=== PATIENT | female | born 1965 | race Caucasian/White ===

== ENCOUNTER → 2020-08-22 13:25 | Outpatient (BNVA) | payer MEDICAID, SELFPAY | PROVIDERS: PCP Internal Medicine; Referring Provider Internal Medicine; Visit Provider Nurse Practitioner | DX: K21.9 Gastro-esophageal reflux disease without esophagitis (principal); K59.04 Chronic idiopathic constipation | CPT/HCPCS: 99213 ==

== ENCOUNTER 2020-09-11 08:47 | Outpatient (REF) | payer MEDICAID, SELFPAY | END 2020-09-11 08:48 | disposition home or self-care (01) | LOC: HO.LAB 08:47 | PROVIDERS: Visit Provider Internal Medicine | DX: Z20.828 Contact with and (suspected) exposure to other viral communicable diseases (principal) | CPT/HCPCS: C9803; U0003 ==

== ENCOUNTER 2020-10-08 13:48 | Outpatient (REF) | payer MEDICAID, SELFPAY ==
--- NOTE | 2020-10-08 | MM_ITS ---
EXAMINATION: MM DIAGNOSTIC DIGITAL BREAST TOMOSYNTHESIS, LEFT CLINICAL INFORMATION: Short interval follow-up probable benign punctate calcifications lower left breast initially described on prior exam 03/22/2020. Family history breast cancer mother, sister. The lifetime risk of breast cancer based on the Tyrer-Cuzick Model is 16%. COMPARISON: Mammography: 03/22/2020, 03/20/2019, 03/07/2019, 02/22/2018 TECHNIQUE: Digital breast tomosynthesis is performed in both the craniocaudal and mediolateral oblique views along with computer-aided detection (CAD). Synthesized 2D images are generated from the tomosynthesis. Additional views are obtained: Exaggerated CC, magnification CC x2, magnification ML x2. FINDINGS: There are scattered areas of fibroglandular density (ACR BI-RADS breast composition Category b). Parenchymal pattern is similar to prior studies. There is no developing density or interval mass or architectural abnormality. There are some scattered punctate benign round calcifications. No focal grouping is demonstrated on the magnification views. Results are provided to the patient at time of visit by the technologist. MM/MM tomosynthesis diagnostic LT IMPRESSION: No mammographic evidence of malignancy. Magnification views show no focal suspicious grouping calcifications. ASSESSMENT: BI-RADS 2: Benign RECOMMENDATION: Routine annual mammography screening, due in 6 months. This patient's information was entered into a reminder system with a target due date for their next mammogram.
== END 2020-10-08 13:49 | disposition home or self-care (01) ==
LOC: HO.MAMMO 13:48
PROVIDERS: PCP Internal Medicine; Visit Provider Internal Medicine
DX: R92.1 Mammographic calcification found on diagnostic imaging of breast (principal)
CPT/HCPCS: 77061; 77065

== ENCOUNTER 2020-10-09 13:59 | Emergency (ER) | payer MEDICAID, SELFPAY ==
--- NOTE | 2020-10-09 14:13 | XR_ITS ---
EXAMINATION: XR HIP, LEFT CLINICAL INFORMATION: Fall, trauma, pain COMPARISON: Radiographs pelvis and hips 06/25/2015. CT abdomen and pelvis noncontrast 03/13/2019. TECHNIQUE: AP view of the pelvis and AP and frog-lateral projections left hip are obtained for 3 views. FINDINGS: There is no fracture or dislocation pelvis or hip. The SI joints and pubis show no diastases. Bowel gas is unremarkable. Soft tissue planes around the hips appears symmetric. There is a coil or springlike metallic foreign body overlying L2 vertebral body presumably outside of the patient, possibly related to clothing. Clinically correlate. XR/XR hip LT w PEL1V IMPRESSION: 1. No fracture or dislocation. 2. Metallic spring foreign body overlying L2, presumably artifact outside of the patient. Clinically correlate.
--- NOTE | 2020-10-09 14:13 | XR_ITS ---
EXAMINATION: XR KNEE, LEFT CLINICAL INFORMATION: Fall, trauma, pain COMPARISON: None TECHNIQUE: AP and lateral views of the left knee. FINDINGS: There is no fracture or dislocation or suprapatellar effusion. Hoffa's fat pad appears normal. There is no focal joint narrowing or erosive change. There is borderline spur medial femoral condyle and medial tibial plateau. No erosive changes. XR/XR knee LT 2V IMPRESSION: No fracture, dislocation, or effusion.
[2020-10-09 14:21] VITALS: BP 109/61; BP 122/64; PULSE 80; PULSE 86; RESP 16; TEMP 36.3; O2SAT 98; O2SAT 99; BMI 37.2
[2020-10-09] MEDS: Acetaminophen 325 MG TABLET 975 MG PO (14:31)
--- NOTE | 2020-10-09 15:27 | ED.FALL ---
HPI - Fall General Chief Complaint: Fall Stated Complaint: fall Time Seen by Provider: 10/09/20 14:10 Source: EMS Mode of arrival: EMS Limitations: language barrier ( aerial photograph interpreter present for all interactions) History of Present Illness HPI Narrative: 55-year-old female with no known past medical history presenting via EMS from [email or web address] with complaint of slip and fall. States she was walking into the shopping center and at the entry way there was some water on the floor which she slipped and fell onto her right knee suffering a contusion to the knee and having left knee and hip pain. She denies any prodromal symptoms. No back, chest , neck or headache. MD complaint: fall Onset (ago): minute(s) Fall witnessed: yes, by family and yes, by bystander Place fall occurred: other ( Shopping center) Loss of consciousness: none Prolonged down time: no Symptoms prior to fall: none Context: tripped/slipped Location of injury: other (Knee ) Related Data Previous Rx's Medication Instructions Recorded simethicone 180 mg capsule 180 mg PO TID PRN 30 Days #90 cap 08/22/20 allopurinol 100 mg tablet 100 mg PO DAILY 30 Days #30 tab 09/24/20 dexlansoprazole 60 mg 60 mg PO DAILY 30 Days #30 cap 09/25/20 capsule,biphase delayed release docusate sodium 100 mg capsule 100 mg PO BEDTIME 30 Days #30 cap 09/25/20 plecanatide 3 mg tablet 3 mg PO DAILY 30 Days #30 tab 09/25/20 Allergies Allergy/AdvReac Type Severity Reaction Status Date / Time Penicillins [PENICILLINS] Allergy Mild RASH Unverified 07/25/20 18:39 Sulfa (Sulfonamide Allergy Mild BRUISING,SWOLLEN Unverified 07/25/20 18:39 Antibiotics) LIPS, [SULFA (SULFONAMIDE rash, ANTIBIOTICS)] swollen lips amitriptyline Allergy Unknown headache Verified 10/23/16 00:00 fluoxetine [Prozac] Allergy Unknown sleepiness Verified 10/23/16 00:00 penicillin V Allergy Unknown echymosis, Unverified 05/28/20 00:00 rash as a child Review of Systems Review of Systems: Constitutional: No Weight loss, No Fever, No Chills, No Night Sweats, No Fatigue, No Malaise ENT/Mouth: No Rhinorrhea, No Swallowing Difficulty Eyes: No Eye Pain, No Swelling, No Redness, No Foreign Body, No Discharge, No Vision Changes Cardiovascular: No Chest Pain, No SOB, No Dyspnea on Exertion, No Orthopnea, No Edema, No Palpitations Respiratory: No Cough, No Sputum, No Wheezing, No Smoke Exposure, No Dyspnea Gastrointestinal: No Nausea, No Vomiting, No Diarrhea, No Constipation, No abdominal Pain, No Hematochezia, No Melena Genitourinary: No Dysuria, No Urinary Frequency, No Hematuria, No Urinary Incontinence, No Urgency, No Flank Pain Musculoskeletal: No joint pain, No Myalgias, No Joint Swelling Skin: No Skin Lesions, No rash Neuro: No Weakness, No Numbness, No Paresthesias, No Loss of Consciousness Psych: No Anxiety/Panic, No Depression, No SI/HI/AH/VH, No Social Issues Heme/Lymph: No Bruising, No Bleeding,No Lymphadenopathy Endocrine: No Polyuria, No Polydipsia, No Temperature Intolerance Yes all other systems are reviewed and are negative [facility] Past Medical History Medical History (Updated 10/09/20 @ 15:57 by Art Raymond NP) Asthma HTN (hypertension) Kidney stone Sleep apnea Surgical History (Updated 10/09/20 @ 14:25 by Beth Robert) Hx of endoscopy Previous back surgery Family History Family History (Updated 08/22/20 @ 13:34 by Ramya Woo MA) Father History of cancer Mother Hx of diabetes mellitus Social History Social History (Updated 08/22/20 @ 13:35 by Ramya Woo MA) Alcohol intake: never Smoking Status: Never smoker Advance Directives: No Advance Directives Information Provided: Yes Physical Exam Vital Signs: Vital Signs: Last Vital Signs Temp 97.4 F 10/09/20 14:21 Pulse 80 10/09/20 14:21 Resp 16 10/09/20 14:21 BP 109/61 10/09/20 14:21 Pulse Ox 98 10/09/20 14:21 Body Mass Index 37.2 Reviewed Const: General: cooperative and healthy appearing; No acute distress or intoxicated appearing Nutritional Appearance: average body habitus Orientation/consciousness: patient oriented x3 HENMT: Head: Yes normal to inspection Ears: hearing grossly normal bilaterally Eyes: General: appearance normal, both eyes and all related structures Visual Hendrix: normal visual hendrix by confrontation Neck: Neck: Yes normal visual inspection, No positive Brudzinski's sign, No positive Kernig's sign and No tender Thyroid: Thyroid normal Chest: Chest palpation & inspection: normal inspection of the chest Resp: Effort & Inspection: normal respiratory effort Cardio: Jugular venous distension: no JVD GI: Inspection: Yes normal to inspection Percussion: Yes normal to percussion Auscultation: normal bowel sounds : General: Yes no CVA tenderness Back/Spine/Pelvis: Back: no CVA tenderness Skin: General skin exam: no rashes or lesions noted Neuro: General: patient oriented x3 Extrem: General: Yes normal to inspection Elbow/forearm/wrist images: 1. slight area of less than 2 cm linear abrasion to the knee. Otherwise negative drawer test. No obvious deformity. Able to have full range of motion. Has subjective pain in the left hip otherwise no obvious deformity. Negative leg lift. no acute findings on low back pain exam. No midline to palpation, step-off. Course Course Course Narrative: x-ray of the left knee as well as x-ray of the left hip with pelvis without acute fracture. Patient able to get up by herself ambulated to the bathroom while she was waiting results of the x-ray. AP consists of mechanical fall resulting in contusion to the knee. Findings/ plan reviewed with the patient she is agreeable stable for discharge. Discharge Plan Discharge Clinical Impression: Fall Contusion of knee Qualifiers: Encounter type: initial encounter Laterality: left Qualified Code(s): S80.02XA - Contusion of left knee, initial encounter Patient Disposition: Home, Self-Care Instructions: Contusion in Adults (ED), Fall Prevention (ED) Additional Instructions: ice, elevate, compress Tylenol as needed for pain discomfort X-rays of the knee hip and pelvis does not show any acute fractures you have a soft tissue bruise and will start to feel better in a day or 2 Return if any concerns or worsening symptoms Thank you Prescriptions: No Action simethicone [Gas Relief (simethicone)] 180 mg capsule 180 mg PO TID PRN (Reason: abdominal distention, gas) 30 Days Qty: 90 RF: 3 allopurinol 100 mg tablet 100 mg PO DAILY 30 Days Qty: 30 RF: 3 Dexilant 60 mg capsule,biphase delayed releas 60 mg PO DAILY 30 Days Qty: 30 RF: 3 Trulance 3 mg tablet 3 mg PO DAILY 30 Days Qty: 30 RF: 3 docusate sodium [Colace] 100 mg capsule 100 mg PO BEDTIME 30 Days Qty: 30 RF: 3 Referrals: Alexandra Pillai MD [Primary Care Provider] - 1 week ( as needed)
== END 2020-10-09 16:10 | disposition home or self-care (01) ==
PROVIDERS: Emergency Provider Emergency Medicine; PCP Internal Medicine
DX: S80.02XA Contusion of left knee, initial encounter (principal); M25.562 Pain in left knee; W01.0XXA Fall on same level from slipping, tripping and stumbling without subsequent striking against object, initial encounter; Y93.9 Activity, unspecified; Y92.59 Other trade areas as the place of occurrence of the external cause; Y99.9 Unspecified external cause status; Z79.899 Other long term (current) drug therapy
CPT/HCPCS: 73502; 73560; 99283

== ENCOUNTER → 2020-11-13 09:56 | Outpatient (REF) | payer MEDICAID, SELFPAY | LOC: HO.CARD 09:56 | PROVIDERS: Visit Provider Internal Medicine Cardiovascular Disease | DX: Z13.89 Encounter for screening for other disorder (principal) ==

== ENCOUNTER → 2020-11-27 07:54 | Outpatient (REF) | payer MEDICAID, SELFPAY ==
--- NOTE | 2020-11-27 | NM_ITS ---
Myocardial perfusion study Indication: Shortness of breath evaluate for myocardial ischemia Technique: The patient was brought in for a Lexiscan perfusion study on 11/27/2020. Patient performed low-level exercise and was injected 0.4 mg of Lexiscan intravenously. Within a minute of injection, 30 mCi of sestamibi was given intravenously. Images were obtained using the SPECT gamma camera interlaced with the gating device. Images were obtained in supine position. Resting perfusion study was performed on 11/28/2020. Patient was administered 30 mCi of sestamibi intravenously at rest. Images were then obtained in supine position. Images obtained with and without CT attenuation. Total DLP 80 mGy-cm. Images were processed with the software and compared side to side in short axis, horizontal long axis and vertical long axis views. Findings: The stress perfusion study showed non attenuated images show mildly reduced uptake in the apex, anteroseptal and distal lateral wall of the LV myocardium. Attenuation corrected images show mildly reduced uptake in the apex and distal septum of the LV myocardium.. The gated study shows normal LV systolic function with calculated LVEF of 73%. LV cavity is normal in size. The gated study shows normal systolic wall thickening and contraction of segments. Resting study shows nontender images show no significant changes in perfusion pattern. Gating at rest reveals normal systolic wall motion with ejection fraction at greater than 70 %. The findings are consistent with normal myocardial perfusion. NM/NM tova perf SPECT rest & str Impression: 1. Myocardial perfusion imaging study shows normal myocardial perfusion 2. Gated LVEF is greater than 70% 3. Transient ischemic dilatation not present EKG is nondiagnostic for ischemia
--- NOTE | 2020-11-27 08:30 | CA_ITS ---
Acquisition Time: 2020-11-27 09:36:05 Total Exercise Time: 00:02:00 Test Indications: R07.89 ATYPICAL CHEST PAIN Medications: Protocol: LEXISCAN Max HR: 103 BPM 62% of Pred: 166 BPM Max BP: 122/068 mmHG Max Work Load: 1.0 METS Exercise florentino switched to pharmacological as pt was unable to walk on the Treadmill for only 3 minutes and 20 seconds, her heart rate went up to 70% of TAPHR. Pharmacological stress test using Lexiscan started after pt rested for 10 min. Pt tolerated well, denies any anginal sx. EKG without arrhythmias. non-diagnostic for ischemia. Nuclear images to follow. Normotensive response to test. Test reviewed with Dr Jordan Referred By: Ela Gaona Overread By: Hector Corbett
== END ==
LOC: HO.CARD 07:54
PROVIDERS: Visit Provider Internal Medicine Cardiovascular Disease
DX: R07.89 Other chest pain (principal)
CPT/HCPCS: 78452; 93017; A9500; J0280; J2785

== ENCOUNTER → 2021-03-17 08:39 | Outpatient (BNVA) | payer MEDICAID, SELFPAY | PROVIDERS: Visit Provider Nurse Practitioner ==

== ENCOUNTER 2021-03-29 22:56 | Emergency (ER) | payer MEDICAID, SELFPAY ==
--- NOTE | ~2021-03-29 | XR_ITS ---
EXAMINATION: XR CHEST CLINICAL INFORMATION: Dyspnea COMPARISON: 08/31/2017 TECHNIQUE: Frontal view of the chest was obtained. FINDINGS: Lung volumes are symmetric. No focal consolidation is seen. No evidence of pneumothorax, pleural effusion, or pulmonary edema. The cardiomediastinal contour is unremarkable. No acute osseous findings are seen. XR/XR chest 1V IMPRESSION: No acute cardiopulmonary findings.
--- NOTE | 2021-03-29 23:00 | ED_ITS ---
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 Mode of arrival: EMS Limitations: no limitations History of Present Illness HPI Narrative: RA 98% with EMS prior to 2 nebs and IV steroids MD elicited complaint: shortness of breath, cough and asthma attack Pertinent past history: COPD and asthma Onset (ago): day(s) (all day today) Context: allergen exposure (at a park with her family today exposed to a lot of pollen) Timing: improved Severity: moderate Exacerbating factors: coughing Relieving factors: bronchodilators Known history of: COPD and asthma Associated symptoms: cough and wheezing Treatment prior to arrival: bronchodilator and other (IV solumedrol by EMS) Related Data Previous Rx's Medication Instructions Recorded allopurinol 100 mg tablet 100 mg PO DAILY 30 Days #30 tab 12/26/20 dexlansoprazole 60 mg 60 mg PO DAILY #30 cap 01/06/21 capsule,biphase delayed release simethicone 180 mg capsule 180 mg PO QID #90 cap 01/06/21 docusate sodium 100 mg capsule 100 mg PO BEDTIME #30 cap 01/20/21 plecanatide 3 mg tablet 3 mg PO DAILY #30 tab 01/29/21 famotidine 20 mg tablet 20 mg PO BID 30 Days #60 tab 03/17/21 benzonatate [Tessalon Perles] 100 mg PO BID PRN #14 cap 03/30/21 hydrocodone-homatropine 5 ml PO Q6H PRN #60 ml 03/30/21 prednisone 40 mg PO DAILY 5 Days #10 tab 03/30/21 Allergies Allergy/AdvReac Type Severity Reaction Status Date / Time Penicillins [PENICILLINS] Allergy Mild RASH Verified 03/17/21 08:40 Sulfa (Sulfonamide Allergy Mild BRUISING,SWOLLEN Verified 03/17/21 08:40 Antibiotics) LIPS, [SULFA (SULFONAMIDE rash, ANTIBIOTICS)] swollen lips amitriptyline Allergy Unknown headache Verified 03/17/21 08:40 fluoxetine [Prozac] Allergy Unknown sleepiness Verified 03/17/21 08:40 penicillin V Allergy Unknown echymosis, Verified 03/17/21 08:40 rash as a child Review of Systems Review of Systems: Constitutional : No Fever, No Chills ENT/Mouth : pos Hoarseness, No sore throat, No Rhinorrhea Eyes: No Redness, No Discharge, No Vision Changes Cardiovascular : No Chest Pain, positive SOB, positive Dyspnea on Exertion, No Edema Respiratory : positive Cough, No Sputum, positive Wheezing, Gastrointestinal : No Nausea, No Vomiting, No Diarrhea, No abdominal Pain Genitourinary : No Dysuria, No Hematuria Musculoskeletal : No joint pain, No Myalgias Skin : No rash Neuro : No Weakness, No Numbness, No Headache Psych : No anxiety, depression Heme/Lymph: No Bruising, No Bleeding Endocrine : No Polyuria, No Polydipsia All other systems reviewed and are negative [facility] Past Medical History Attestation statement: The following information was validated with the patient. Medical History Asthma HTN (hypertension) Kidney stone Sleep apnea Surgical History Hx of endoscopy Previous back surgery Family History Family History Father History of cancer Mother Hx of diabetes mellitus Social History Social History Household Members: Spouse Alcohol intake: never Smoking Status: Never smoker Advance Directives: No Advance Directives Information Provided: No Physical Exam Vital Signs: Vital Signs: Last Vital Signs Pulse 75 03/30/21 01:59 Resp 13 03/30/21 01:59 BP 115/64 03/30/21 01:59 Pulse Ox 97 03/29/21 23:36 Body Mass Index 37.2 Appearance: Alert. Oriented X3. No acute distress. Eyes: Pupils equal, round and reactive to light. ENT: Pharynx normal. dry cough, hoarse voice Neck: Normal inspection. Neck supple. CVS: Normal heart rate and rhythm. Pulses normal. Respiratory: No respiratory distress. Breath sounds decreased Abdomen: Soft and nontender. Skin: Skin warm and dry. Normal skin color. Normal skin turgor. Extremities: No lower extremity edema. No calf ttp Neuro: Oriented X 3. No motor deficit. No sensory deficit. Course Course Course Narrative: no wheezing no hypoxia still c/o cough repeat dose of hycodan ordered, CXR negative, no further nebs needed anticipate DC home with prednisone and anti tussive MDM - SOB/Dyspnea MDM Narrative Medical decision making narrative: 55 yo female with hx of GERD< COPD, asthma exposed to pollen all day today noted to be wheezing by EMS given 2 nebs and IV steroids, she states this is typical of an exacerbation for her, labs, CXR, r epeat neb and anti tussive ordered, dispo per results and findings. Lab Data Result diagrams: 03/29/21 23:57 03/29/21 23:57 Labs: Lab Results 03/29/21 03/29/21 03/29/21 Range/Units 23:57 23:57 23:57 WBC 7.8 (4.8-10.8) X10*3/uL RBC 4.19 L (4.20-5.50) X10*6/uL Hgb 12.1 (12.0-16.0) g/dl Hct 36.9 L (37-47) % MCV 88.1 (80-98) fL MCH 28.9 (27.0-33.0) pg MCHC 32.8 (31.0-35.0) g/dl RDW 13.5 (11.0-16.0) % Plt Count 225 (160-400) X10*3/uL MPV 10.6 (9.4-12.3) fL Immature Gran % (Auto) 0.5 H (0.0-0.4) % Neut % (Auto) 54.8 (45-73) % Lymph % (Auto) 34.0 (20-40) % [place] % (Auto) 6.9 (2-11) % Eos % (Auto) 3.2 (0-4) % Baso % (Auto) 0.6 (0-2) % Lymph # (Auto) 2.7 (1.2-4.9) X10*3/uL [place] # (Auto) 0.5 (0.1-1.2) X10*3/uL Eos # (Auto) 0.3 (0.0-0.4) X10*3/uL Baso # (Auto) 0.1 (0.0-0.2) X10*3/uL Abs Immat Gran (auto) 0.04 H (0.00-0.03) X10*3/uL Absolute Neuts (auto) 4.3 (2.0-8.3) X10*3/uL Absolute Nucleated RBC 0.000 (0.0-0.012) X10*3/uL Nucleated RBC % (auto) 0.0 (0.0-0.2) /100WBC Hold Blue Top SEE NOTE Sodium 141 (135-145) mmol/L Potassium 2.6 L (3.3-5.1) mmol/L Chloride 102 (96-108) mmol/L Carbon Dioxide 28 (22-29) mmol/L Anion Gap 14 (12-20) BUN 23 H (9-16) mg/dL Creatinine 0.81 (0.5-1.4) mg/dL Estim Creat Clear Calc 80.7 Estimated GFR > 60 Random Glucose 112 (60-115) mg/dL Calcium 9.2 (8.4-10.2) mg/dL Magnesium 2.1 (1.6-2.6) mg/dL Total Bilirubin 0.5 (0.0-1.0) mg/dL Direct Bilirubin 0.2 (0.0-0.5) mg/dL AST 45 H (5-31) U/L ALT 30 (0-31) U/L Alkaline Phosphatase 79 (39-117) U/L Total Protein 6.7 (6.5-8.0) g/dL Albumin 4.0 (3.5-5.0) g/dL COVID-19 (SAMMY) (Negative) COVID-19 Clin Com 03/29/21 Range/Units 23:57 WBC (4.8-10.8) X10*3/uL RBC (4.20-5.50) X10*6/uL Hgb (12.0-16.0) g/dl Hct (37-47) % MCV (80-98) fL MCH (27.0-33.0) pg MCHC (31.0-35.0) g/dl RDW (11.0-16.0) % Plt Count (160-400) X10*3/uL MPV (9.4-12.3) fL Immature Gran % (Auto) (0.0-0.4) % Neut % (Auto) (45-73) % Lymph % (Auto) (20-40) % [place] % (Auto) (2-11) % Eos % (Auto) (0-4) % Baso % (Auto) (0-2) % Lymph # (Auto) (1.2-4.9) X10*3/uL [place] # (Auto) (0.1-1.2) X10*3/uL Eos # (Auto) (0.0-0.4) X10*3/uL Baso # (Auto) (0.0-0.2) X10*3/uL Abs Immat Gran (auto) (0.00-0.03) X10*3/uL Absolute Neuts (auto) (2.0-8.3) X10*3/uL Absolute Nucleated RBC (0.0-0.012) X10*3/uL Nucleated RBC % (auto) (0.0-0.2) /100WBC Hold Blue Top Sodium (135-145) mmol/L Potassium (3.3-5.1) mmol/L Chloride (96-108) mmol/L Carbon Dioxide (22-29) mmol/L Anion Gap (12-20) BUN (9-16) mg/dL Creatinine (0.5-1.4) mg/dL Estim Creat Clear Calc Estimated GFR Random Glucose (60-115) mg/dL Calcium (8.4-10.2) mg/dL Magnesium (1.6-2.6) mg/dL Total Bilirubin (0.0-1.0) mg/dL Direct Bilirubin (0.0-0.5) mg/dL AST (5-31) U/L ALT (0-31) U/L Alkaline Phosphatase (39-117) U/L Total Protein (6.5-8.0) g/dL Albumin (3.5-5.0) g/dL COVID-19 (SAMMY) Negative (Negative) COVID-19 Clin Com See Note ECG Data Attestation: I personally reviewed and interpreted this ECG as follows: ECG interpretation date: 03/30/21 ECG interpretation time: 02:10 Interpretation: Rate: 71 Rhythm: NSR [place]: normal Normal P waves. Normal [place]. Normal QRS complex. ST T wave : normal no ABDIRIZAK qTC: normal prior studies: no acute ischemia The study has been interpreted contemporaneously by me. . Discharge Plan Discharge Clinical Impression: Acute hypokalemia Asthma with exacerbation Qualifiers: Asthma severity: moderate Asthma persistence: persistent Qualified Code(s): J45.41 - Moderate persistent asthma with (acute) exacerbation Patient Disposition: Home, Self-Care Instructions: Asthma (ED), Hypokalemia (ED) Additional Instructions: return to ED for any worsening symptoms or concerns Prescriptions: New prednisone 20 mg tablet 40 mg PO DAILY 5 Days Qty: 10 RF: 0 hydrocodone-homatropine 5-1.5 mg/5 mL (5 mL) syrup 5 ml PO Q6H PRN (Reason: cough) Qty: 60 RF: 0 benzonatate [Tessalon Perles] 100 mg capsule 100 mg PO BID PRN (Reason: cough) Qty: 14 RF: 0 No Action allopurinol 100 mg tablet 100 mg PO DAILY 30 Days Qty: 30 RF: 6 simethicone 180 mg capsule 180 mg PO QID Qty: 90 RF: 2 dexlansoprazole [Dexilant] 60 mg capsule,biphase delayed releas 60 mg PO DAILY Qty: 30 RF: 2 docusate sodium [DOK] 100 mg capsule 100 mg PO BEDTIME Qty: 30 RF: 3 plecanatide [Trulance] 3 mg tablet 3 mg PO DAILY Qty: 30 RF: 2 famotidine [Pepcid] 20 mg tablet 20 mg PO BID 30 Days Qty: 60 RF: 3 Print Language: Greek
--- NOTE | 2021-03-29 23:20 | ECG_ITS ---
Test Reason : SOB Blood Pressure : / mmHG Vent. Rate : 071 BPM Atrial Rate : 071 BPM P-R Int : 156 ms QRS Dur : 088 ms QT Int : 422 ms P-R-T Axes : 025 033 014 degrees QTc Int : 458 ms Normal sinus rhythm Normal ECG When compared with ECG of 17-NOV-2018 13:21, QT has lengthened Referred By: Crystal Galaviz Electronically Signed By:BETTE ALANIS MD
[2021-03-29 23:36] VITALS: BP 115/64; PULSE 72; RESP 17; O2SAT 97; BMI 37.2
[2021-03-30 00:04] LABS: MANUAL DIFF FLAG NO
[2021-03-30 00:07] LABS: Basophils Absolute Auto 0.1 X10*3/uL (0.0-0.2); Basophils Percent Auto 0.6 % (0-2); Eosinophils Absolute Auto 0.3 X10*3/uL (0.0-0.4); Eosinophils Percent Auto 3.2 % (0-4); Hematocrit 36.9 % (37-47); Hemoglobin 12.1 g/dl (12.0-16.0); Imm Gran Abs Auto 0.04 X10*3/uL (0.00-0.03); Imm Gran Pct Auto 0.5 % (0.0-0.4); Lymphocytes Absolute Auto 2.7 X10*3/uL (1.2-4.9); Mean Corpuscular HGB Conc 32.8 g/dl (31.0-35.0); Mean Corpuscular Hemoglobin 28.9 pg (27.0-33.0); Mean Corpuscular Volume 88.1 fL (80-98); Mean Platelet Volume 10.6 fL (9.4-12.3); Monocytes Absolute Auto 0.5 X10*3/uL (0.1-1.2); Monocytes Percent Auto 6.9 % (2-11); Neutrophils Absolute Auto 4.3 X10*3/uL (2.0-8.3); Neutrophils Percent Auto 54.8 % (45-73); Platelet Count 225 X10*3/uL (160-400); Red Blood Count 4.19 X10*6/uL (4.20-5.50); Red Cell Distribution Width 13.5 % (11.0-16.0); White Blood Count 7.8 X10*3/uL (4.8-10.8)
[2021-03-30] MEDS: Benzonatate 100 MG CAPSULE PO (00:23)
[2021-03-30] MEDS: HYDROcodone/Homat 5/1.5/5 ML 5 ML SYRUP PO (00:23)
[2021-03-30 00:27] LABS: COVID-19 Test Negative (Negative)
[2021-03-30 00:33] LABS: Alanine Aminotransferase 30 U/L (0-31); Alkaline Phosphatase 79 U/L (39-117); Anion Gap 14 (12-20); Aspartate Amino Transferase 45 U/L (5-31); Bilirubin Direct 0.2 mg/dL (0.0-0.5); Bilirubin Total 0.5 mg/dL (0.0-1.0); Blood Urea Nitrogen 23 mg/dL (9-16); Calcium 9.2 mg/dL (8.4-10.2); Carbon Dioxide 28 mmol/L (22-29); Chloride 102 mmol/L (96-108); Creatinine Clr Calc Pharmacy 80.7; Estimated Glomerular Filt Rate > 60; Glucose Random 112 mg/dL (60-115); Magnesium 2.1 mg/dL (1.6-2.6); Potassium 2.6 mmol/L (3.3-5.1); Sodium 141 mmol/L (135-145); Total Protein 6.7 g/dL (6.5-8.0)
[2021-03-30] MEDS: Albuterol Sulfate (0.083%) 2.5 MG/3 ML VIAL.NEB INHALE (00:43)
[2021-03-30 00:44] VITALS: PULSE 73; O2SAT 98
[2021-03-30] MEDS: Potassium Chloride ER 20 MEQ TAB.ER.PRT 40 MEQ PO (01:20)
[2021-03-30 01:59] VITALS: BP 115/64; PULSE 75; RESP 13
[2021-03-30] MEDS: KCl 40 mEq in 0.9 % Sodium Chl 40 MEQ/1,000 ML IV.SOLN 250 MEQ IVCONT (02:00)
[2021-03-30] MEDS: guaiFEN/Codeine SF 200/20/10ML 10 ML LIQUID PO (02:53)
[2021-03-30 05:18] VITALS: PULSE 72; RESP 16; O2SAT 94
[2021-03-30 06:00] VITALS: BP 103/64; PULSE 74; RESP 17; O2SAT 95
== END 2021-03-30 08:29 | disposition home or self-care (01) ==
PROVIDERS: Emergency Provider Emergency Medicine
DX: J45.41 Moderate persistent asthma with (acute) exacerbation (principal); E87.6 Hypokalemia; R06.02 Shortness of breath; Z20.822 Contact with and (suspected) exposure to COVID-19; Z79.899 Other long term (current) drug therapy
CPT/HCPCS: 36415; 71045; 80048; 80076; 83735; 85025; 87635; 93005; 94640; 96365; 99284

== ENCOUNTER 2021-04-18 11:49 | Outpatient (REF) | payer MEDICAID, SELFPAY ==
--- NOTE | ~2021-04-18 | MM_ITS ---
EXAMINATION: MM SCREENING DIGITAL BREAST TOMOSYNTHESIS, BILATERAL CLINICAL INFORMATION: Screening. Asymptomatic. The lifetime risk of breast cancer based on the Tyrer-Cuzick Model is 5%. COMPARISON: Mammography: 10/08/2020, 03/22/2020, 09/22/2019 TECHNIQUE: Digital breast tomosynthesis is performed in both the craniocaudal and mediolateral oblique views along with computer-aided detection (CAD). Synthesized 2D images are generated from the tomosynthesis. Additional right MLO view is provided. FINDINGS: There are scattered areas of fibroglandular density (ACR BI-RADS breast composition Category b). There are no significant masses, abnormal calcifications, or other abnormalities. Parenchymal pattern is similar to prior exams. No significant changes. MM/MM tomosynthesis screening BI IMPRESSION: No mammographic evidence of malignancy. ASSESSMENT: BI-RADS 1: Negative RECOMMENDATION: Routine annual mammography screening. This patient's information was entered into a reminder system with a target due date for their next mammogram.
== END 2021-04-18 11:50 | disposition home or self-care (01) ==
LOC: HO.MAMMO 11:49
PROVIDERS: Visit Provider Internal Medicine
DX: Z12.31 Encounter for screening mammogram for malignant neoplasm of breast (principal)
CPT/HCPCS: 77063; 77067

== ENCOUNTER 2021-05-01 08:44 | Outpatient (REF) | payer MEDICAID, SELFPAY ==
--- NOTE | ~2021-05-01 | US_ITS ---
EXAMINATION: US ABDOMEN COMPLETE CLINICAL INFORMATION: Early satiety. COMPARISON: Renal ultrasound 05/16/2020 and 12/28/2019. CT abdomen and pelvis 03/13/2019. KUB 03/08/2019 and 09/29/2016. TECHNIQUE: Real-time imaging of the abdominal viscera. FINDINGS: PANCREAS: Normal. ABDOMINAL AORTA: The proximal, mid, and distal segments are normal in caliber. INFERIOR VENA CAVA: Visualized portions are normal. LIVER: Liver echotexture is increased. The liver is enlarged, right lobe measuring 20 cm in length. Liver contour is normal. No focal hepatic lesion. There is no intrahepatic biliary duct dilatation seen. GALLBLADDER: Normal. The gallbladder is physiologically distended without evidence of stones, sludge, polyps, wall thickening or pericholecystic fluid. COMMON BILE DUCT: Normal in caliber measuring 0.5 cm in diameter. RIGHT KIDNEY: Normal. No hydronephrosis. No renal calculi or focal parenchymal lesions. The kidney measures 11.6 cm in maximum dimension. LEFT KIDNEY: Normal. No hydronephrosis. No renal calculi or focal parenchymal lesions. The kidney measures 10.8 cm in maximum dimension. SPLEEN: Normal. The spleen measures 10.2 cm in maximum dimension. FREE FLUID: None. US/US abdomen complete IMPRESSION: Enlarged echogenic liver probably representing fatty infiltration.
[2021-05-06 16:11] LABS: Transglutaminase Ab IgG 1 U/mL; Transglutaminase IgA 1 U/mL
[2021-05-06 22:36] LABS: Gliadin Deamidated IgA Ab 4 Units; Gliadin Deamidated IgG Ab 1 Units
== END 2021-05-01 08:45 | disposition home or self-care (01) ==
LOC: HO.US 08:44
PROVIDERS: Visit Provider Nurse Practitioner
DX: R10.13 Epigastric pain (principal); R68.81 Early satiety; K21.9 Gastro-esophageal reflux disease without esophagitis; R14.0 Abdominal distension (gaseous)
CPT/HCPCS: 36415; 76700; 83516

== ENCOUNTER 2021-05-11 13:18 | Emergency (ER) | payer MEDICAID, SELFPAY ==
--- NOTE | ~2021-05-11 | CT_ITS ---
EXAMINATION: CT ABDOMEN AND PELVIS WITH CONTRAST CLINICAL INFORMATION: Flank pain COMPARISON: CT abdomen pelvis 09/11/2018 and 03/13/2019 and renal ultrasound 05/01/2021. TECHNIQUE: Multidetector volumetric images were obtained from the superior aspect of the liver through the pubic symphysis following administration 85 mL of Omnipaque 350 intravenous contrast. Sagittal and coronal reformatted images were obtained on the technologist's workstation. Oral contrast: No This CT examination was performed using dose optimization techniques as appropriate, variously including the following: *Automated exposure control *Adjustment of mA and/or kV according to patient size (this includes techniques or standardized protocols for targeted exams where dose is matched to indication/reason for exam; i.e. extremities or head) *Use of iterative reconstruction technique DLP: 702 mGy-cm FINDINGS: LUNG BASES: A calcified granuloma is seen in the lingula anteriorly, unchanged. Lung bases are otherwise clear. LIVER, GALLBLADDER, AND BILIARY TREE: The liver is enlarged and decreased in attenuation consistent with hepatic steatosis. No focal hepatic masses. No dilated bile ducts. The gallbladder is unremarkable with no evidence of radiopaque gallstones, gallbladder wall thickening, or obvious pericholecystic inflammatory changes. PANCREAS: Unremarkable. SPLEEN: Unremarkable. ADRENAL GLANDS: Unremarkable. KIDNEYS AND URETERS: The right kidney shows good cortical thickness without calculus or hydronephrosis. No evidence of ureteral dilatation or urolithiasis. The left kidney is slightly smaller than the right (past history of subcapsular hematoma). No acute calculus or parenchymal abnormality. A tiny cyst is seen at the upper pole of the left kidney. Mildly dilated extrarenal pelvis is seen, chronic. No evidence of ureteral dilatation or urolithiasis. BLADDER: Unremarkable. GASTROINTESTINAL TRACT: No significant hiatal hernia. No gastric dilatation. No dilatation of the small or large bowel. A small amount of stool is seen in the colon. The appendix is normal. ABDOMINAL WALL: No significant hernia is appreciated. LYMPH NODES: Normal. VASCULAR: Unremarkable. PELVIC VISCERA: Status post hysterectomy. No evidence of pelvic mass. The ovaries are normal in size and appearance. OSSEOUS STRUCTURES: Unremarkable. CT/CT abdomen pelvis w con IMPRESSION: No acute abnormality to explain the patient's pain. The left kidney is smaller than the right, not acute. There is chronic mild fullness of the left renal pelvis. No nephrolithiasis or urolithiasis is seen. Hepatomegaly and hepatic steatosis is present.
[2021-05-11 13:21] VITALS: BP 111/60; PULSE 73; RESP 18; TEMP 37.1; O2SAT 100; BMI 37.0
[2021-05-11 13:52] LABS: Glucose Urine UA NEG (NEG); Leukocyte Esterase Urine TRACE (NEG); Nitrite Urine NEG (NEG); Specific Gravity - Urine <= 1.005 (1.005-1.025); UACC Culture Trigger YES; Urine Blood TRACE (NEG); Urine Ketones NEG (NEG); Urine Protein NEG (NEG-TRACE)
[2021-05-11 13:54] LABS: Appearance Urine HAZY; Color Urine YELLOW
[2021-05-11 14:04] LABS: RBC Urine 0-2 /HPF (0)
[2021-05-11 14:05] LABS: Bacteria Urine TRACE /LPF; Mucus Urine 1+ /LPF; Squamous Epithelial Cell Urine 1+ /LPF
[2021-05-11] MEDS: 0.9 % Sodium Chloride 1,000 ML 999 ML IV (14:14)
[2021-05-11] MEDS: Ketorolac Tromethamine 30 MG/ML VIAL IVPUSH (14:14)
[2021-05-11 14:15] LABS: MANUAL DIFF FLAG NO
[2021-05-11 14:16] LABS: UPreg QC Valid YES; Urine Pregnancy NEGATIVE (NEGATIVE)
[2021-05-11 14:16] LABS: Basophils Percent Auto 0.4 % (0-2); Eosinophils Absolute Auto 0.2 X10*3/uL (0.0-0.4); Hematocrit 35.1 % (37-47); Hemoglobin 11.5 g/dl (12.0-16.0); Imm Gran Abs Auto 0.02 X10*3/uL (0.00-0.03); Imm Gran Pct Auto 0.2 % (0.0-0.4); Lymphocytes Absolute Auto 2.8 X10*3/uL (1.2-4.9); Lymphocytes Percent Auto 34.2 % (20-40); Mean Corpuscular HGB Conc 32.8 g/dl (31.0-35.0); Mean Corpuscular Hemoglobin 29.3 pg (27.0-33.0); Mean Corpuscular Volume 89.5 fL (80-98); Mean Platelet Volume 10.8 fL (9.4-12.3); Monocytes Absolute Auto 0.6 X10*3/uL (0.1-1.2); Monocytes Percent Auto 7.1 % (2-11); Neutrophils Absolute Auto 4.5 X10*3/uL (2.0-8.3); Neutrophils Percent Auto 56.1 % (45-73); Platelet Count 224 X10*3/uL (160-400); Red Blood Count 3.92 X10*6/uL (4.20-5.50); Red Cell Distribution Width 13.6 % (11.0-16.0); White Blood Count 8.1 X10*3/uL (4.8-10.8)
[2021-05-11 14:42] LABS: Alanine Aminotransferase 25 U/L (0-31); Albumin Level 3.7 g/dL (3.5-5.0); Alkaline Phosphatase 76 U/L (39-117); Anion Gap 13 (12-20); Aspartate Amino Transferase 31 U/L (5-31); Bilirubin Direct < 0.2 mg/dL (0.0-0.5); Bilirubin Total 0.3 mg/dL (0.0-1.0); Blood Urea Nitrogen 18 mg/dL (9-16); Calcium 9.3 mg/dL (8.4-10.2); Carbon Dioxide 29 mmol/L (22-29); Chloride 100 mmol/L (96-108); Creatinine Clr Calc Pharmacy 75.8; Estimated Glomerular Filt Rate > 60; Glucose Random 115 mg/dL (60-115); Lipase 23 U/L (8-78); Sodium 139 mmol/L (135-145); Total Protein 6.3 g/dL (6.5-8.0)
[2021-05-11] MEDS: iohexoL 350 MG/ML 100 ML INFUS..BTL IV (15:16)
--- NOTE | 2021-05-11 15:35 | ED.ABDPAIN ---
HPI - Abdominal Pain General Chief Complaint: Abdominal Pain Stated Complaint: KIDNEY STONE Time Seen by Provider: 05/11/21 13:37 Source: patient Mode of arrival: ambulatory Limitations: no limitations History of Present Illness HPI narrative: patient presents to the ED for left flank pain for the past 4 days with nausea and vomiting. Patient denies any dysuria, hematuria, vaginal discharge, vaginal bleeding, Chest pain, shortness of breath, or any recent trauma MD elicited complaint: flank pain Related Data Previous Rx's Medication Instructions Recorded allopurinol 100 mg tablet 100 mg PO DAILY 30 Days #30 tab 12/26/20 dexlansoprazole 60 mg 60 mg PO DAILY #30 cap 01/06/21 capsule,biphase delayed release simethicone 180 mg capsule 180 mg PO QID #90 cap 01/06/21 docusate sodium 100 mg capsule 100 mg PO BEDTIME #30 cap 01/20/21 plecanatide 3 mg tablet 3 mg PO DAILY #30 tab 01/29/21 famotidine 20 mg tablet 20 mg PO BID 30 Days #60 tab 03/17/21 benzonatate [Tessalon Perles] 100 mg PO BID PRN #14 cap 03/30/21 hydrocodone-homatropine 5 ml PO Q6H PRN #60 ml 03/30/21 prednisone 40 mg PO DAILY 5 Days #10 tab 03/30/21 Allergies Allergy/AdvReac Type Severity Reaction Status Date / Time Penicillins [PENICILLINS] Allergy Mild RASH Verified 05/11/21 13:21 Sulfa (Sulfonamide Allergy Mild BRUISING,SWOLLEN Verified 05/11/21 13:21 Antibiotics) LIPS, [SULFA (SULFONAMIDE rash, ANTIBIOTICS)] swollen lips amitriptyline Allergy Unknown headache Verified 05/11/21 13:21 fluoxetine [Prozac] Allergy Unknown sleepiness Verified 05/11/21 13:21 penicillin V Allergy Unknown echymosis, Verified 05/11/21 13:21 rash as a child Review of Systems Review of Systems Yes all other systems are reviewed and are negative Constitutional: Reports as per HPI and Reports no additional constitutional complaints Eyes: Reports as per HPI and Reports no additional eye complaints Reports system reviewed and no additional complaints, except as documented and Reports as per HPI Cardiovascular: Reports as per HPI and Reports no additional cardiovascular complaints Respiratory: Reports as per HPI and Reports no additional respiratory complaints Gastrointestinal: Reports as per HPI and Reports no additional gastrointestinal complaints Comments: left flank pain Genitourinary: Reports no additional female genitourinary complaints and Reports as per HPI Musculoskeletal: Reports no additional musculoskeletal complaints and Reports as per HPI Reports system reviewed and no additional complaints, except as documented and Reports as per HPI Psychiatric: Reports no additional psychiatric complaints and Reports as per HPI Physical Exam Vital Signs: Vital Signs: Last Vital Signs Temp 98.1 F 05/11/21 17:18 Pulse 55 05/11/21 17:18 Resp 16 05/11/21 17:18 BP 106/60 05/11/21 17:18 Pulse Ox 98 05/11/21 17:18 Body Mass Index 37.0 Const: General: cooperative, healthy appearing, comfortable, no acute distress, well developed, alert and awake Orientation/consciousness: patient oriented x3 HENMT: Head: Yes normal to inspection, Yes No palpable skull fracture present, Yes normocephalic, Yes atraumatic and No abrasion Neck: Neck: Yes normal visual inspection, Yes full ROM, Yes no lymphadenopathy, Yes no meningeal signs, Yes trachea midline, Yes supple and No tender Chest: Chest palpation & inspection: normal inspection of the chest and normal palpation of entire chest wall Resp: Effort & Inspection: normal respiratory effort and able to speak in complete sentences Auscultation: clear to auscultation bilaterally GI: Inspection: Yes normal to inspection and No abdominal wall ecchymosis Palpation (GI): not firm, nontender, no guarding and not rigid : General: Yes CVA tenderness ( left flank pain) Back/Spine/Pelvis: Back: CVA tenderness ( left flank pain) Skin: General skin exam: no rashes or lesions noted and elasticity normal Neuro: General: patient oriented x3, gait normal, no meningeal signs and CN's II-XI intact bilaterally Cranial nerves: Yes CN's II-XII intact bilaterally Extrem: General: Yes normal to inspection and Yes full ROM Psych: Appearance: grossly normal, well kempt and not disheveled Course Course Course Narrative: will do labs. Reevaluation(s) Reevaluation #1: UA does not show much blood will send for CT scan with contrast. Labs negative for white blood cell count elevation. Kidney function normal. UA negative for UTI. Time: 15:44 Reevaluation #2: CT scan negative for any intra abdominal processes. patient given potassium. abdominal CT scan negative for kidney stones or any other etiology. patient already has oxycodone at home. Time: 17:24 MDM - Abdominal Pain MDM Narrative Medical decision making narrative: Flank pain Lab Data Result diagrams: 05/11/21 14:06 05/11/21 14:06 Labs: Lab Results 05/11/21 05/11/21 05/11/21 Range/Units 13:36 13:36 14:06 WBC 8.1 (4.8-10.8) X10*3/uL RBC 3.92 L (4.20-5.50) X10*6/uL Hgb 11.5 L (12.0-16.0) g/dl Hct 35.1 L (37-47) % MCV 89.5 (80-98) fL MCH 29.3 (27.0-33.0) pg MCHC 32.8 (31.0-35.0) g/dl RDW 13.6 (11.0-16.0) % Plt Count 224 (160-400) X10*3/uL MPV 10.8 (9.4-12.3) fL Immature Gran % (Auto) 0.2 (0.0-0.4) % Neut % (Auto) 56.1 (45-73) % Lymph % (Auto) 34.2 (20-40) % [place] % (Auto) 7.1 (2-11) % Eos % (Auto) 2.0 (0-4) % Baso % (Auto) 0.4 (0-2) % Lymph # (Auto) 2.8 (1.2-4.9) X10*3/uL [place] # (Auto) 0.6 (0.1-1.2) X10*3/uL Eos # (Auto) 0.2 (0.0-0.4) X10*3/uL Baso # (Auto) 0.0 (0.0-0.2) X10*3/uL Abs Immat Gran (auto) 0.02 (0.00-0.03) X10*3/uL Absolute Neuts (auto) 4.5 (2.0-8.3) X10*3/uL Absolute Nucleated RBC 0.000 (0.0-0.012) X10*3/uL Nucleated RBC % (auto) 0.0 (0.0-0.2) /100WBC Sodium (135-145) mmol/L Potassium (3.3-5.1) mmol/L Chloride (96-108) mmol/L Carbon Dioxide (22-29) mmol/L Anion Gap (12-20) BUN (9-16) mg/dL Creatinine (0.5-1.4) mg/dL Estim Creat Clear Calc Estimated GFR Random Glucose (60-115) mg/dL Calcium (8.4-10.2) mg/dL Total Bilirubin (0.0-1.0) mg/dL Direct Bilirubin (0.0-0.5) mg/dL AST (5-31) U/L ALT (0-31) U/L Alkaline Phosphatase (39-117) U/L Total Protein (6.5-8.0) g/dL Albumin (3.5-5.0) g/dL Lipase (8-78) U/L Urine Color YELLOW Urine Appearance HAZY Urine pH 6.0 (5.0-8.0) Ur Specific [place] <= 1.005 (1.005-1.025) Urine Protein NEG (NEG-TRACE) MG/DL Urine Glucose (UA) NEG (NEG) MG/DL Urine Ketones NEG (NEG) MG/DL Urine Blood TRACE (NEG) Urine Nitrite NEG (NEG) Ur Leukocyte Esterase TRACE H (NEG) Urine RBC 0-2 (0) /HPF Urine WBC 1-4 (0-4) /HPF Ur Squamous Epith Cells 1+ /LPF Urine Bacteria TRACE /LPF Urine Mucus 1+ /LPF Urine Test NEGATIVE (NEGATIVE) 05/11/21 Range/Units 14:06 WBC (4.8-10.8) X10*3/uL RBC (4.20-5.50) X10*6/uL Hgb (12.0-16.0) g/dl Hct (37-47) % MCV (80-98) fL MCH (27.0-33.0) pg MCHC (31.0-35.0) g/dl RDW (11.0-16.0) % Plt Count (160-400) X10*3/uL MPV (9.4-12.3) fL Immature Gran % (Auto) (0.0-0.4) % Neut % (Auto) (45-73) % Lymph % (Auto) (20-40) % [place] % (Auto) (2-11) % Eos % (Auto) (0-4) % Baso % (Auto) (0-2) % Lymph # (Auto) (1.2-4.9) X10*3/uL [place] # (Auto) (0.1-1.2) X10*3/uL Eos # (Auto) (0.0-0.4) X10*3/uL Baso # (Auto) (0.0-0.2) X10*3/uL Abs Immat Gran (auto) (0.00-0.03) X10*3/uL Absolute Neuts (auto) (2.0-8.3) X10*3/uL Absolute Nucleated RBC (0.0-0.012) X10*3/uL Nucleated RBC % (auto) (0.0-0.2) /100WBC Sodium 139 (135-145) mmol/L Potassium 3.0 L (3.3-5.1) mmol/L Chloride 100 (96-108) mmol/L Carbon Dioxide 29 (22-29) mmol/L Anion Gap 13 (12-20) BUN 18 H (9-16) mg/dL Creatinine 0.85 (0.5-1.4) mg/dL Estim Creat Clear Calc 75.8 Estimated GFR > 60 Random Glucose 115 (60-115) mg/dL Calcium 9.3 (8.4-10.2) mg/dL Total Bilirubin 0.3 (0.0-1.0) mg/dL Direct Bilirubin < 0.2 (0.0-0.5) mg/dL AST 31 (5-31) U/L ALT 25 (0-31) U/L Alkaline Phosphatase 76 (39-117) U/L Total Protein 6.3 L (6.5-8.0) g/dL Albumin 3.7 (3.5-5.0) g/dL Lipase 23 (8-78) U/L Urine Color Urine Appearance Urine pH (5.0-8.0) Ur Specific [place] (1.005-1.025) Urine Protein (NEG-TRACE) MG/DL Urine Glucose (UA) (NEG) MG/DL Urine Ketones (NEG) MG/DL Urine Blood (NEG) Urine Nitrite (NEG) Ur Leukocyte Esterase (NEG) Urine RBC (0) /HPF Urine WBC (0-4) /HPF Ur Squamous Epith Cells /LPF Urine Bacteria /LPF Urine Mucus /LPF Urine Test (NEGATIVE) Discharge Plan Discharge Clinical Impression: Acute left flank pain Patient Disposition: Home, Self-Care Instructions: Flank Pain (ED) Additional Instructions: return to the ED immediately worsening flank pain, any abdominal pain, dysuria, hematuria, fever, chills, nausea, vomiting, chest pain, shortness of breath, or any other concerning symptoms. CT scan came back negative for kidney stones or any other abdominal processes. Blood work came back normal. your urine came back negative for infection. your kidney function is normal. Please follow-up with your PCP. Take Percocet that you already have at home as prescribed for pain relief Prescriptions: No Action allopurinol 100 mg tablet 100 mg PO DAILY 30 Days Qty: 30 RF: 6 simethicone 180 mg capsule 180 mg PO QID Qty: 90 RF: 2 dexlansoprazole [Dexilant] 60 mg capsule,biphase delayed releas 60 mg PO DAILY Qty: 30 RF: 2 docusate sodium [DOK] 100 mg capsule 100 mg PO BEDTIME Qty: 30 RF: 3 plecanatide [Trulance] 3 mg tablet 3 mg PO DAILY Qty: 30 RF: 2 prednisone 20 mg tablet 40 mg PO DAILY 5 Days Qty: 10 RF: 0 hydrocodone-homatropine 5-1.5 mg/5 mL (5 mL) syrup 5 ml PO Q6H PRN (Reason: cough) Qty: 60 RF: 0 benzonatate [Tessalon Perles] 100 mg capsule 100 mg PO BID PRN (Reason: cough) Qty: 14 RF: 0 famotidine [Pepcid] 20 mg tablet 20 mg PO BID 30 Days Qty: 60 RF: 3 Referrals: Alexandra Pillai MD [Primary Care Provider] - 2 days ( flank pain. CT scan negative for any kidney stones or abdominal processes. Kidney function is normal. Labs are normal. Urine negative for UTI.) Print Language: Somali [facility] Past Medical History Medical History Asthma HTN (hypertension) Kidney stone Sleep apnea Surgical History Hx of endoscopy Previous back surgery Family History Family History Father History of cancer Mother Hx of diabetes mellitus Social History Social History Household Members: Spouse Alcohol intake: never Patient Tobacco Use Status: Never used Tobacco Smoked in Last 30 Days: No Use of substances other than those prescribed or required for medical reasons: No Advance Directives: Yes Advance Directives Information Provided: Yes Advance Directives on File: No
[2021-05-11 15:46] VITALS: BP 99/51; PULSE 58; RESP 18; TEMP 36.7; O2SAT 99
[2021-05-11 17:18] VITALS: BP 106/60; PULSE 55; RESP 16; TEMP 36.7; O2SAT 98
[2021-05-11] MEDS: Potassium Chloride Packet 20 MEQ PACKET 40 MEQ PO (17:24)
[2021-05-11 17:31] VITALS: BP 106/60; PULSE 88; RESP 16; O2SAT 98
[2021-05-11 18:17] VITALS: BP 116/76; PULSE 66; RESP 16; O2SAT 98
== END 2021-05-11 18:31 | disposition home or self-care (01) ==
PROVIDERS: Physician Assistant; Emergency Provider Internal Medicine; PCP Internal Medicine
DX: R10.9 Unspecified abdominal pain (principal); R11.2 Nausea with vomiting, unspecified; I10 Essential (primary) hypertension; J45.909 Unspecified asthma, uncomplicated; Z79.899 Other long term (current) drug therapy; Z87.442 Personal history of urinary calculi
CPT/HCPCS: 36415; 74177; 80053; 80076; 81001; 81003; 81025; 82248; 83690; 85025; 87086; 96361; 96374; 99284; 99285; J1885; Q9967

== ENCOUNTER → 2021-05-19 08:27 | Outpatient (BNVA) | payer MEDICAID, SELFPAY | PROVIDERS: Visit Provider Nurse Practitioner ==

== ENCOUNTER 2021-05-21 14:12 | Outpatient (REF) | payer MEDICAID, SELFPAY ==
--- NOTE | ~2021-05-21 | MR_ITS ---
EXAMINATION: MR LUMBAR SPINE WITHOUT AND WITH CONTRAST CLINICAL INFORMATION: Intervertebral disc disorders with myelopathy, lumbar. COMPARISON: MRI scan of the lumbar spine 01/06/2017. TECHNIQUE: MRI of the lumbar spine was obtained using routine sequences with and without contrast. Intravenous contrast: Gadavist, 7 mL. FINDINGS: VERTEBRAL BODIES AND PARASPINAL STRUCTURES: There is anatomic alignment of the vertebral bodies. There is multilevel narrowing of intervertebral disc height, most prominent at L2-L3 and L3-L4. There is loss of signal from these discs as well as from L4-L5. There is chronic loss of vertebral body height of T11. No acute fractures are demonstrated. Marrow signal is homogenous. There is a left extrarenal pelvis. The visualized pelvic structures are unremarkable. There is no abnormal osseous enhancement. CONUS MEDULLARIS AND CAUDA EQUINA: Normal, terminating at the level of L1. The lower thoracic spinal cord has normal signal without enhancement. The cauda equina nerve roots and filum terminale appear normal, and there is no abnormal enhancement SPINAL LEVELS: L1-L2: The facet joints appear normal bilaterally. Disc contour is normal. There is no central stenosis or foraminal narrowing. L2-L3: The facet joints appear normal bilaterally. Disc contour is normal. There is no central stenosis or foraminal narrowing. L3-L4: There is mild bilateral facet arthropathy. There is a small inferior foraminal disc protrusion on the right with impingement on the exiting L3 nerve root. There is mild narrowing of the right subarticular recess. There is no central stenosis. L4-L5: There are sequelae of a left-sided hemilaminectomy. There is minimal enhancement around the traversing left L5 nerve root, which may be consistent with scarring or granulation. There are bilateral inferior foraminal disc protrusions with impingement on the exiting L4 nerve roots. There is no central stenosis. L5-S1: There is mild bilateral facet arthropathy. Disc contour is normal. There is no central stenosis or foraminal narrowing. MR/MR lumbar spine wo/w con IMPRESSION: 1. The patient is status post left hemilaminectomy at L4-L5. Disc protrusions at this level extend into the neural foramina bilaterally without definite exiting nerve root impingement. There is minimal enhancement around the traversing left L5 nerve root. There is no central stenosis. 2. At L3-L4 there is a small inferior foraminal disc protrusion on the right with impingement on the exiting right L3 nerve root. There is mild narrowing of the right subarticular recess. There is no central stenosis.
== END 2021-05-21 14:13 | disposition home or self-care (01) ==
LOC: HO.MRI 14:12
PROVIDERS: PCP Internal Medicine; Visit Provider Emergency Medicine
DX: M51.06 Intervertebral disc disorders with myelopathy, lumbar region (principal)
CPT/HCPCS: 72158; A9585

== ENCOUNTER → 2021-06-27 08:50 | Outpatient (BNVA) | payer MEDICAID, SELFPAY | PROVIDERS: Visit Provider Nurse Practitioner ==

== ENCOUNTER → 2021-08-01 09:00 | Outpatient (BNVA) | payer MEDICAID, SELFPAY | PROVIDERS: Visit Provider Urology ==

== ENCOUNTER → 2021-10-27 11:47 | Outpatient (BNVA) | payer MEDICAID, SELFPAY | PROVIDERS: Visit Provider Nurse Practitioner | DX: K21.9 Gastro-esophageal reflux disease without esophagitis (principal); K59.04 Chronic idiopathic constipation; R14.0 Abdominal distension (gaseous) | CPT/HCPCS: 99212 ==

== ENCOUNTER 2021-12-18 10:47 | Outpatient (REF) | payer MEDICAID, SELFPAY ==
--- NOTE | ~2021-12-18 | XR_ITS ---
EXAMINATION: XR KNEE, RIGHT CLINICAL INFORMATION: Pain COMPARISON: None TECHNIQUE: Four views of the right knee. FINDINGS: There is mild early patellofemoral degeneration. Some spurring at the insertion of the quadriceps on the patella. There is mild lateralization of the patella. Medial and lateral joint spaces are fairly well preserved. XR/XR knee RT 4V IMPRESSION: Evidence of early degeneration at the patellofemoral articulation with mild lateralization.
== END 2021-12-18 10:48 | disposition home or self-care (01) ==
LOC: HO.XRAY 10:47
PROVIDERS: PCP Internal Medicine; Visit Provider Internal Medicine
DX: M25.561 Pain in right knee (principal)
CPT/HCPCS: 73564

== ENCOUNTER → 2022-01-06 13:38 | Outpatient (BNVA) | payer MEDICAID, SELFPAY | PROVIDERS: PCP Internal Medicine; Referring Provider Internal Medicine; Visit Provider Nurse Practitioner | DX: K59.04 Chronic idiopathic constipation (principal); K21.9 Gastro-esophageal reflux disease without esophagitis; R14.0 Abdominal distension (gaseous); Z79.899 Other long term (current) drug therapy | CPT/HCPCS: 99212 ==

== ENCOUNTER 2022-01-17 15:32 | Emergency (ER) | payer MEDICAID, SELFPAY | END 2022-01-17 16:09 | disposition left against medical advice (07) | PROVIDERS: Emergency Provider Emergency Medicine | DX: M54.50 Low back pain, unspecified (principal) ==

== ENCOUNTER → 2022-01-19 14:47 | Outpatient (BNVA) | payer MEDICAID, SELFPAY | PROVIDERS: PCP Internal Medicine | DX: N20.0 Calculus of kidney (principal); Z87.442 Personal history of urinary calculi; Z79.891 Long term (current) use of opiate analgesic | CPT/HCPCS: 99212 ==

== ENCOUNTER → 2022-01-22 10:24 | Outpatient (REF) | payer MEDICAID, SELFPAY ==
--- NOTE | 2022-01-22 10:30 | ECG_ITS ---
Test Reason : HYPOKALEMIA Blood Pressure : / mmHG Vent. Rate : 069 BPM Atrial Rate : 069 BPM P-R Int : 150 ms QRS Dur : 096 ms QT Int : 430 ms P-R-T Axes : 029 053 034 degrees QTc Int : 460 ms Normal sinus rhythm Normal ECG When compared with ECG of 30-MAR-2021 02:04, No significant change was found Referred By: Alexandra Ahn Electronically Signed By:MADAN VIERA
== END ==
LOC: HO.CARD 10:24
PROVIDERS: PCP Internal Medicine; Visit Provider Internal Medicine
DX: E87.6 Hypokalemia (principal)
CPT/HCPCS: 93005

== ENCOUNTER 2022-02-02 21:27 | Emergency (ER) | payer MEDICAID, SELFPAY ==
[2022-02-02 21:41] VITALS: BP 109/62; PULSE 92; RESP 18; TEMP 37.1; O2SAT 98
[2022-02-02 21:57] VITALS: BP 109/62; PULSE 92; RESP 16; RESP 20; TEMP 37.1; O2SAT 98; BMI 16.5
--- NOTE | 2022-02-02 22:03 | ECG_ITS ---
Test Reason : ABNORMAL LABS/CHEST PAIN Blood Pressure : / mmHG Vent. Rate : 086 BPM Atrial Rate : 086 BPM P-R Int : 150 ms QRS Dur : 094 ms QT Int : 392 ms P-R-T Axes : 009 032 020 degrees QTc Int : 469 ms Normal sinus rhythm Normal ECG When compared with ECG of 22-JAN-2022 10:35, No significant change was found Referred By: Generic ED Physician Electronically Signed By:MADAN VIERA
--- NOTE | 2022-02-02 22:15 | ED.GENADULT ---
HPI - General Adult General Chief complaint: General Medical Stated complaint: abnormal labs Time Seen by Provider: 02/02/22 22:15 Source: RN notes reviewed Mode of arrival: EMS Limitations: language barrier History of Present Illness HPI narrative: Sent in by PMD for potassium of 2.7. she has been taking potassium for 3 weeks and the potassium is still low. Her chlorthalidone was stopped 3 weeks ago. The lasix has also been stopped. She has not been on prednisone for a long time. Onset (ago): week(s) Severity: moderate Associated symptoms: denies other symptoms Related Data Home Medications Medication Instructions Recorded Confirmed acyclovir 400 mg tablet 400 mg PO 06/27/21 albuterol sulfate 90 mcg/actuation 2 puff INHALATION Q6H PRN 06/27/21 aerosol inhaler (ProAir HFA) amitriptyline 50 mg tablet 50 mg PO BEDTIME 06/27/21 amlodipine 5 mg tablet 5 mg PO QAM 06/27/21 atorvastatin 20 mg tablet 20 mg PO BEDTIME 06/27/21 budesonide-formoterol HFA 160 1 puff INHALATION 06/27/21 mcg-4.5 mcg/actuation aerosol inhaler (Symbicort) chlorthalidone 25 mg tablet 25 mg PO QAM 06/27/21 cholecalciferol (vitamin D3) 25 25 mcg PO QAM 06/27/21 mcg (1,000 unit) tablet clonazepam 1 mg tablet 1 mg PO DAILY PRN 06/27/21 cyclobenzaprine 10 mg tablet 10 mg PO TID 06/27/21 diclofenac sodium 1 % topical gel 2 g TOPICAL BID 06/27/21 fluticasone propionate 110 2 puff INHALATION BID 06/27/21 mcg/actuation HFA aerosol inhaler (Flovent HFA) lamotrigine 100 mg tablet 100 mg PO DAILY 06/27/21 lidocaine 5 % topical patch 0 patch TOPICAL 06/27/21 meloxicam 7.5 mg tablet 7.5 mg PO DAILY PRN 06/27/21 metoprolol succinate 50 mg 50 mg PO QPM 06/27/21 tablet,extended release 24 hr oxycodone-acetaminophen 10 mg-325 1 tab PO Q4-6H PRN 06/27/21 mg tablet tiotropium bromide 2.5 2 puff PO DAILY 06/27/21 mcg/actuation mist for inhalation (Spiriva Respimat) zolpidem 10 mg tablet 10 mg PO BEDTIME 06/27/21 amitriptyline 100 mg tablet 100 mg PO BEDTIME 10/27/21 amlodipine 10 mg tablet 10 mg PO QAM 10/27/21 chlorthalidone 50 mg tablet 50 mg PO QAM 10/27/21 furosemide 20 mg tablet 20 mg PO QAM 01/06/22 sennosides 8.6 mg tablet (senna) 17.2 mg PO BEDTIME 01/19/22 Previous Rx's Medication Instructions Recorded benzonatate 100 mg capsule 100 mg PO BID PRN #14 cap 03/30/21 (Tesclary Hernández) hydrocodone-homatropine 5 mg-1.5 5 ml PO Q6H PRN #60 ml 03/30/21 mg/5 mL (5 mL) oral syrup prednisone 20 mg tablet 40 mg PO DAILY 5 Days #10 tab 03/30/21 allopurinol 100 mg tablet 100 mg PO DAILY 90 Days #90 tab 08/01/21 docusate sodium 100 mg capsule 100 mg PO BEDTIME #30 cap 09/16/21 (DOK) famotidine 20 mg tablet 20 mg PO BID #60 tab 10/27/21 [id number] 1 cap PO .QIDAC 30 Days #120 cap 10/27/21 24,000-76,000-120,000 unit capsule,delayed rel (Creon) plecanatide 3 mg tablet (Trulance) 3 mg PO DAILY #30 tab 10/27/21 simethicone 180 mg capsule 180 mg PO QID #90 cap 10/27/21 sennosides 8.6 mg capsule (senna) 17.2 mg PO BEDTIME 30 Days #60 cap 01/06/22 loperamide 2 mg capsule 2 mg PO Q6H PRN #30 cap 02/03/22 Allergies Allergy/AdvReac Type Severity Reaction Status Date / Time Penicillins [PENICILLINS] Allergy Mild RASH Verified 01/19/22 14:49 Sulfa (Sulfonamide Allergy Mild BRUISING,SWOLLEN Verified 01/19/22 14:49 Antibiotics) LIPS, [SULFA (SULFONAMIDE rash, ANTIBIOTICS)] swollen lips fluoxetine [Prozac] Allergy Unknown sleepiness Verified 01/19/22 14:49 penicillin V Allergy Unknown echymosis, Verified 01/19/22 14:49 rash as a child Review of Systems Constitutional: Constitutional: Reports no additional constitutional complaints Eyes: Eyes: Reports no additional eye complaints ENT: Denies dizziness Cardiovascular: Cardiovascular: Reports no additional cardiovascular complaints Respiratory: Respiratory: Reports as per HPI Gastrointestinal: Gastrointestinal: Reports no additional gastrointestinal complaints Genitourinary: Genitourinary: Reports no additional female genitourinary complaints Musculoskeletal: Musculoskeletal: Reports no additional musculoskeletal complaints Integumentary/Breasts: Skin/Breast: Denies rash Neurologic: Reports system reviewed and no additional complaints, except as documented, Denies dizziness and Denies Sensory deficit (Neuro) Psychiatric: Psychiatric: Denies anxiety [facility] Past Medical History Medical History Asthma Early satiety Epigastric pain HTN (hypertension) Kidney stone Sleep apnea Surgical History Hx of colonoscopy Hx of endoscopy Previous back surgery Family History Family History Father History of cancer Mother Hx of diabetes mellitus Social History Social History Household Members: Spouse Alcohol intake: never Patient Tobacco Use Status: Never used Tobacco Advance Directives: No Advance Directives Information Provided: No Physical Exam ED Vital Signs: Vital Signs - 24 hr 02/02/22 21:41 02/02/22 21:57 02/03/22 02:25 Temperature 98.7 F 98.7 F Pulse Rate 92 92 76 Respiratory Rate 18 20 14 Blood Pressure 109/62 109/62 85/44 L Pulse Oximetry 98 98 98 02/03/22 02:39 02/03/22 05:31 Temperature 98.6 F Pulse Rate 75 74 Respiratory Rate 20 14 Blood Pressure 97/61 111/63 Pulse Oximetry 95 97 BMI result Body Mass Index 16.5 Neuro Sensory Exam: No Sensory deficit (Neuro) Course Reevaluation(s) Reevaluation #1: got the potassium to increase to 3.2. Will dc on potassium and loperamide Time: 07:01 Medical Decision Making Lab Data Result diagrams: 02/02/22 22:18 02/03/22 06:20 Labs: Lab Results 0302/02/22 02/02/22 Range/Units 22:18 22:18 22:18 WBC 10.2 (4.8-10.8) X10*3/uL RBC 4.28 (4.20-5.50) X10*6/uL Hgb 12.5 (12.0-16.0) g/dl Hct 37.8 (37.0-47.0) % MCV 88.3 (80.0-98.0) fL MCH 29.2 (27.0-33.0) pg MCHC 33.1 (31.0-35.0) g/dl RDW 13.5 (11.0-16.0) % Plt Count 273 (160-400) X10*3/uL MPV 10.8 (9.4-12.3) fL Absolute Nucleated RBC 0.000 (0.0-0.012) X10*3/uL Nucleated RBC % (auto) 0.0 (0.0-0.2) /100WBC Sodium 139 (135-145) mmol/L Potassium 2.6 L (3.3-5.1) mmol/L Chloride 98 (96-108) mmol/L Carbon Dioxide 32 H (22-29) mmol/L Anion Gap 12 (12-20) BUN 20 H (9-16) mg/dL Creatinine 1.05 (0.5-1.4) mg/dL Estim Creat Clear Calc 37.9 Estimated GFR 54 Random Glucose 144 H (60-115) mg/dL Calcium 9.1 (8.4-10.2) mg/dL Magnesium 2.3 (1.6-2.6) mg/dL Total Bilirubin 0.2 (0.0-1.0) mg/dL AST 37 H (5-31) U/L ALT 41 H (0-31) U/L Alkaline Phosphatase 99 D (39-117) U/L Troponin I High Sens 3.6 (<3.5-17.0) ng/L Total Protein 6.7 (6.5-8.0) g/dL Albumin 3.9 (3.5-5.0) g/dL 02/03/22 Range/Units 06:20 WBC (4.8-10.8) X10*3/uL RBC (4.20-5.50) X10*6/uL Hgb (12.0-16.0) g/dl Hct (37.0-47.0) % MCV (80.0-98.0) fL MCH (27.0-33.0) pg MCHC (31.0-35.0) g/dl RDW (11.0-16.0) % Plt Count (160-400) X10*3/uL MPV (9.4-12.3) fL Absolute Nucleated RBC (0.0-0.012) X10*3/uL Nucleated RBC % (auto) (0.0-0.2) /100WBC Sodium 141 (135-145) mmol/L Potassium 3.2 L D (3.3-5.1) mmol/L Chloride 107 (96-108) mmol/L Carbon Dioxide 27 (22-29) mmol/L Anion Gap 10 L (12-20) BUN 16 (9-16) mg/dL Creatinine 0.74 (0.5-1.4) mg/dL Estim Creat Clear Calc 53.8 Estimated GFR > 60 Random Glucose 110 (60-115) mg/dL Calcium 8.6 (8.4-10.2) mg/dL Magnesium (1.6-2.6) mg/dL Total Bilirubin (0.0-1.0) mg/dL AST (5-31) U/L ALT (0-31) U/L Alkaline Phosphatase (39-117) U/L Troponin I High Sens (<3.5-17.0) ng/L Total Protein (6.5-8.0) g/dL Albumin (3.5-5.0) g/dL ECG Data Attestation: I personally reviewed and interpreted this ECG as follows: Interpretation: sinus 86, no st or twave changes, uwaves Discharge Plan Discharge Clinical Impression: Chronic hypokalemia, Diarrhea Patient Disposition: Home, Self-Care Instructions: Hypokalemia (ED), Acute Diarrhea (ED) Prescriptions: New loperamide 2 mg capsule 2 mg PO Q6H PRN (Reason: loose stool) Qty: 30 0RF No Action docusate sodium [DOK] 100 mg capsule 100 mg PO BEDTIME Qty: 30 3RF prednisone 20 mg tablet 40 mg PO DAILY 5 Days Qty: 10 0RF hydrocodone-homatropine 5-1.5 mg/5 mL (5 mL) syrup 5 ml PO Q6H PRN (Reason: cough) Qty: 60 0RF benzonatate [Tessalon Perles] 100 mg capsule 100 mg PO BID PRN (Reason: cough) Qty: 14 0RF allopurinol 100 mg tablet 100 mg PO DAILY 90 Days Qty: 90 3RF albuterol sulfate [ProAir HFA] 90 mcg/actuation HFA aerosol inhaler 2 puff inhalation Q6H PRN (Reason: wheezing) 0RF oxycodone-acetaminophen 10-325 mg tablet 1 tab PO Q4-6H PRN (Reason: severe pain) 0RF zolpidem 10 mg tablet 10 mg PO BEDTIME 0RF clonazepam 1 mg tablet 1 mg PO DAILY PRN0RF Spiriva Respimat 2.5 mcg/actuation mist 2 puff PO DAILY 0RF budesonide-formoterol [Symbicort] 160-4.5 mcg/actuation HFA aerosol inhaler 1 puff inhalation 0RF cholecalciferol (vitamin D3) 25 mcg (1,000 unit) tablet 25 mcg PO QAM 0RF lamotrigine 100 mg tablet 100 mg PO DAILY 0RF amitriptyline 50 mg tablet 50 mg PO BEDTIME 0RF acyclovir 400 mg tablet 400 mg PO 0RF Flovent HFA 110 mcg/actuation HFA aerosol inhaler 2 puff inhalation BID 0RF amlodipine 5 mg tablet 5 mg PO QAM 0RF atorvastatin 20 mg tablet 20 mg PO BEDTIME 0RF metoprolol succinate 50 mg tablet extended release 24 hr 50 mg PO QPM 0RF chlorthalidone 25 mg tablet 25 mg PO QAM 0RF diclofenac sodium 1 % gel 2 g topical BID 0RF cyclobenzaprine 10 mg tablet 10 mg PO TID 0RF meloxicam 7.5 mg tablet 7.5 mg PO DAILY PRN (Reason: pain) 0RF lidocaine 5 % adhesive patch,medicated 0 patch topical 0RF amitriptyline 100 mg tablet 100 mg PO BEDTIME 0RF amlodipine 10 mg tablet 10 mg PO QAM 0RF chlorthalidone 50 mg tablet 50 mg PO QAM 0RF Trulance 3 mg tablet 3 mg PO DAILY Qty: 30 6RF famotidine 20 mg tablet 20 mg PO BID Qty: 60 6RF Creon 24,000-76,000 -120,000 unit capsule,delayed release(DR/EC) 1 cap PO .QIDAC 30 Days Qty: 120 6RF Rx Instructions: administer with meals and/or snacks, please put into a bottle, not pill packs as her meal times vary simethicone 180 mg capsule 180 mg PO QID Qty: 90 6RF furosemide 20 mg tablet 20 mg PO QAM 0RF senna 8.6 mg capsule 17.2 mg PO BEDTIME 30 Days Qty: 60 6RF Rx Instructions: please dispense in a bottle and not in her pill paks. sennosides [senna] 8.6 mg tablet 17.2 mg PO BEDTIME 0RF Referrals: Alexandra Pillai MD [Primary Care Provider] - 5 days
[2022-02-02 22:25] LABS: Hematocrit 37.8 % (37.0-47.0); Hemoglobin 12.5 g/dl (12.0-16.0); Mean Corpuscular HGB Conc 33.1 g/dl (31.0-35.0); Mean Corpuscular Hemoglobin 29.2 pg (27.0-33.0); Mean Corpuscular Volume 88.3 fL (80.0-98.0); Mean Platelet Volume 10.8 fL (9.4-12.3); Platelet Count 273 X10*3/uL (160-400); Red Blood Count 4.28 X10*6/uL (4.20-5.50); Red Cell Distribution Width 13.5 % (11.0-16.0); White Blood Count 10.2 X10*3/uL (4.8-10.8)
[2022-02-02 22:40] LABS: Alanine Aminotransferase 41 U/L (0-31); Albumin Level 3.9 g/dL (3.5-5.0); Alkaline Phosphatase 99 U/L (39-117); Anion Gap 12 (12-20); Aspartate Amino Transferase 37 U/L (5-31); Bilirubin Total 0.2 mg/dL (0.0-1.0); Blood Urea Nitrogen 20 mg/dL (9-16); Calcium 9.1 mg/dL (8.4-10.2); Carbon Dioxide 32 mmol/L (22-29); Chloride 98 mmol/L (96-108); Creatinine Clr Calc Pharmacy 37.9; Estimated Glomerular Filt Rate 54; Glucose Random 144 mg/dL (60-115); Potassium 2.6 mmol/L (3.3-5.1); Sodium 139 mmol/L (135-145); Total Protein 6.7 g/dL (6.5-8.0)
[2022-02-02 22:43] LABS: Magnesium 2.3 mg/dL (1.6-2.6); Troponin-I High Sensitivity 3.6 ng/L (<3.5-17.0)
[2022-02-02] MEDS: Potassium Chloride ER 20 MEQ TAB.ER.PRT 40 MEQ PO (23:53)
[2022-02-02] MEDS: Potassium Chloride/H20 10 MEQ/100 ML PIGGYBACK 100 MEQ IV (23:53)
[2022-02-03] MEDS: Potassium Chloride/H20 10 MEQ/100 ML PIGGYBACK 100 MEQ IV ×3 (01:55→04:43)
[2022-02-03 02:25] VITALS: BP 85/44; PULSE 76; RESP 14; O2SAT 98
[2022-02-03 02:39] VITALS: BP 97/61; PULSE 75; RESP 20; O2SAT 95
[2022-02-03 05:31] VITALS: BP 111/63; PULSE 74; RESP 14; TEMP 37; O2SAT 97
[2022-02-03 06:49] LABS: Anion Gap 10 (12-20); Blood Urea Nitrogen 16 mg/dL (9-16); Calcium 8.6 mg/dL (8.4-10.2); Carbon Dioxide 27 mmol/L (22-29); Chloride 107 mmol/L (96-108); Creatinine Clr Calc Pharmacy 53.8; Estimated Glomerular Filt Rate > 60; Glucose Random 110 mg/dL (60-115); Potassium 3.2 mmol/L (3.3-5.1); Sodium 141 mmol/L (135-145)
[2022-02-03 07:22] VITALS: BP 108/57; PULSE 71; RESP 22; O2SAT 98
--- NOTE | 2022-02-03 07:29 | PC.NURSE ---
Pt A&Ox3, no complaints of pain at this time. DC instructions reviewed w/pt. Pt verbalizes an understanding. Ambuated to WR
== END 2022-02-03 07:33 | disposition home or self-care (01) ==
PROVIDERS: Emergency Provider Emergency Medicine; PCP Internal Medicine
DX: E87.6 Hypokalemia (principal); R19.7 Diarrhea, unspecified; I10 Essential (primary) hypertension
CPT/HCPCS: 36415; 80048; 80053; 83735; 84484; 85027; 93005; 96365; 96366; 99284; 99285

== ENCOUNTER → 2022-02-24 14:46 | Outpatient (BNVA) | payer MEDICAID, SELFPAY | PROVIDERS: PCP Internal Medicine | DX: Z13.89 Encounter for screening for other disorder (principal) ==

== ENCOUNTER 2022-06-30 21:54 | Emergency (ER) | payer MEDICAID, SELFPAY ==
--- NOTE | 2022-06-30 | ECG_ITS ---
Test Reason : CHEST PAIN Blood Pressure : / mmHG Vent. Rate : 077 BPM Atrial Rate : 077 BPM P-R Int : 148 ms QRS Dur : 092 ms QT Int : 396 ms P-R-T Axes : 021 039 022 degrees QTc Int : 448 ms Normal sinus rhythm Normal ECG When compared with ECG of 02-FEB-2022 22:02, No significant change was found Referred By: Generic ED Physician Electronically Signed By:MICHELLE PARDO
--- NOTE | ~2022-06-30 | CT_ITS ---
EXAMINATION: CT ANGIOGRAM CHEST CLINICAL INFORMATION: Mid chest pain radiating to right back COMPARISON: Chest x-ray 03/30/2021 TECHNIQUE: Multiple axial images were obtained through the chest after the administration of 70 mL of Omnipaque 350 intravenous contrast. Extensive vascular post-processing including two-dimensional and three-dimensional reformatted images were created and reviewed on an independent workstation. This CT examination was performed using dose optimization techniques as appropriate, variously including the following: *Automated exposure control *Adjustment of mA and/or kV according to patient size (this includes techniques or standardized protocols for targeted exams where dose is matched to indication/reason for exam; i.e. extremities or head) *Use of iterative reconstruction technique DLP: 537 mGy-cm FINDINGS: No evidence of thoracic aortic dissection or aneurysm. No regions of consolidation bilaterally. No pneumothorax or pleural effusion. Visualized thyroid gland is unremarkable. There are subcentimeter mediastinal lymph nodes within the range of normal variation. Cardiac size is within normal limits; no pericardial effusion. No axillary lymphadenopathy is present. Visualized portions of the upper abdomen are within normal limits. Degenerative changes are noted in the spine. CT/CT angio chest aorta IMPRESSION: No evidence of aortic dissection. No acute intrathoracic findings identified.
[2022-06-30 22:03] VITALS: BP 109/54; BP 120/66; PULSE 78; PULSE 90; RESP 16; TEMP 36.9; O2SAT 98; O2SAT 99; BMI 38.9
--- NOTE | 2022-06-30 22:12 | ED.CHESTPAIN ---
HPI - Chest Pain General Chief Complaint: Chest Pain Stated Complaint: chest pain Time Seen by Provider: 06/30/22 22:09 Source: patient Mode of arrival: EMS Limitations: no limitations History of Present Illness HPI narrative: Patient has history of fibromyalgia and good with no known coronary artery disease comes here for midsternal chest pain did to the right side started yesterday lasted for few minutes got better today she went to [place] while driving home noticed his mid chest pain again radiated to the right side no shortness of breath no cough no fever no chills patient never had similar pain in the past pain is deep constricting increases on deep inspiration and palpation Related Data Home Medications Medication Instructions Recorded Confirmed acyclovir 400 mg tablet 400 mg PO 06/27/21 albuterol sulfate 90 mcg/actuation 2 puff inhalation Q6H PRN wheezing 06/27/21 aerosol inhaler (ProAir HFA) amitriptyline 50 mg tablet 50 mg PO BEDTIME 06/27/21 amlodipine 5 mg tablet 5 mg PO QAM 06/27/21 atorvastatin 20 mg tablet 20 mg PO BEDTIME 06/27/21 budesonide-formoterol HFA 160 1 puff inhalation 06/27/21 mcg-4.5 mcg/actuation aerosol inhaler (Symbicort) chlorthalidone 25 mg tablet 25 mg PO QAM 06/27/21 cholecalciferol (vitamin D3) 25 25 mcg PO QAM 06/27/21 mcg (1,000 unit) tablet clonazepam 1 mg tablet 1 mg PO DAILY PRN 06/27/21 cyclobenzaprine 10 mg tablet 10 mg PO TID 06/27/21 diclofenac sodium 1 % topical gel 2 g topical BID 06/27/21 fluticasone propionate 110 2 puff inhalation BID 06/27/21 mcg/actuation HFA aerosol inhaler (Flovent HFA) lamotrigine 100 mg tablet 100 mg PO DAILY 06/27/21 lidocaine 5 % topical patch 0 patch topical 06/27/21 meloxicam 7.5 mg tablet 7.5 mg PO DAILY PRN pain 06/27/21 metoprolol succinate 50 mg 50 mg PO QPM 06/27/21 tablet,extended release 24 hr oxycodone-acetaminophen 10 mg-325 1 tab PO Q4-6H PRN severe pain 06/27/21 mg tablet tiotropium bromide 2.5 2 puff PO DAILY 06/27/21 mcg/actuation mist for inhalation (Spiriva Respimat) zolpidem 10 mg tablet 10 mg PO BEDTIME 06/27/21 amitriptyline 100 mg tablet 100 mg PO BEDTIME 10/27/21 amlodipine 10 mg tablet 10 mg PO QAM 10/27/21 chlorthalidone 50 mg tablet 50 mg PO QAM 10/27/21 furosemide 20 mg tablet 20 mg PO QAM 01/06/22 sennosides 8.6 mg tablet (senna) 17.2 mg PO BEDTIME constipation 01/19/22 Previous Rx's Medication Instructions Recorded benzonatate 100 mg capsule 100 mg PO BID PRN cough #14 caps 03/30/21 (Danica Hernández) hydrocodone-homatropine 5 mg-1.5 5 ml PO Q6H PRN cough #60 mL 03/30/21 mg/5 mL (5 mL) oral syrup prednisone 20 mg tablet 40 mg PO DAILY 5 days #10 tabs 03/30/21 allopurinol 100 mg tablet 100 mg PO DAILY 90 days #90 tabs 08/01/21 snoike-[id number]-uwsdhwq 1 cap PO .QIDAC 30 days #120 caps 10/27/21 24,000-76,000-120,000 unit capsule,delayed rel (Creon) simethicone 180 mg capsule 180 mg PO QID #90 caps 10/27/21 sennosides 8.6 mg capsule (senna) 17.2 mg PO BEDTIME constipation 30 01/06/22 days #60 caps loperamide 2 mg capsule 2 mg PO Q6H PRN loose stool #30 02/03/22 caps potassium chloride 20 mEq 20 meq PO BID 5 days #10 tabs 02/03/22 tablet,extended release pyridoxine (vitamin B6) 100 mg 100 mg PO DAILY 90 days #90 tabs 02/24/22 tablet docusate sodium 100 mg capsule 100 mg PO BEDTIME #30 caps 03/16/22 famotidine 20 mg tablet 20 mg PO BID #60 tabs 05/14/22 plecanatide 3 mg tablet (Trulance) 3 mg PO DAILY #30 tabs 05/14/22 sucralfate 1 gram tablet 1 g PO TID #90 tabs 07/01/22 Allergies Allergy/AdvReac Type Severity Reaction Status Date / Time Penicillins [PENICILLINS] Allergy Mild RASH Verified 02/24/22 14:47 Sulfa (Sulfonamide Allergy Mild BRUISING,SWOLLEN Verified 02/24/22 14:47 Antibiotics) LIPS, [SULFA (SULFONAMIDE rash, ANTIBIOTICS)] swollen lips fluoxetine [Prozac] Allergy Unknown sleepiness Verified 02/24/22 14:47 penicillin V Allergy Unknown echymosis, Verified 02/24/22 14:47 rash as a child Review of Systems Review of Systems: Yes all other systems are reviewed and are negative [facility] Past Medical History Medical History Asthma Cyst of kidney, acquired Early satiety Epigastric pain HTN (hypertension) Kidney stone Sleep apnea Surgical History Hx of colonoscopy Hx of endoscopy Previous back surgery Family History Family History Father History of cancer Mother Hx of diabetes mellitus Social History Social History Household Members: Spouse Alcohol intake: never Patient Tobacco Use Status: Never used Tobacco Advance Directives: No Advance Directives Information Provided: No Physical Exam Vital Signs: Vital Signs: Last Vital Signs Temp 98.5 F 06/30/22 22:03 Pulse 78 06/30/22 22:03 Resp 20 07/01/22 01:32 BP 109/54 L 06/30/22 22:03 Pulse Ox 98 06/30/22 22:03 O2 Del Method 06/30/22 22:03 BMI result Body Mass Index 38.9 Appearance: Alert. Oriented X3. No acute distress. Eyes: No pallor or icterus ENT: Pharynx normal. Oral Mucosa moist Neck: Normal inspection. Neck supple. CVS: Normal heart rate and rhythm. Pulses normal. Respiratory: No respiratory distress. Equal air entry bilateral, no wheezing/rales/rhonchi Abdomen: Soft and nontender. Bowel sounds are present, no mass palpable, no CVA tenderness Skin: Skin warm and dry. Normal skin color. Normal skin turgor. Extremities: No lower extremity edema. No calf tenderness Neuro: Oriented X 3. No motor deficit. MDM - Chest Pain MDM Narrative Medical decision making narrative: 0145Patient atypical chest pain starting in the mid chest going to the back initial troponin and EKG normal, CT chest negative for dissection or PE. Will recheck 2nd troponin if it is negative discharge patient home advised to follow with PCP chest pain likely from GI cause will give patient PPI Lab Data Attestation: I reviewed the patient's lab results. Result diagrams: 06/30/22 22:43 06/30/22 22:43 Labs: Lab Results 06/30/22 06/30/22 06/30/22 Range/Units 22:43 22:43 22:43 WBC 9.5 (4.8-10.8) X10*3/uL RBC 4.20 (4.20-5.50) X10*6/uL Hgb 12.2 (12.0-16.0) g/dl Hct 37.2 (37.0-47.0) % MCV 88.6 (80.0-98.0) fL MCH 29.0 (27.0-33.0) pg MCHC 32.8 (31.0-35.0) g/dl RDW 13.6 (11.0-16.0) % Plt Count 257 (160-400) X10*3/uL MPV 10.1 (9.4-12.3) fL Immature Gran % (Auto) 0.2 (0.0-0.4) % Neut % (Auto) 59.5 (45-73) % Lymph % (Auto) 29.2 (20-40) % [place] % (Auto) 8.3 (2-11) % Eos % (Auto) 2.2 (0-4) % Baso % (Auto) 0.6 (0-2) % Lymph # (Auto) 2.8 (1.2-4.9) X10*3/uL [place] # (Auto) 0.8 (0.1-1.2) X10*3/uL Eos # (Auto) 0.2 (0.0-0.4) X10*3/uL Baso # (Auto) 0.1 (0.0-0.2) X10*3/uL Abs Immat Gran (auto) 0.02 (0.00-0.03) X10*3/uL Absolute Neuts (auto) 5.7 (2.0-8.3) x10*3/uL Absolute Nucleated RBC 0.000 (0.0-0.012) X10*3/uL Nucleated RBC % (auto) 0.0 (0.0-0.2) /100WBC Sodium 139 (135-145) mmol/L Potassium 3.7 (3.3-5.1) mmol/L Chloride 104 (96-108) mmol/L Carbon Dioxide 23 (22-29) mmol/L Anion Gap 16 (12-20) BUN 15 (9-16) mg/dL Creatinine 0.82 (0.5-1.4) mg/dL Estim Creat Clear Calc 79.9 Estimated GFR > 60 Random Glucose 116 H (60-115) mg/dL Calcium 8.9 (8.4-10.2) mg/dL Troponin I High Sens < 3.5 (<3.5-17.0) ng/L ECG Data ECG #1: Attestation: I personally reviewed and interpreted this ECG as follows: Interpretation: No sinus rhythm heart rate 77 beats per minute normal interval normal axis no acute ischemia Discharge Plan Discharge Clinical Impression: Chest pain, GERD (gastroesophageal reflux disease) Patient Disposition: Still a Patient Instructions: Chest Pain (ED), Gastroesophageal Reflux Disease (ED) Additional Instructions: Follow with PCP Continue to take your Pepcid Take sucralfate 3 times a day as advised Report to the ER if worsening of pain Prescriptions: New sucralfate 1 gram tablet 1 g PO TID Qty: 90 0RF No Action docusate sodium 100 mg capsule 100 mg PO BEDTIME Qty: 30 3RF Trulance 3 mg tablet 3 mg PO DAILY Qty: 30 6RF famotidine 20 mg tablet 20 mg PO BID Qty: 60 6RF prednisone 20 mg tablet 40 mg PO DAILY 5 Days Qty: 10 0RF hydrocodone-homatropine 5-1.5 mg/5 mL (5 mL) syrup 5 ml PO Q6H PRN (Reason: cough) Qty: 60 0RF benzonatate [Tessalon Perles] 100 mg capsule 100 mg PO BID PRN (Reason: cough) Qty: 14 0RF loperamide 2 mg capsule 2 mg PO Q6H PRN (Reason: loose stool) Qty: 30 0RF potassium chloride 20 mEq tablet extended release 20 meq PO BID 5 Days Qty: 10 0RF allopurinol 100 mg tablet 100 mg PO DAILY 90 Days Qty: 90 3RF albuterol sulfate [ProAir HFA] 90 mcg/actuation HFA aerosol inhaler 2 puff inhalation Q6H PRN (Reason: wheezing) oxycodone-acetaminophen 10-325 mg tablet 1 tab PO Q4-6H PRN (Reason: severe pain) zolpidem 10 mg tablet 10 mg PO BEDTIME clonazepam 1 mg tablet 1 mg PO DAILY PRN Spiriva Respimat 2.5 mcg/actuation mist 2 puff PO DAILY budesonide-formoterol [Symbicort] 160-4.5 mcg/actuation HFA aerosol inhaler 1 puff inhalation cholecalciferol (vitamin D3) 25 mcg (1,000 unit) tablet 25 mcg PO QAM lamotrigine 100 mg tablet 100 mg PO DAILY amitriptyline 50 mg tablet 50 mg PO BEDTIME acyclovir 400 mg tablet 400 mg PO Flovent HFA 110 mcg/actuation HFA aerosol inhaler 2 puff inhalation BID amlodipine 5 mg tablet 5 mg PO QAM atorvastatin 20 mg tablet 20 mg PO BEDTIME metoprolol succinate 50 mg tablet extended release 24 hr 50 mg PO QPM chlorthalidone 25 mg tablet 25 mg PO QAM diclofenac sodium 1 % gel 2 g topical BID cyclobenzaprine 10 mg tablet 10 mg PO TID meloxicam 7.5 mg tablet 7.5 mg PO DAILY PRN (Reason: pain) lidocaine 5 % adhesive patch,medicated 0 patch topical amitriptyline 100 mg tablet 100 mg PO BEDTIME amlodipine 10 mg tablet 10 mg PO QAM chlorthalidone 50 mg tablet 50 mg PO QAM Creon 24,000-76,000 -120,000 unit capsule,delayed release(DR/EC) 1 cap PO .QIDAC 30 Days Qty: 120 6RF Rx Instructions: administer with meals and/or snacks, please put into a bottle, not pill packs as her meal times vary simethicone 180 mg capsule 180 mg PO QID Qty: 90 6RF pyridoxine (vitamin B6) 100 mg tablet 100 mg PO DAILY 90 Days Qty: 90 1RF furosemide 20 mg tablet 20 mg PO QAM senna 8.6 mg capsule 17.2 mg PO BEDTIME 30 Days Qty: 60 6RF Rx Instructions: please dispense in a bottle and not in her pill paks. sennosides [senna] 8.6 mg tablet 17.2 mg PO BEDTIME Print Language: Prydeinig
[2022-06-30 22:48] LABS: Basophils Absolute Auto 0.1 X10*3/uL (0.0-0.2); Basophils Percent Auto 0.6 % (0-2); Eosinophils Absolute Auto 0.2 X10*3/uL (0.0-0.4); Eosinophils Percent Auto 2.2 % (0-4); Hematocrit 37.2 % (37.0-47.0); Hemoglobin 12.2 g/dl (12.0-16.0); Imm Gran Abs Auto 0.02 X10*3/uL (0.00-0.03); Imm Gran Pct Auto 0.2 % (0.0-0.4); Lymphocytes Absolute Auto 2.8 X10*3/uL (1.2-4.9); Lymphocytes Percent Auto 29.2 % (20-40); MANUAL DIFF FLAG NO; Mean Corpuscular HGB Conc 32.8 g/dl (31.0-35.0); Mean Corpuscular Volume 88.6 fL (80.0-98.0); Mean Platelet Volume 10.1 fL (9.4-12.3); Monocytes Absolute Auto 0.8 X10*3/uL (0.1-1.2); Monocytes Percent Auto 8.3 % (2-11); Neutrophils Absolute Auto 5.7 x10*3/uL (2.0-8.3); Neutrophils Percent Auto 59.5 % (45-73); Platelet Count 257 X10*3/uL (160-400); Red Cell Distribution Width 13.6 % (11.0-16.0); White Blood Count 9.5 X10*3/uL (4.8-10.8)
[2022-06-30 23:12] LABS: Anion Gap 16 (12-20); Blood Urea Nitrogen 15 mg/dL (9-16); Calcium 8.9 mg/dL (8.4-10.2); Carbon Dioxide 23 mmol/L (22-29); Chloride 104 mmol/L (96-108); Creatinine Clr Calc Pharmacy 79.9; Estimated Glomerular Filt Rate > 60; Glucose Random 116 mg/dL (60-115); Potassium 3.7 mmol/L (3.3-5.1); Sodium 139 mmol/L (135-145)
[2022-06-30 23:15] LABS: Troponin-I High Sensitivity < 3.5 ng/L (<3.5-17.0)
[2022-06-30] MEDS: Famotidine/PF 20 MG/2 ML VIAL IVPUSH (23:50)
[2022-07-01] MEDS: iohexoL 350 MG/ML 100 ML INFUS..BTL IV (01:21)
[2022-07-01 01:32] VITALS: RESP 20
[2022-07-01] MEDS: Morphine Sulfate 2 MG/ML CARTRIDGE IVPUSH (01:32)
[2022-07-01] MEDS: Magnesium Hydrox/Alum Hydrox 30 ML ORAL.SUSP PO (01:33)
[2022-07-01 02:14] LABS: D Dimer High Sensitivity 175 NG/ML
[2022-07-01 02:39] LABS: Troponin-I High Sensitivity < 3.5 ng/L (<3.5-17.0)
[2022-07-01 06:07] VITALS: BP 109/59; PULSE 67; RESP 16; TEMP 36.9; O2SAT 98
== END 2022-07-01 07:05 | disposition home or self-care (01) ==
PROVIDERS: Emergency Provider Internal Medicine; PCP Internal Medicine
DX: R07.89 Other chest pain (principal); Z79.899 Other long term (current) drug therapy
CPT/HCPCS: 36415; 71275; 80048; 84484; 85025; 85379; 93005; 96374; 96375; 99284; J2270; Q9967

== ENCOUNTER 2022-07-27 10:49 | Outpatient (REF) | payer MEDICAID, SELFPAY ==
--- NOTE | ~2022-07-27 | US_ITS ---
EXAMINATION: US RETROPERITONEAL LIMITED (RENAL ONLY) CLINICAL INFORMATION: Calculus of kidney. COMPARISON: Ultrasound abdomen complete 05/01/2021. CT abdomen and pelvis 05/11/2021. Ultrasound retroperitoneal limited (renal only) 05/16/2020. X-ray abdomen KUB 03/08/2019 and 09/29/2016. TECHNIQUE: Real-time imaging of the kidneys. FINDINGS: RIGHT KIDNEY: 11.0 x 5.5 x 6.2 cm (SAG x AP x TRV). The kidney is normal in size, contour, and echogenicity. Renal cortical thickness is normal. No calculi or focal parenchymal lesions. No hydronephrosis. LEFT KIDNEY: 10.7 x 4.4 x 3.8 cm (SAG x AP x TRV). The kidney is normal in size, contour, and echogenicity. Renal cortical thickness is normal. No calculi or focal parenchymal lesions. No hydronephrosis. Fullness renal pelvis BLADDER: Bilateral ureteral jets are demonstrated. US/US renal BI IMPRESSION: Fullness of left renal pelvis. No echogenic stones in either kidney. Normal bilateral ureteral jets in a normal distended bladder.
== END 2022-07-27 10:50 | disposition home or self-care (01) ==
LOC: HO.US 10:49
DX: N20.0 Calculus of kidney (principal); N28.1 Cyst of kidney, acquired
CPT/HCPCS: 76775

== ENCOUNTER 2023-03-26 12:25 | Outpatient (REF) | payer MEDICAID, SELFPAY ==
--- NOTE | ~2023-03-26 | XR_ITS ---
EXAMINATION: XR HAND, LEFT CLINICAL INFORMATION: Thumb pain one month, no injury COMPARISON: None available. TECHNIQUE: PA, lateral, and oblique views of the left hand. FINDINGS: Thumb: No evidence of acute fracture or dislocation. Anatomic alignment. Joint spaces are maintained. No abnormal soft tissue calcifications. Additional bones: There is a subchondral cyst in the fifth proximal phalanx base. Nonaggressive lucency/cyst in the capitate. No acute fracture or dislocation. XR/XR hand LT min 3V IMPRESSION: No radiographic evidence of acute fracture or dislocation of the thumb. Mild degenerative changes as above.
== END 2023-03-26 12:26 | disposition home or self-care (01) ==
LOC: HO.HHCX 12:25
PROVIDERS: Visit Provider Internal Medicine
DX: M79.645 Pain in left finger(s) (principal)
CPT/HCPCS: 73130

== ENCOUNTER 2023-05-20 11:35 | Outpatient (REF) | payer MEDICAID, SELFPAY ==
--- NOTE | ~2023-05-20 | MM_ITS ---
EXAMINATION: MM SCREENING DIGITAL BREAST TOMOSYNTHESIS, BILATERAL CLINICAL INFORMATION: Screening. Asymptomatic. The lifetime risk of breast cancer based on the Tyrer-Cuzick Model is 4.7%. COMPARISON: Mammography: This study is compared with prior exams dating back to 2019. TECHNIQUE: Digital breast tomosynthesis is performed in both the craniocaudal and mediolateral oblique views along with computer-aided detection (CAD). Synthesized 2D images are generated from the tomosynthesis. FINDINGS: There are scattered areas of fibroglandular density (ACR BI-RADS breast composition Category b). There are no significant masses, abnormal calcifications, or other abnormalities. MM/MM tomosynthesis screening BI IMPRESSION: No mammographic evidence of malignancy. ASSESSMENT: BI-RADS BI-RADS 1 - Negative RECOMMENDATION: Routine annual mammography screening. 1 year F/U This examination should not preclude the clinical evaluation of a suspicious palpable abnormality. This patient's information was entered into a reminder system with a target due date for their next mammogram.
== END 2023-05-20 11:36 | disposition home or self-care (01) ==
LOC: HO.MAMMO 11:35
PROVIDERS: PCP Internal Medicine; Visit Provider Internal Medicine
DX: Z12.31 Encounter for screening mammogram for malignant neoplasm of breast (principal)
CPT/HCPCS: 77063; 77067

== ENCOUNTER → 2023-05-20 11:45 | Outpatient (BNV) | payer MEDICAID, SELFPAY | PROVIDERS: PCP Internal Medicine; Visit Provider Radiology Diagnostic Radiology | DX: Z12.31 Encounter for screening mammogram for malignant neoplasm of breast (principal) | CPT/HCPCS: 77063; 77067 ==

== ENCOUNTER 2023-06-08 10:19 | Outpatient (AMB) | payer MEDICAID, SELFPAY ==
[2023-06-08 10:27] VITALS: BP 84/47; PULSE 73; BMI 38.0
--- NOTE | 2023-06-08 10:27 | MHC.OFFVIS ---
Intake Vital Signs 06/08/23 10:27 Height 5 ft 1 in Weight 201 lb 0.985 oz BMI 38.0 BP 84/47 L Blood Pressure Location Rt brachial Position Sitting Pulse 73 Intake Visit Reasons: follow up pt req Intake Note: Patient presents to in office visit today in follow up constipation and GERD. CC: Patient c/o epigastric pain,she states no matter what she eats or drink she gets pain and bloating. She reports GERD, blood in stool, and occasional constipation. Denies other GI symptoms today. Caregiver Services Home Required: Yes Caregiver Services Home Name: Kristyn [id number] Accompanied by: Self / Same As Patient Allergies Penicillins [PENICILLINS] Allergy (Mild, Verified 06/08/23 10:32) RASH Sulfa (Sulfonamide Antibiotics) [SULFA (SULFONAMIDE ANTIBIOTICS)] Allergy (Mild, Verified 06/08/23 10:32) BRUISING,SWOLLEN LIPS, rash, swollen lips fluoxetine [Prozac] Allergy (Unknown, Verified 06/08/23 10:32) sleepiness penicillin V Allergy (Unknown, Verified 06/08/23 10:32) echymosis, rash as a child HPI follow up pt req HPI Details Assessment & Plan (1) Chronic idiopathic constipation: ?Code(s): K59.04 - Chronic idiopathic constipation ?Plan: Greek? #[id number], Randy. She received the Trulance and it is working to move her bowels, but it is not consistently moving he bowels. We will add senna qhs and she will continue to take the Trulance in the morning.? We will continue to titrate her treatment to affect her side effect or consider moving her to Linzess depending on how she reacts to this treatment. She continues on her famotidine 20mg bid, Creon before meals, and simethicone, so her GERD is not too bad, but it could be better with better bowel motility. Return office visit in 3-4 weeks to evaluate her response to adding senna. (2) GERD (gastroesophageal reflux disease): ?Code(s): K21.9 - Gastro-esophageal reflux disease without esophagitis (3) Abdominal bloating: ?Code(s): R14.0 - Abdominal distension (gaseous) ? ? ? Medications: New sennosides 17.2 mg (2 x 8.6 m g) PO BEDTIME 30 d ays 60 caps 6RF co nstipation ? ? sennosides (senna) ?? please dispens e in a bottle and not in her pill summer renteria. 17.2 mg (2 x 8.6 m g) PO BEDTIME 30 d ays 60 caps 6RF co nstipation ?Patient Instructions: Liliane Gatica Para ayudar a que villalta Trulance funcione mejor, estoy agregando senna. Contin?e tomando Trulance por la ma?aide y 2 senna a la hora de acostarse. Si tiene diarrea, reduzca el sen a 1 tableta por la noche o salte algunas noches. Quiero verte en 3 o 4 semanas para beverly c?mo funciona esto para ti. TODAY'S VISIT Greek #[id number], Kristyn She did start the senna and taking 2 tabs a night with her Trulance has started moving her bowels well. This has helped the bloating a lot. She is having another problem with dysphagia of solid and liquid foods getting stuck and then coming back up. This is a new sx for her. She also is c/o a lot of burping and flatulence, but she is not taking the simethicone. This has been happening for about 1 month. She continues on her CReon, and famotidine bid. But I DO have some doubts about her compliance because this does not line up with her medication renewal dates. No other med changes at this time, no diet changes, no illness. Will get barium swallow and EGD. Hopefully, adding simethicone will also help. Safe swallowing precautions reviewed. She is tender in the RUQ and across the upper abd with palpation, so will get US, no FHX GB disease. There are no prior problems with anesthesia or sedation. Has FRIEDA and asthma which are well controlled, she denies any cardiac problems. No ID problems Her father had esophageal cancer. ROV 6 weeks. [facility] Medical History Asthma Cyst of kidney, acquired Early satiety Epigastric pain HTN (hypertension) Kidney stone Sleep apnea Surgical History Hx of colonoscopy Hx of endoscopy Previous back surgery Family History Father History of cancer Mother Hx of diabetes mellitus Social History Household Members: Spouse Alcohol intake: never Patient Tobacco Use Status: Never used Tobacco Review of Systems Const Denies fatigue, Denies fever(s), Denies night sweats, Denies poor appetite and Denies weight loss ENT Reports Normal hearing present, Denies dental pain, Reports dysphagia, Denies hearing loss, Denies mouth pain, Denies odynophagia, Denies throat swelling, Denies tongue swelling and Reports other (Dentition adequate) Card Reports no additional complaints Resp Reports no additional complaints GI Reports abdominal pain, Denies melena, Reports bloating, Denies hematochezia, Reports constipation, Denies GI cramping, Reports dysphagia, Reports excessive flatus, Denies early satiety, Reports heartburn, Denies diarrhea, Denies nausea, Denies odynophagia, Denies vomiting and Denies hematemesis Skin/Breast Denies pruritus, Denies lesions, Denies rash and Denies jaundice Neuro Reports Normal hearing present and Denies Abnormal speech present Endo Denies fatigue Aller/Immun Denies throat swelling and Denies tongue swelling Physical Exam Vital Signs: Last Vital Signs Pulse 73 06/08/23 10:27 BP 84/47 L 06/08/23 10:27 BMI result Body Mass Index 38.0 Const General: cooperative, no acute distress, well developed and well groomed Nutritional Appearance: well nourished and obese centrally obese Orientation/consciousness: oriented to person, oriented to place and oriented to time Limitations: No language barrier HEENT Head: Yes normocephalic and Yes atraumatic Eyes General: appearance normal, both eyes and all related structures Pupils: Equal, round and reactive pupils present Neck Neck: Yes normal visual inspection and Yes no lymphadenopathy Thyroid: Thyroid normal Resp Effort & Inspection: normal respiratory effort and able to speak in complete sentences Auscultation: clear to auscultation bilaterally Cardio Rate: regular rate Rhythm: regular rhythm Heart sounds: Normal, physiologic split S2 sound present Peripheral pulses: radial pulses present and posterior tibial pulses present GI Inspection: No distended, Yes Abdominal panniculus present and Yes obesity Palpation (GI): Soft to palpation, Tenderness to palpation present (GI) in the LUQ and in the RUQ, no guarding, not rigid and No hepatosplenomegaly present Percussion: Yes normal to percussion Auscultation: normal bowel sounds Rectal Exam - Female: deferred Abdomen image: 1. surgical scar Skin General skin exam: no rashes or lesions noted, turgor normal, skin not dry, no jaundice, No spider nevi and no striae Rashes: no rashes Nails: normal Neuro General: oriented to person, oriented to place and oriented to time Cranial nerves: Yes Equal, round and reactive pupils present and Yes Normal hearing present Speech: No Abnormal speech present Extrem General: Yes normal to inspection, No clubbing, No cyanosis and No edema Psych Appearance: grossly normal and well kempt Mental Status: mental status grossly normal Speech and movement: Normal speech and movement present Affect: normal affect Attitude: cooperative Thought process: Normal thought process present and not confabulating Thought content: Normal thought content present Insight: Limited insight present (Psych) Judgement: Limited judgement present (Psych) Assessment & Plan Assessment & Plan (1) Chronic idiopathic constipation: Code(s): K59.04 - Chronic idiopathic constipation Plan: Greek #[id number], Kristyn She did start the senna and taking 2 tabs a night with her Trulance has started moving her bowels well. This has helped the bloating a lot. She is having another problem with dysphagia of solid and liquid foods getting stuck and then coming back up. This is a new sx for her. She also is c/o a lot of burping and flatulence, but she is not taking the simethicone. This has been happening for about 1 month. She continues on her CReon, and famotidine bid. But I DO have some doubts about her compliance because this does not line up with her medication renewal dates. No other med changes at this time, no diet changes, no illness. Will get barium swallow and EGD. Hopefully, adding simethicone will also help. Safe swallowing precautions reviewed. She is tender in the RUQ and across the upper abd with palpation, so will get US, no FHX GB disease. There are no prior problems with anesthesia or sedation. Has FRIEDA and asthma which are well controlled, she denies any cardiac problems. No ID problems Her father had esophageal cancer. ROV 6 weeks. (2) GERD (gastroesophageal reflux disease): Code(s): K21.9 - Gastro-esophageal reflux disease without esophagitis (3) Abdominal bloating: Code(s): R14.0 - Abdominal distension (gaseous) (4) Dysphagia: Code(s): R13.10 - Dysphagia, unspecified (5) Pre-op examination: Code(s): Z01.818 - Encounter for other preprocedural examination (6) Upper abdominal pain: Code(s): R10.10 - Upper abdominal pain, unspecified Orders: Orders FL barium swallow Today R13.10 - Dysphagia, unspecified EGD with Pearson - GI Use Only Today R13.10 - Dysphagia, unspecified Comprehensive Met. Panel Today Z01.818 - Encounter for other preprocedural examination Complete Blood Count Auto Diff Today Z01.818 - Encounter for other preprocedural examination US abdomen complete Today R10.10 - Upper abdominal pain, unspecified Medications: New sennosides (senna) 17.2 mg (2 x 8.6 mg) PO BEDTIME 60 tabs 6RF constipation Refilled simethicone 180 mg PO QID 90 caps 6RF R14.0 - Abdominal distension (gaseous) famotidine 20 mg PO BID 60 tabs 6RF K21.9 - Gastro-esophageal reflux disease without esophagitis, R10.13 - Epigastric pain plecanatide (Trulance) 3 mg PO DAILY 30 tabs 6RF K59.04 - Chronic idiopathic constipation [id number] 24,000-76,000 -120,000 unit (Creon) administer with meals and/or snacks, please put into a bottle, not pill packs as her meal times vary 1 cap PO .QIDAC 30 days 120 caps 6RF K58.9 - Irritable bowel syndrome without diarrhea Discontinued sucralfate Discontinued Reason: Doctor's Order 1 g PO TID 90 tabs 0RF Coding Level of Care Code Est Pt Level 4 (96945) Diagnoses Chronic idiopathic constipation K59.04 GERD (gastroesophageal reflux disease) K21.9 Abdominal bloating R14.0 Dysphagia R13.10 Pre-op examination Z01.818 Upper abdominal pain R10.10
== END 2023-06-08 11:27 | disposition home or self-care (01) ==
PROVIDERS: PCP Internal Medicine; Visit Provider Nurse Practitioner
DX: K59.04 Chronic idiopathic constipation (principal); K21.9 Gastro-esophageal reflux disease without esophagitis; R14.0 Abdominal distension (gaseous); R13.10 Dysphagia, unspecified; Z01.818 Encounter for other preprocedural examination; R10.10 Upper abdominal pain, unspecified
CPT/HCPCS: 99214

== ENCOUNTER 2023-06-08 10:19 | Outpatient (REF) | payer MEDICAID, SELFPAY ==
[2023-06-08 11:57] LABS: MANUAL DIFF FLAG NO
[2023-06-08 12:45] LABS: Basophils Absolute Auto 0.1 X10*3/uL (0.0-0.2); Basophils Percent Auto 0.6 % (0-2); Eosinophils Absolute Auto 0.2 X10*3/uL (0.0-0.4); Hematocrit 41.1 % (37.0-47.0); Hemoglobin 13.1 g/dl (12.0-16.0); Imm Gran Abs Auto 0.03 X10*3/uL (0.00-0.03); Imm Gran Pct Auto 0.3 % (0.0-0.4); Lymphocytes Absolute Auto 3.6 X10*3/uL (1.2-4.9); Lymphocytes Percent Auto 38.9 % (20-40); Mean Corpuscular HGB Conc 31.9 g/dl (31.0-35.0); Mean Corpuscular Hemoglobin 28.8 pg (27.0-33.0); Mean Corpuscular Volume 90.3 fL (80.0-98.0); Mean Platelet Volume 10.4 fL (9.4-12.3); Monocytes Absolute Auto 0.8 X10*3/uL (0.1-1.2); Neutrophils Absolute Auto 4.6 x10*3/uL (2.0-8.3); Neutrophils Percent Auto 49.2 % (45-73); Platelet Count 294 X10*3/uL (160-400); Red Blood Count 4.55 X10*6/uL (4.20-5.50); Red Cell Distribution Width 13.6 % (11.0-16.0); White Blood Count 9.4 X10*3/uL (4.8-10.8)
[2023-06-08 13:44] LABS: Alanine Aminotransferase 23 U/L (0-31); Alkaline Phosphatase 93 U/L (39-117); Anion Gap 15 (12-20); Aspartate Amino Transferase 25 U/L (5-31); Bilirubin Total 0.2 mg/dL (0.0-1.0); Blood Urea Nitrogen 15 mg/dL (9-16); Calcium 9.8 mg/dL (8.4-10.2); Carbon Dioxide 25 mmol/L (22-29); Chloride 106 mmol/L (96-108); Estimated Glomerular Filt Rate > 60; Glucose Random 90 mg/dL (60-115); Potassium 3.8 mmol/L (3.3-5.1); Sodium 142 mmol/L (135-145); Total Protein 7.4 g/dL (6.5-8.0)
== END 2023-06-08 10:20 | disposition home or self-care (01) ==
LOC: HO.LAB 10:19
PROVIDERS: PCP Internal Medicine; Visit Provider Nurse Practitioner
DX: Z01.818 Encounter for other preprocedural examination (principal); K59.04 Chronic idiopathic constipation; K21.9 Gastro-esophageal reflux disease without esophagitis; R14.0 Abdominal distension (gaseous); R13.10 Dysphagia, unspecified; R10.10 Upper abdominal pain, unspecified
CPT/HCPCS: 36415; 80053; 85025; 99214

== ENCOUNTER 2023-07-13 08:46 | Outpatient (REF) | payer MEDICAID, SELFPAY ==
--- NOTE | ~2023-07-13 | US_ITS ---
EXAMINATION: US ABDOMEN COMPLETE CLINICAL INFORMATION: Upper abdominal pain, unspecified. COMPARISON: Renal ultrasound 07/27/2022. CT abdomen and pelvis 05/11/2021. Ultrasound abdomen complete 05/01/2021. KUB 03/08/2019 and 09/29/2016. TECHNIQUE: Real-time imaging of the abdominal viscera. FINDINGS: PANCREAS: Not well visualized due to bowel gas ABDOMINAL AORTA: The distal abdominal aorta is not well visualized. The proximal and mid abdominal aorta are normal in caliber. INFERIOR VENA CAVA: Visualized portions are normal. LIVER: Liver echotexture is increased. The liver is enlarged, right lobe measuring 21 cm. The liver contour is normal. No focal hepatic lesion. There is no intrahepatic biliary duct dilatation seen. GALLBLADDER: The gallbladder is physiologically distended without evidence of stones, sludge, polyps, wall thickening or pericholecystic fluid. chief medical technologist reports the patient is tender over the gallbladder. COMMON BILE DUCT: Normal in caliber measuring 0.4 cm in diameter. RIGHT KIDNEY: Normal. No hydronephrosis. No renal calculi or focal parenchymal lesions. The kidney measures 10.4 cm in maximum dimension. LEFT KIDNEY: Normal. No hydronephrosis. No renal calculi or focal parenchymal lesions. The kidney measures 9.7 cm in maximum dimension. SPLEEN: Normal. The spleen measures 8.8 cm in maximum dimension. FREE FLUID: None. US/US abdomen complete IMPRESSION: Enlarged echogenic liver probably representing fatty infiltration. Morphologically normal-appearing gallbladder. The isotope technologist reports the patient is tender over the gallbladder. Limited visualization of the pancreas and distal abdominal aorta.
== END 2023-07-13 08:47 | disposition home or self-care (01) ==
LOC: HO.US 08:46
PROVIDERS: Visit Provider Nurse Practitioner
DX: R10.10 Upper abdominal pain, unspecified (principal)
CPT/HCPCS: 76700

== ENCOUNTER 2023-07-27 08:42 | Outpatient (REF) | payer MEDICAID, SELFPAY ==
--- NOTE | ~2023-07-27 | FL_ITS ---
EXAMINATION: XR FLUOROSCOPY BARIUM SWALLOW WITH AIR CLINICAL INFORMATION: Patient complaining of episodic dysphasia, with associated nausea and vomiting x1 month, predominantly with solid food. COMPARISON: None relevant. TECHNIQUE: Fluoroscopic air contrast barium swallow examination was performed utilizing standard techniques with thin and thick barium and effervescent granules. Numerous spot images were obtained. FINDINGS: Lateral cine images of the oropharynx and hypopharynx demonstrate normal swallow mechanism with normal epiglottic inversion and soft palate elevation. No tracheal penetration, glottic or subglottic aspiration identified. No nasopharyngeal reflux present. Hypopharyngeal structures appear normal without evidence of mass or diverticulum. There was no significant cricopharyngeal achalasia. Dual and single contrast images of the esophagus demonstrate normal caliber, contour, and mucosal pattern. No evidence of stricture, mass, or ulcerations identified. Esophageal peristalsis was somewhat disordered consistent with presbyesophagus. Numerous nonpropulsive tertiary contractions were present after the primary wave. No evidence of hiatus hernia identified. No significant gastroesophageal reflux was seen during the course of the examination and on reflux views. Dual contrast and single contrast images of the stomach were somewhat limited due to the patient inability to tolerate taking significant amounts of barium for coating of the stomach. There was a somewhat granular mucosal pattern without evidence of mass or ulceration. Findings may reflect mild gastritis. Mild fold thickening may be present, possibly artifactual. Contrast freely passed into the gastric antrum and duodenal bulb without delay. Single and air-contrast images of the duodenal bulb demonstrate no abnormality. The duodenal sweep has a normal appearance, course, and mucosal fold appearance. The imaged proximal jejunum has a normal fold pattern and caliber. FLUOROSCOPY TIME: 2 minutes 57 seconds. Number of Spot Images: 10 exposures, 6 cine fluoroscopy runs DOSE AREA PRODUCT: 2597 uGy-m2 (microgray-meter squared) FL/FL barium swallow IMPRESSION: 1. Normal-appearing hypopharynx and hypopharyngeal phase of swallow. No tracheal penetration or aspiration. 2. Esophagus grossly normal aside from numerous nonpropulsive tertiary contractions consistent with presbyesophagus. 3. Somewhat granular appearance to the gastric mucosa, predominantly in the gastric fundus, possibly artifactual due to poor/insufficient amount of contrast coating, although a mild gastritis is also a possibility. 4. No definite hiatus hernia and no significant GE reflux seen. 5. The duodenal bulb, sweep, and proximal jejunum appear normal.
== END 2023-07-27 08:43 | disposition home or self-care (01) ==
LOC: HO.XRAY 08:42
PROVIDERS: PCP Internal Medicine; Visit Provider Nurse Practitioner
DX: R13.10 Dysphagia, unspecified (principal)
CPT/HCPCS: 74220

== ENCOUNTER → 2023-07-27 08:43 | Outpatient (BNV) | payer MEDICAID, SELFPAY | PROVIDERS: PCP Internal Medicine; Visit Provider Radiology Diagnostic Radiology | DX: R13.10 Dysphagia, unspecified (principal) | CPT/HCPCS: 74221 ==

== ENCOUNTER 2023-07-30 14:46 | Outpatient (AMB) | payer MEDICAID, SELFPAY ==
--- NOTE | 2023-07-30 14:48 | A.OFFVIS_ITS ---
Intake Vital Signs 07/30/23 14:52 Height 5 ft 1 in Weight 203 lb BMI 38.4 BP 100/53 L Blood Pressure Location Lt brachial Position Sitting Pulse 76 Intake Visit Reasons: 6 Weeks Follow Up Intake Note: Patient follow up for Barium Swallow, lab and US results. Patient cc: abdominal pain, acid reflex with burning sensation, no energy, constipation and some swallowing problems. Order Processing Clerk Required: Yes Order Processing Clerk Name: [facility] nterpeter Accompanied by: Self / Same As Patient Allergies Penicillins [PENICILLINS] Allergy (Mild, Verified 07/30/23 14:49) RASH Sulfa (Sulfonamide Antibiotics) [SULFA (SULFONAMIDE ANTIBIOTICS)] Allergy (Mild, Verified 07/30/23 14:49) BRUISING,SWOLLEN LIPS, rash, swollen lips fluoxetine [Prozac] Allergy (Unknown, Verified 07/30/23 14:49) sleepiness penicillin V Allergy (Unknown, Verified 07/30/23 14:49) echymosis, rash as a child HPI 6 Weeks Follow Up HPI Details Assessment & Plan (1) Chronic idiopathic constipation: Code(s): K59.04 - Chronic idiopathic constipation Plan: [place] #[id number], Kristyn She did start the senna and taking 2 tabs a night with her Trulance has started moving her bowels well. This has helped the bloating a lot. She is having another problem with dysphagia of solid and liquid foods getting stuck and then coming back up. This is a new sx for her. She also is c/o a lot of burping and flatulence, but she is not taking the simethicone. This has been happening for about 1 month. She continues on her CReon, and famotidine bid. But I DO have some doubts about her compliance because this does not line up with her medication renewal dates. No other med changes at this time, no diet changes, no illness. Will get barium swallow and EGD. Hopefully, adding simethicone will also help. Safe swallowing precautions reviewed. She is tender in the RUQ and across the upper abd with palpation, so will get US, no FHX GB disease. There are no prior problems with anesthesia or sedation. Has FRIEDA and asthma which are well controlled, she denies any cardiac problems. No ID problems Her father had esophageal cancer. ROV 6 weeks. (2) GERD (gastroesophageal reflux diseas e): Code(s): K21.9 - Gastro-esophageal reflux disease without esophagitis (3) Abdominal bloating: Code(s): R14.0 - Abdominal distension (gaseous) (4) Dysphagia: Code(s): R13.10 - Dysphagia, unspecified (5) Pre-op examination: Code(s): Z01.818 - Encounter for other preprocedural examination (6) Upper abdominal pain: Code(s): R10.10 - Upper abdominal pain, unspecified Orders: Orders FL barium swallow Today R13.10 - Dysphagia , unspecified EGD with Pearson - G I Use Only Today R13.10 - Dysphagia , unspecified Comprehensive Met. Panel Today Z01.818 - Encounte r for other prepro cedural examinatio n Complete Blood Cou nt Auto Diff Today Z01.818 - Encounte r for other prepro cedural examinatio n US abdomen complet e Today R10.10 - Upper abd ominal pain, unspe cified Medications: New sennosides (senna) 17.2 mg (2 x 8.6 m g) PO BEDTIME 60 t abs 6RF constipati on Refilled simethicone 180 mg PO QID 90 caps 6RF R14.0 - Abdominal distension (gaseou s) famotidine 20 mg PO BID 60 t abs 6RF K21.9 - Gastro-eso phageal reflux dis ease without esoph agitis, R10.13 - E pigastric pain plecanatide (Trula nce) 3 mg PO DAILY 30 tabs 6RF K59.04 - Chronic i diopathic constipa tion jpfgef-nbivpatm-hw ylase 24,000-76,00 0 -120,000 unit (C reon) administe r with meals and/o r snacks, please p ut into a bottle, not pill packs as her meal times marcos y 1 cap PO .QIDAC 3 0 days 120 caps 6R F K58.9 - Irritable bowel syndrome wit hout diarrhea Discontinued sucralfate Disc ontinued Reason: Doctor's Order 1 g PO TID 90 tab s 0RF LABS Laboratory Tests 08/01/23 11:55 WBC 9.4 Hgb 13.1 Hct 41.1 Plt Count 294 Estimated GFR > 60 Total Bilirubin 0.2 AST 25 ALT 23 Alkaline Phosphata se 93 BARIUM SWALLOW 07/27/23 FINDINGS: Lateral cine images of the oropharynx and hypopharynx demonstrate normal swallow mechanism with normal epiglottic inversion and soft palate elevation. No tracheal penetration, glottic or subglottic aspiration identified. No nasopharyngeal reflux present. Hypopharyngeal structures appear normal without evidence of mass or diverticulum. There was no significant cricopharyngeal achalasia. Dual and single contrast images of the esophagus demonstrate normal caliber, contour, and mucosal pattern. No evidence of stricture, mass, or ulcerations identified. Esophageal peristalsis was somewhat disordered consistent with presbyesophagus. Numerous nonpropulsive tertiary contractions were present after the primary wave. No evidence of hiatus hernia identified. No significant gastroesophageal reflux was seen during the course of the examination and on reflux views. Dual contrast and single contrast images of the stomach were somewhat limited due to the patient inability to tolerate taking significant amounts of barium for coating of the stomach. There was a somewhat granular mucosal pattern without evidence of mass or ulceration. Findings may reflect mild gastritis. Mild fold thickening may be present, possibly artifactual. Contrast freely passed into the gastric antrum and duodenal bulb without delay. Single and air-contrast images of the duodenal bulb demonstrate no abnormality. The duodenal sweep has a normal appearance, course, and mucosal fold appearance. The imaged proximal jejunum has a normal fold pattern and caliber. FLUOROSCOPY TIME: 2 minutes 57 seconds. Number of Spot Images: 10 exposures, 6 cine fluoroscopy runs DOSE AREA PRODUCT: 2597 uGy-m2 (microgray-meter squared) She FL/FL barium swallow IMPRESSION: 1. Normal-appearing hypopharynx and hypo pharyngeal phase of swallow. No tracheal penetration or aspiration. 2. Esophagus grossly normal aside from n umerous nonpropulsive tertiary contractions consistent with presbyesophagus. 3. Somewhat granular appearance to the g astric mucosa, predominantly in the gastric fundus, possibly artifactual due to poor/insufficient amount of contrast coating, although a mild gastritis is also a possibility. 4. No definite hiatus hernia and no sign ificant GE reflux seen. 5. The duodenal bulb, sweep, and proxima l jejunum appear normal. US ABD 07/14/23 FINDINGS: PANCREAS: Not well visualized due to bowel gas ABDOMINAL AORTA: The distal abdominal aorta is not well visualized. The proximal and mid abdominal aorta are normal in caliber. INFERIOR VENA CAVA: Visualized portions are normal. LIVER: Liver echotexture is increased. The liver is enlarged, right lobe measuring 21 cm. The liver contour is normal. No focal hepatic lesion. There is no intrahepatic biliary duct dilatation seen. GALLBLADDER: The gallbladder is physiologically distended without evidence of stones, sludge, polyps, wall thickening or pericholecystic fluid. cytopathology technologist reports the patient is tender over the gallbladder. COMMON BILE DUCT: Normal in caliber measuring 0.4 cm in diameter. RIGHT KIDNEY: Normal. No hydronephrosis. No renal calculi or focal parenchymal lesions. The kidney measures 10.4 cm in maximum dimension. LEFT KIDNEY: Normal. No hydronephrosis. No renal calculi or focal parenchymal lesions. The kidney measures 9.7 cm in maximum dimension. SPLEEN: Normal. The spleen measures 8.8 cm in maximum dimension. FREE FLUID: None. US/US abdomen complete IMPRESSION: Enlarged echogenic liver probably representing fatty infiltration. Morphologically normal-appearing gallbladder. The medical technologist clinical reports the patient is tender over the gallbladder. Limited visualization of the pancreas and distal abdominal aorta. EGD BIOPSY CORRESPONDENCE On 06/17/23 @ 08:16 Ankita Mena Wrote To [facility] tried contacting pt's cell number it is disconnected, lvm on home number listed. ADDED TO SPREAD SHEET. Ankita Mena completed item. On 06/08/23 @ 11:18 MeganAlicia Wrote To [facility] Needs EGD for dysphagia, may need dilation. TODAY'S VISIT [place] #Masoud Hooper She says the burning is driving me crazy. This is despite taking bid famotidine. Will rx o2o 40mg and she can continue famotidine for now. For EGD scheduling : The pt has new phone #'s [phone] cell. [phone], husbands phone. We review the barium swallow and she has significant presbyesophagus, but also may have an element that would respond to dilation. If not, we may need to consider CCB or bentyl. US did not show any GB pathology, so her soreness in the RUQ may be msk or colon. She developed severe CIC in response to the barium, will rx mag citrate to clear as a one time tx. ROV 4 weeks. [facility] Medical History (Updated 08/03/23 @ 13:51 by Anitha Bush) FRIEDA on CPAP Cyst of kidney, acquired Early satiety Epigastric pain Sleep apnea HTN (hypertension) Kidney stone Asthma Surgical History Hx of colonoscopy Previous back surgery Hx of endoscopy Family History Father History of cancer Mother Hx of diabetes mellitus Social History Household Members: Spouse Alcohol intake: never Patient Tobacco Use Status: Never used Tobacco Review of Systems Const Denies fatigue, Denies fever(s), Denies night sweats, Reports poor appetite and Denies weight loss ENT Reports Normal hearing present, Denies dental pain, Reports dysphagia, Denies hearing loss, Denies mouth pain, Denies odynophagia, Denies throat swelling, Denies tongue swelling and Reports other (Dentition adequate) Card Reports no additional complaints Resp Reports no additional complaints GI Reports abdominal pain, Denies melena, Denies bloating, Denies hematochezia, Reports constipation, Denies GI cramping, Reports dysphagia, Denies excessive flatus, Denies early satiety, Reports heartburn, Denies diarrhea, Denies nausea, Denies odynophagia, Denies vomiting and Denies hematemesis Skin/Breast Denies pruritus, Denies lesions, Denies rash and Denies jaundice Neuro Reports Normal hearing present and Denies Abnormal speech present Endo Denies fatigue Aller/Immun Denies throat swelling and Denies tongue swelling Physical Exam Vital Signs: Last Vital Signs Pulse 76 07/30/23 14:52 BP 100/53 L 07/30/23 14:52 BMI result Body Mass Index 38.4 Const General: cooperative, no acute distress, well developed and well groomed Nutritional Appearance: well nourished and obese Orientation/consciousness: oriented to person, oriented to place and oriented to time Limitations: language barrier HEENT Head: Yes normocephalic and Yes atraumatic Eyes General: appearance normal, both eyes and all related structures Pupils: Equal, round and reactive pupils present Neck Neck: Yes normal visual inspection and Yes no lymphadenopathy Thyroid: Thyroid normal Resp Effort & Inspection: normal respiratory effort and able to speak in complete sentences Auscultation: clear to auscultation bilaterally Cardio Rate: regular rate Rhythm: regular rhythm Heart sounds: Normal, physiologic split S2 sound present Peripheral pulses: radial pulses present and posterior tibial pulses present GI Inspection: No distended, Yes Abdominal panniculus present and Yes obesity Palpation (GI): Soft to palpation, nontender, no guarding, not rigid and No hepatosplenomegaly present Percussion: Yes normal to percussion Auscultation: normal bowel sounds Rectal Exam - Female: deferred Skin General skin exam: no rashes or lesions noted, turgor normal, skin not dry, no jaundice, No spider nevi and no striae Rashes: no rashes Nails: normal Neuro General: oriented to person, oriented to place and oriented to time Cranial nerves: Yes Equal, round and reactive pupils present and Yes Normal hearing present Speech: No Abnormal speech present Extrem General: Yes normal to inspection, No clubbing, No cyanosis and No edema Psych Appearance: grossly normal and well kempt Mental Status: mental status grossly normal Speech and movement: Normal speech and movement present Affect: normal affect Attitude: cooperative Thought process: Normal thought process present and not confabulating Thought content: Normal thought content present Insight: Limited insight present (Psych) Judgement: Limited judgement present (Psych) Assessment & Plan Assessment & Plan (1) Upper abdominal pain: Code(s): R10.10 - Upper abdominal pain, unspecified Plan: [place] #Sandie, Live She says the burning is driving me crazy. This is despite taking bid famotidine. Will rx o2o 40mg and she can continue famotidine for now. For EGD scheduling : The pt has new phone #'s [phone] cell. [phone], husbands phone. We review the barium swallow and she has significant presbyesophagus, but also may have an element that would respond to dilation. If not, we may need to consider CCB or bentyl. US did not show any GB pathology, so her soreness in the RUQ may be msk or colon. She developed severe CIC in response to the barium, will rx mag citrate to clear as a one time tx. ROV 4 weeks. (2) Dysphagia: Code(s): R13.10 - Dysphagia, unspecified (3) Abdominal bloating: Code(s): R14.0 - Abdominal distension (gaseous) (4) GERD (gastroesophageal reflux disease): Code(s): K21.9 - Gastro-esophageal reflux disease without esophagitis (5) Chronic idiopathic constipation: Code(s): K59.04 - Chronic idiopathic constipation Medications: New magnesium citrate please give 2 bottles, drink 1/2 bottle and wait 30 mins, if no BM drink other 1/2 bottle, repeat with second bottle if no BM orally daily; 300 mL 0RF constipation omeprazole 40 mg PO DAILY 30 caps 6RF 30 days K21.9 - Gastro-esophageal reflux disease without esophagitis Coding Level of Care Code Est Pt Level 3 (24676) Diagnoses Upper abdominal pain R10.10 Dysphagia R13.10 Abdominal bloating R14.0 GERD (gastroesophageal reflux disease) K21.9 Chronic idiopathic constipation K59.04
[2023-07-30 14:52] VITALS: BP 100/53; PULSE 76; BMI 38.4
== END 2023-07-30 15:15 | disposition home or self-care (01) ==
LOC: HO.HGI 14:46
PROVIDERS: PCP Internal Medicine; Visit Provider Nurse Practitioner
DX: R10.10 Upper abdominal pain, unspecified (principal); R13.10 Dysphagia, unspecified; R14.0 Abdominal distension (gaseous); K21.9 Gastro-esophageal reflux disease without esophagitis; K59.04 Chronic idiopathic constipation
CPT/HCPCS: 99213

== ENCOUNTER → 2023-07-30 14:46 | Outpatient (BNVA) | payer MEDICAID, SELFPAY | PROVIDERS: PCP Internal Medicine; Visit Provider Nurse Practitioner | DX: K59.04 Chronic idiopathic constipation (principal); R10.10 Upper abdominal pain, unspecified; R13.10 Dysphagia, unspecified; R14.0 Abdominal distension (gaseous); K21.9 Gastro-esophageal reflux disease without esophagitis | CPT/HCPCS: 99212 ==

== ENCOUNTER 2023-08-03 12:32 | Day surgery (SDC) | payer MEDICAID, SELFPAY ==
--- NOTE | 2023-08-02 10:16 | P.CONAN_ITS ---
Documented by User: Krystin Marques NP 08/02/23 10:17 HPI - Anesthesia Eval Consult details Narrative: 58yo F for Upper Endoscopy with Balloon Dilitation PMFSH Active Problems Active Problems: All Active Problems (Updated 06/08/23 @ 11:24 by IZABELA Mena) Upper abdominal pain (Acute) Pre-op examination (Acute) Dysphagia (Acute) Cyst of kidney, acquired (Acute) Kidney stone (Acute) Abdominal bloating (Acute) GERD (gastroesophageal reflux disease) (Acute) Chronic idiopathic constipation (Acute) Past Medical History Medical History (Updated 08/03/23 @ 13:51 by Anitha Bush) FRIEDA on CPAP Cyst of kidney, acquired Early satiety Epigastric pain Sleep apnea HTN (hypertension) Kidney stone Asthma Family History Family History Father History of cancer Mother Hx of diabetes mellitus Surgical History Surgical History Hx of colonoscopy Previous back surgery Hx of endoscopy Social History Social History Household Members: Spouse Alcohol intake: never Patient Tobacco Use Status: Never used Tobacco Use of substances other than those prescribed or required for medical reasons: No Are you DNR?: No Advance Directives: No Advance Directives Information Provided: Yes Meds Allergies Allergy/AdvReac Type Severity Reaction Status Date / Time Penicillins [PENICILLINS] Allergy Mild RASH Verified 07/30/23 14:49 Sulfa (Sulfonamide Allergy Mild BRUISING,SWOLLEN Verified 07/30/23 14:49 Antibiotics) LIPS, [SULFA (SULFONAMIDE rash, ANTIBIOTICS)] swollen lips fluoxetine [Prozac] Allergy Unknown sleepiness Verified 07/30/23 14:49 penicillin V Allergy Unknown echymosis, Verified 07/30/23 14:49 rash as a child Home Medications Medication Instructions Recorded Confirmed Last Taken Type albuterol sulfate 90 mcg/actuation 2 puff inhalation Q6H PRN wheezing 06/27/21 08/03/23 Unknown History aerosol inhaler (ProAir HFA) budesonide-formoterol HFA 160 1 puff inhalation DAILY 06/27/21 08/03/23 Unknown History mcg-4.5 mcg/actuation aerosol inhaler (Symbicort) chlorthalidone 25 mg tablet 25 mg PO QAM 06/27/21 08/03/23 Unknown History cyclobenzaprine 10 mg tablet 10 mg PO TID 06/27/21 08/03/23 Unknown History diclofenac sodium 1 % topical gel 2 g topical BID 06/27/21 08/03/23 Unknown History oxycodone-acetaminophen 10 mg-325 1 tab PO Q4-6H PRN severe pain 06/27/21 08/03/23 Unknown History mg tablet amitriptyline 100 mg tablet 100 mg PO BEDTIME 10/27/21 08/03/23 Unknown History amlodipine 10 mg tablet 10 mg PO QAM 10/27/21 08/03/23 Unknown History furosemide 20 mg tablet 20 mg PO QAM 01/06/22 08/03/23 Unknown History lidocaine 5 % topical patch 1 patch topical NEEDED PRN Pain 06/08/23 08/03/23 Unknown History Exam Exam Date and Time: August 02, 2023 1016 Pertinent Lab Results Pertinent Lab Results: Laboratory Tests 06/08/23 11:55 WBC 9.4 Hgb 13.1 Hct 41.1 Plt Count 294 Sodium 142 Potassium 3.8 Chloride 106 Carbon Dioxide 25 BUN 15 Creatinine 0.79 Narrative Narrative: EKG 2021 Vent. Rate : 077 BPM Atrial Rate : 077 BPM P-R Int : 148 ms QRS Dur : 092 ms QT Int : 396 ms P-R-T Axes : 021 039 022 degrees QTc Int : 448 ms Normal sinus rhythm Normal ECG When compared with ECG of 02-FEB-2022 22:02, No significant change was found Assessment and Plan Assessment Anesthesia Assessment: Chart Reviewed Documented by User: Gerald Nath MD 08/03/23 14:06 [facility] Past Medical History Medical History (Updated 08/03/23 @ 13:51 by Anitha Bush) FRIEDA on CPAP Cyst of kidney, acquired Early satiety Epigastric pain Sleep apnea HTN (hypertension) Kidney stone Asthma Family History Family History Father History of cancer Mother Hx of diabetes mellitus Family history of problems with anesthesia: No Surgical History Surgical History Hx of colonoscopy Previous back surgery Hx of endoscopy History of Problems with Anesthesia: No Social History Social History Household Members: Spouse Alcohol intake: never Patient Tobacco Use Status: Never used Tobacco Use of substances other than those prescribed or required for medical reasons: No Are you DNR?: No Advance Directives: No Advance Directives Information Provided: Yes Meds Allergies Allergy/AdvReac Type Severity Reaction Status Date / Time Penicillins [PENICILLINS] Allergy Mild RASH Verified 07/30/23 14:49 Sulfa (Sulfonamide Allergy Mild BRUISING,SWOLLEN Verified 07/30/23 14:49 Antibiotics) LIPS, [SULFA (SULFONAMIDE rash, ANTIBIOTICS)] swollen lips fluoxetine [Prozac] Allergy Unknown sleepiness Verified 07/30/23 14:49 penicillin V Allergy Unknown echymosis, Verified 07/30/23 14:49 rash as a child Home Medications Medication Instructions Recorded Confirmed Last Taken Type albuterol sulfate 90 mcg/actuation 2 puff inhalation Q6H PRN wheezing 06/27/21 08/03/23 Unknown History aerosol inhaler (ProAir HFA) budesonide-formoterol HFA 160 1 puff inhalation DAILY 06/27/21 08/03/23 Unknown History mcg-4.5 mcg/actuation aerosol inhaler (Symbicort) chlorthalidone 25 mg tablet 25 mg PO QAM 06/27/21 08/03/23 Unknown History cyclobenzaprine 10 mg tablet 10 mg PO TID 06/27/21 08/03/23 Unknown History diclofenac sodium 1 % topical gel 2 g topical BID 06/27/21 08/03/23 Unknown History oxycodone-acetaminophen 10 mg-325 1 tab PO Q4-6H PRN severe pain 06/27/21 08/03/23 Unknown History mg tablet amitriptyline 100 mg tablet 100 mg PO BEDTIME 10/27/21 08/03/23 Unknown History amlodipine 10 mg tablet 10 mg PO QAM 10/27/21 08/03/23 Unknown History furosemide 20 mg tablet 20 mg PO QAM 01/06/22 08/03/23 Unknown History lidocaine 5 % topical patch 1 patch topical NEEDED PRN Pain 06/08/23 08/03/23 Unknown History Exam Airway Mallampati Class: III TM Dist: <=3cm Neck ROM: Full Loose/Missing/Broken Teeth: Yes and Upper Heart: ok Lungs: ok Assessment and Plan Assessment Anesthesia Assessment: Anesthesia Plan Discussed Final Anesthetic Review Family History of Problems with Anesthesia: No History of Problems with Anesthesia: No NPO: Yes ASA Class: III Final Preanesthetic Review: No Changes in Pt Med Stat, Meds/Allgs Chart Reviewed, Consent Obtained/Reviewed and Anes Risks/Benef Reviewed Patient Risk: High Procedure Risk: Intermediate Anesthetic Plan Anesthetic Plan: GA and Agree w/ Assess. and Plan Disposition: Standard PACU
[2023-08-03 13:46] VITALS: BP 117/61; PULSE 78; RESP 16; TEMP 36.3; O2SAT 99; BMI 38.5
[2023-08-03] MEDS: Lactated Ringers 1,000 ML 100 ML IVCONT (14:19)
--- NOTE | 2023-08-03 14:31 | MHC.SHP ---
Pre-Procedural Eval Section A Date of Service: 08/03/23 The History & Physical has been completed within 30 days and I have reviewed it.: Yes Section B Chief Complaint: GERD, esophageal dysmotility, dysphagia Details of Present Illness: Allergies: Allergies Allergy/AdvReac Type Severity Reaction Status Date / Time Penicillins [PENICILLINS] Allergy Mild RASH Verified 07/30/23 14:49 Sulfa (Sulfonamide Allergy Mild BRUISING,SWOLLEN Verified 07/30/23 14:49 Antibiotics) LIPS, [SULFA (SULFONAMIDE rash, ANTIBIOTICS)] swollen lips fluoxetine [Prozac] Allergy Unknown sleepiness Verified 07/30/23 14:49 penicillin V Allergy Unknown echymosis, Verified 07/30/23 14:49 rash as a child Plan Diagnosis/Plan: Unchanged I have reviewed the history and physical and performed a pertinent physical examination on my patient. No changes have occurred unless specified. Time Spent With Patient Time: Total time managing care of this patient today ____ minutes.
--- NOTE | 2023-08-03 14:32 | P.OP_ITS ---
Operative Note Operative Note Date of Service: 08/03/23 Narrative: Procedure: Esophagogastroduodenoscopy Endoscopist: Benita Solomon MD Indication: GERD, dysphagia Anesthesia Provider: Dr Gerald Nath Anesthesia Type: MAC ?? EGD Procedure:?? The procedure, indications, preparation and potential complications were reviewed with the patient, who indicated understanding and gave written informed consent to proceed. A physical exam was performed. The endoscope was introduced through the mouth, and advanced to the second part of duodenum. The mucosa was carefully examined on slow withdrawal of the endoscope. The patient tolerated the procedure well. There were no immediate complications.? ? EGD Findings:? * Esophagus:? Normal mucosa noted in the entire esophagus. The Z line was at 36 cm. There was a small hiatal hernia with the diaphragmatic hiatus at 39 cm. Middle and lower esophagus forceps biopsies were obtained to rule out eosinophilic esophagitis. * Stomach:? Normal mucosa was noted in the stomach. Random gastric biopsies were taken to rule out H Pylori infection. * Duodenum:? Normal mucosa was noted in the whole of the examined duodenum. Cold forceps biopsies were taken from duodenal bulb and second portion of the duodenum to rule out celiac sprue. Additional intervention: A soft-tipped Savary wire was passed through the gastroscope and advanced to the antrum. The gastroscope was then backed out. Savary Everette bougie was advanced over the guidewire and the esophagus was incrementally dilated from 18 to 19 mm. On relook, there was a small tear noted at 18cm from the incisors confirming successful dilation. ? EGD Impressions:? * Cricopharyngeal stenosis (dilation) * Normal esophagus mucosa (biopsy) * Normal stomach (biopsy) * Normal duodenum (biopsy) ?? Recommendations:?? * Follow biopsy results. Our office will call or send a letter with results within 7-10 days. * Can take magic mouthwash PRN x2-3 days for throat discomfort * Avoid NSAIDs. * If pt notices improvement in her sx with dilation, this can be repeated as needed for recurrence of sx. However if she does not have any response, consider esophageal manometry.
[2023-08-03 15:13] VITALS: BP 104/70; PULSE 78; RESP 16; TEMP 36.1; O2SAT 95
[2023-08-03] MEDS: Mag&Al/Sim/Diphenhyd/Lidocaine 10 ML ORAL.SUSP PO (15:25)
[2023-08-03 15:34] VITALS: BP 114/68; PULSE 71; RESP 17; TEMP 36.2; O2SAT 96
== END 2023-08-03 15:48 | disposition home or self-care (01) ==
PROVIDERS: PCP Internal Medicine; Visit Provider Internal Medicine
PROC: (CPT 43248; principal; 2023-08-03 14:50)
DX: R13.10 Dysphagia, unspecified (principal); K21.9 Gastro-esophageal reflux disease without esophagitis; Z80.0 Family history of malignant neoplasm of digestive organs; K22.4 Dyskinesia of esophagus; R14.0 Abdominal distension (gaseous); K44.9 Diaphragmatic hernia without obstruction or gangrene; K59.04 Chronic idiopathic constipation; G47.33 Obstructive sleep apnea (adult) (pediatric); J45.909 Unspecified asthma, uncomplicated; Z79.899 Other long term (current) drug therapy; Z88.0 Allergy status to penicillin; Z88.2 Allergy status to sulfonamides; Z88.8 Allergy status to other drugs, medicaments and biological substances; R10.10 Upper abdominal pain, unspecified
CPT/HCPCS: 43248; 43239; 88305; 88307; C1769; J3010

== ENCOUNTER → 2023-08-03 12:32 | Outpatient (BNV) | payer MEDICAID, SELFPAY | PROVIDERS: PCP Internal Medicine; Visit Provider Internal Medicine | DX: K21.9 Gastro-esophageal reflux disease without esophagitis (principal); R13.10 Dysphagia, unspecified | CPT/HCPCS: 43248 ==

== ENCOUNTER 2023-08-26 11:23 | Outpatient (AMB) | payer MEDICAID, SELFPAY ==
--- NOTE | 2023-08-26 11:27 | MHC.OFFVIS ---
Intake Vital Signs 08/26/23 11:32 Height 5 ft 1 in Weight 201 lb 0.985 oz BMI 38.0 BP 104/62 Blood Pressure Location Rt brachial Position Sitting Intake Visit Reasons: S/P EGD Intake Note: Patient presents to in office visit today in follow up of EGD. CC: Patient underwent EGD with Dr. Solomon on 08/03/23. Per patient she was seen yesterday in the ER for pain from kidney stones. Patient reports black stools for about 2 weeks. 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 Accompanied by: Self / Same As Patient Allergies Penicillins [PENICILLINS] Allergy (Mild, Verified 08/26/23 11:35) RASH Sulfa (Sulfonamide Antibiotics) [SULFA (SULFONAMIDE ANTIBIOTICS)] Allergy (Mild, Verified 08/26/23 11:35) BRUISING,SWOLLEN LIPS, rash, swollen lips fluoxetine [Prozac] Allergy (Unknown, Verified 08/26/23 11:35) sleepiness penicillin V Allergy (Unknown, Verified 08/26/23 11:35) echymosis, rash as a child HPI S/P EGD HPI Details Assessment & Plan (1) Upper abdominal pain: Code(s): R10.10 - Upper abdominal pain, unspecified (2) Dysphagia: Code(s): R13.10 - Dysphagia, unspecified (3) Abdominal bloating: Code(s): R14.0 - Abdominal distension (gaseous) (4) GERD (gastroesophageal reflux disease): Code(s): K21.9 - Gastro-esophageal reflux disease without esophagitis (5) Chronic idiopathic constipation: Code(s): K59.04 - Chronic idiopathic constipation Medications: New magnesium citrate please give 2 bot tles, drink 1/2 rima ttle and wait 30 m ins, if no BM drin k other 1/2 bottle , repeat with seco nd bottle if no BM orally daily; 30 0 mL 0RF constipat ion omeprazole 40 mg PO DAILY 30 days 30 caps 6RF K21.9 - Gastro-eso phageal reflux dis ease without esoph agitis [place] #Sandie, Live She says the burning is driving me crazy. This is despite taking bid famotidine. Will rx o2o 40mg and she can continue famotidine for now. For EGD scheduling : The pt has new phone #'s [phone] cell. [phone], husbands phone. We review the barium swallow and she has significant presbyesophagus, but also may have an element that would respond to dilation. If not, we may need to consider CCB or bentyl. US did not show any GB pathologyi, so her soreness in the RUQ may be msk or colon. She developed severe CIC in response to the barium, will rx mag citrate to clear as a one time tx. ROV 4 weeks. BARIUM SWALLOW 07/27/23 FINDINGS: Lateral cine images of the oropharynx and hypopharynx demonstrate normal swallow mechanism with normal epiglottic inversion and soft palate elevation. No tracheal penetration, glottic or subglottic aspiration identified. No nasopharyngeal reflux present. Hypopharyngeal structures appear normal without evidence of mass or diverticulum. There was no significant cricopharyngeal achalasia. Dual and single contrast images of the esophagus demonstrate normal caliber, contour, and mucosal pattern. No evidence of stricture, mass, or ulcerations identified. Esophageal peristalsis was somewhat disordered consistent with presbyesophagus. Numerous nonpropulsive tertiary contractions were present after the primary wave. No evidence of hiatus hernia identified. No significant gastroesophageal reflux was seen during the course of the examination and on reflux views. Dual contrast and single contrast images of the stomach were somewhat limited due to the patient inability to tolerate taking significant amounts of barium for coating of the stomach. There was a somewhat granular mucosal pattern without evidence of mass or ulceration. Findings may reflect mild gastritis. Mild fold thickening may be present, possibly artifactual. Contrast freely passed into the gastric antrum and duodenal bulb without delay. Single and air-contrast images of the duodenal bulb demonstrate no abnormality. The duodenal sweep has a normal appearance, course, and mucosal fold appearance. The imaged proximal jejunum has a normal fold pattern and caliber. FLUOROSCOPY TIME: 2 minutes 57 seconds. Number of Spot Images: 10 exposures, 6 cine fluoroscopy runs DOSE AREA PRODUCT: 2597 uGy-m2 (microgray-meter squared) FL/FL barium swallow IMPRESSION: 1. Normal-appearing hypopharynx and hypopharyngeal phase of swallow. No tracheal penetration or aspiration. 2. Esophagus grossly normal aside from numerous nonpropulsive tertiary contractions consistent with presbyesophagus. 3. Somewhat granular appearance to the gastric mucosa, predominantly in the gastric fundus, possibly artifactual due to poor/insufficient amount of contrast coating, although a mild gastritis is also a possibility. 4. No definite hiatus hernia and no significant GE reflux seen. 5. The duodenal bulb, sweep, and proximal jejunum appear normal. US ABD 07/14/23 FINDINGS: PANCREAS: Not well visualized due to bowel gas ABDOMINAL AORTA: The distal abdominal aorta is not well visualized. The proximal and mid abdominal aorta are normal in caliber. INFERIOR VENA CAVA: Visualized portions are normal. LIVER: Liver echotexture is increased. The liver is enlarged, right lobe measuring 21 cm. The liver contour is normal. No focal hepatic lesion. There is no intrahepatic biliary duct dilatation seen. GALLBLADDER: The gallbladder is physiologically distended without evidence of stones, sludge, polyps, wall thickening or pericholecystic fluid. medical technologist hematology reports the patient is tender over the gallbladder. COMMON BILE DUCT: Normal in caliber measuring 0.4 cm in diameter. RIGHT KIDNEY: Normal. No hydronephrosis. No renal calculi or focal parenchymal lesions. The kidney measures 10.4 cm in maximum dimension. LEFT KIDNEY: Normal. No hydronephrosis. No renal calculi or focal parenchymal lesions. The kidney measures 9.7 cm in maximum dimension. SPLEEN: Normal. The spleen measures 8.8 cm in maximum dimension. FREE FLUID: None. US/US abdomen complete IMPRESSION: Enlarged echogenic liver probably representing fatty infiltration. Morphologically normal-appearing gallbladder. The senior medical technologist reports the patient is tender over the gallbladder. Limited visualization of the pancreas and distal abdominal aorta. EGD EGD Impressions:? Cricopharyngeal stenosis (dilation) Normal esophagus mucosa (biopsy) Normal stomach (biopsy) Normal duodenum (biopsy)?? Recommendations:?? Follow biopsy results. Our office will call or send a letter with results within 7-10 days. Can take magic mouthwash PRN x2-3 days for throat discomfort Avoid NSAIDs. If pt notices improvement in her sx with dilation, this can be repeated as needed for recurrence of sx. However if she does not have any response, consider esophageal manometry. BIOPSY Received: 08/04/23 Diagnosis A. Duodenum, biopsy: Duodenal mucosa with preserved villi and no specific change. B. Stomach, random, biopsy: Gastric antral and body mucosa with congestion and focal minimal chronic inactive inflammation; negative for H pylori, intestinal metaplasia and dysplasia. C. Esophagus, lower, biopsy: Squamous mucosa with mild hyperplasia and congestion, otherwise no specific change; no columnar mucosa present. D. Esophagus, middle, biopsy: Squamous mucosa with no specific change; no columnar mucosa present. TODAY'S VISIT [place] [facility]Awilda Live She tolerated the procedure well, but did have a sore throat after the procedure - which would be expected with the upper pharyngeal dilation. BUT, her breathing/SOB is improved as is her swallowing. With the o2o her burning in the stomach is improved. We reviewed the ultrasound it does not appear that there is any evidence of gallbladder disease as a contributing factor. She has had 2 weeks of black stools formed to soft stools, she has cramping in the left mid abd right before the BM that is her baseline and unchanged. I will get a CBC and FIT cards to see if this is blood. She feels she is moving her bowels well with the Trulance and the senna. Overall, she is feeing 'MUCH BETTER' since the procedure and is quite happy. This is good because there was some evidence that she might have had some esophageal dysmotility contributing as well which is harder to manage reviewing the barium swallow. ROV 4 weeks. This will be to check on her melena. [facility] Medical History FRIEDA on CPAP Cyst of kidney, acquired Early satiety Epigastric pain Sleep apnea HTN (hypertension) Kidney stone Asthma Surgical History Hx of colonoscopy Previous back surgery Hx of endoscopy Family History Father History of cancer Mother Hx of diabetes mellitus Social History Household Members: Spouse Alcohol intake: never Patient Tobacco Use Status: Never used Tobacco Review of Systems Const Denies fatigue, Denies fever(s), Denies night sweats, Denies poor appetite and Denies weight loss ENT Reports Normal hearing present, Denies dental pain, Denies dysphagia, Denies hearing loss, Denies mouth pain, Denies odynophagia, Denies throat swelling, Denies tongue swelling and Reports other (Dentition adequate) Card Reports no additional complaints Resp Reports no additional complaints GI Denies abdominal pain, Denies melena, Denies bloating, Denies hematochezia, Reports constipation, Denies GI cramping, Denies dysphagia, Denies excessive flatus, Denies early satiety, Reports heartburn, Denies diarrhea, Denies nausea, Denies odynophagia, Denies vomiting and Denies hematemesis Skin/Breast Denies pruritus, Denies lesions, Denies rash and Denies jaundice Neuro Reports Normal hearing present and Denies Abnormal speech present Endo Denies fatigue Aller/Immun Denies throat swelling and Denies tongue swelling Physical Exam Vital Signs: Last Vital Signs BP 104/62 08/26/23 11:32 BMI result Body Mass Index 38.0 Const General: cooperative, no acute distress, well developed and well groomed Nutritional Appearance: well nourished and obese Orientation/consciousness: oriented to person, oriented to place and oriented to time Limitations: language barrier HEENT Head: Yes normocephalic and Yes atraumatic Eyes General: appearance normal, both eyes and all related structures Pupils: Equal, round and reactive pupils present Neck Neck: Yes normal visual inspection and Yes no lymphadenopathy Thyroid: Thyroid normal Resp Effort & Inspection: normal respiratory effort and able to speak in complete sentences Auscultation: clear to auscultation bilaterally Cardio Rate: regular rate Rhythm: regular rhythm Heart sounds: Normal, physiologic split S2 sound present Peripheral pulses: radial pulses present and posterior tibial pulses present GI Inspection: No distended, Yes Abdominal panniculus present and Yes obesity Palpation (GI): Soft to palpation, nontender, no guarding, not rigid and No hepatosplenomegaly present Percussion: Yes normal to percussion Auscultation: normal bowel sounds Rectal Exam - Female: deferred Skin General skin exam: no rashes or lesions noted, turgor normal, skin not dry, no jaundice, No spider nevi and no striae Rashes: no rashes Nails: normal Neuro General: oriented to person, oriented to place and oriented to time Cranial nerves: Yes Equal, round and reactive pupils present and Yes Normal hearing present Speech: No Abnormal speech present Extrem General: Yes normal to inspection, No clubbing, No cyanosis and No edema Psych Appearance: grossly normal and well kempt Mental Status: mental status grossly normal Speech and movement: Normal speech and movement present Affect: normal affect Attitude: cooperative Thought process: Normal thought process present and not confabulating Thought content: Normal thought content present Insight: Limited insight present (Psych) Judgement: Limited judgement present (Psych) Results Reviewed Results Reviewed: BARIUM SWALLOW 07/27/23 FINDINGS: Lateral cine images of the oropharynx and hypopharynx demonstrate normal swallow mechanism with normal epiglottic inversion and soft palate elevation. No tracheal penetration, glottic or subglottic aspiration identified. No nasopharyngeal reflux present. Hypopharyngeal structures appear normal without evidence of mass or diverticulum. There was no significant cricopharyngeal achalasia. Dual and single contrast images of the esophagus demonstrate normal caliber, contour, and mucosal pattern. No evidence of stricture, mass, or ulcerations identified. Esophageal peristalsis was somewhat disordered consistent with presbyesophagus. Numerous nonpropulsive tertiary contractions were present after the primary wave. No evidence of hiatus hernia identified. No significant gastroesophageal reflux was seen during the course of the examination and on reflux views. Dual contrast and single contrast images of the stomach were somewhat limited due to the patient inability to tolerate taking significant amounts of barium for coating of the stomach. There was a somewhat granular mucosal pattern without evidence of mass or ulceration. Findings may reflect mild gastritis. Mild fold thickening may be present, possibly artifactual. Contrast freely passed into the gastric antrum and duodenal bulb without delay. Single and air-contrast images of the duodenal bulb demonstrate no abnormality. The duodenal sweep has a normal appearance, course, and mucosal fold appearance. The imaged proximal jejunum has a normal fold pattern and caliber. FLUOROSCOPY TIME: 2 minutes 57 seconds. Number of Spot Images: 10 exposures, 6 cine fluoroscopy runs DOSE AREA PRODUCT: 2597 uGy-m2 (microgray-meter squared) FL/FL barium swallow IMPRESSION: 1. Normal-appearing hypopharynx and hypopharyngeal phase of swallow. No tracheal penetration or aspiration. 2. Esophagus grossly normal aside from numerous nonpropulsive tertiary contractions consistent with presbyesophagus. 3. Somewhat granular appearance to the gastric mucosa, predominantly in the gastric fundus, possibly artifactual due to poor/insufficient amount of contrast coating, although a mild gastritis is also a possibility. 4. No definite hiatus hernia and no significant GE reflux seen. 5. The duodenal bulb, sweep, and proximal jejunum appear normal. US ABD 07/14/23 FINDINGS: PANCREAS: Not well visualized due to bowel gas ABDOMINAL AORTA: The distal abdominal aorta is not well visualized. The proximal and mid abdominal aorta are normal in caliber. INFERIOR VENA CAVA: Visualized portions are normal. LIVER: Liver echotexture is increased. The liver is enlarged, right lobe measuring 21 cm. The liver contour is normal. No focal hepatic lesion. There is no intrahepatic biliary duct dilatation seen. GALLBLADDER: The gallbladder is physiologically distended without evidence of stones, sludge, polyps, wall thickening or pericholecystic fluid. medical technologist hematology reports the patient is tender over the gallbladder. COMMON BILE DUCT: Normal in caliber measuring 0.4 cm in diameter. RIGHT KIDNEY: Normal. No hydronephrosis. No renal calculi or focal parenchymal lesions. The kidney measures 10.4 cm in maximum dimension. LEFT KIDNEY: Normal. No hydronephrosis. No renal calculi or focal parenchymal lesions. The kidney measures 9.7 cm in maximum dimension. SPLEEN: Normal. The spleen measures 8.8 cm in maximum dimension. FREE FLUID: None. US/US abdomen complete IMPRESSION: Enlarged echogenic liver probably representing fatty infiltration. Morphologically normal-appearing gallbladder. The senior medical technologist reports the patient is tender over the gallbladder. Limited visualization of the pancreas and distal abdominal aorta. EGD EGD Impressions:? Cricopharyngeal stenosis (dilation) Normal esophagus mucosa (biopsy) Normal stomach (biopsy) Normal duodenum (biopsy)?? Recommendations:?? Follow biopsy results. Our office will call or send a letter with results within 7-10 days. Can take magic mouthwash PRN x2-3 days for throat discomfort Avoid NSAIDs. If pt notices improvement in her sx with dilation, this can be repeated as needed for recurrence of sx. However if she does not have any response, consider esophageal manometry. BIOPSY Received: 08/04/23 Diagnosis A. Duodenum, biopsy: Duodenal mucosa with preserved villi and no specific change. B. Stomach, random, biopsy: Gastric antral and body mucosa with congestion and focal minimal chronic inactive inflammation; negative for H pylori, intestinal metaplasia and dysplasia. C. Esophagus, lower, biopsy: Squamous mucosa with mild hyperplasia and congestion, otherwise no specific change; no columnar mucosa present. D. Esophagus, middle, biopsy: Squamous mucosa with no specific change; no columnar mucosa present. Assessment & Plan Assessment & Plan (1) Upper abdominal pain: Code(s): R10.10 - Upper abdominal pain, unspecified Plan: [place] [facility]Awilda Live She tolerated the procedure well, but did have a sore throat after the procedure - which would be expected with the upper pharyngeal dilation. BUT, her breathing/SOB is improved as is her swallowing. With the o2o her burning in the stomach is improved. We reviewed the ultrasound it does not appear that there is any evidence of gallbladder disease as a contributing factor. She has had 2 weeks of black stools formed to soft stools, she has cramping in the left mid abd right before the BM that is her baseline and unchanged. I will get a CBC and FIT cards to see if this is blood. She feels she is moving her bowels well with the Trulance and the senna. Overall, she is feeing 'MUCH BETTER' since the procedure and is quite happy. This is good because there was some evidence that she might have had some esophageal dysmotility contributing as well which is harder to manage reviewing the barium swallow. ROV 4 weeks. This will be to check on her melena. (2) Dysphagia: Code(s): R13.10 - Dysphagia, unspecified (3) Chronic idiopathic constipation: Code(s): K59.04 - Chronic idiopathic constipation (4) GERD (gastroesophageal reflux disease): Code(s): K21.9 - Gastro-esophageal reflux disease without esophagitis (5) Abdominal bloating: Code(s): R14.0 - Abdominal distension (gaseous) (6) Complaint of melena: Code(s): K92.1 - Melena Orders: Orders FITS 08/26/23 K92.1 - Melena Comprehensive Met. Panel 08/26/23 K92.1 - Melena Medications: New sennosides (Senna Laxative) 17.2 mg (2 x 8.6 mg) PO BEDTIME 60 tabs 6RF K59.04 - Chronic idiopathic constipation [id number] 24,000-76,000 -120,000 unit (Creon) 1 cap PO QID 120 caps 6RF Refilled omeprazole 40 mg PO DAILY 30 caps 6RF 30 days K21.9 - Gastro-esophageal reflux disease without esophagitis famotidine 20 mg PO BID 60 tabs 6RF K21.9 - Gastro-esophageal reflux disease without esophagitis, R10.13 - Epigastric pain Coding Level of Care Code Est Pt Level 4 (89022) Diagnoses Upper abdominal pain R10.10 Dysphagia R13.10 Chronic idiopathic constipation K59.04 GERD (gastroesophageal reflux disease) K21.9 Abdominal bloating R14.0 Complaint of melena K92.1
[2023-08-26 11:32] VITALS: BP 104/62; BMI 38.0
== END 2023-08-26 12:16 | disposition home or self-care (01) ==
PROVIDERS: PCP Internal Medicine; Visit Provider Nurse Practitioner
DX: R10.10 Upper abdominal pain, unspecified (principal); R13.10 Dysphagia, unspecified; K59.04 Chronic idiopathic constipation; K21.9 Gastro-esophageal reflux disease without esophagitis; R14.0 Abdominal distension (gaseous); K92.1 Melena
CPT/HCPCS: 99214

== ENCOUNTER → 2023-08-26 11:23 | Outpatient (BNVA) | payer MEDICAID, SELFPAY | PROVIDERS: PCP Internal Medicine; Visit Provider Nurse Practitioner | DX: K59.04 Chronic idiopathic constipation (principal); K21.9 Gastro-esophageal reflux disease without esophagitis; K92.1 Melena; R10.10 Upper abdominal pain, unspecified; R13.10 Dysphagia, unspecified; R14.0 Abdominal distension (gaseous) | CPT/HCPCS: 99212 ==

== ENCOUNTER 2023-09-20 10:35 | Outpatient (REF) | payer MEDICAID, SELFPAY ==
[2023-09-20 11:21] LABS: Alanine Aminotransferase 20 U/L (0-31); Albumin Level 3.8 g/dL (3.5-5.0); Alkaline Phosphatase 83 U/L (39-117); Anion Gap 12 (12-20); Aspartate Amino Transferase 27 U/L (5-31); Bilirubin Total 0.4 mg/dL (0.0-1.0); Blood Urea Nitrogen 15 mg/dL (9-16); Calcium 9.6 mg/dL (8.4-10.2); Carbon Dioxide 28 mmol/L (22-29); Chloride 105 mmol/L (96-108); Estimated Glomerular Filt Rate > 60; Glucose Random 139 mg/dL (60-115); Potassium 3.7 mmol/L (3.3-5.1); Sodium 141 mmol/L (135-145)
== END 2023-09-20 10:36 | disposition home or self-care (01) ==
LOC: HO.LAB 10:35
PROVIDERS: PCP Internal Medicine; Visit Provider Nurse Practitioner
DX: K92.1 Melena (principal)
CPT/HCPCS: 36415; 80053

== ENCOUNTER 2023-10-22 10:43 | Outpatient (AMB) | payer MEDICAID, SELFPAY ==
--- NOTE | 2023-10-22 11:27 | A.OFFVIS_ITS ---
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 Allergies Penicillins [PENICILLINS] Allergy (Mild, Verified 10/22/23 11:27) RASH Sulfa (Sulfonamide Antibiotics) [SULFA (SULFONAMIDE ANTIBIOTICS)] Allergy (Mild, Verified 10/22/23 11:27) BRUISING,SWOLLEN LIPS, rash, swollen lips fluoxetine [Prozac] Allergy (Unknown, Verified 10/22/23 11:27) sleepiness penicillin V Allergy (Unknown, Verified 10/22/23 11:) echymosis, rash as a child HPI HPI Comments History of Present Illness Details 58 y/o female patient presents for new i n-person visit to manage sleep apnea. Pt reports that she was diagnosed with FRIEDA about 4 years ago and has been using CPAP. However, she did not follow up with her activity director for FRIEDA and did not get supplies. Pt still use her CPAP nighlty. Her CPAP home care company is [employer]. She feels her CPAP does not working well, it makes loud noise and the humidifier is not working properly. The CPAP compliance and therapy response (09/21/23-10/20/23) reviewed. She is on CPAP at [id number]. The usage days 100% and the average usage hours 9 hrs 25 min. The residual AHI was 1.5/hr. She sleeps well with CPAP, rested and having refreshing sleep. Daytime tiredness has improved. [facility] Medical History (Updated 10/23/23 @ 14:45 by Rachana Varghese CNP) FRIEDA on CPAP Cyst of kidney, acquired Early satiety Epigastric pain Sleep apnea HTN (hypertension) Kidney stone Asthma Surgical History Hx of colonoscopy Previous back surgery Hx of endoscopy Family History Father History of cancer Mother Hx of diabetes mellitus Social History Household Members: Spouse Alcohol intake: never Patient Tobacco Use Status: Never used Tobacco Review of Systems Const All systems reviewed & are unremarkable except as noted in HPI and below Physical Exam Vital Signs: Last Vital Signs Pulse 77 10/22/23 11:28 Resp 16 10/22/23 11:28 BP 118/78 10/22/23 11:28 Pulse Ox 98 10/22/23 11:28 BMI result Body Mass Index 38.0 Const General: cooperative Nutritional Appearance: obese Orientation/consciousness: patient oriented x3 Neck Neck: Yes full ROM and Yes supple Resp Effort & Inspection: normal respiratory effort and able to speak in complete sentences Neuro General: patient oriented x3 and gait normal Cranial nerves: Yes CN's II-XII intact bilaterally Cognition (Neuro): normal cognition Gait exam (Neuro): Normal gait present Motor exam (neuro): 5/5 motor strength present throughout, Pronator motor function not present and no tremor noted Psych Appearance: grossly normal Mental Status: mental status grossly normal Speech and movement: Normal speech and movement present Affect: normal affect Attitude: cooperative Assessment & Plan Assessment & Plan (1) FRIEDA on CPAP: Code(s): G47.33 - Obstructive sleep apnea (adult) (pediatric) Plan Advised patient to continue to use CPAP at [id number] as patient experiences good clinical effects, rest and refreshing sleep with less daytime sleepiness. New CPAP supply prescription given to patient. Request her sleep study result from [facility]. Coding Level of Care Code New Pt Level 3 (92128) Diagnoses FRIEDA on CPAP G47.33
[2023-10-22 11:28] VITALS: BP 118/78; PULSE 77; RESP 16; O2SAT 98; BMI 38.0
== END 2023-10-22 11:56 | disposition home or self-care (01) ==
PROVIDERS: PCP Internal Medicine; Visit Provider Nurse Practitioner Family
DX: G47.33 Obstructive sleep apnea (adult) (pediatric) (principal)
CPT/HCPCS: 99203

== ENCOUNTER → 2023-10-22 10:43 | Outpatient (BNVA) | payer MEDICAID, SELFPAY | PROVIDERS: PCP Internal Medicine; Visit Provider Nurse Practitioner Family | DX: G47.33 Obstructive sleep apnea (adult) (pediatric) (principal) | CPT/HCPCS: 99212 ==

== ENCOUNTER 2023-11-29 13:50 | Emergency (ER) | payer MEDICAID, SELFPAY ==
--- NOTE | ~2023-11-29 | CT_ITS ---
EXAMINATION: CT ABDOMEN AND PELVIS WITHOUT CONTRAST CLINICAL INFORMATION: Left flank pain. History of stones COMPARISON: None available. TECHNIQUE: Multidetector volumetric imaging was performed from the superior aspect of the liver through the pubic symphysis. Sagittal and coronal reformatted images were obtained on the technologist's workstation. This CT examination was performed using dose optimization techniques as appropriate, variously including the following: *Automated exposure control *Adjustment of mA and/or kV according to patient size (this includes techniques or standardized protocols for targeted exams where dose is matched to indication/reason for exam; i.e. extremities or head) *Use of iterative reconstruction technique DLP: 684 mGy-cm FINDINGS: LUNG BASES: The lung bases are clear of acute pneumonic process. A 4 mm nodular density and turbo the right hemidiaphragm is seen image 4/3. The heart size is normal. LIVER, GALLBLADDER, AND BILIARY TREE: The liver enlarged in size measuring 20 cm in craniocaudad length, normal shape, and attenuation. No focal hepatic lesion or biliary ductal dilatation is present. The gallbladder is unremarkable with no evidence of radiopaque gallstones, gallbladder wall thickening, or obvious pericholecystic inflammatory changes. PANCREAS: Unremarkable. SPLEEN: Unremarkable. ADRENAL GLANDS: Unremarkable. KIDNEYS AND URETERS: The kidneys are normal in size, shape, and attenuation. No hydronephrosis, hydroureter, or calculi seen. No perinephric stranding. BLADDER: Unremarkable. GASTROINTESTINAL TRACT: The small and large bowel are unremarkable. The appendix is normal with few scattered hyperdense contrast, question appendicoliths. No fat stranding seen.. ABDOMINAL WALL: No significant hernia is appreciated. LYMPH NODES: Normal. VASCULAR: Unremarkable. PELVIC VISCERA: The uterus is surgically absent or atrophied. No adnexal mass or free fluid seen. There is no abnormal pelvic or Lymph nodes. OSSEOUS STRUCTURES: No aggressive lytic or sclerotic process seen. Mild ventral spondylosis lower dorsal and upper lumbar spine is noted. CT/CT abdomen pelvis wo IV con IMPRESSION: 1. No acute intra-abdominal process seen. 2. No radiopaque urolith or hydroureteronephrosis. 3. Mild hepatomegaly without focal lesion. Fleischner guidelines were followed.
[2023-11-29 14:10] VITALS: BP 110/65; PULSE 87; RESP 18; O2SAT 98; BMI 37.4
--- NOTE | 2023-11-29 14:10 | ED_ITS ---
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 No fevers n/v/d. Was told to come here wednesday when she tested positive for blood in urine but decided to wait and come today. MD complaint: flank pain Onset (ago): week(s) (2) Location: abdomen (left flank) Radiation: non-radiation Severity: moderate Quality: aching Pain Consistency: constant Relieving factors: none Exacerbating factors: other (urinating) Associated symptoms: denies other symptoms Treatments prior to arrival: none Related Data Home Medications Medication Instructions Recorded Confirmed albuterol sulfate 90 mcg/actuation 2 puff inhalation Q6H PRN wheezing 06/27/21 08/03/23 aerosol inhaler (ProAir HFA) budesonide-formoterol HFA 160 1 puff inhalation DAILY 06/27/21 08/03/23 mcg-4.5 mcg/actuation aerosol inhaler (Symbicort) diclofenac sodium 1 % topical gel 2 g topical BID 06/27/21 08/03/23 oxycodone-acetaminophen 10 mg-325 1 tab PO Q4-6H PRN severe pain 06/27/21 08/03/23 mg tablet amitriptyline 100 mg tablet 100 mg PO BEDTIME 10/27/21 08/03/23 amlodipine 10 mg tablet 10 mg PO QAM 10/27/21 08/03/23 lidocaine 5 % topical patch 1 patch topical NEEDED PRN Pain 06/08/23 08/03/23 atorvastatin 20 mg tablet 20 mg PO QAM 08/26/23 buspirone 10 mg tablet 10 mg PO BID 08/26/23 buspirone 15 mg tablet 15 mg PO BEDTIME 08/26/23 plecanatide 3 mg tablet (Trulance) 3 mg PO DAILY 08/26/23 simethicone 180 mg capsule 180 mg PO QID 08/26/23 zolpidem 10 mg tablet 10 mg PO BEDTIME 08/26/23 Previous Rx's Medication Instructions Recorded allopurinol 100 mg tablet 100 mg PO DAILY 90 days #90 tabs 07/28/23 famotidine 20 mg tablet 20 mg PO BID #60 tabs 08/26/23 tnykqk-sigquvjc-zwjkrha 1 cap PO QID #120 caps 08/26/23 24,000-76,000-120,000 unit capsule,delayed rel (Creon) omeprazole 40 mg capsule,delayed 40 mg PO DAILY 30 days #30 caps 08/26/23 release sennosides 8.6 mg tablet (Senna 17.2 mg (2 x 8.6 mg) PO BEDTIME 08/26/23 Laxative) #60 tabs phenazopyridine 100 mg tablet 100 mg PO TID PRN pain 6 doses #6 11/29/23 (Pyridium) tabs Allergies Allergy/AdvReac Type Severity Reaction Status Date / Time Penicillins [PENICILLINS] Allergy Mild RASH Verified 11/29/23 14:10 Sulfa (Sulfonamide Allergy Mild BRUISING,SWOLLEN Verified 11/29/23 14:10 Antibiotics) LIPS, [SULFA (SULFONAMIDE rash, ANTIBIOTICS)] swollen lips penicillin V Allergy Unknown echymosis, Verified 11/29/23 14:10 rash as a child Review of Systems 2 Review of Systems: Constitutional : No Fever, No Chills ENT/Mouth : No sore throat Eyes: No Eye Pain, No Swelling, No Redness Cardiovascular : No Chest Pain, No SOB Respiratory : No Cough, No Sputum, No Wheezing Gastrointestinal : no Nausea, no Vomiting, No Diarrhea, positive abdominal pain Genitourinary : positive Dysuria, positive urinary frequency, positive Hematuria, positive Flank Pain Musculoskeletal : No joint pain, No Myalgias Skin : No Skin Lesions, No rash Neuro : No Weakness, No Numbness, No Headache Psych : No Anxiety/Panic, No Depression Heme/Lymph: No Bruising, No Lymphadenopathy Endocrine : No Polyuria, No Polydipsia All other systems reviewed and are negative [facility] Past Medical History Attestation statement: The following information was validated with the patient. Source: old records reviewed Medical History FRIEDA on CPAP Cyst of kidney, acquired Early satiety Epigastric pain Sleep apnea HTN (hypertension) Kidney stone Asthma Surgical History Hx of colonoscopy Previous back surgery Hx of endoscopy Family History Family History Father History of cancer Mother Hx of diabetes mellitus Social History Social History Household Members: Spouse Alcohol intake: never Patient Tobacco Use Status: Never used Tobacco Advance Directives: No Advance Directives Information Provided: No Physical Exam ED Vital Signs: Vital Signs - 24 hr 11/29/23 14:10 11/29/23 21:15 11/29/23 22:21 Temperature 96.7 F L 98.6 F Pulse Rate 87 75 79 Respiratory Rate 18 18 16 Blood Pressure 110/65 109/63 118/57 L Pulse Oximetry 98 97 97 Oxygen Delivery Method Room Air Room Air Room Air BMI result Body Mass Index 37.4 Appearance: Alert. Oriented X3. No acute distress. Eyes: Pupils equal, round and reactive to light. ENT: Pharynx normal. Neck: Normal inspection. Neck supple. CVS: Normal heart rate and rhythm. Pulses normal. Respiratory: No respiratory distress. Breath sounds normal. Abdomen: Soft and very mild suprapubic ttp no rebound or guarding Skin: Skin warm and dry. Normal skin color. Normal skin turgor. Extremities: No lower extremity edema. No calf ttp Neuro: Oriented X 3. No motor deficit. No sensory deficit. Course Course Course Narrative: RME performed by Carol Thrasher PA-C. Patient is a 58 year old assigned female at presenting to the emergency department with left sided back and flank pain. Detailed physical exam and review of systems are deferred to the graphics edit technician. Labs ordered. Patient placed back in the waiting room pending room availability and results. Medications Administered Discontinued Medications Generic Name Dose Route Start Last Admin Trade Name Freq PRN Reason Stop Dose Admin Acetaminophen 650 mg 11/29/23 15:52 11/29/23 16:08 Acetaminophen 325 Mg Tablet PO 11/29/23 15:53 650 mg ONCE ONE Administration Medical Decision Making Medical Decision Making MDM Narrative: 58 yo female with PMH of GERD, FRIEDA, kidney stones comes in with c/o L flank pain here with 2 weeks of flank pain and reported hematuria at this time will need basic labs, UA and CT scan for renal colic - possible stone, UTI, pain - she is not toxic and overall abdomen is benign Differential Diagnosis Differential Diagnoses: The differential diagnosis associated with the presentation includes abdominal pain, renal colic, UTI Admission/Observation Consideration of admission/observation: Escalation of care including admission/observation considered work up negative stable for DC Lab Data MDM Lab Attestation statement: I reviewed the patient's lab results. 11/29/23 19:37 11/29/23 19:38 Labs: Lab Results 11/29/23 11/29/23 Range/Units 19:37 19:38 WBC 10.4 (4.8-10.8) X10*3/uL RBC 4.41 (4.20-5.50) X10*6/uL Hgb 12.7 (12.0-16.0) g/dl Hct 38.6 (37.0-47.0) % MCV 87.5 (80.0-98.0) fL MCH 28.8 (27.0-33.0) pg MCHC 32.9 (31.0-35.0) g/dl RDW 13.4 (11.0-16.0) % Plt Count 249 (160-400) X10*3/uL MPV 10.3 (9.4-12.3) fL Immature Gran % (Auto) 0.2 (0.0-0.4) % Neut % (Auto) 55.4 (45-73) % Lymph % (Auto) 35.5 (20-40) % [place] % (Auto) 7.0 (2-11) % Eos % (Auto) 1.5 (0-4) % Baso % (Auto) 0.4 (0-2) % Lymph # (Auto) 3.7 (1.2-4.9) X10*3/uL [place] # (Auto) 0.7 (0.1-1.2) X10*3/uL Eos # (Auto) 0.2 (0.0-0.4) X10*3/uL Baso # (Auto) 0.0 (0.0-0.2) X10*3/uL Abs Immat Gran (auto) 0.02 (0.00-0.03) X10*3/uL Absolute Neuts (auto) 5.8 (2.0-8.3) x10*3/uL Absolute Nucleated RBC 0.000 (0.0-0.012) X10*3/uL Nucleated RBC % (auto) 0.0 (0.0-0.2) /100WBC Sodium 139 (135-145) mmol/L Potassium 3.6 (3.3-5.1) mmol/L Chloride 104 (96-108) mmol/L Carbon Dioxide 26 (22-29) mmol/L Anion Gap 13 (12-20) BUN 15 (9-16) mg/dL Creatinine 0.85 (0.5-1.4) mg/dL Estim Creat Clear Calc 74.5 Estimated GFR > 60 Random Glucose 113 (60-115) mg/dL Calcium 9.8 (8.4-10.2) mg/dL Magnesium 2.1 (1.6-2.6) mg/dL Total Bilirubin 0.3 (0.0-1.0) mg/dL AST 20 (5-31) U/L ALT 14 (0-31) U/L Alkaline Phosphatase 95 (39-117) U/L Troponin I High Sens < 2.7 (<3.5-17.0) ng/L Total Protein 7.4 (6.5-8.0) g/dL Albumin 4.2 (3.5-5.0) g/dL Lipase 15 (8-78) U/L Urine Color Yellow Urine Appearance Clear Urine pH 7.0 (5.0-9.0) Ur Specific [place] 1.010 (1.005-1.025) Urine Protein Negative (Neg-Trace) mg/dL Urine Glucose (UA) Negative (Negative) mg/dL Urine Ketones Negative (Negative) mg/dL Urine Blood Negative (Negative) Urine Nitrite Negative (Negative) Ur Leukocyte Esterase Negative (Negative) Independent Interpretation I performed an independent interpretation of an: EKG and CT Scan (no acute findings) Interpretation: Rate: 75 Rhythm: NSR [place]: normal LVH Normal P waves. Normal STACEY. Normal QRS complex. ST T wave : no ABDIRIZAK, inverted t wave III and V1 qTC: 444 prior studies: no acute ischemia The study has been interpreted contemporaneously by me. . Radiology Impression Discussion of test interpretation with radiology: I have reviewed the radiologist's reading. External Record Review External record reviewed: Inpatient record Prescription Management I considered prescription management with: Other Discharge Plan Discharge Clinical Impression: Acute left flank pain, Dysuria Patient Disposition: Home, Self-Care Instructions: Dysuria (ED), Flank Pain (ED) Additional Instructions: normal labs, CT scan. urine shows no infection. at this time return for fevers, worsening pain, or any other concerns. medicine will turn your urine orange. follow up with your doctor and urologist if this continues. laboratorios normales, tomograf?a computarizada. la orina no muestra infecci?n. en roc momento regrese si tiene fiebre, dolor que empeora o cualquier otra inquietud. El medicamento fawad? que villalta orina se vuelva naranja. vika un seguimiento con villalta m?dico y ur?logo si esto contin?a. Prescriptions: New phenazopyridine [Pyridium] 100 mg tablet 100 mg PO TID PRN (Reason: pain) Qty: 6 0RF No Action allopurinol 100 mg tablet 100 mg PO DAILY 90 Days Qty: 90 0RF albuterol sulfate [ProAir HFA] 90 mcg/actuation HFA aerosol inhaler 2 puff inhalation Q6H PRN (Reason: wheezing) oxycodone-acetaminophen 10-325 mg tablet 1 tab PO Q4-6H PRN (Reason: severe pain) budesonide-formoterol [Symbicort] 160-4.5 mcg/actuation HFA aerosol inhaler 1 puff inhalation DAILY diclofenac sodium 1 % gel 2 g topical BID lidocaine 5 % adhesive patch,medicated 1 patch topical NEEDED PRN (Reason: Pain) amitriptyline 100 mg tablet 100 mg PO BEDTIME amlodipine 10 mg tablet 10 mg PO QAM Trulance 3 mg tablet 3 mg PO DAILY buspirone 15 mg tablet 15 mg PO BEDTIME buspirone 10 mg tablet 10 mg PO BID simethicone 180 mg capsule 180 mg PO QID atorvastatin 20 mg tablet 20 mg PO QAM zolpidem 10 mg tablet 10 mg PO BEDTIME sennosides [Senna Laxative] 8.6 mg tablet 17.2 mg PO BEDTIME Qty: 60 6RF famotidine 20 mg tablet 20 mg PO BID Qty: 60 6RF Creon 24,000-76,000 -120,000 unit capsule,delayed release(DR/EC) 1 cap PO QID Qty: 120 6RF omeprazole 40 mg capsule,delayed release(DR/EC) 40 mg PO DAILY 30 Days Qty: 30 6RF Print Language: [place]an
--- NOTE | 2023-11-29 14:11 | ECG_ITS ---
Test Reason : FLANK PAIN RADIATES TO CHEST Blood Pressure : / mmHG Vent. Rate : 075 BPM Atrial Rate : 075 BPM P-R Int : 150 ms QRS Dur : 098 ms QT Int : 398 ms P-R-T Axes : 017 017 007 degrees QTc Int : 444 ms Normal sinus rhythm Minimal voltage criteria for LVH, may be normal variant ( [place] product ) Borderline ECG When compared with ECG of 30-JUN-2022 21:56, No significant change was found Referred By: Carol Thrasher Electronically Signed By:Isaias Venegas
[2023-11-29] MEDS: Acetaminophen 325 MG TABLET 650 MG PO (16:08)
--- NOTE | 2023-11-29 16:08 | PC.NURSE ---
pt medicated per MAR.
--- NOTE | 2023-11-29 19:33 | MHC.EDTECH ---
Report from pervious shift,patient refused labs, This tech attempted,EKG was taken per order and signed by provider. Labs and a urine sample collected and sent to lab. Patient brought back to waiting room
[2023-11-29 19:46] LABS: MANUAL DIFF FLAG NO
[2023-11-29 19:47] LABS: Basophils Percent Auto 0.4 % (0-2); Eosinophils Absolute Auto 0.2 X10*3/uL (0.0-0.4); Eosinophils Percent Auto 1.5 % (0-4); Hematocrit 38.6 % (37.0-47.0); Hemoglobin 12.7 g/dl (12.0-16.0); Imm Gran Abs Auto 0.02 X10*3/uL (0.00-0.03); Imm Gran Pct Auto 0.2 % (0.0-0.4); Lymphocytes Absolute Auto 3.7 X10*3/uL (1.2-4.9); Lymphocytes Percent Auto 35.5 % (20-40); Mean Corpuscular HGB Conc 32.9 g/dl (31.0-35.0); Mean Corpuscular Hemoglobin 28.8 pg (27.0-33.0); Mean Corpuscular Volume 87.5 fL (80.0-98.0); Mean Platelet Volume 10.3 fL (9.4-12.3); Monocytes Absolute Auto 0.7 X10*3/uL (0.1-1.2); Neutrophils Absolute Auto 5.8 x10*3/uL (2.0-8.3); Neutrophils Percent Auto 55.4 % (45-73); Platelet Count 249 X10*3/uL (160-400); Red Blood Count 4.41 X10*6/uL (4.20-5.50); Red Cell Distribution Width 13.4 % (11.0-16.0); White Blood Count 10.4 X10*3/uL (4.8-10.8)
[2023-11-29 19:48] LABS: Appearance Urine Clear; Color Urine Yellow; Glucose Urine UA Negative (Negative); Leukocyte Esterase Urine Negative (Negative); Nitrite Urine Negative (Negative); Urine Blood Negative (Negative); Urine Ketones Negative (Negative); Urine Protein Negative (Neg-Trace)
[2023-11-29 20:02] LABS: Alanine Aminotransferase 14 U/L (0-31); Albumin Level 4.2 g/dL (3.5-5.0); Alkaline Phosphatase 95 U/L (39-117); Anion Gap 13 (12-20); Aspartate Amino Transferase 20 U/L (5-31); Bilirubin Total 0.3 mg/dL (0.0-1.0); Blood Urea Nitrogen 15 mg/dL (9-16); Calcium 9.8 mg/dL (8.4-10.2); Carbon Dioxide 26 mmol/L (22-29); Chloride 104 mmol/L (96-108); Creatinine Clr Calc Pharmacy 74.5; Estimated Glomerular Filt Rate > 60; Glucose Random 113 mg/dL (60-115); Lipase 15 U/L (8-78); Magnesium 2.1 mg/dL (1.6-2.6); Potassium 3.6 mmol/L (3.3-5.1); Sodium 139 mmol/L (135-145); Total Protein 7.4 g/dL (6.5-8.0)
[2023-11-29 20:10] LABS: Troponin-I High Sensitivity < 2.7 ng/L (<3.5-17.0)
[2023-11-29 21:15] VITALS: BP 109/63; PULSE 75; RESP 18; TEMP 35.9; O2SAT 97
[2023-11-29 22:21] VITALS: BP 118/57; PULSE 79; RESP 16; TEMP 37; O2SAT 97
== END 2023-11-29 23:12 | disposition home or self-care (01) ==
PROVIDERS: Physician Assistant Medical; Emergency Provider Emergency Medicine; PCP Internal Medicine
DX: R10.9 Unspecified abdominal pain (principal); R30.0 Dysuria; I10 Essential (primary) hypertension
CPT/HCPCS: 36415; 74176; 80053; 81003; 83690; 83735; 84484; 85025; 93005; 99284; 99285

== ENCOUNTER → 2023-11-29 14:11 | Outpatient (BNV) | payer MEDICAID, SELFPAY | PROVIDERS: Emergency Provider Emergency Medicine; PCP Internal Medicine; Visit Provider Internal Medicine Cardiovascular Disease | DX: R07.89 Other chest pain (principal) | CPT/HCPCS: 93010 ==

== ENCOUNTER 2024-01-04 12:52 | Outpatient (AMB) | payer MEDICAID, SELFPAY ==
--- NOTE | 2024-01-04 12:57 | MHC.OFFVIS ---
Intake Intake Visit Reasons: Mixed stress and urge urinary incontinence Intake Note: Patient presents today for incontinence Urology Medications: Pyridium Blood Thinner: None PVR: 31ml Patient stated she has pain in the lower abdomen, and when she pushes her belly up, she feels relief, she also stated she was prerscribed Pyridium in the ER and the medication relief but does not take the pain away. She also stated that when she needs to go to the bathroom, she needs to go right away or she will leaks. Customer Success Specialist Required: Yes Customer Success Specialist Name: SUZY MULLER-SIVA Allergies Penicillins [PENICILLINS] Allergy (Mild, Verified 01/04/24 13:52) RASH Sulfa (Sulfonamide Antibiotics) [SULFA (SULFONAMIDE ANTIBIOTICS)] Allergy (Mild, Verified 01/04/24 13:52) BRUISING,SWOLLEN LIPS, rash, swollen lips penicillin V Allergy (Unknown, Verified 01/04/24 13:52) echymosis, rash as a child Medication List - Last Reconciled 01/04/24 by RONAL Mccarthy-GRAY albuterol sulfate 90 mcg/actuation (ProAir HFA) 2 puffs inhalation Q6H PRN allopurinol 100 mg PO DAILY 90 days amitriptyline 100 mg PO BEDTIME amlodipine 10 mg PO QAM atorvastatin 20 mg PO QAM budesonide-formoterol 160-4.5 mcg/actuation (Symbicort) 1 puff inhalation DAILY buspirone 10 mg PO BID buspirone 15 mg PO BEDTIME famotidine 20 mg PO BID lidocaine 5% 1 patch topical NEEDED PRN [id number]-[id number]-[id number] 24,000-76,000 -120,000 unit (Creon) 1 cap PO QID mirabegron ER (Myrbetriq) 25 mg PO DAILY 30 days omeprazole 40 mg PO DAILY 30 days plecanatide (Trulance) 3 mg PO DAILY sennosides (Senna Laxative) 17.2 mg (2 x 8.6 mg) PO BEDTIME simethicone 180 mg PO QID zolpidem 10 mg PO BEDTIME HPI HPI Comments History of Present Illness Details Liliane is a 58-year-old Moroccan-speaking came female patient of Dr. Mauro Ahn. She has a past medical history of obstructive sleep apnea on CPAP, renal cysts, hypertension, nephrolithiasis, and asthma. She presents to the office today for follow-up. In discussion with the patient today she reports having seeked emergency room care approximately 1 month ago for left-sided flank pain associated with lower urinary tract symptoms at which time a CT of the abdomen was ordered and performed. These results reviewed with the patient today. The kidneys are normal in size, shape, and attenuation. No hydronephrosis, hydroureter, or calculi seen. No perinephric stranding. The bladder is unremarkable. She reports left-sided flank pain has since subsided. However continues with urinary urgency, urinary frequency, and bladder pressure. In office urinalysis results reviewed with the patient today trace microscopic hematuria, negative nitrates, and negative leukocytes. Discussed at length potential causes of microscopic hematuria. She otherwise denies dysuria, foul smelling urine, changes to urinary stream, flank pain, fever, and or chills. PVR 31 mL. PFSH Medical History FRIEDA on CPAP Cyst of kidney, acquired Early satiety Epigastric pain Sleep apnea HTN (hypertension) Kidney stone Asthma Surgical History Hx of colonoscopy Previous back surgery Hx of endoscopy Family History Father History of cancer Mother Hx of diabetes mellitus Social History Household Members: Spouse Alcohol intake: never Patient Tobacco Use Status: Never used Tobacco Review of Systems Const Reports no additional complaints Eyes Reports no additional complaints ENT Reports no additional complaints Card Reports as per HPI Resp Reports as per HPI GI Details: She discusses following up with GI for ongoing abdominal bloating Reports as per HPI Musc Reports no additional complaints Neuro Reports no additional complaints Psych Reports no additional complaints Endo Reports no additional complaints Rufus/Lymph Reports no additional complaints Aller/Immun Reports no additional complaints Physical Exam Const General: cooperative, healthy appearing, comfortable, no acute distress, well developed, alert and awake Nutritional Appearance: overweight Orientation/consciousness: patient oriented x3 Limitations: no limitations HEENT Head: Yes normal to inspection, Yes normocephalic and Yes atraumatic Ears: hearing grossly normal bilaterally Eyes General: appearance normal, both eyes and all related structures Neck Neck: Yes normal visual inspection and Yes trachea midline Chest Chest palpation & inspection: normal inspection of the chest Resp Effort & Inspection: normal respiratory effort and able to speak in complete sentences Cardio Rate: regular rate GI Inspection: Yes normal to inspection General: Yes no CVA tenderness Back/Spine/Pelvis Back: no CVA tenderness Skin General skin exam: no rashes or lesions noted Neuro General: patient oriented x3 Extrem General: Yes normal to inspection Psych Appearance: grossly normal and well kempt Mental Status: mental status grossly normal Speech and movement: Normal speech and movement present and Clear speech present Affect: normal affect Attitude: cooperative Thought process: Normal thought process present Thought content: Normal thought content present Insight: Fair insight present (Psych) Judgement: Fair judgement present (Psych) Office Procedures Post Void Residual Post Residual Void Post Void Residual (PVR): 31 [id number] Void Residual by ultrasound Results AMB Urinalysis, Automated UA Leukoctes 0 Dereck/uL Last Edit by Kandy Yi MECHANICAL EQUIPMENT SALES ENGINEER on 01/04/24 13:20 UA Nitrite Negative Last Edit by Kandy Yi [facility] on 01/04/24 13:20 UA Urobilinogen 0.2 mg/dL Last Edit by Kandy Yi CMA on 01/04/24 13:20 UA Protein 0 mg/dL Last Edit by Kandy Yi [facility] on 01/04/24 13:20 UA pH 6.5 Last Edit by Kandy Yi [facility] on 01/04/24 13:20 UA Blood 10 Inocencio/uL Last Edit by Kandy Yi [facility] on 01/04/24 13:20 UA Specific [place] 1.010 Last Edit by Kandy Yi [facility] on 01/04/24 13:20 UA Ketone Negative Last Edit by Kandy Yi CMA on 01/04/24 13:20 UA Bilirubin 0 mg/dL Last Edit by Kandy Yi [facility] on 01/04/24 13:20 UA Glucose 0 mg/dL Last Edit by Kandy Yi [facility] on 01/04/24 13:20 Results Reviewed Results Reviewed: Laboratory Last Values Urine pH (Auto) 6.5 01/04/24 13:04 Specific [place] (Auto) 1.010 01/04/24 13:04 Urine Protein (Auto) 0 mg/dL 01/04/24 13:04 Glucose (UA)(Auto) 0 mg/dL 01/04/24 13:04 Urine Ketones (Auto) Negative 01/04/24 13:04 Urine Blood (Auto) 10 Inocencio/uL 01/04/24 13:04 Urine Nitrite (Auto) Negative 01/04/24 13:04 Urine Bilirubin (Auto) 0 mg/dL 01/04/24 13:04 Urine Urobilinogen (Auto) 0.2 mg/dL 01/04/24 13:04 Leukocyte Esterase (Auto) 0 Dereck/uL 01/04/24 13:04 Date of Service: 11/29/23 EXAMINATION: CT ABDOMEN AND PELVIS WITHOUT CONTRAST FINDINGS: LUNG BASES: The lung bases are clear of acute pneumonic process. A 4 mm nodular density and turbo the right hemidiaphragm is seen image 4/3. The heart size is normal. LIVER, GALLBLADDER, AND BILIARY TREE: The liver enlarged in size measuring 20 cm in craniocaudad length, normal shape, and attenuation. No focal hepatic lesion or biliary ductal dilatation is present. The gallbladder is unremarkable with no evidence of radiopaque gallstones, gallbladder wall thickening, or obvious pericholecystic inflammatory changes. PANCREAS: Unremarkable. SPLEEN: Unremarkable. ADRENAL GLANDS: Unremarkable. KIDNEYS AND URETERS: The kidneys are normal in size, shape, and attenuation. No hydronephrosis, hydroureter, or calculi seen. No perinephric stranding. BLADDER: Unremarkable. GASTROINTESTINAL TRACT: The small and large bowel are unremarkable. The appendix is normal with few scattered hyperdense contrast, question appendicoliths. No fat stranding seen.. ABDOMINAL WALL: No significant hernia is appreciated. LYMPH NODES: Normal. VASCULAR: Unremarkable. PELVIC VISCERA: The uterus is surgically absent or atrophied. No adnexal mass or free fluid seen. There is no abnormal pelvic or Lymph nodes. OSSEOUS STRUCTURES: No aggressive lytic or sclerotic process seen. Mild ventral spondylosis lower dorsal and upper lumbar spine is noted. IMPRESSION: 1. No acute intra-abdominal process seen. 2. No radiopaque urolith or hydroureteronephrosis. 3. Mild hepatomegaly without focal lesion. Assessment & Plan Assessment & Plan (1) Kidney stone: Code(s): N20.0 - Calculus of kidney (2) Microscopic hematuria: Code(s): R31.29 - Other microscopic hematuria (3) Sensation of pressure in bladder area: Code(s): R39.89 - Other symptoms and signs involving the genitourinary system (4) Urinary urgency: Code(s): R39.15 - Urgency of urination (5) Urinary frequency: Code(s): R35.0 - Frequency of micturition Plan In office urinalysis results reviewed with the patient today; as noted above; will send for urine cytology. Recent CT results reviewed with the patient today; as noted above. Discussed at length potential causes for lower urinary tract symptoms patient is experiencing. Start Myrbetriq as discussed and prescribed. Discussed, educated, and stressed the importance of drinking plenty of water daily. Discussed potential for in office cystoscopy versus urodynamics for further assessment evaluation if symptoms persist and/or worsen Discussed bladder triggers/irritants. Discussed the affects of increased weight on the bladder Follow-up in 6 to 8 weeks with PVR; or sooner with any issues, concerns, and or questions. Orders: Orders AMB Urinalysis Automated Today R33.9 - Retention of urine, unspecified AMB Post Void Residual by ultrasound Today R33.9 - Retention of urine, unspecified Medications: New mirabegron ER (Myrbetriq) 25 mg PO DAILY 30 days 30 tabs 1RF N30.10 - Interstitial cystitis (chronic) without hematuria, N32.81 - Overactive bladder, R35.1 - Nocturia, R39.15 - Urgency of urination Discontinued phenazopyridine (Pyridium) Discontinued Reason: Patient Completed Course 100 mg PO TID PRN 6 tabs 0RF pain Patient Instructions: The patient had an opportunity to ask questions regarding the treatment plan. All questions were answered. Physical exam, labs, and imaging were discussed and reviewed in detail. As well as risks, benefits, and discussion of treatment choices. No major barriers to understanding were identified. The patient expressed understanding and agreement with the above treatment plan. The patient was made aware they should contact our office by phone for worsening of their current condition, the appearance of new symptoms, or with any questions or concerns. Compliance is encouraged with any medications and follow up testing that is ordered. It is a privilege to be allowed the opportunity to participate in? your urological care.? Again, if you have any questions or concerns If you have any questions or concerns please do not hesitate to contact me. The office is [phone]. This note is constructed using voice recognition software. While every effort has been made to ensure accuracy slitter and rewinder machine operator errors may have been included. Yours sincerely, SIGIFREDO Mccarthy Coding Level of Care Code Est Pt Level 4 (76093) Diagnoses Kidney stone N20.0 Microscopic hematuria R31.29 Sensation of pressure in bladder area R39.89 Urinary urgency R39.15 Urinary frequency R35.0 CPT Codes Post Residual Void - PVR CPT Code: 23742-Wofg Void Residual by ultrasound ([id number])
== END 2024-01-04 13:51 | disposition home or self-care (01) ==
PROVIDERS: PCP Internal Medicine; Visit Provider Nurse Practitioner Family
DX: N20.0 Calculus of kidney (principal); R31.29 Other microscopic hematuria; R39.89 Other symptoms and signs involving the genitourinary system; R39.15 Urgency of urination; R35.0 Frequency of micturition
CPT/HCPCS: 99214

== ENCOUNTER → 2024-01-04 12:52 | Outpatient (BNVA) | payer MEDICAID, SELFPAY | PROVIDERS: PCP Internal Medicine; Visit Provider Nurse Practitioner Family | DX: N20.0 Calculus of kidney (principal); R31.29 Other microscopic hematuria; R39.89 Other symptoms and signs involving the genitourinary system; R39.15 Urgency of urination; R35.0 Frequency of micturition | CPT/HCPCS: 51798; 81003; 99212 ==

== ENCOUNTER 2024-02-16 13:13 | Outpatient (AMB) | payer MEDICAID, SELFPAY ==
--- NOTE | 2024-02-16 13:14 | A.OFFVIS_ITS ---
Intake Intake Visit Reasons: 6w follow up Intake Note: Patient presents today for follow up on incontinence Urology Medications: Myrbetriq Blood Thinner: None PVR: 47ml's Copy Chief Required: Yes Accompanied by: Self / Same As Patient Allergies Penicillins [PENICILLINS] Allergy (Mild, Verified 02/16/24 13:25) RASH Sulfa (Sulfonamide Antibiotics) [SULFA (SULFONAMIDE ANTIBIOTICS)] Allergy (Mild, Verified 02/16/24 13:25) BRUISING,SWOLLEN LIPS, rash, swollen lips penicillin V Allergy (Unknown, Verified 02/16/24 13:25) echymosis, rash as a child HPI HPI Comments History of Present Illness Details Liliane is a 58-year-old Sierra Leonean-speaking came female patient of Dr. Mauro Ahn. She has a past medical history of obstructive sleep apnea on CPAP, renal cysts, hypertension, nephrolithiasis, and asthma. She presents to the office today for follow-up. Of note, patient was seen approximately 6 weeks ago at which time she was started on Myrbetriq for ongoing lower urinary tract symptom she has been experiencing to include urinary urgency, urinary frequency, and episodes of incontinence. In discussion with the patient today she reports no improvement in these symptoms since initiation of Myrbetriq. In office urinalysis results reviewed with the patient today. Microscopic hematuria noted otherwise within normal limits. PVR 47 mL. Previous workup has included a CT of abdomen that noted the kidneys are normal in size, shape, and attenuation. No hydronephrosis, hydroureter, or calculi seen. No perinephric stranding. The bladder is unremarkable. She continues with urinary urgency, urinary frequency, and bladder pressure. Discussed at length potential causes of microscopic hematuria. She otherwise denies dysuria, foul smelling urine, changes to urinary stream, flank pain, fever, and or chills. [facility] Medical History FRIEDA on CPAP Cyst of kidney, acquired Early satiety Epigastric pain Sleep apnea HTN (hypertension) Kidney stone Asthma Surgical History Hx of colonoscopy Previous back surgery Hx of endoscopy Family History Father History of cancer Mother Hx of diabetes mellitus Social History Household Members: Spouse Alcohol intake: never Patient Tobacco Use Status: Never used Tobacco Review of Systems Const Reports no additional complaints Eyes Reports no additional complaints ENT Reports no additional complaints Card Reports as per HPI Resp Reports as per HPI GI Details: She discusses following up with GI for ongoing abdominal bloating Reports as per HPI Musc Reports no additional complaints Neuro Reports no additional complaints Psych Reports no additional complaints Endo Reports no additional complaints Rufus/Lymph Reports no additional complaints Aller/Immun Reports no additional complaints Physical Exam Const General: cooperative, healthy appearing, comfortable, no acute distress, well developed, alert and awake Nutritional Appearance: overweight Orientation/consciousness: patient oriented x3 Limitations: no limitations HEENT Head: Yes normal to inspection, Yes normocephalic and Yes atraumatic Ears: hearing grossly normal bilaterally Eyes General: appearance normal, both eyes and all related structures Neck Neck: Yes normal visual inspection and Yes trachea midline Chest Chest palpation & inspection: normal inspection of the chest Resp Effort & Inspection: normal respiratory effort and able to speak in complete sentences Cardio Rate: regular rate GI Inspection: Yes normal to inspection General: Yes no CVA tenderness Back/Spine/Pelvis Back: no CVA tenderness Skin General skin exam: no rashes or lesions noted Neuro General: patient oriented x3 Extrem General: Yes normal to inspection Psych Appearance: grossly normal and well kempt Mental Status: mental status grossly normal Speech and movement: Normal speech and movement present and Clear speech present Affect: normal affect Attitude: cooperative Thought process: Normal thought process present Thought content: Normal thought content present Insight: Fair insight present (Psych) Judgement: Fair judgement present (Psych) Office Procedures Post Void Residual Post Residual Void Post Void Residual (PVR): 47 [id number] Void Residual by ultrasound Assessment & Plan Assessment & Plan (1) Urinary frequency: Code(s): R35.0 - Frequency of micturition (2) Urinary urgency: Code(s): R39.15 - Urgency of urination (3) Sensation of pressure in bladder area: Code(s): R39.89 - Other symptoms and signs involving the genitourinary system (4) Microscopic hematuria: Code(s): R31.29 - Other microscopic hematuria Plan In office urinalysis results reviewed with the patient today; as noted above; will send for urine cytology. PVR 47 mL Stop Myrbetriq. Start VESIcare 5 mg daily as discussed and prescribed. Discussed at length potential causes for lower urinary tract symptoms patient is experiencing. Discussed at length potential near future in office cystoscopy and or urodynamics for further assessment evaluation if symptoms persist. Discussed bladder triggers/irritants. Discussed, educated, and stressed on the importance of drinking water daily. Follow-up in 6-8 weeks; or sooner with any issues, concerns, and or questions. Orders: Orders AMB Post Void Residual by ultrasound Today R35.0 - Frequency of micturition Medications: New solifenacin (Vesicare) 5 mg PO DAILY 30 tabs 2RF 30 days Discontinued mirabegron ER (Myrbetriq) Discontinued Reason: Doctor's Order 25 mg PO DAILY 30 days 30 tabs 1RF N30.10 - Interstitial cystitis (chronic) without hematuria, N32.81 - Overactive bladder, R35.1 - Nocturia, R39.15 - Urgency of urination Patient Instructions: The patient had an opportunity to ask questions regarding the treatment plan. All questions were answered. Physical exam, labs, and imaging were discussed and reviewed in detail. As well as risks, benefits, and discussion of treatment choices. No major barriers to understanding were identified. The patient expressed understanding and agreement with the above treatment plan. The patient was made aware they should contact our office by phone for worsening of their current condition, the appearance of new symptoms, or with any questions or concerns. Compliance is encouraged with any medications and follow up testing that is ordered. It is a privilege to be allowed the opportunity to participate in? your urological care.? Again, if you have any questions or concerns If you have any questions or concerns please do not hesitate to contact me. The office is [phone]. This note is constructed using voice recognition software. While every effort has been made to ensure accuracy endless track vehicle mechanic errors may have been included. Yours sincerely, SIGIFREDO Mccarthy Coding Level of Care Code Est Pt Level 4 (02461) Diagnoses Urinary frequency R35.0 Urinary urgency R39.15 Sensation of pressure in bladder area R39.89 Microscopic hematuria R31.29 CPT Codes Post Residual Void - PVR CPT Code: 02363-Kdtu Void Residual by ultrasound ([id number])
== END 2024-02-16 13:50 | disposition home or self-care (01) ==
PROVIDERS: PCP Internal Medicine; Visit Provider Nurse Practitioner Family
DX: R35.0 Frequency of micturition (principal); R39.15 Urgency of urination; R39.89 Other symptoms and signs involving the genitourinary system; R31.29 Other microscopic hematuria; Z13.9 Encounter for screening, unspecified
CPT/HCPCS: 99214

== ENCOUNTER 2024-02-16 13:13 | Outpatient (REF) | payer MEDICAID, SELFPAY ==
[2024-02-16 16:41] LABS: Urine Cytology See Pathology rpt
== END 2024-02-16 13:14 | disposition home or self-care (01) ==
LOC: HO.LNP 13:13
PROVIDERS: PCP Internal Medicine; Visit Provider Nurse Practitioner Family
DX: R35.0 Frequency of micturition (principal); R39.15 Urgency of urination; R39.89 Other symptoms and signs involving the genitourinary system; R31.29 Other microscopic hematuria
CPT/HCPCS: 51798; 81003; 88112; 99212

== ENCOUNTER 2024-04-04 12:07 | Outpatient (AMB) | payer MEDICAID, SELFPAY ==
--- NOTE | 2024-04-04 12:07 | A.OFFVIS_ITS ---
Intake Visit Reasons: 8W/PVR Intake Note: Patient presents today for tele visit follow up on incontinence Urology Medications: Vesicare Blood Thinner: None Director Of Business Applications Required: Yes Director Of Business Applications Name: [id number] Accompanied by: Self / Same As Patient Allergies Penicillins [PENICILLINS] Allergy (Mild, Verified 04/04/24 12:17) RASH Sulfa (Sulfonamide Antibiotics) [SULFA (SULFONAMIDE ANTIBIOTICS)] Allergy (Mild, Verified 04/04/24 12:17) BRUISING,SWOLLEN LIPS, rash, swollen lips penicillin V Allergy (Unknown, Verified 04/04/24 12:17) echymosis, rash as a child Medication List - Last Reconciled 04/04/24 by SIGIFREDO Mccarthy albuterol sulfate 90 mcg/actuation (ProAir HFA) 2 puffs inhalation Q6H PRN allopurinol 100 mg PO DAILY 90 days amitriptyline 100 mg PO BEDTIME amlodipine 10 mg PO QAM atorvastatin 20 mg PO QAM budesonide-formoterol 160-4.5 mcg/actuation (Symbicort) 1 puff inhalation DAILY buspirone 10 mg PO BID buspirone 15 mg PO BEDTIME famotidine 20 mg PO BID lidocaine 5% 1 patch topical NEEDED PRN rqjqqc-ktvyjmwg-zfsxgpn 24,000-76,000 -120,000 unit (Creon) 1 cap PO QID omeprazole 40 mg PO DAILY 30 days plecanatide (Trulance) 3 mg PO DAILY sennosides (Senna Laxative) 17.2 mg (2 x 8.6 mg) PO BEDTIME simethicone 180 mg PO QID solifenacin (Vesicare) 5 mg PO DAILY 30 days zolpidem 10 mg PO BEDTIME HPI Comments Details: Liliane is a 58-year-old Nicaraguan-speaking came female patient of Dr. Mauro Ahn. She has a past medical history of obstructive sleep apnea on CPAP, renal cysts, hypertension, nephrolithiasis, and asthma. She is being followed on today via telehealth for her ongoing lower urinary tract symptoms. During last office visit approximately 6 weeks ago Myrbetriq was discontinued as patient reported no improvement in lower urinary tract symptoms and VESIcare 5 mg daily was initiated. In discussion with the patient today she reports noting somewhat improvement in episodes of urinary urgency however still continues with frequency and stress incontinence. She otherwise denies dysuria, foul smelling urine, changes to urinary stream, flank pain, fever, and or chills. Previous workup has included a CT that noted the kidneys are normal in size, shape, and attenuation. No hydronephrosis, hydroureter, or calculi seen. No perinephric stranding. The bladder is unremarkable. She otherwise offers no other issues or concerns at this time. [facility] [place] Medical History FRIEDA on CPAP Cyst of kidney, acquired Early satiety Epigastric pain Sleep apnea HTN (hypertension) Kidney stone Asthma Surgical History Hx of colonoscopy Previous back surgery Hx of endoscopy Family History Father History of cancer Mother Hx of diabetes mellitus Social History Household Members: Spouse Alcohol intake: never Patient Tobacco Use Status: Never used Tobacco Review of Systems Const Reports no additional complaints Eyes Reports no additional complaints ENT Reports no additional complaints Card Reports as per HPI Resp Reports as per HPI GI Details: She discusses following up with GI for ongoing abdominal bloating Reports as per HPI Musc Reports no additional complaints Neuro Reports no additional complaints Psych Reports no additional complaints Endo Reports no additional complaints Rufus/Lymph Reports no additional complaints Aller/Immun Reports no additional complaints Physical Exam Const General: cooperative Resp Effort & Inspection: able to speak in complete sentences Psych Attitude: cooperative Thought content: Normal thought content present Insight: Fair insight present (Psych) Judgement: Fair judgement present (Psych) Telehealth Telehealth Telehealth Platform: Telephone Location of provider rendering services: practice address Location of patient: address on file Patient Identification confirmed using: Name, : Yes Telehealth method: voice only Patient verbally consented to treatment: Yes Patient verbally consented to billing insurance company: Yes Patient informed of any privacy concerns related to visit: Yes Minutes spent on Phone/Video with Pt.: 15 Assessment & Plan Assessment & Plan (1) Urinary frequency: Code(s): R35.0 - Frequency of micturition Category: Medical (2) Urinary urgency: Code(s): R39.15 - Urgency of urination Category: Medical (3) Sensation of pressure in bladder area: Code(s): R39.89 - Other symptoms and signs involving the genitourinary system Category: Medical (4) Microscopic hematuria: Code(s): R31.29 - Other microscopic hematuria Category: Medical Plan Continue VESIcare; will increase to 10mg daily as discussed and prescribed. Discussed at length potential causes for lower urinary tract symptoms patient is experiencing. Discussed at length potential near future in office cystoscopy and or urodynamics for further assessment evaluation if symptoms persist and or worsen. Discussed bladder triggers/irritants. Discussed, educated, and stressed on the importance of drinking water daily. Follow-up in 6-8 weeks; or sooner with any issues, concerns, and or questions. Medications: Changed From solifenacin (Vesicare) 5 mg PO DAILY 30 days 30 tabs 2RF To solifenacin (Vesicare) 10 mg (2 x 5 mg) PO DAILY 60 tabs 2RF 30 days Coding Level of Care Code Tele Est Pt Level 3 (18863) Diagnoses Urinary frequency R35.0 Urinary urgency R39.15 Sensation of pressure in bladder area R39.89 Microscopic hematuria R31.29
== END 2024-04-04 12:43 | disposition home or self-care (01) ==
LOC: HO.HUSH 12:07
PROVIDERS: PCP Internal Medicine; Visit Provider Nurse Practitioner Family
DX: R35.0 Frequency of micturition (principal); R39.15 Urgency of urination; R39.89 Other symptoms and signs involving the genitourinary system; R31.29 Other microscopic hematuria
CPT/HCPCS: 99213

== ENCOUNTER → 2024-04-04 12:07 | Outpatient (BNVA) | payer MEDICAID, SELFPAY | PROVIDERS: PCP Internal Medicine; Visit Provider Nurse Practitioner Family ==

== ENCOUNTER 2024-05-09 09:00 | Outpatient (REF) | payer MEDICAID, SELFPAY ==
[2024-05-09 10:58] LABS: MANUAL DIFF FLAG NO
[2024-05-09 11:18] LABS: Basophils Percent Auto 0.3 % (0-2); Eosinophils Absolute Auto 0.2 X10*3/uL (0.0-0.4); Eosinophils Percent Auto 2.4 % (0-4); Imm Gran Abs Auto 0.02 X10*3/uL (0.00-0.03); Imm Gran Pct Auto 0.3 % (0.0-0.4); Lymphocytes Absolute Auto 2.6 X10*3/uL (1.2-4.9); Lymphocytes Percent Auto 40.2 % (20-40); Mean Corpuscular HGB Conc 31.6 g/dl (31.0-35.0); Mean Corpuscular Volume 91.8 fL (80.0-98.0); Mean Platelet Volume 10.7 fL (9.4-12.3); Monocytes Absolute Auto 0.5 X10*3/uL (0.1-1.2); Monocytes Percent Auto 7.3 % (2-11); Neutrophils Absolute Auto 3.2 x10*3/uL (2.0-8.3); Neutrophils Percent Auto 49.5 % (45-73); Platelet Count 228 X10*3/uL (160-400); Red Blood Count 4.14 X10*6/uL (4.20-5.50); Red Cell Distribution Width 13.9 % (11.0-16.0); White Blood Count 6.5 X10*3/uL (4.8-10.8)
[2024-05-09 11:56] LABS: Anion Gap 12 (12-20); Blood Urea Nitrogen 12 mg/dL (9-16); Calcium 9.2 mg/dL (8.4-10.2); Carbon Dioxide 26 mmol/L (22-29); Chloride 107 mmol/L (96-108); Cholesterol 142 mg/dL (<200); Estimated Glomerular Filt Rate > 60; Glucose Random 123 mg/dL (60-115); HDL Cholesterol 50 mg/dL (>40); LDL Cholesterol Calculated 66 mg/dL (<100); Potassium 3.7 mmol/L (3.3-5.1); Sodium 141 mmol/L (135-145); Thyroid Stimulating Hormone 1.14 uIU/mL (0.32-4.0); Triglycerides 131 mg/dL (<150)
== END 2024-05-09 09:01 | disposition home or self-care (01) ==
LOC: HO.HHCL 09:00
PROVIDERS: Visit Provider Internal Medicine Cardiovascular Disease
DX: R06.09 Other forms of dyspnea (principal); G45.9 Transient cerebral ischemic attack, unspecified
CPT/HCPCS: 36415; 80048; 80061; 84443; 85025

== ENCOUNTER 2024-05-25 11:15 | Outpatient (REF) | payer MEDICAID, SELFPAY | END 2024-05-25 11:16 | disposition home or self-care (01) | LOC: HO.MAMMO 11:15 | PROVIDERS: Visit Provider Internal Medicine | DX: Z12.31 Encounter for screening mammogram for malignant neoplasm of breast (principal) | CPT/HCPCS: 77063; 77067 ==

== ENCOUNTER → 2024-05-25 11:30 | Outpatient (BNV) | payer MEDICAID, SELFPAY | PROVIDERS: Visit Provider Radiology Diagnostic Radiology | DX: Z12.31 Encounter for screening mammogram for malignant neoplasm of breast (principal) | CPT/HCPCS: 77063; 77067 ==

== ENCOUNTER 2024-06-26 09:16 | Outpatient (REF) | payer MEDICAID, SELFPAY ==
[2024-06-26 12:09] LABS: Cholesterol 125 mg/dL (<200); HDL Cholesterol 41 mg/dL (>40); LDL Cholesterol Calculated 59 mg/dL (<100); Triglycerides 129 mg/dL (<150)
== END 2024-06-26 09:17 | disposition home or self-care (01) ==
LOC: HO.HHCL 09:16
PROVIDERS: Visit Provider Internal Medicine
DX: I10 Essential (primary) hypertension (principal)
CPT/HCPCS: 36415; 80061

== ENCOUNTER → 2024-08-16 10:24 | Outpatient (BNVA) | payer MEDICAID, SELFPAY | PROVIDERS: PCP Internal Medicine; Visit Provider Nurse Practitioner Family ==

== ENCOUNTER 2024-08-18 13:55 | Outpatient (AMB) | payer MEDICAID, SELFPAY ==
[2024-08-18 14:04] VITALS: BP 102/62; PULSE 70; BMI 36.6
--- NOTE | 2024-08-18 14:04 | A.OFFVIS_ITS ---
Vital Signs 08/18/24 14:04 Height 5 ft 1 in Weight 193 lb 9.054 oz BMI 36.6 BP 102/62 Blood Pressure Location Lt brachial Position Sitting Pulse 70 Intake Visit Reasons: Follow up diarrhea Intake Note: Liliane presents to in office follow up of CIC. CC: Patient reports doing well from GI standpoints. She states that she has asthma and and sore throat. Denies other GI concerns today. Hydro Sprayer Operator Required: Yes Accompanied by: Self / Same As Patient Allergies Penicillins [PENICILLINS] Allergy (Mild, Verified 10/03/24 14:13) RASH Sulfa (Sulfonamide Antibiotics) [SULFA (SULFONAMIDE ANTIBIOTICS)] Allergy (Mild, Verified 10/03/24 14:13) BRUISING,SWOLLEN LIPS, rash, swollen lips penicillin V Allergy (Unknown, Verified 10/03/24 14:13) echymosis, rash as a child HPI HPI Follow up diarrhea: Details: Assessment & Plan (1) Upper abdominal pain: Code(s): R10.10 - Upper abdominal pain, unspecified Plan: [place] #Awilda Live She tolerated the procedure well, but did have a sore throat after the procedure - which would be expected with the upper pharyngeal dilation. BUT, her breathing/SOB is improved as is her swallowing. With the o2o her burning in the stomach is improved. We reviewed the ultrasound it does not appear that there is any evidence of gallbladder disease as a contributing factor. She has had 2 weeks of black stools formed to soft stools, she has cramping in the left mid abd right before the BM that is her baseline and unchanged. I will get a CBC and FIT cards to see if this is blood. She feels she is moving her bowels well with the Trulance and the senna. Overall, she is feeing 'MUCH BETTER' since the procedure and is quite happy. This is good because there was some evidence that she might have had some esophageal dysmotility contributing as well which is harder to manage reviewing the barium swallow. ROV 4 weeks. This will be to check on her melena. (2) Dysphagia: Code(s): R13.10 - Dysphagia, unspecified (3) Chronic idiopathic constipation: Code(s): K59.04 - Chronic idiopathic constipation (4) GERD (gastroesophageal reflux disease): Code(s): K21.9 - Gastro-esophageal reflux disease without esophagitis (5) Abdominal bloating: Code(s): R14.0 - Abdominal distension (gaseous) (6) Complaint of melena: Code(s): K92.1 - Melena Orders: Orders FITS 08/26/23 K92.1 - Melena Comprehensive Met. Panel 08/26/23 K92.1 - Melena Medications: New sennosides (Senna Laxative) 17.2 mg (2 x 8.6 mg) PO BEDTIME 60 tabs 6RF K59.04 - Chronic idiopathic constipation edxzud-ornkvewj-frlhmrx 24,000-76,000 -120,000 unit (Creon) 1 cap PO QID 120 caps 6RF Refilled omeprazole 40 mg PO DAILY 30 caps 6RF 30 days K21.9 - Gastro-esophageal reflux disease without esophagitis famotidine 20 mg PO BID 60 tabs 6RF K21.9 - Gastro-esophageal reflux disease without esophagitis, R10.13 - Epigastric pain LABS: NOT OBTAINED TODAYS VISIT [place] #Steve Live She is now doing well w/o black stools etc. She is struggling with her asthma and can only whisper today she continues on her omeprazole in the morning, famotidine at night, Creon, and senna. ROV 6 mos. PFSH Medical History (Updated 10/24/24 @ 10:18 by IZABELA Mena) Cyst of kidney, acquired Dysphagia Pre-op examination Upper abdominal pain Sensation of pressure in bladder area Decreased thyroid stimulating hormone (TSH) level Essential hypertension Hypoglycemia Prediabetes FRIEDA on CPAP Early satiety Epigastric pain Sleep apnea HTN (hypertension) Kidney stone Asthma Surgical History Hx of colonoscopy Previous back surgery Hx of endoscopy Family History Father History of cancer Mother Hx of diabetes mellitus Social History Household Members: Spouse Alcohol intake: never Patient Tobacco Use Status: Never used Tobacco Review of Systems Const Denies fatigue, Denies fever(s), Denies night sweats, Denies poor appetite and Denies weight loss ENT Reports Normal hearing present, Denies dental pain, Denies dysphagia, Denies hearing loss, Denies mouth pain, Denies odynophagia, Denies throat swelling, Denies tongue swelling and Reports other (Dentition adequate) Card Reports no additional complaints Resp Reports no additional complaints GI Details: Denies abdominal pain, Denies melena, Reports bloating, Denies hematochezia, Reports constipation, Denies GI cramping, Denies dysphagia, Denies excessive flatus, Denies early satiety, Reports heartburn, Denies diarrhea, Reports loose stools, Denies nausea, Denies odynophagia, Denies vomiting and Denies hematemesis Skin/Breast Denies pruritus, Denies lesions, Denies rash and Denies jaundice Neuro Reports Normal hearing present and Denies Abnormal speech present Endo Denies fatigue Aller/Immun Denies throat swelling and Denies tongue swelling Physical Exam Vital Signs: Last Vital Signs Pulse 70 08/18/24 14:04 BP 102/62 08/18/24 14:04 BMI result Body Mass Index 36.6 Const General: cooperative, no acute distress, well developed and well groomed Nutritional Appearance: well nourished and obese Orientation/consciousness: oriented to person, oriented to place and oriented to time Limitations: language barrier HEENT Head: Yes normocephalic and Yes atraumatic Eyes General: appearance normal, both eyes and all related structures Pupils: Equal, round and reactive pupils present Neck Neck: Yes normal visual inspection and Yes no lymphadenopathy Thyroid: Thyroid normal Resp Effort & Inspection: normal respiratory effort and able to speak in complete sentences Auscultation: clear to auscultation bilaterally Cardio Rate: regular rate Rhythm: regular rhythm Heart sounds: Normal, physiologic split S2 sound present Peripheral pulses: radial pulses present and posterior tibial pulses present GI Inspection: No distended, Yes Abdominal panniculus present and Yes obesity Palpation (GI): Soft to palpation, nontender, no guarding, not rigid and No hepatosplenomegaly present Percussion: Yes normal to percussion Auscultation: normal bowel sounds Rectal Exam - Female: deferred Skin General skin exam: no rashes or lesions noted, turgor normal, skin not dry, no jaundice, No spider nevi and no striae Rashes: no rashes Nails: normal Neuro General: oriented to person, oriented to place and oriented to time Cranial nerves: Yes Equal, round and reactive pupils present and Yes Normal hearing present Speech: No Abnormal speech present Extrem General: Yes normal to inspection, No clubbing, No cyanosis and No edema Psych Appearance: grossly normal and well kempt Mental Status: mental status grossly normal Speech and movement: Normal speech and movement present Affect: normal affect Attitude: cooperative Thought process: Normal thought process present and not confabulating Thought content: Normal thought content present Insight: Limited insight present (Psych) Judgement: Limited judgement present (Psych) Assessment & Plan Assessment & Plan (1) Abdominal bloating: Code(s): R14.0 - Abdominal distension (gaseous) Category: Medical (2) Chronic idiopathic constipation: Code(s): K59.04 - Chronic idiopathic constipation Category: Medical (3) GERD (gastroesophageal reflux disease): Code(s): K21.9 - Gastro-esophageal reflux disease without esophagitis Category: Medical Plan [place] #Steve Live She is now doing well w/o black stools etc. She is struggling with her asthma and can only whisper today she continues on her omeprazole in the morning, famotidine at night, Creon, and senna. ROV 6 mos. Medications: Refilled famotidine 20 mg PO BID 60 tabs 6RF K21.9 - Gastro-esophageal reflux disease without esophagitis, R10.13 - Epigastric pain wphvyi-zziaqdty-wzuzhcw 24,000-76,000 -120,000 unit (Creon) 1 cap PO QID 120 caps 6RF omeprazole 40 mg PO DAILY 30 caps 6RF 30 days K21.9 - Gastro-esophageal reflux disease without esophagitis plecanatide (Trulance) 3 mg PO DAILY 30 tabs 6RF simethicone 180 mg PO QID 90 caps 6RF Coding Level of Care Code Est Pt Level 3 (99511) Diagnoses Abdominal bloating R14.0 Chronic idiopathic constipation K59.04 GERD (gastroesophageal reflux disease) K21.9
== END 2024-08-18 15:23 | disposition home or self-care (01) ==
PROVIDERS: PCP Internal Medicine; Visit Provider Nurse Practitioner
DX: R14.0 Abdominal distension (gaseous) (principal); K59.04 Chronic idiopathic constipation; K21.9 Gastro-esophageal reflux disease without esophagitis
CPT/HCPCS: 99213

== ENCOUNTER → 2024-08-18 13:55 | Outpatient (BNVA) | payer MEDICAID, SELFPAY | PROVIDERS: PCP Internal Medicine; Visit Provider Nurse Practitioner | DX: K59.04 Chronic idiopathic constipation (principal); K92.1 Melena; K21.9 Gastro-esophageal reflux disease without esophagitis; R19.7 Diarrhea, unspecified; R13.10 Dysphagia, unspecified; R14.0 Abdominal distension (gaseous) | CPT/HCPCS: 99212 ==

== ENCOUNTER 2024-10-02 09:09 | Outpatient (REF) | payer MEDICAID, SELFPAY ==
[2024-10-02 12:05] LABS: Estimated Average Glucose 123 mg/dL; Hemoglobin A1C 136.9299 umol/L; Hemoglobin A1c % 5.9 % (<6.0); Total Hemoglobin (HGBA1C) 3331.5165 umol/L
[2024-10-02 12:11] LABS: Insulin 6 uU/mL (2-29); TSH reflex Free T4 0.29 uIU/mL (0.32-4.0)
[2024-10-02 12:41] LABS: Free T4 (Free Thyroxine) 1.04 ng/dL (0.71-1.85)
[2024-10-11 01:38] LABS: Insulin Auto Antibody <0.4 U/mL (<0.4)
== END 2024-10-02 09:10 | disposition home or self-care (01) ==
LOC: HO.HHCL 09:09
PROVIDERS: Visit Provider Internal Medicine
DX: E16.2 Hypoglycemia, unspecified (principal)
CPT/HCPCS: 36415; 83036; 83525; 84439; 84443; 86337

== ENCOUNTER 2024-10-03 14:02 | Outpatient (AMB) | payer MEDICAID, SELFPAY ==
--- NOTE | 2024-10-03 14:05 | A.OFFVIS_ITS ---
Vital Signs 10/03/24 14:06 Height 5 ft 1 in Weight 192 lb BMI 36.3 BP 98/58 L Blood Pressure Location Rt brachial Position Sitting Pulse 75 Pulse Source Pulse Oximeter Intake Visit Reasons: Hypoglycemia/LVM Intake Note: Patient presents today to re-establish treatment for Hypoglycemia: Last Diabetic eye exam was on: 03/2024 Last Podiatry exam was on: Does not see a Supervisor Ornamental Ironworking Most recent HbA1c: 5.9%, 10/02/2024 Random Glucose- 98 mg/dL, Today Air Tool Operator Required: Yes Air Tool Operator Language: Horse Trekking Guide Services: Air Tool Operator Present Accompanied by: Self / Same As Patient Allergies Penicillins [PENICILLINS] Allergy (Mild, Verified 10/03/24 14:13) RASH Sulfa (Sulfonamide Antibiotics) [SULFA (SULFONAMIDE ANTIBIOTICS)] Allergy (Mild, Verified 10/03/24 14:13) BRUISING,SWOLLEN LIPS, rash, swollen lips penicillin V Allergy (Unknown, Verified 10/03/24 14:13) echymosis, rash as a child HPI Comments Details: This is a year old female with a past medical history of migraines, fibromyalgia, chronic constipation, hyperlipidemia, kidney stone, hypertension, gastritis, FRIEDA, obesity, asthma and hypokalemia presenting for endocrine consult for hypoglycemia. Kiswahili video outpatient program coordinator used for appointment. Patient reports that she has been feeling cold, shaky and having headaches and feeling tired. Three weeks ago she felt like this so she used her 's glucometer to check her blood sugar. Patient reports it was 55. She became worried. Patient tells me she had not eaten anything all day before checking her blood sugar. She does not usually have a good appetite for breakfast and lunch. Usually she only has a small piece of bread in a cup of coffee during the day. Patient reports that she has been using a glucometer to check her blood sugars, but she has not been doing this consistently. She does not have the glucometer with her today. She reports that her fasting sugar this morning was 70. She has checked it sometimes around 4pm or before bedtime, and it is in the 90s. Patient says she feels cold and tired today, and her POC is normal. Her hemoglobin A1c was 5.9% 10/02/2024. Her fasting insulin level was normal. Insulin autoantibody level is pending. No syncopal episodes or near syncope. Denies history of bariatric surgery, alcoholism, colitis or celiac disease. Patient endorses a history of prediabetes. One time when she had pancakes with syrup she checked her sugar and it was 225. This is the highest reading she has seen. Patient says she started seeing a safemaker when she had an episode of chest pain, but she says her heart was okay. Denies history of CAD. Patient says she is prescribed amlodipine 2.5 mg daily which was reduced due to hypotension. She takes metoprolol succinate 25 mg daily. Heart rate is 75 today, and her blood pressure is 98/58. Blood pressure was 102/62 on 08/18/2024. TSH was mildly decreased. She has no history of thyroid disease, but her sister takes medication for her thyroid. ROS: Constitutional: No fevers, chills or unexplained weight loss. Respiratory: No shortness of breath Cardiovascular: No chest pain or palpitations Gastrointestinal: No anorexia, nausea, vomiting or diarrhea. No abdominal pain Hematologic/Lymphatics: No bleeding or bruising. Endocrine: No heat intolerance. No polyuria or polydipsia. Physical exam: Constitutional: Alert, in no distress. Neck: Supple, Full range of motion. No lymphadenopathy. No palpable thyroid masses. Respiratory: Clear to auscultation. Cardiovascular: S1 S2 regular. No murmurs. Neurologic: No focal neurological deficits. Psychiatric: Normal mood and affect [facility] Medical History (Updated 10/03/24 @ 15:32 by OKSANA Pinto) Decreased thyroid stimulating hormone (TSH) level Essential hypertension Hypoglycemia Prediabetes FRIEDA on CPAP Cyst of kidney, acquired Early satiety Epigastric pain Sleep apnea HTN (hypertension) Kidney stone Asthma Surgical History Hx of colonoscopy Previous back surgery Hx of endoscopy Family History Father History of cancer Mother Hx of diabetes mellitus Social History Household Members: Spouse Alcohol intake: never Patient Tobacco Use Status: Never used Tobacco Physical Exam Vital Signs: Last Vital Signs Pulse 75 10/03/24 14:06 BP 98/58 L 10/03/24 14:06 BMI result Body Mass Index 36.3 Results Reviewed Results Reviewed: Laboratory Last Values Glucose (Clinic) 93 mg/dL (60-115) 10/03/24 14:10 Laboratory Tests 06/26/24 10/02/24 10/03/24 09:18 09:15 14:10 Glucose (Clinic) 93 Estimat Average Glucose 123 Hemoglobin A1c % 5.9 Insulin Level 6 Triglycerides 129 Cholesterol 125 LDL Cholesterol, Calc 59 HDL Cholesterol 41 TSH 0.29 L Free T4 1.04 Insulin Autoantibody Pending Assessment & Plan Assessment & Plan (1) Prediabetes: Code(s): R73.03 - Prediabetes Category: Medical (2) Hypoglycemia: Code(s): E16.2 - Hypoglycemia, unspecified Category: Medical (3) Essential hypertension: Code(s): I10 - Essential (primary) hypertension Category: Medical (4) Decreased thyroid stimulating hormone (TSH) level: Code(s): R79.89 - Other specified abnormal findings of blood chemistry Category: Medical Plan In summary this is a 59-year-old female with prediabetes who presented with concerns regarding hypoglycemia today. Right now the history is consistent with an episode of physiologic hypoglycemia a few weeks ago rather than pathologic hypoglycemia. Patient advised to increase frequency of eating. She can have small snacks every 1-2 hours rather than 3 large meals per day. Agreeable to dietitian consult. I will send glucose tablets and reviewed treatment of hypoglycemia with the patient. She did not have a glucometer with her today, and she isn't using it consistently because it is painful. I will see if she can meet with the clinical systems educator and possibly be given a sample CGM once so we can review data. We discussed that her blood pressure is running low. This may be causing the symptoms she thought were due to hypoglycemia. She is taking amlodipine and metoprolol. She has an upcoming appointment in October with her safemaker, and she plans to discuss it then, but she will reach out to her safemaker if her symptoms worsen prior to that visit. Patient will return to the lab in 6 weeks to check a TSH level. She requested repeating electrolytes as she has a history of low potassium. Follow up in 3-4 weeks. Orders: Orders Basic Metabolic Panel Today E16.2 - Hypoglycemia, unspecified TSH reflex Free T4 Today R79.89 - Other specified abnormal findings of blood chemistry Medications: New glucose (Dex4 Glucose) until symptoms of low blood sugar are controlled 16 grams (4 x 4 gram) PO Q15M PRN 10 tabs 1RF hypoglycemia Patient Instructions: If you experience low blood sugar (under 70), treat this by eating a chewable fruit candy like skittles or jelly beans (about 8 pieces), 4 ounces (1/2 cup) of fruit juice (not diet), 1 tablespoon of honey or 4 glucose tablets. If your blood sugar is under 50, take double the amount of one of the above. Recheck your blood sugar in 15 minutes. Si experimenta un nivel bajo de az?car en la lulu, tr?telo comiendo un maría de fruta masticable wilver bolos o gominolas (aproximadamente 8 piezas), 4 onzas (1/2 taza) de jugo de fruta (no diet?cole), 1 cucharada de miel o 4 tabletas de glucosa. . Si villalta nivel de az?car en ullu es inferior a 50, tome el doble de tam de los anteriores. Vuelva a controlar villalta nivel de az?car en la lulu en 15 minutos. Normal blood sugar when you first wake up is 70-100. Under 70 is considered low blood sugar. Blood sugar may be up to 140 after you eat. Target blood pressure for most people is 120/80. El nivel normal de az?car en lulu cuando te despiertas por primera vez es de 70 a 100. Menos de 70 a?os se considera nivel bajo de az?car en lulu. El nivel de az?car en la lulu puede llegar a 140 despu?s de comer. La presi?n arterial objetivo para la mayor?a de las personas es 120/80. Coding Level of Care Code New Pt Level 5 (11255) Complex EM visit Add On G2211 Diagnoses Prediabetes R73.03 Hypoglycemia E16.2 Essential hypertension I10 Decreased thyroid stimulating hormone (TSH) level R79.89 Time Spent (min) 65 Comment Chart review, direct patient care, completing documentation
[2024-10-03 14:06] VITALS: BP 98/58; PULSE 75; BMI 36.3
[2024-10-03 14:17] LABS: Glucose, Whole Blood 93 mg/dL (60-115)
== END 2024-10-03 15:11 | disposition home or self-care (01) ==
PROVIDERS: PCP Internal Medicine; Visit Provider Physician Assistant Medical
DX: R73.03 Prediabetes (principal); I10 Essential (primary) hypertension

== ENCOUNTER → 2024-10-03 14:02 | Outpatient (BNVA) | payer MEDICAID, SELFPAY | PROVIDERS: PCP Internal Medicine; Visit Provider Physician Assistant Medical | DX: E16.2 Hypoglycemia, unspecified (principal); I10 Essential (primary) hypertension | CPT/HCPCS: 82947; 99212 ==

== ENCOUNTER 2024-10-25 11:56 | Outpatient (AMB) | payer MEDICAID, SELFPAY ==
--- NOTE | 2024-10-25 12:36 | A.OFFVIS_ITS ---
VS Expanded 10/25/24 12:37 11/12/24 10:15 Height 5 ft 1 in 5 ft 1 in Weight 196 lb 6.91 oz 196 lb BMI 37.1 37.0 Intake Visit Reasons: hypoglycemia glucose Allergies Penicillins [PENICILLINS] Allergy (Mild, Verified 11/03/24 11:14) RASH Sulfa (Sulfonamide Antibiotics) [SULFA (SULFONAMIDE ANTIBIOTICS)] Allergy (Mild, Verified 11/03/24 11:14) BRUISING,SWOLLEN LIPS, rash, swollen lips penicillin V Allergy (Unknown, Verified 11/03/24 11:14) echymosis, rash as a child Nutrition Presentation Details: Pt presents for MNT for PreDM Typical meal intake 10 am B: Bread with butter, coffee with milk with sugar crackers 3 pm : rice/beans, chicken , juice or water , soda snacks: crackers, fruits, breads food frequency fruits: 1/d non starchy ve times/wk dairy: 2 x/d fish: 1x/m starches > 20 fluids: water, juice , soda physical activity: daily life activities etoh/smoking: denies BS Monitoring Most Recent Diabetes Results: No Data to Display JVG-Jhnebzn-Pn.Jeor Equation Height: 5 ft 1 in Weight: 196 lb Resting Metabolic Rate: 1410.17 Calculated Activity Level: Sedentary Calories Needed to Maintain Weight: 1692.20 Diagnosis Nutrition problem #1: food nutri know defi As related to (etiology) #1: diagnosis As evidenced by (sign/symptom) #1: knowledge deficit of diet PFSH Medical History (Updated 10/24/24 @ 10:18 by IZABELA Mena) Cyst of kidney, acquired Dysphagia Pre-op examination Upper abdominal pain Sensation of pressure in bladder area Decreased thyroid stimulating hormone (TSH) level Essential hypertension Hypoglycemia Prediabetes FRIEDA on CPAP Early satiety Epigastric pain Sleep apnea HTN (hypertension) Kidney stone Asthma Surgical History Hx of colonoscopy Previous back surgery Hx of endoscopy Family History Father History of cancer Mother Hx of diabetes mellitus Social History Household Members: Spouse Alcohol intake: never Patient Tobacco Use Status: Never used Tobacco Assessment & Plan Assessment & Plan (1) Prediabetes: Code(s): R73.03 - Prediabetes Category: Medical Plan: Wt: 89 Kg ( 10/31 ) Est kcal needs as per MSJ: 1700 (40% carb, 30% protein/fat) Est fluid needs as per 25-30 ml/d: 2700 Est prot per day as per 1 g/kg bw: 90 Recommend fiber intake : 8-10 g per day and gradually increase to 25-28 g per day for women and 35-38 g for men or as tolerated Recommend sodium intake per day : less than 2300 mg Educated patient on: ( R = reviewed V = verbalizes understanding N/R = needs review N/A = not applicable * Food sources of carbohydrate, adequate serving sizes and its role in various health conditions: R * Differences between complex carbohydrates a simple carbohydrates, role of fiber in diet: R * Lean protein sources of foods: R * Differences between types of fats and role in diet (mono on saturated fat fatty acids, saturated fatty acids, trans fats): R V N/R * Food sources of sodium in salt and healthy modifications for heart health in kidney health: R V R/V * Vitamins and minerals: R V N/R * Healthy plate method concept: R * Physical activity: Benefits a precaution: R V N/R * Hypoglycemia symptoms and prevention and treatment in prediabetes: R * Dietary prevention of Hyperglycemia: R Patient Instructions: * Reduce sugar intake from simple carbohydrates (pastries/juices/candies/desserts and similar) /reduzca azucares de postres/jugos, bebidas con azucares/golosinas y comidas/bebidas similares * Choose high fiber foods in adequate portions/Escoja comidas altas en fibras e porciones adecuadas (calabaza, batatas,habichuelas, vegetales mixtos) * see meal plan consisting of 45-60 g carb per meal and 20 g or less as snack (sangeetha plan alimenticio que consiste en 45-60 g de carbohidrato por comida y 0- 20 g wilver merienda wilver ejemplo Coding Level of Care Code Nutr Indiv Subseq (26272) Diagnoses Prediabetes R73.03 Time Spent (min) 30
[2024-10-25 12:37] VITALS: BMI 37.1
[2024-11-12 17:55] VITALS: BMI 37.0
== END 2024-10-25 13:15 | disposition home or self-care (01) ==
PROVIDERS: PCP Internal Medicine; Visit Provider Dietitian, Registered
DX: R73.03 Prediabetes (principal)

== ENCOUNTER → 2024-10-25 11:56 | Outpatient (BNVA) | payer MEDICAID, SELFPAY | PROVIDERS: PCP Internal Medicine; Visit Provider Dietitian, Registered | DX: R73.03 Prediabetes (principal) | CPT/HCPCS: 97803 ==

== ENCOUNTER 2024-11-03 11:06 | Outpatient (AMB) | payer MEDICAID, SELFPAY ==
--- NOTE | 2024-11-03 11:08 | MHC.OFFVIS ---
Vital Signs 11/03/24 11:09 Height 5 ft 1 in Weight 199 lb 11.821 oz BMI 37.7 BP 118/70 Blood Pressure Location Lt brachial Position Sitting Pulse 82 Pulse Source Pulse Oximeter Intake Visit Reasons: hypoglycemia glucose Intake Note: Patient present today for Hypoglycemia follow up. HgA1C: 5.9% 10/02/24 Print Traffic Manager Required: Yes Print Traffic Manager Language: Photogrammetric Engineer Services: Print Traffic Manager Present Information Interpreted: non-clinical & clinical Accompanied by: Self / Same As Patient Allergies Penicillins [PENICILLINS] Allergy (Mild, Verified 11/03/24 11:14) RASH Sulfa (Sulfonamide Antibiotics) [SULFA (SULFONAMIDE ANTIBIOTICS)] Allergy (Mild, Verified 11/03/24 11:14) BRUISING,SWOLLEN LIPS, rash, swollen lips penicillin V Allergy (Unknown, Verified 11/03/24 11:14) echymosis, rash as a child HPI Comments Details: This is a 59 year old female with a past medical history of migraines, fibromyalgia, chronic constipation, hyperlipidemia, kidney stone, hypertension, gastritis, FRIEDA, obesity, asthma and hypokalemia presenting for evaluation of hypoglycemia. construction millwright present. Patient reports she stopped Amlodipine, and her previous symptoms (fatigue, feeling cold and shaky) resolved. Her blood pressure is normal today. She still takes Metoprolol. I reviewed her glucometer download. She had 2 episodes of hyperglycemia. One episode was 230 after she ate pancakes. Another episode occurred around 6pm and was 433. She has never seen her blood sugar this high before and states she ate her usual dinner and no sweets. She had a small portion of rice. She did not feel symptoms. She did not recheck it. All of her other readings are within the normal target range. Her lowest blood sugar was 77. She has an appointment with the healthcare educator for CGM placement. She met with a dietitian, and while she admits it is difficult, she is trying to follow the diet they outlined. Her hemoglobin A1c was 5.9% 10/02/2024. Her fasting insulin level was normal. Insulin autoantibody level is normal. No syncopal episodes or near syncope. Denies history of bariatric surgery, alcoholism, colitis or celiac disease. TSH was mildly decreased. She has no history of thyroid disease, but her sister takes medication for her thyroid. ROS: Constitutional: No fevers, chills or unexplained weight loss. Respiratory: No shortness of breath Cardiovascular: No chest pain or palpitations Gastrointestinal: No anorexia, nausea, vomiting or diarrhea. No abdominal pain Hematologic/Lymphatics: No bleeding or bruising. Endocrine: No heat intolerance. No polyuria or polydipsia. Physical exam: Constitutional: Alert, in no distress. Neck: Supple, Full range of motion. No lymphadenopathy. No palpable thyroid masses. Respiratory: Clear to auscultation. Cardiovascular: S1 S2 regular. No murmurs. Neurologic: No focal neurological deficits. Psychiatric: Normal mood and affect [facility] Medical History (Updated 10/24/24 @ 10:18 by IZABELA Mena) Cyst of kidney, acquired Dysphagia Pre-op examination Upper abdominal pain Sensation of pressure in bladder area Decreased thyroid stimulating hormone (TSH) level Essential hypertension Hypoglycemia Prediabetes FRIEDA on CPAP Early satiety Epigastric pain Sleep apnea HTN (hypertension) Kidney stone Asthma Surgical History Hx of colonoscopy Previous back surgery Hx of endoscopy Family History Father History of cancer Mother Hx of diabetes mellitus Social History Household Members: Spouse Alcohol intake: never Patient Tobacco Use Status: Never used Tobacco Physical Exam Vital Signs: Last Vital Signs Pulse 82 11/03/24 11:09 BP 118/70 11/03/24 11:09 BMI result Body Mass Index 37.7 Assessment & Plan Assessment & Plan (1) Prediabetes: Code(s): R73.03 - Prediabetes Category: Medical (2) Hypoglycemia: Code(s): E16.2 - Hypoglycemia, unspecified Category: Medical (3) Essential hypertension: Code(s): I10 - Essential (primary) hypertension Category: Medical (4) Decreased thyroid stimulating hormone (TSH) level: Code(s): R79.89 - Other specified abnormal findings of blood chemistry Category: Medical Plan In summary this is a 59-year-old female with prediabetes who presented initially with concerns about hypoglycemia which have resolved after she discontinued amlodipine. Her blood pressure is normal today. She has a follow up scheduled with her title camera operator, and I advised her to let her title camera operator and primary care provider know she stopped taking amlodipine. She previously reported 1 episode which seemed consistent with physiologic hypoglycemia rather than pathologic. She met with a dietitian, and she is following the diet outlined for the most part. She had no hypoglycemic events since her last visit. She will return for CGM placement with the healthcare educator. She had 1 episode of severe hyperglycemia recently, but she did not have symptoms. I advised her to check her blood sugar again to confirm if this is accurate if this happens again. Patient will return to the lab to check a TSH level. She requested repeating electrolytes as she has a history of low potassium. She will schedule a follow up appointment in a couple of weeks with me to review the CGM data. We discussed potentially initiating medication for prediabetes. We will review this further at her follow up appointment. Coding Level of Care Code Est Pt Level 4 (82366) Complex EM visit Add On G2211 Diagnoses Prediabetes R73.03 Hypoglycemia E16.2 Essential hypertension I10 Decreased thyroid stimulating hormone (TSH) level R79.89
[2024-11-03 11:09] VITALS: BP 118/70; PULSE 82; BMI 37.7
== END 2024-11-03 12:09 | disposition home or self-care (01) ==
PROVIDERS: PCP Internal Medicine; Visit Provider Physician Assistant Medical
DX: E16.2 Hypoglycemia, unspecified (principal); I10 Essential (primary) hypertension

== ENCOUNTER → 2024-11-03 11:06 | Outpatient (BNVA) | payer MEDICAID, SELFPAY | PROVIDERS: PCP Internal Medicine; Visit Provider Physician Assistant Medical | DX: R73.03 Prediabetes (principal); E16.2 Hypoglycemia, unspecified; I10 Essential (primary) hypertension; R79.89 Other specified abnormal findings of blood chemistry | CPT/HCPCS: 99212 ==

== ENCOUNTER 2024-11-07 12:05 | Outpatient (AMB) | payer MEDICAID, SELFPAY ==
--- NOTE | 2024-11-07 12:40 | A.OFFVIS_ITS ---
Intake Intake Visit Reasons: hypoglycemia Volunteer Coordinator Required: Yes Volunteer Coordinator Language: Load Out Person Name: [place] [facility] [place]ompanied by: Self / Same As Patient Allergies Penicillins [PENICILLINS] Allergy (Mild, Verified 11/03/24 11:14) RASH Sulfa (Sulfonamide Antibiotics) [SULFA (SULFONAMIDE ANTIBIOTICS)] Allergy (Mild, Verified 11/03/24 11:14) BRUISING,SWOLLEN LIPS, rash, swollen lips penicillin V Allergy (Unknown, Verified 11/03/24 11:14) echymosis, rash as a child HPI Comprehensive Diabetes Asmnt Most Recent Diabetes Results: No Data to Display [facility] Medical History (Updated 10/24/24 @ 10:18 by IZABELA Mena) Cyst of kidney, acquired Dysphagia Pre-op examination Upper abdominal pain Sensation of pressure in bladder area Decreased thyroid stimulating hormone (TSH) level Essential hypertension Hypoglycemia Prediabetes FRIEDA on CPAP Early satiety Epigastric pain Sleep apnea HTN (hypertension) Kidney stone Asthma Surgical History Hx of colonoscopy Previous back surgery Hx of endoscopy Family History Father History of cancer Mother Hx of diabetes mellitus Social History Household Members: Spouse Alcohol intake: never Patient Tobacco Use Status: Never used Tobacco Assessment & Plan Assessment & Plan (1) Hypoglycemia: Code(s): E16.2 - Hypoglycemia, unspecified Plan: Patient at visit to set up an insert Dexcom G7, with Dirt Supervisor Instructed patient sensors water proof you can shower, or swim do not submerge sensor in water for over 30 minutes Is sensor falls off cannot put back in you need to replace sensor, customer service number given to patient for sensor replacement Sensor placed on the back of Left arm Patient left visit with sensor in warmup Reviewed how to interpret trend arrows Reminded patient that to check finger sticks if symptoms do not match sensor reading. Discussed lag time between finger stick and sensor data.? Instructed patient she should always keep blood glucometer for backup testing if needed Reviewed delay of CGM from fingersticks Reminded pt that if symptoms do not match sensor still needs to check fingersticks. Patient will follow-up with [facility] on 11/21/24 for glucose review Portions of this note were created using voice recognition software, please excuse any words or phrases that may have been misinterpreted. Patient Instructions: Instrucciones para el paciente: CGM proporciona informaci?n sobre el control de la glucosa en lulu a lo srinivasan del d?a, incluidas la hiperglucemia y la hipoglucemia. Contin?e controlando la glucosa en lulu seg?n las instrucciones. Siga las pautas de nutrici?n proporcionadas. Informe cualquier molestia de inmediato al proveedor de atenci?n m?dica. Mantente mariama hidratado. Puede ba?arse, ducharse, nadar y hacer ejercicio mientras usa el sensor de glucosa. No sumerja el sensor de glucosa en agua alexandria m?s de 30 minutos. Retire el sensor para gypsy resonancia magn?willa o gypsy tomograf?a computarizada. Evite la m?quina de donovan X en los aeropuertos: retire el sensor o solicite la varita Coding Level of Care Code Est Pt Level 1 (47989) Diagnoses Hypoglycemia E16.2
== END 2024-11-07 12:41 | disposition home or self-care (01) ==
PROVIDERS: PCP Internal Medicine; Visit Provider Registered Nurse Diabetes Educator
DX: E16.2 Hypoglycemia, unspecified (principal)

== ENCOUNTER → 2024-11-07 12:05 | Outpatient (BNVA) | payer MEDICAID, SELFPAY | PROVIDERS: PCP Internal Medicine; Visit Provider Registered Nurse Diabetes Educator | DX: E16.2 Hypoglycemia, unspecified (principal) | CPT/HCPCS: 99211 ==

== ENCOUNTER 2024-11-14 13:20 | Outpatient (REF) | payer MEDICAID, SELFPAY ==
[2024-11-14 16:12] LABS: MANUAL DIFF FLAG NO
[2024-11-14 16:18] LABS: Basophils Absolute Auto 0.1 X10*3/uL (0.0-0.2); Basophils Percent Auto 0.5 % (0-2); Eosinophils Absolute Auto 0.1 X10*3/uL (0.0-0.4); Eosinophils Percent Auto 0.7 % (0-4); Hematocrit 40.4 % (37.0-47.0); Hemoglobin 13.2 g/dl (12.0-16.0); Imm Gran Abs Auto 0.04 X10*3/uL (0.00-0.03); Imm Gran Pct Auto 0.4 % (0.0-0.4); Lymphocytes Absolute Auto 3.3 X10*3/uL (1.2-4.9); Lymphocytes Percent Auto 30.5 % (20-40); Mean Corpuscular HGB Conc 32.7 g/dl (31.0-35.0); Mean Corpuscular Hemoglobin 29.4 pg (27.0-33.0); Mean Platelet Volume 11.5 fL (9.4-12.3); Monocytes Percent Auto 8.9 % (2-11); Neutrophils Absolute Auto 6.3 x10*3/uL (2.0-8.3); Platelet Count 254 X10*3/uL (160-400); Red Blood Count 4.49 X10*6/uL (4.20-5.50); Red Cell Distribution Width 13.8 % (11.0-16.0); White Blood Count 10.7 X10*3/uL (4.8-10.8)
[2024-11-14 16:34] LABS: Anion Gap 10 (12-20); Blood Urea Nitrogen 17 mg/dL (9-16); Calcium 9.4 mg/dL (8.4-10.2); Carbon Dioxide 29 mmol/L (22-29); Chloride 104 mmol/L (96-108); Estimated Glomerular Filt Rate > 60; Glucose Random 73 mg/dL (60-115); Potassium 3.3 mmol/L (3.3-5.1); Sodium 140 mmol/L (135-145)
[2024-11-14 16:49] LABS: TSH reflex Free T4 1.76 uIU/mL (0.32-4.0)
== END 2024-11-14 13:21 | disposition home or self-care (01) ==
LOC: HO.HHCL 13:20
PROVIDERS: Physician Assistant Medical; Visit Provider Nurse Practitioner Family
DX: R10.9 Unspecified abdominal pain (principal); K64.4 Residual hemorrhoidal skin tags; E16.2 Hypoglycemia, unspecified; R79.89 Other specified abnormal findings of blood chemistry
CPT/HCPCS: 36415; 80048; 84443; 85025; 87086

== ENCOUNTER 2024-11-21 14:17 | Outpatient (AMB) | payer MEDICAID, SELFPAY ==
--- NOTE | 2024-11-21 14:21 | A.OFFVIS_ITS ---
Vital Signs 11/21/24 14:23 Height 5 ft 1 in Weight 197 lb 8.547 oz BMI 37.3 BP 116/72 Blood Pressure Location Rt brachial Position Sitting Pulse 82 Pulse Source Pulse Oximeter Intake Visit Reasons: hypoglycemia follow up Intake Note: Patient present today for Hypoglycemia follow up. Associate Artistic Director Required: Yes Associate Artistic Director Language: Tissue Inserter Services: Associate Artistic Director Present Associate Artistic Director Name: Kusum [id number] Information Interpreted: non-clinical & clinical Accompanied by: Self / Same As Patient Allergies Penicillins [PENICILLINS] Allergy (Mild, Verified 11/21/24 14:24) RASH Sulfa (Sulfonamide Antibiotics) [SULFA (SULFONAMIDE ANTIBIOTICS)] Allergy (Mild, Verified 11/21/24 14:24) BRUISING,SWOLLEN LIPS, rash, swollen lips penicillin V Allergy (Unknown, Verified 11/21/24 14:24) echymosis, rash as a child HPI Comments Details: This is a 59 year old female with a past medical history of migraines, fibromyalgia, chronic constipation, hyperlipidemia, kidney stone, hypertension, gastritis, FRIEDA, obesity, asthma and hypokalemia presenting for evaluation of hypoglycemia. loss prevention and safety manager present. Patient reports she stopped Amlodipine, and her previous symptoms (fatigue, feeling cold and shaky) resolved. Her blood pressure is normal today. She still takes Metoprolol. Patient had dexcom g7 placed on left upper arm at [facility] appointment 11/07/24. Patient says that afternoon she developed left arm pain from the upper arm to the hand. There was no redness or rash. She saw her pain management doctor at [facility] [employer]. They wondered if perhaps the sensor was positioned over a tendon. She has a history of carpal tunnel syndrome and has had this surgery on the left side. They told her to follow up this Wednesday for a possible injection in her wrist. She denies numbness and tingling in her left arm. No chest pain or shortness of breath. It is difficult to move the left arm because of pain, and she is dropping things with her left hand which is what happened before the surgery for carpal tunnel syndrome. 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 She denies neck pain. Reviewed Dexcom data download: Average glucose 137 Standard deviation 38 mg/dL Her GMI was 6.6% 36% of days had CGM data because she removed it because of arm pain. 83% of readings were in the target range. 15% of readings were high. No readings were very high. She had 2% low and less than 1% very low readings. She had hypoglycemia tree faller on 11/09/2024 of 64. She had not eaten since afternoon the night before. She had hypoglycemia between 6am and 11am on November 08 with a trough of 50 mg/dL. Patient reports that she did hear the alert, but she did not get up to eat. He reports that she had eaten her last meal the day before at 1pm and then did not have anything until she got up around 11am. She met with a dietitian. She has a handouts from this appointment. Her hemoglobin A1c was 5.9% 10/02/2024. Her fasting insulin level was normal. Insulin autoantibody level is normal. No syncopal episodes or near syncope. Denies history of bariatric surgery, alcoholism, colitis or celiac disease. We reviewed that her TSH level normalized, and her potassium level was normal. ROS: Constitutional: No fevers, chills or unexplained weight loss. Respiratory: No shortness of breath Cardiovascular: No chest pain or palpitations Gastrointestinal: No anorexia, nausea, vomiting or diarrhea. No abdominal pain Hematologic/Lymphatics: No bleeding or bruising. Endocrine: No heat intolerance. No polyuria or polydipsia. Physical exam: Constitutional: Alert, in no distress. Neck: Supple, Full range of motion. No lymphadenopathy. No palpable thyroid masses. Respiratory: Clear to auscultation. Cardiovascular: S1 S2 regular. No murmurs. Neurologic: No focal neurological deficits. Psychiatric: Normal mood and affect Musculoskeletal: She is tender over the left anterior wrist and left upper arm. She has increased left upper extremity pain when she tries to raise her arm or grasp things with her left hand. She has intact radial pulses. There is no discoloration to the upper arms or hands. There is no edema of the extremities. [facility] Medical History (Updated 10/24/24 @ 10:18 by IZABELA Mena) Cyst of kidney, acquired Dysphagia Pre-op examination Upper abdominal pain Sensation of pressure in bladder area Decreased thyroid stimulating hormone (TSH) level Essential hypertension Hypoglycemia Prediabetes FRIEDA on CPAP Early satiety Epigastric pain Sleep apnea HTN (hypertension) Kidney stone Asthma Surgical History Hx of colonoscopy Previous back surgery Hx of endoscopy Family History Father History of cancer Mother Hx of diabetes mellitus Social History Household Members: Spouse Alcohol intake: never Patient Tobacco Use Status: Never used Tobacco Physical Exam Vital Signs: Last Vital Signs Pulse 82 11/21/24 14:23 BP 116/72 11/21/24 14:23 BMI result Body Mass Index 37.3 Assessment & Plan Assessment & Plan (1) Prediabetes: Code(s): R73.03 - Prediabetes Category: Medical (2) Hypoglycemia: Code(s): E16.2 - Hypoglycemia, unspecified Category: Medical (3) Left upper limb pain: Code(s): M79.602 - Pain in left arm Plan In summary this is a 59-year-old female with prediabetes who presented initially with concerns about hypoglycemia. She discontinued 1 of her blood pressure medications, and those symptoms resolved. Her blood pressure is normal today. She has a follow up scheduled with her administration manager, and I advised her to let her administration manager and primary care provider know she stopped taking amlodipine. Episodes are consistent thus far with physiologic hypoglycemia rather than patho logic. She is sometimes eating at 01:00 o'clock and having nothing until late morning the next day. This is too long an interval between meals. We discussed the recommendations from the dietitian. I advised her to eat 3 meals a day with 2 small snacks in between. She has handouts from the dietitian with nutrient rich foods and choices. I advised her to use her fingerstick glucometer to check her blood sugar if she feels symptoms of low blood sugar. We reviewed proper treatment of hypoglycemia. I also advised her to keep a journal that if she has a low blood sugar also indicates the time between low sugar and her last meal. We will review this at the follow up appointment in a month. Regarding her left arm pain she is going to follow up with the physiatry office this Wednesday. I explained the CGM needle is too small to cause damage to the underlying muscle and tendon. Symptoms may be related to her history of carpal tunnel syndrome. Warning signs warranting ER evaluation reviewed. We discussed potentially initiating medication for prediabetes. We will review this further at her follow up appointment. Coding Level of Care Code Est Pt Level 4 (30951) Complex EM visit Add On G2211 Diagnoses Prediabetes R73.03 Hypoglycemia E16.2 Left upper limb pain M79.602
[2024-11-21 14:23] VITALS: BP 116/72; PULSE 82; BMI 37.3
== END 2024-11-21 15:13 | disposition home or self-care (01) ==
PROVIDERS: PCP Internal Medicine; Visit Provider Physician Assistant Medical
DX: R73.03 Prediabetes (principal); M79.602 Pain in left arm

== ENCOUNTER → 2024-11-21 14:17 | Outpatient (BNVA) | payer MEDICAID, SELFPAY | PROVIDERS: PCP Internal Medicine; Visit Provider Physician Assistant Medical | DX: M79.7 Fibromyalgia (principal); G43.909 Migraine, unspecified, not intractable, without status migrainosus; E78.5 Hyperlipidemia, unspecified; E87.6 Hypokalemia; R73.03 Prediabetes; E16.2 Hypoglycemia, unspecified; M79.602 Pain in left arm | CPT/HCPCS: 99212 ==

== ENCOUNTER 2025-02-13 13:44 | Outpatient (AMB) | payer MEDICAID, SELFPAY ==
--- NOTE | 2025-02-13 13:48 | MHC.OFFVIS ---
Vital Signs 02/13/25 13:53 Height 5 ft 1 in Weight 191 lb 12.835 oz BMI 36.2 BP 98/68 Blood Pressure Location Lt brachial Position Sitting Pulse 76 Intake Visit Reasons: 6 mo f/u GERD, CIC Intake Note: Patient in office today in follow up of GERD and CIC. CC: Patient reports abdominal bloating. Denies other GI symptoms. Delivery Tech Required: Yes Accompanied by: Self / Same As Patient Allergies Penicillins [PENICILLINS] Allergy (Mild, Verified 02/13/25 14:00) RASH Sulfa (Sulfonamide Antibiotics) [SULFA (SULFONAMIDE ANTIBIOTICS)] Allergy (Mild, Verified 02/13/25 14:00) BRUISING,SWOLLEN LIPS, rash, swollen lips penicillin V Allergy (Unknown, Verified 02/13/25 14:00) echymosis, rash as a child HPI HPI 6 mo f/u GERD, CIC: Details: Assessment & Plan (1) Abdominal bloating: Code(s): R14.0 - Abdominal distension (gaseous) Category: Medical (2) Chronic idiopathic constipation: Code(s): K59.04 - Chronic idiopathic constipation Category: Medical (3) GERD (gastroesophageal reflux disease): Code(s): K21.9 - Gastro-esophageal reflux disease without esophagitis Category: Medical Plan [place] #Steve Live She is now doing well w/o black stools etc. She is struggling with her asthma and can only whisper today she continues on her omeprazole in the morning, famotidine at night, Creon, and senna. ROV 6 mos. Medications: Refilled famotidine 20 mg PO BID 60 tabs 6RF K21.9 - Gastro-esophageal reflux disease without esophagitis, R10.13 - Epigastric pain [id number]-[id number] 24,000-76,000 -120,000 unit (Creon) 1 cap PO QID 120 caps 6RF omeprazole 40 mg PO DAILY 30 caps 6RF 30 days K21.9 - Gastro-esophageal reflux disease without esophagitis plecanatide (Trulance) 3 mg PO DAILY 30 tabs 6RF simethicone 180 mg PO QID 90 caps 6RF TODAY'S VISIT [place] #Gabrielle Live She continues on her omeprazole in the morning, famotidine at night, Creon, and senna. SHe has her foot up on a foot rest when I come in as her sciatica is bothering her. She will be summering in [place]! ROV 6 mos. [facility] Medical History Cyst of kidney, acquired Dysphagia Pre-op examination Upper abdominal pain Sensation of pressure in bladder area Decreased thyroid stimulating hormone (TSH) level Essential hypertension Hypoglycemia Prediabetes FRIEDA on CPAP Early satiety Epigastric pain Sleep apnea HTN (hypertension) Kidney stone Asthma Surgical History Hx of colonoscopy Previous back surgery Hx of endoscopy Family History Father History of cancer Mother Hx of diabetes mellitus Social History Household Members: Spouse Alcohol intake: never Patient Tobacco Use Status: Never used Tobacco Review of Systems Const Denies fatigue, Denies fever(s), Denies night sweats, Denies poor appetite and Denies weight loss ENT Reports Normal hearing present, Denies dental pain, Denies dysphagia, Denies hearing loss, Denies mouth pain, Denies odynophagia, Denies throat swelling, Denies tongue swelling and Reports other (Dentition adequate) Card Reports no additional complaints Resp Reports no additional complaints GI Details: Denies abdominal pain, Denies melena, Reports bloating, Denies hematochezia, Reports constipation, Denies GI cramping, Denies dysphagia, Denies excessive flatus, Denies early satiety, Reports heartburn, Denies diarrhea, Denies nausea, Denies odynophagia, Denies vomiting and Denies hematemesis Musc Reports abnormal gait, Reports back pain and Reports radiating pain into limb Skin/Breast Denies pruritus, Denies lesions, Denies rash and Denies jaundice Neuro Reports Normal hearing present, Denies Abnormal speech present and Reports abnormal gait Endo Denies fatigue Aller/Immun Denies throat swelling and Denies tongue swelling Physical Exam Vital Signs: Last Vital Signs Pulse 76 02/13/25 13:53 BP 98/68 02/13/25 13:53 BMI result Body Mass Index 36.2 Const General: cooperative, no acute distress, well developed and well groomed Nutritional Appearance: well nourished, obese and overweight Orientation/consciousness: oriented to person, oriented to place and oriented to time Limitations: No language barrier, ambulation with cane, ambulation with walker and wheelchair HEENT Head: Yes normocephalic and Yes atraumatic Eyes General: appearance normal, both eyes and all related structures Pupils: Equal, round and reactive pupils present Neck Neck: Yes normal visual inspection and Yes no lymphadenopathy Thyroid: Thyroid normal Resp Effort & Inspection: normal respiratory effort and able to speak in complete sentences Auscultation: clear to auscultation bilaterally Cardio Rate: regular rate Rhythm: regular rhythm Heart sounds: Normal, physiologic split S2 sound present Peripheral pulses: radial pulses present and posterior tibial pulses present GI Inspection: No distended and No Abdominal panniculus present Palpation (GI): Soft to palpation, nontender, no guarding, not rigid, No hepatosplenomegaly present and Hepatosplenomegaly present Percussion: Yes normal to percussion Auscultation: normal bowel sounds Rectal Exam - Female: deferred Skin General skin exam: no rashes or lesions noted, turgor normal, skin not dry, no jaundice, No spider nevi and no striae Rashes: no rashes Nails: normal Neuro General: oriented to person, oriented to place and oriented to time Cranial nerves: Yes Equal, round and reactive pupils present and Yes Normal hearing present Speech: No Abnormal speech present Extrem General: Yes normal to inspection, No clubbing, No cyanosis and No edema Psych Thought process: Normal thought process present and not confabulating Thought content: Normal thought content present Insight: Good insight present (Psych) Judgement: Good judgement present (Psych) Assessment & Plan Assessment & Plan (1) Chronic idiopathic constipation: Code(s): K59.04 - Chronic idiopathic constipation Category: Medical (2) GERD (gastroesophageal reflux disease): Code(s): K21.9 - Gastro-esophageal reflux disease without esophagitis Category: Medical Plan [place] #Tachira Live She continues on her omeprazole in the morning, famotidine at night, Creon, and senna. SHe has her foot up on a foot rest when I come in as her sciatica is bothering her. She will be summering in [place]! ROV 6 mos. Medications: Refilled famotidine 20 mg PO BID 60 tabs 6RF K21.9 - Gastro-esophageal reflux disease without esophagitis, R10.13 - Epigastric pain plecanatide (Trulance) 3 mg PO DAILY 30 tabs 6RF simethicone 180 mg PO QID 90 caps 6RF rvxbmt-sqstakic-drdfdcq 24,000-76,000 -120,000 unit (Creon) 1 cap PO QID 120 caps 6RF omeprazole 40 mg PO DAILY 30 caps 6RF 30 days K21.9 - Gastro-esophageal reflux disease without esophagitis sennosides (senna) 17.2 mg (2 x 8.6 mg) PO BEDTIME 60 tabs 6RF K59.04 - Chronic idiopathic constipation Coding Level of Care Code Est Pt Level 3 (47346) Diagnoses Chronic idiopathic constipation K59.04 GERD (gastroesophageal reflux disease) K21.9
[2025-02-13 13:53] VITALS: BP 98/68; PULSE 76; BMI 36.2
--- OUTSIDE RECORDS SUMMARY | 2025-02-13 16:45 | XMS_ITS | Encounter Summary ---
Author Organization [employer] Address [address] 7[address] [place] [address] Care Team Providers Care Linter Drier Operator Name Role Phone Alexandra Pillai MD Primary Care Provide r Encounter Details Date Type Department Care Team (Late Contact Info) Description 03/25/2023 Orders Only [facility] CHC MED & PEDS [address] [place], [place] [phone] Jacqueline Mejias LPN Social History Tobacco Use Types Packs/Day Years Used Date Smoking Tobacco: Never Smokeless Tobacco: Never Depression Answer Date Recorded Patient Health Questionnaire-9 Score 0 03/26/2023 Depression Answer Date Recorded Patient Health Questionnaire-2 Score 0 03/26/2023 Comments Unknown Sex and Gender Information Value Date Recorded Sex Assigned at Female 09/07/2022 10:31 AM EDT Legal Sex Female 10:31 AM EDT Gender Identity Female 09/07/2022 10:31 AM EDT Sexual Orientation Straight 09/07/2022 10 :31 AM EDT COVID-19 Exposure Response Date Recorded In the last 10 days, have yo u been in contact with someone who was confirmed or suspected to have Coronavirus/COVID-19? No / Unsure 03/26/2023 10:47 AM EDT documented as of this encounter Plan of Treatment Upcoming Encounters Date Type Department Care Team (Late Contact Info) Description 04/04/2025 3:30 PM EDT Office Visit [facility] MEDICINE [address] [place], [place] [phone] Alexandra Pillai MD [address] [place], [place] [phone] documented as of this encounter Procedures Procedure Name Priority Date/Time Associated Diagnosis Comments XR HAND 3+ VIEWS LEFT Routine 03/26/2023 12:45 PM EDT documented in this encounter Results * XR Hand 3+ Views Left (03/26/2023 12:45 PM EDT) Anatomical Region Laterality Modality Upper Extremities, Hand Left Radiogra phic Imaging 03/26/2023 12:4 5 PM EDT Narrative 04/14/2023 4:38 PM EDT ?[facility] ?[address] ?[place] [address] ?XRay Report ? Signed ? Patient: Liliane Ackerman ?MR#: [id number] ?? [id number] ? : 1965 ?Acct:[id number] ? Age/Sex: 57 / F ?ADM Date: 03/26/23 ? Loc: HO.HHCX ? Attending Dr: Alexandra Ahn MD ? Ordering Physician: Alexandra Pillai MD ?? Date of Service: 03/26/23 ?? Procedure(s): XR hand LT min 3V ?? Accession Number(s): [id number] ? cc: Alexandra Pillai MD ? EXAMINATION: ?? XR HAND, LEFT ? CLINICAL INFORMATION: ?? Thumb pain one month, no injury ? COMPARISON: ?? None available. ? TECHNIQUE: ?? PA, lateral, and oblique views of the left hand. ? FINDINGS: ?? Thumb: No evidence of acute fracture or dislocation. Anatomic ?? alignment. Joint spaces are maintained. No abnormal soft tissue ?? calcifications. ? Additional bones: There is a subchondral cyst in the fifth proximal ?? phalanx base. Nonaggressive lucency/cyst in the capitate. No acute ?? fracture or dislocation. ? XR/XR hand LT min 3V ?? IMPRESSION: ?? No radiographic evidence of acute fracture or dislocation of the thumb. ? Mild degenerative changes as above. ? Dictated By: ?Ash Henry MD ? Signed By: ?<Electronically signed by Ash Henry MD in OV> ?04/14/23 1635 ? DD/ 1245 ? TD/TT: ? Manager Cardiovascular: HB ? Procedure Note [place], Image - 05/05/2023 [facility] [address] [place] [address] XRay Report Signed Patient: Ira Ackerman#: [id number] : 1965Acct:[id number] Age/Sex: 57 / FADM Date: 03/26/23 Loc: HO.HHCX Attending Dr: Alexandra Ahn MD Ordering Physician: Alexandra Pillai MD Date of Service: 03/26/23 Procedure(s): XR hand LT min 3V Accession Number(s): [id number] cc: Alexandra Pillai MD EXAMINATION: XR HAND, LEFT CLINICAL INFORMATION: Thumb pain one month, no injury COMPARISON: None available. TECHNIQUE: PA, lateral, and oblique views of the left hand. FINDINGS: Thumb: No evidence of acute fracture or dislocation. Anatomic alignment. Joint spaces are maintained. No abnormal soft tissue calcifications. Additional bones: There is a subchondral cyst in the fifth proximal phalanx base. Nonaggressive lucency/cyst in the capitate. No acute fracture or dislocation. XR/XR hand LT min 3V IMPRESSION: No radiographic evidence of acute fracture or dislocation of the thumb. Mild degenerative changes as above. Dictated By: Ash Henry MD Signed By: <Electronically signed by Ash Henry MD in OV> 04/14/23 1635 DD/ 1245 TD/TT: Manager Cardiovascular: [facility] External Provider IMG XR PROCEDURES Final Result documented in this encounter Visit Diagnoses Not on filedocumented in this encounter Care Teams Linter Drier Operator Relationship Specialty Start Date End Date Alexandra Pillai MD [address] [place] [address] PCP - General Family Medicine 06/05/19 documented as of this encounter
--- OUTSIDE RECORDS SUMMARY | 2025-02-13 16:46 | XMS_ITS | Encounter Summary ---
Author Organization [employer] [facility] Address [address] 7t [place] [address] Care Team Providers Care Flat Examiner Name Role Phone Alexandra Pillai MD Primary Care Provide r Encounter Details Date Type Department Care Team (Late st Contact Info) Description 12/09/2022 Orders Only [facility] MEDICINE [address] [place] [address] Lisette Coates LPN Social History Tobacco Use Types Packs/Day Years Used Date Smoking Tobacco: Never Assessed Comments Unknown Sex and Gender Information Value Date Recorded Sex Assigned at Female 09/07/2022 10:31 AM EDT Legal Sex Female 10:31 AM EDT Gender Identity Female 09/07/2022 10:31 AM EDT Sexual Orientation Straight 09/07/2022 10 :31 AM EDT documented as of this encounter Plan of Treatment Upcoming Encounters Date Type Department Care Team (Late st Contact Info) Description 04/04/2025 3:30 PM EDT Office Visit [facility] MEDICINE [address] [place] [address] Alexandra Pillai MD [address] [place] [address] documented as of this encounter Visit Diagnoses Not on filedocumented in this encounter Care Teams Flat Examiner Relationship Specialty Start Date End Date Alexandra Pillai MD [address] [place], [place] [phone] PCP - General Family Medicine 06/05/19 documented as of this encounter
--- OUTSIDE RECORDS SUMMARY | 2025-02-13 16:46 | XMS_ITS | Encounter Summary ---
Author Organization [email or web address] Address [address] 7[address] [place] [address] Care Team Providers Care Card Seller Name Role Phone Alexandra Pillai MD Primary Care Provide r Reason for Visit * Reason Comments Med Refill Encounter Details Date Type Department Care Team ([facility] Contact Info) Description 07/10/2024 Refill [facility] MEDICINE [address] [place], [place] [phone] Alexandra Pillia MD [address] [place], [place] [phone] Primary hypertension Social History Tobacco Use Types Packs/Day Years Used Date Smoking Tobacco: Never Passive Smoke Exposure: Never Smokeless Tobacco: Never Alcohol Use Standard Drinks/Week Comments Never 0 (1 standard drink = 0.6 oz pur e alcohol) Depression Answer Date Recorded Patient Health Questionnaire-9 Score 0 06/26/2024 Patient Health Questionnaire-9 Score 0 06/26/2024 Last PHQ-9: Questionnaire Data Not on file 0 06/26/2024 Housing Stability Answer Date Recorded What is your housing situation today? I have levi medrano 06/26/[address] you li ve. Do you have problems with any of the following? None of the above 06/26/2024 Food Insecurity Answer Date Recorded Within the past 12 months, y ou worried that your food would run out before you got money to buy more: Never True 06/26/2024 Within the past 12 months,th e food you bought just didn't last and you didn't have enough money to get more: Never True Transportation Answer Date Recorded In the past 12 months, has l ack of transportation kept you from medical appts, meetings, work or from getting things needed for daily living? No 06/26/2024 Utilities Answer Date Recorded In the past 12 months, has t he electric, gas, oil or water company threatened to shut off services in your home? No 06/26/2024 Depression Answer Date Recorded Patient Health Questionnaire-2 Score 0 06/26/2024 Internet Access Answer Date Recorded Internet Access Q1 No 07/10/2024 Internet Access Q2 I do not want or need it 12/2023 Comments Unknown Sex and Gender Information Value [...] Description 04/04/2025 3:30 PM EDT Office Visit [facility] MEDICINE [address] [place] [address] Alexandra Pillai MD [address] [place] [address] documented as of this encounter Visit Diagnoses Diagnosis Primary hypertension Unspecified essential hypertension documented in this encounter Additional Health Concerns Assessment Noted Time PHQ-9 Depression Total Score: 0 06/26/20 24 11:05 AM EDT documented as of this encounter Care Teams Card Seller Relationship Specialty Start Date End Date Alexandra Pillai MD [address] [place] [phone] PCP - General Family Medicine 06/05/19 documented as of this encounter
--- OUTSIDE RECORDS SUMMARY | 2025-02-13 16:46 | XMS_ITS | Encounter Summary ---
Author Organization [employer] Address [address] 7[address] [place] [address] Care Team Providers Care Photography Instructor Name Role Phone Alexandra Pillai MD Primary Care Provide r Encounter Details Date Type Department Care Team ([facility] Contact Info) Description 01/11/2023 Orders Only [facility] CHC MED & PEDS [address] [place], [place] [phone] Jacqueline Mejais LPN Social History Tobacco Use Types Packs/Day Years Used Date Smoking Tobacco: Never Smokeless Tobacco: Never Comments Unknown Sex and Gender Information Value [...] suspected to have Coronavirus/COVID-19? No / Unsure 01/04/2023 8:34 AM EST documented as of this encounter Plan of Treatment Upcoming Encounters Date Type Department Care Team ([facility] Contact Info) Description 04/04/2025 3:30 PM EDT Office Visit [facility] MEDICINE [address] [place] [address] Alexandra Pillai MD [address] [place], [place] [phone] documented as of this encounter Visit Diagnoses Not on filedocumented in this encounter Care Teams Photography Instructor Relationship Specialty Start Date End Date Alexandra Pillai MD [address] [place] [address] PCP - General Family Medicine 06/05/19 documented as of this encounter
--- OUTSIDE RECORDS SUMMARY | 2025-02-13 16:46 | XMS_ITS | Encounter Summary ---
Author Organization [employer] Address [address] 7[address] [place] [address] Care Team Providers Care Lobby Porter Name Role Phone Alexandra Pillai MD Primary Care Provide r Reason for Visit * Reason Onset Date Comments Durable Medical Equipment 07/17/2024 Encounter Details Date Type Department Care Team ([facility] Contact Info) Description 07/17/2024 Telephone [facility] MEDICINE [address] [place] [address] Alexandra Pillai MD [address] [place] [address] Durable Medical Equipment Social History Tobacco Use Types Packs/Day Years [...] your housing situation today? I have levi sing 06/26/[address] you li [...] AM EDT documented as of this encounter Miscellaneous Notes * Telephone Encounter - Tiburcio Ontiveros - 07/17/2024 3:16 PM EDT Tc from Renee at [facility] [place] requesting a portable Commode documented in this encounter Plan of Treatment Upcoming Encounters Date Type Department Care Team (Late st Contact Info) Description 04/04/2025 3:30 PM EDT Office Visit [facility] MEDICINE [address] [place] [phone] Alexandra Pillai MD [address] [place] [address] documented as of this encounter Visit Diagnoses Not on filedocumented in this encounter Additional Health Concerns Assessment Noted Time PHQ-9 Depression Total Score: 0 06/26/20 24 11:05 AM EDT documented as of this encounter Care Teams Lobby Porter Relationship Specialty Start Date End Date Alexandra Pillai MD [address] [place] [phone] PCP - General Family Medicine 06/05/19 documented as of this encounter
--- OUTSIDE RECORDS SUMMARY | 2025-02-13 16:46 | XMS_ITS | Clinical Summary ---
Author Organization [facility] Address [address] [place] [address] Care Team Providers Care Descriptive Catalog Librarian Name Role Phone Alexandra Pillai MD Primary Care Provide r Allergies Active Allergy Reactions Criticality Noted Date Comments Penicillins 02/09/2022 Sulfa Antibiotics 02/09/2022 Medications acyclovir (ZOVIRAX) 400 MG tablet Take 400 mg by mouth every morning and evening 2 Active amitriptyline (ELAVIL) 100 MG tablet Take 100 mg by mouth at bed time 2 Active atorvastatin (LIPITOR) 20 MG tablet Take 20 mg by mouth at bed time 2 Active Cholecalciferol (Vitamin D3) 25 MCG tablet Take 1 tablet by mouth 2 Active ciprofloxacin (CIPRO) 500 MG tablet Take 500 mg by mouth every 12 (twelve) hours 2 Active clindamycin (CLEOCIN) 300 MG capsule TAKE 2 CAPSULES BY MOUTH 1 HOUR BEFORE PROCEDURE 2 Active clonazePAM (KlonoPIN) 1 MG tablet Take 1 mg by mouth 1 (one) time each day if needed 2 Active cyclobenzaprine (FLEXERIL) 10 MG tablet Take 10 mg by mouth in the morning and 10 mg at noon and 10 mg in the evening. 2 Active docusate sodium (COLACE) 100 MG capsule Take 100 mg by mouth at bed time 2 Active Flovent HFA 110 MCG/ACT inhaler INHALE 2 PUFFS TWICE DAILY. RINSE MOUTH AFTER USING.. 2 Active furosemide (LASIX) 20 MG tablet Take 20 mg by mouth 2 Active Lidoderm 5 % patch APPLY 1 PATCH TOPICALLY TO SKIN, LEAVE ON FOR 12 HOURS AND OFF FOR 12 HOURS DIRECTED 2 Active meloxicam (MOBIC) 7.5 MG tablet TAKE 1 TABLET BY MOUTH EVERY DAY NEEDED FOR PAIN BACK 2 Active oxyCODONE-aceta minophen (PERCOCET) 10-325 MG per tablet TAKE 1 TABLET BY MOUTH EVERY 6 HOURS NEEDED FOR SEVERE PAIN 2 Active Creon 68287-87961 units capsule TAKE 1 CAPSULE BY MOUTH FOUR TIMES DAILY WITH MEALS AND / OR SNACKS 2 Active Trulance 3 MG tablet Take 1 tablet by mouth 1 (one) time each day 2 Active potassium chloride (KLOR-CON M20) 20 MEQ CR tablet TAKE 2 TABLETS BY MOUTH THREE TIMES DAILY WITH FOOD 2 Active zolpidem (AMBIEN) 10 MG tablet Take 10 mg by mouth at bed time 2 Active Active Problems Problem Noted Date Diagnosed Date Nephrolithiasis 03/17/2022 Hypokalemia 03/17/2022 Family History Medical History Relation Comments Diabetes Mother Heart attack Mother Hypertension Mother Relation Status Comments Mother Social History Tobacco Use Types Packs/Day Years Used Date Smoking Tobacco: Never Smokeless Tobacco: Never Tobacco Cessation:Counseling Given: No Alcohol Use Standard Drinks/Week Comments Never 0 (1 standard drink = 0.6 oz pur e alcohol) Comments Unknown Sex and Gender Information Value Date Recorded Sex Assigned at Not on file Legal Sex Female 2:09 PM EDT Gender Identity Not on file Sexual Orientation Not on file Last Filed Vital Signs Vital Sign Reading Time Taken Comments Blood Pressure 98/60 03/23/2022 1:54 PM EDT Pulse 79 03/23/2022 1:54 PM EDT Temperature - - Respiratory Rate - - Oxygen Saturation 98% 02/09/2022 1:25 PM EDT Inhaled Oxygen Concentration - - Weight 88.9 kg (196 lb) 03/23/2022 1:54 PM EDT Height - - Body Mass Index - - Plan of Treatment Health Maintenance Due Date Last Done Comments Breast Cancer Screening 1965 Pneumococcal Vaccine: Pediat rics (0 to 5 Years) and At-Risk Patients (6 to 64 Years) (1 of 2 - PCV) 1972 Hepatitis B Vaccine (1 of 3 - 19+ 3-dose series) 04/17 Colorectal Cancer Screening: Annual FOBT 2015 Colorectal Cancer Screening: Colonoscopy 2015 Colorectal Cancer Screening: Sigmoidoscopy 2015 Influenza Vaccine (Season Ended) [address] [place] [phone] [place] [address] [place] [phone] [place]ICA[place] Care Teams Descriptive Catalog Librarian Relationship Specialty Start Date End Date Alexandra Pillai MD [address] [place] [phone] PCP - General Internal Medicine 01/19/22
--- OUTSIDE RECORDS SUMMARY | 2025-02-13 16:46 | XMS_ITS | Encounter Summary ---
Author Organization [employer] [facility] Address [address] 7t [place] [address] Care Team Providers Care Rustic Terrazzo Setter Name Role Phone Alexandra Pillai MD Primary Care Provide r Encounter Details Date Type Department Care Team (Late st Contact Info) Description 07/28/2023 Orders Only [facility] MEDICINE [address] [place] [phone] ProviderMirtha MD Social History Tobacco Use Types Packs/Day Years Used Date Smoking Tobacco: Never Smokeless Tobacco: Never Alcohol Use Standard [...] Description 04/04/2025 3:30 PM EDT Office Visit [facility] MEDICINE [address] [place] [phone] Alexandra Pillai MD [address] [place], [place] [phone] documented as of this encounter Procedures Procedure Name Priority Date/Time Associated Diagnosis Comments COLONOSCOPY Routine 04/01/2017 documented in this encounter Results * Hm Colonoscopy (04/01/2017) us Historical Provider HEALTH MAINTENANCE Final Result documented in this encounter Visit Diagnoses Not on filedocumented in this encounter Additional Health Concerns Assessment Noted Time PHQ-9 Depression Total Score: 0 03/26/20 23 10:56 AM EDT documented as of this encounter Care Teams Rustic Terrazzo Setter Relationship Specialty Start Date End Date Alexandra Pillai MD [address] [place] [phone] PCP - General Family Medicine 06/05/19 documented as of this encounter
--- OUTSIDE RECORDS SUMMARY | 2025-02-13 16:46 | XMS_ITS | Encounter Summary ---
Author Organization [employer] Address [address] 7t [place] [address] Care Team Providers Care Manager Patient Name Role Phone Alexandra Pillai MD Primary Care Provide r Reason for Visit * Reason Comments Med Refill Encounter Details Date Type Department Care Team ([facility] Contact Info) Description 02/12/2025 Refill [facility] PEDS [address] [place], [place] [phone] Alexandra Pillai MD [address] [place] [address] Pain Social History Tobacco Use Types Packs/Day Years [...] housing situation today? I have levi medrano 12/21/[address] you li ve. Do you have problems with any of the following? Pests such as bugs, ants, or mice 12/21/2024 Food Insecurity Answer Date Recorded Within the past 12 months, y ou worried that your food would run out before you got money to buy more: Often true 12/21/2024 Within the past 12 months,th e food you bought just didn't last and you didn't have enough money to get more: Often true Transportation Answer Date Recorded In the past [...] Access Answer Date Recorded Internet Access Q1 Yes 12/21/2024 Internet Access Q2 I do not want or need it 12/09 Comments Unknown Sex and Gender Information Value [...] Description 04/04/2025 3:30 PM EDT Office Visit [facility] MEDICINE [address] [place] [address] Alexandra Pillai MD [address] [place] [address] documented as of this encounter Visit Diagnoses Diagnosis Pain Generalized pain documented in this encounter Additional Health Concerns Assessment Noted Time PHQ-9 Depression Total Score: 0 06/26/20 24 11:05 AM EDT documented as of this encounter Care Teams Manager Patient Relationship Specialty Start Date End Date Alexandra Pillai MD [address] [place] [phone] PCP - General Family Medicine 06/05/19 documented as of this encounter
--- OUTSIDE RECORDS SUMMARY | 2025-02-13 16:46 | XMS_ITS | Encounter Summary ---
Author Organization [employer] Address [address] 7t [place] [address] Care Team Providers Care Commissioner Of Internal Revenue Name Role Phone Alexandra Pillai MD Primary Care Provide r Reason for Visit * Reason Onset Date Comments Referral 05/25/2024 Encounter Details Date Type Department Care Team ([facility] st Contact Info) Description 05/25/2024 Telephone [facility] MEDICINE [address] [place], [place] [phone] Alexandra Pillai MD [address] [place], [place] [phone] Referral Social History Tobacco Use Types Packs/Day Years Used Date Smoking Tobacco: Never Passive Smoke Exposure: Never Smokeless Tobacco: Never Alcohol Use Standard Drinks/Week Comments Never 0 (1 standard drink = 0.6 oz pur e alcohol) Depression Answer Date Recorded Patient Health Questionnaire-9 Score 0 03/26/2023 Housing Stability Answer Date Recorded What is your housing situation today? I have levi medrano 08/25/[address] you li ve. Do you have problems with any of the following? None of the above 08/25/2023 Food Insecurity Answer Date Recorded Within the past 12 months, y ou worried that your food would run out before you got money to buy more: Never True 08/25/2023 Within the past 12 months,th e food you bought just didn't last and you didn't have enough money to get more: Never True Transportation Answer Date Recorded In the past 12 months, has l ack of transportation kept you from medical appts, meetings, work or from getting things needed for daily living? No 08/25/2023 Utilities Answer Date Recorded In the past 12 months, has t he electric, gas, oil or water company threatened to shut off services in your home? No 08/25/2023 Depression Answer Date Recorded Patient Health Questionnaire-2 Score 0 03/26/2023 Comments Unknown Sex and Gender Information Value Date Recorded Sex Assigned at Female 09/07/2022 10:31 AM EDT Legal Sex Female 10:31 AM EDT Gender Identity Female 09/07/2022 10:31 AM EDT Sexual Orientation Straight 09/07/2022 10 :31 AM EDT documented as of this encounter Miscellaneous Notes * Telephone Encounter - Vandana Jimenez - 05/25/2024 3:39 PM EDT Tc from damian with [facility] requesting a referral for a food program for pt. Any questions contact damian at [phone] documented in this encounter Plan of Treatment Upcoming Encounters Date Type Department Care Team (Late st Contact Info) Description 04/04/2025 3:30 PM EDT Office Visit [facility] MEDICINE [address] [place] [address] Alexandra Pillai MD [address] [place] [address] documented as of this encounter Visit Diagnoses Not on filedocumented in this encounter Additional Health Concerns Assessment Noted Time PHQ-9 Depression Total Score: 0 03/26/20 23 10:56 AM EDT documented as of this encounter Care Teams Commissioner Of Internal Revenue Relationship Specialty Start Date End Date Alexandra Pillai MD [address] [place], [place] [phone] PCP - General Family Medicine 06/05/19 documented as of this encounter
--- OUTSIDE RECORDS SUMMARY | 2025-02-13 16:46 | XMS_ITS | Encounter Summary ---
Author Organization [employer] Address [address] [place] [address] Care Team Providers Care Studio Artist Name Role Phone Alexandra Pillai MD Primary Care Provide r Reason for Visit * Reason Comments Med Refill Encounter Details Date Type Department Care Team ([facility] Contact Info) Description 01/04/[address] [facility] MEDICINE [address] [place], [place] [phone] Alexandra Pillai MD [address] [place] [address] Social History Tobacco Use Types Packs/Day Years [...] Description 04/04/2025 3:30 PM EDT Office Visit [facility] MEDICINE [address] [place] [address] Alexandra Pillai MD [address] [place] [address] documented as of this encounter Visit Diagnoses Not on filedocumented in this encounter Additional Health Concerns Assessment Noted Time PHQ-9 Depression Total Score: 0 06/26/20 24 11:05 AM EDT documented as of this encounter Care Teams Studio Artist Relationship Specialty Start Date End Date Alexandra Pillai MD [address] [place] [address] PCP - General Family Medicine 06/05/19 documented as of this encounter
--- OUTSIDE RECORDS SUMMARY | 2025-02-13 16:46 | XMS_ITS | Clinical Summary ---
Author Organization [facility] Address [address] [place] [address] Care Team Providers Care Supervisor [employer] Name Role Phone Alexandra Pillai MD Primary Care Provide r Allergies Active Allergy Reactions Criticality Noted Date Comments Penicillin G 01/14/2017 Other reaction(s): Hives / Skin Rash Sulfa Antibiotics 06/14/2023 Medications meloxicam (Mobic) 7.5 MG tabletIndicatio ns:Arthritis TAKE 1 TABLET BY MOUTH EVERY DAY NEEDED FOR BACK PAIN 30 tablet 1 023 Active urea (Carmol) 40 % creamIndication s:Palmoplantar keratoderma APPLY TO THE AFFECTED AREA(S) TOPICALLY TWICE DAILY 85 g 2 023 Active metoprolol succinate XL (Toprol XL) 50 MG 24 hr tablet Take 1 tablet (50 mg) by mouth in the morning. Do not crush or chew. 90 tablet 023 Active amitriptyline (Elavil) 100 MG tablet Take 100 mg by mouth at bedtime. 023 Active busPIRone (Buspar) 10 MG tablet TAKE 1 TABLET BY MOUTH EVERY MORNING (TAKE WITH 15mg AT BEDTIME) 023 Active busPIRone (Buspar) 15 MG tablet TAKE 1 TABLET BY MOUTH AT BEDTIME (TAKE WITH 10mg EVERY MORNING) 023 Active famotidine (Pepcid) 20 MG tablet TAKE 1 TABLET BY MOUTH TWICE DAILY IN THE MORNING AND AT BEDTIME 023 Active furosemide (Lasix) 20 MG tablet Take 20 mg by mouth in the morning. 10/27/2 023 Active lamoTRIgine (LaMICtal) 100 MG tablet TAKE 1 TABLET BY MOUTH EVERYDAY AT NOON Active oxyCODONE-aceta minophen (Percocet) 10-325 MG tablet TAKE 1 TABLET BY MOUTH EVERY 6 HOURS NEEDED FOR SEVERE PAIN Active Creon [id number] units capsule Take 1 capsule by mouth 4 times daily. Active Trulance tablet tablet Take 1 tablet by mouth in the morning. Active Simethicone Ultra Strength 180 MG capsule Take 180 mg by mouth 4 times daily. Active phentermine 15 MG capsuleIndicati ons:Class 2 severe obesity due to excess calories with serious comorbidity and body mass index (BMI) of 38.0 to 38.9 in adult (CMS/HCC) Take 1 capsule (15 mg) by mouth before breakfast. 30 capsule 024 Active senna (Senokot) 8.6 MG tablet TAKE 2 TABLETS BY MOUTH EVERY DAY AT BEDTIME Active Blood Pressure Monitor kitIndications: Primary hypertension Use as directed 3x/week 1 kit 024 Active simethicone (Mylicon,Gas-X) 180 MG capsuleIndicati ons:Bloating Take 1 capsule (180 mg) by mouth every 8 (eight) hours if needed for flatulence. 90 capsule 1 024 Active omeprazole (PriLOSEC) [address] capsuleIndicati ons:Bloating Take 1 capsule (40 mg) by mouth in the morning. 30 capsule 024 Active loratadine (Claritin) 10 MG tabletIndicatio ns:Primary hypertension TAKE 1 TABLET BY MOUTH EVERY MORNING 90 tablet 1 024 Active Diclofenac Sodium 1 % gelIndications: Pain APPLY 2 GRAMS TOPICALLY TO AFFECTED AREA(S) TWICE DAILY 100 g 3 024 Active FREESTYLE LITE test stripIndication s:Hypoglycemia Use to test blood sugar 2 times daily 100 each 12 024 2024 Active Blood Glucose Monitoring Suppl (FreeStyle [place] Lite) w/Device kitIndications: Hypoglycemia Use to test blood sugar 2 times daily 1 kit 024 Active albuterol (2.5 MG/3ML) 0.083% nebulizer solutionIndicat ions:Moderate persistent asthma, unspecified whether complicated Take 3 mL (2.5 mg) by nebulization every 4 (four) hours if needed for wheezing. 75 mL 3 024 2024 Active albuterol 108 (90 Base) MCG/ACT inhalerIndicati ons:Moderate persistent asthma, unspecified whether complicated Inhale 2 puffs every 6 (six) hours if needed for wheezing. 18 g 024 2024 Active budesonide-form oterol (Symbicort) 160-4.5 MCG/ACT inhalerIndicati ons:Moderate persistent asthma, unspecified whether complicated INHALE 1 PUFF BY MOUTH TWICE DAILY IN THE MORNING AND IN THE EVENING. RINSE MOUTH AFTER USING. 6 g 5 Active acyclovir (Zovirax) 400 MG tablet TAKE 1 TABLET BY MOUTH TWICE DAILY IN THE MORNING AND IN THE EVENING 60 tablet 5 024 Active cyclobenzaprine (Flexeril) 10 MG tablet TAKE 1 TABLET BY MOUTH THREE TIMES DAILY 90 tablet 3 024 Active atorvastatin (Lipitor) 20 MG tablet TAKE 1 TABLET BY MOUTH EVERY MORNING 90 tablet 1 024 Active lidocaine (Lidoderm) 5 % patch APPLY 1 PATCH TOPICALLY TO SKIN, LEAVE ON FOR 12 HOURS AND OFF FOR 12 HOURS DIRECTED 30 patch 3 024 Active Alcohol Swabs 70 % padsIndications :Hypoglycemia USE TO TEST BLOOD SUGAR TWICE A DAY 100 each 3 025 Active cholecalciferol (Vitamin D-3) 25 MCG tabletIndicatio ns:Vitamin D deficiency TAKE 1 TABLET BY MOUTH EVERY MORNING 90 tablet 3 025 Active TRUEplus Lancets 33G miscIndications :Hypoglycemia USE DIRECTED TO TEST BLOOD SUGAR TWICE DAILY 100 each 3 025 Active amLODIPine (Norvasc) 2.5 MG tabletIndicatio ns:Primary hypertension TAKE 1 TABLET BY MOUTH EVERY MORNING 90 tablet 1 025 Active ammonium lactate (Lac-Hydrin) 12 % lotionIndicatio ns:Dry skin dermatitis APPLY TOPICALLY NEEDED FOR DRY SKIN 450 g 1 025 Active Proctozone-HC 2.5 % rectal creamIndication s:External hemorrhoid, bleeding INSERT RECTALLY TWICE DAILY 30 g 3 025 Active zolpidem (Ambien) 5 MG tabletIndicatio ns:Primary insomnia Take 1 tablet (5 mg) by mouth if needed at bedtime for sleep. 30 tablet 025 2025 Active amLODIPine (Norvasc) 2.5 MG tabletIndicatio ns:Primary hypertension Take 1 tablet (2.5 mg) by mouth in the morning. 90 tablet 1 024 2024 Discontinued ammonium lactate (Lac-Hydrin) 12 % lotionIndicatio ns:Dry skin dermatitis Apply topically if needed for dry skin. 396 g 1 024 2024 Discontinued hydrocortisone (Anusol-HC) 2.5 % rectal creamIndication s:External hemorrhoid, bleeding Insert into the rectum 2 times daily. 120 g 025 2024 Discontinued zolpidem (Ambien) 5 MG tabletIndicatio ns:Primary insomnia Take 1 tablet (5 mg) by mouth if needed at bedtime for sleep. 30 tablet 025 2024 Discontinued(R eorder (will not trigger notification to Pharmacy)) Active Problems Problem Noted Date Diagnosed Date Primary insomnia 01/04/2025 Assessment & Plan (01/05/2025 12:25 PM EST): Sleep hygiene counseling done today I will prescribe for now zolpidem 5 mg at bedtime External hemorrhoid, bleeding 11/14/2024 Assessment & Plan (11/14/2024 2:16 PM EST): Supportive measures/prevention reviewed May apply hydrocortisone cream once bleeding has stopped Pt utd on colonoscopy If anemic, increased pain or infection will refer to surgery Hypoglycemia 09/26/2024 Assessment & Plan (09/26/2024 2:28 PM EST): It was advise small frequent meals high in protein low in sugars and carbs Chronic bilateral low back pain with bilateral s ciatica 06/26/2024 Chronic diarrhea 06/26/2024 Bloating 06/26/2024 Hypokalemia 01/21/2024 Tinea pedis 01/21/2024 Mixed stress and urge urinary incontinence 11/11 Bladder pain 11/11/2023 FRIEDA (obstructive sleep apnea) 09/28/2023 Assessment & Plan (11/11/2023 11:35 AM EST): Continue to follow with sleep medicine Carpal tunnel syndrome of left wrist 09/28/2023 Vaginal itching 06/14/2023 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 Pain of left thumb 03/26/2023 Colon cancer screening 03/26/2023 Encounter for screening mamm ogram for malignant neoplasm of breast 03/26/2023 Dry skin dermatitis 03/26/2023 Atypical chest pain 03/25/2023 Cough variant asthma 03/25/2023 Moderate asthma 03/25/2023 Assessment & Plan (01/05/2025 12:26 PM EST): Patient educated to avoid asthma triggers Continue with same inhalers Assessment & Plan (09/26/2024 2:16 PM EST): Patient educated to avoid asthma triggers Class 2 severe obesity due t o excess calories with serious comorbidity and body mass index (BMI) of 38.0 to 38.9 in adult 03/25/2023 Assessment & Plan (11/11/2023 11:36 AM EST): Today extensive discussion was done about life style modifications I advise healthy diet (low calorie) and cardiovascular exercise Assessment & Plan (09/28/2023 2:04 PM EST): Today we talk about weight loss medications I explain to her risks, side effects of medication Hypertension 01/04/2023 Assessment & Plan (01/05/2025 12:26 PM EST): Blood pressure seems to be under control, I advised low-sodium diet Continue with same medication regimen Assessment & Plan (09/26/2024 2:14 PM EST): I advise: - Aerobic exercise to reduce BP. Initial goal of 30 min walk 3-5x/week. Increase as tolerated. - low-sodium diet (goal: <2g/day) and heart healthy diet such as DASH to reduce BP and prevent ASCVD. - Home BP monitoring 1-2 x day with goal of <140/90. - Seek immediate medical attention for chest pain, palpitations, SOB, syncope, or sudden changes in mental status. - Do not change or discontinue current prescriptions without first consulting health care provider Assessment & Plan (06/27/2024 4:40 PM EDT): I advise - Aerobic exercise to reduce BP. Initial goal of 30 min walk 3-5x/week. Increase as tolerated. - low-sodium diet (goal: <2g/day) and heart healthy diet such as DASH to reduce BP and prevent ASCVD. - Home BP monitoring 1-2 x day with goal of <140/90. - Seek immediate medical attention for chest pain, palpitations, SOB, syncope, or sudden changes in mental status. - Do not change or discontinue current prescriptions without first consulting health care provider Assessment & Plan (01/26/2024 10:32 AM EDT): I advise to c/w low Na diet and weight reduction I will go down on the amlodipine dose to 2.5mg daily RTC 3 months with BP log Assessment & Plan (09/28/2023 2:03 PM EST): - Aerobic exercise to reduce BP. Initial goal of 30 min walk 3-5x/week. Increase as tolerated. - low-sodium diet (goal: <2g/day) and heart healthy diet such as DASH to reduce BP and prevent ASCVD. - Home BP monitoring 1-2 x day with goal of <140/90. - Seek immediate medical attention for chest pain, palpitations, SOB, syncope, or sudden changes in mental status. - Do not change or discontinue current prescriptions without first consulting health care provider Assessment & Plan (06/14/2023 9:43 AM EDT): -medications where adjusted and metoprolol was increase by 25mg, but patient reports her blood pressure has being in the lower side, I will hold her metoprolol for now - Aerobic exercise to reduce BP. Initial goal of 30 min walk 3-5x/week. Increase as tolerated. - low-sodium diet (goal: <2g/day) and heart healthy diet such as DASH to reduce BP and prevent ASCVD. - Home BP monitoring 1-2 x day with goal of <140/90. - Seek immediate medical attention for chest pain, palpitations, SOB, syncope, or sudden changes in mental status. - Do not change or discontinue current prescriptions without first consulting health care provider Assessment & Plan (03/26/2023 11:37 AM EDT): - Aerobic exercise to reduce BP. Initial goal of 30 min walk 3-5x/week. Increase as tolerated. - low-sodium diet (goal: <2g/day) and heart healthy diet such as DASH to reduce BP and prevent ASCVD. - Home BP monitoring 1-2 x day with goal of <140/90. - Seek immediate medical attention for chest pain, palpitations, SOB, syncope, or sudden changes in mental status. - Do not change or discontinue current prescriptions without first consulting health care provider Mild intermittent asthma 01/04/2023 Incontinence 01/04/2023 Nephrolithiasis 03/17/2022 Spondylosis 01/23/2019 Foot callus 10/03/2018 Dyspnea on exertion 05/04/2018 Obesity (BMI 30-39.9) 02/18/2018 Mixed incontinence urge and stress 02/18/2018 Chronic pruritus 02/18/2018 Senile hyperkeratosis 08/03/2017 Herpes labialis 05/25/2017 Obstructive sleep apnea syndrome 05/25/2017 Chronic gastritis 04/08/2017 Urge incontinence of urine 04/08/2017 Dizziness 03/26/2017 Chronic low back pain 01/14/2017 Migraine without aura, not refractory 01/14/2017 Fibromyalgia 01/14/2017 Chronic constipation 01/14/2017 Hyperlipidemia 01/14/2017 Kidney stone 01/14/2017 Benign essential hypertension 01/14/2017 Encounters Date Type Department Care Team Description 02/12/2025 Refill [facility] [address] [place], [place] [phone] Alexandra Pillai MD Pain 02/06/2025 Refill [facility] [address] [place] [address] Alexandra Pillai MD Primary insomnia 02/02/2025 Refill [facility] [address] [place] [phone] Waleska Mancilla, JARED External hemorrhoid, bleeding 01/27/2025 Refill [facility] [address] [place] [phone] Alexandra Pillai MD Dry skin dermatitis 01/22/2025 Refill [facility] [address] [place] [phone] Alexandra Pillai MD Primary hypertension 01/10/2025 Refill [facility] [address] [place] [phone] Alexandra Pillai MD Hypoglycemia 01/04/2025 3:15 PM EST Office Visit [address] [phone] Alexandra Pillai MD Primary insomnia (Primary Dx); Primary hypertension; Moderate persistent asthma, unspecified whether complicated 01/04/2025 Refill [facility] [address] [place] [phone] Alexandra Pillai MD 01/04/2025 Travel 12/21/2024 Patient Outreach [address] [phone] Alexandra Pillai MD Care Coordination ([facility] outreach for SDOH PT-1 and food needs-referral completed /) 12/21/2024 Patient Outreach [address] [phone] Alexandra Pillai MD Pre-visit Planning ((SDOH screening positive tobacco screening negative) ) 12/21/2024 Refill [facility] [address] [place] [phone] Alexandra Pillai MD Vitamin D deficiency 11/16/2024 Telephone [facility] [address] [place] [phone] Mckenzie Trejo, RN from Last 3 Months Immunizations Name Administration Dates Next Due Hep A / Hep B 07/12/2009 Influenza Whole 07/12/2009 Influenza injectable quadriv alent IIV4 with preservative 10/03/2018,08/03/2017 Influenza injectable quadriv alent preservative free 09/28/2023,08/06/2022,08/14/2021,2019,08/25/2019,01/14/2017 Influenza, IIV3, injectable 09/25/2011, 0 Influenza, seasonal, injecta ble, preservative free 09/26/2024 Pneumococcal Conjugate PCV 20 06/26/2024 Td (adult), unspecified 07/12/2009 Tdap 05/25/2017 Family History Medical History Relation Name Comments Esophageal cancer Father Heart disease Mother Hypertension Mother Relation Name Status Comments Father Mother Social History Tobacco Use Types Packs/Day Years Used Date Smoking Tobacco: Never Passive Smoke Exposure: Never Smokeless Tobacco: Never Tobacco Cessation:Counseling Given: Not Answered Alcohol Use Standard Drinks/Week Comments Never 0 [...] Orientation Straight 09/07/2022 10 :31 AM EDT Last Filed Vital Signs Vital Sign Reading Time Taken Comments Blood Pressure 116/65 01/04/2025 2:59 PM EST Pulse 83 01/04/2025 2:59 PM EST Temperature 36.7 ??C (98 ??F) 01/04/2025 2:59 PM EST Respiratory Rate 18 01/04/2025 2:59 PM EST Oxygen Saturation 95% 01/04/2025 2:59 PM EST Inhaled Oxygen Concentration - - Weight 88.5 kg (195 lb 3.2 oz) 01/04/2025 2:59 P M EST Height 154.9 cm (5' 1 ) 01/04/2025 2:59 PM EST Body Mass Index 36.88 01/04/2025 2:59 PM EST Plan of Treatment Upcoming Encounters Date Type Department Care Team (Late st Contact Info) Description 04/04/2025 3:30 PM EDT Office Visit [facility] [address] [place] [phone] Alexandra Pillai MD [address] [place] [address] Health Maintenance Due Date Last Done Comments CT Colonography 1966 FIT DNA/Cologuard 1966 FIT 1966 FOBT 1965 Sigmoidoscopy 1966 Hepatitis C Screening 1984 Pap Smear 1987 Cervical Cancer Screening 1996 HPV/Cotest 1996 Hepatitis B Vaccines (2 of 3 - Hep B Twinrix 3-dose series) 08/09/2009 07/12/2009 Zoster Vaccines (1 of 2) 2016 COVID-19 Vaccine ( season) 2024 10/28/2021, 03/27/2021, 02/27/2021 Mammogram 05/25/2025 05/25/2024, 05/08, 04/18/2021, Additional history exists Alcohol/Substance Use Screening 06/26/2025 06/26/2024 Depression Screening 06/26/2025 06/26/2024, 06/26/20 24 Diabetes: Hemoglobin A1C 10/02/2025 024, 03/29/2023, 08/07/2022, Additional history exists SDOH Screening 12/21/2025 12/21/2024 Tobacco Screening 01/04/2026 01/04/2025 Colonoscopy 04/01/2027 04/01/2017 Colorectal Cancer Screening 04/01/2027 DTaP/Tdap/Td Vaccines (2 - Td or Tdap) 05/25/2027 05/25/2017, 07/12/2009 Lipid Panel 06/26/2029 06/26/2024, 03/09, 08/07/2022, Additional history exists RSV Patients and Patients Aged 60 years or older (1 - 1-dose 75+ series) 2041 Hepatitis A Vaccines Aged Out 07/12/2009 No long er eligible based on patient's age to complete this topic HIV Screening Completed 11/16/2019 Pneumococcal Vaccine: 50+ Years Completed 06/26/2024 Influenza Vaccine Completed 09/26/2024, , 08/06/2022, Additional history exists HIB Vaccines Aged Out No longer eligi ble based on patient's age to complete this topic HPV Vaccines Aged Out No longer eligi ble based on patient's age to complete this topic IPV Vaccines Aged Out No longer eligi ble based on patient's age to complete this topic Meningococcal Vaccine Aged Out No deepthi eusebio eligible based on patient's age to complete this topic RSV under 20 months Aged Out No longe r eligible based on patient's age to complete this topic Rotavirus Vaccines Aged Out No longer eligible based on patient's age to complete this topic Procedures Procedure Name Priority Date/Time Associated Diagnosis Comments HEMOGLOBIN A1C Routine 10/02/2024 9:15 AM EST Hypoglycemia LIPID PANEL, STANDARD Routine 06/26/2024 9:18 AM EDT Primary hypertension BI MAMMOGRAM SCREENING TOMOSYNTHESIS BILATERAL Routine 05/25/2024 11:40 AM EDT ZZZ HISTORICAL HIV AB/AG Routine 11/16/2019 9:40 AM EST HM COLONOSCOPY Routine 04/01/2017 from Last 3 Months or Most Recently Relevant to Health Maintenance Results * Hemoglobin A1c (10/02/2024 9:15 AM EST) Hemoglobin A1c 5.9 <6.0 % [facility] Comment:Hemoglobin A1C Refer ence Range Adults: 4.8 - 6.0 % Non diabetic: < 6.0 % Goal: < 7.0 %Additional Action Suggested: > 8.0 %Note: Hemoglobin A1c results are invalid for patients with abnormal amounts of HbF. Blood transfusions may impact the HbA1c concentration in the patient sample. Estimated Average Glucose 123 mg/dL [facility] Comment:eAG = Estimated ave rage glucose which is %A1C expressed asaverage glucose, using the formula of the L2H-EbpedpkTquiynx Glucose study (ADAG), Diabetes Care, Vol.31,#8,Jun. 2007 Blood Venous blood specimen / Unknown 10/02/2024 9:15 AM EST 10/02/2024 11:12 AM EST us Alexandra Ahn MD LAB BLOOD ORDERABLES Final Result [facility] [address] [place] [phone] [phone] * Lipid Panel, Standard (06/26/2024 9:18 AM EDT) Triglycerides 129 <150 mg/dL [facility] Comment:Desirable Triglyceri de: less than 150 mg/dLBorderline High Triglyceride 150-199 mg/dLHigh Triglyceride: 200-499 mg/dLVery High Triglyceride: greater than or equal to 5OO mg/dL Cholesterol 125 <200 mg/dL [facility] Comment:Desirable Cholestero l: less than 200 mg/dLBorderline High Cholesterol: 200-239 mg/dLHigh Cholesterol: greater than 239 mg/dL LDL Cholesterol Calculated 59 <100 mg/dL [facility] Comment:Desirable LDL: less than 100 mg/dLNear Optimal/Above Optimal LDL: 110- 129 mg/dLBorderline High LDL: 130-159 mg/dLHigh LDL: 160-189 mg/dLVery High LDL: greater than or equal to 190 mg/dL HDL Cholesterol 41 >40 mg/dL [facility] Comment:Desirable HDL: great er than 40 mg/dL Note: This HDL assay may give artificially low results in patients with liver disease. Blood Venous blood specimen / Unknown 06/26/2024 9:18 AM EDT 06/26/2024 11:35 AM EDT Alexandra Ahn MD LAB BLOOD ORDERABLES Final Result Performing Organization Address City/State/[facility] Co de Phone Number [facility] [address] [place] [address] [phone] * BI Mammogram Screening Tomosynthesis Bilateral (05/25/2024 11:40 AM EDT) Anatomical Region Laterality Modality Breast Bilateral Mammography 05/25/2024 11:4 0 AM EDT Narrative 06/20/2024 2:01 PM EDT ? [facility] ? [address] [facility] ?[place] [address] ? Mammography Report ? Signed ? Patient: Yi Gatica,Liliane ?MR#: [id number] ?? [id number] ? : 1965 ?Acct:[id number] ? Age/Sex: 59 / F ?ADM Date: 07/18/24 ? Loc: HO.MAMMO ? Attending Dr: Alexandra Ahn MD ? Ordering Physician: Alexandra Pillai MD ?Results: ?? 1Negative ? Date of Service: 05/25/24 ?Follow Up: 1 Year From Orig ?? inal Mammogram ? Procedure(s): MM tomosynthesis screening BI ?? Accession Number(s): [id number] ? cc: Alexandra Pillai MD ? EXAMINATION: ?? MM SCREENING DIGITAL BREAST TOMOSYNTHESIS, BILATERAL ? CLINICAL INFORMATION: ? Screening. Asymptomatic. ? COMPARISON: ?? Mammography: This study is compared with prior exams dating back to ?? 2019. ? TECHNIQUE: ?? Digital breast tomosynthesis is performed in both the craniocaudal and ?? mediolateral oblique views along with computer-aided detection (CAD). ?? Synthesized 2D images are generated from the tomosynthesis. ? FINDINGS: ?? There are scattered areas of fibroglandular density (ACR BI-RADS breast ?? composition Category b). ? There are no significant masses, abnormal calcifications, or other ?? abnormalities. ? MM/MM tomosynthesis screening BI ?? IMPRESSION: ?? No mammographic evidence of malignancy. ? ASSESSMENT: ? BI-RADS BI-RADS 1 - Negative ? RECOMMENDATION: ?? Routine annual mammography screening. ? 1 year F/U ? This examination should not preclude the clinical evaluation of a ?? suspicious palpable abnormality. ? This patient's information was entered into a reminder system with a ?? target due date for their next mammogram. ? Dictated By: ?Sharon Day MD ? Signed By: ?<Electronically signed by Sharon Day MD in OV> ? 06/20/24 1356 ? DD/ 1140 ? TD/TT: ? Assistant Operations Manager: ? Procedure Note Donotuseinterpreter, Image - 06/20/2024 [place] [facility] [address] [place] [address] Mammography Report Signed Patient: Ira Ackerman#: [id number] : 1965Acct:[id number] Age/Sex: 59 / FADM Date: 05/25/24 Loc: HO.MAMMO Attending Dr: Alexandra Ahn MD Ordering Physician: Alexandra Pillai MDResults: 1Negative Date of Service: 05/25/24Follow Up: 1 Year From Orig inal Mammogram Procedure(s): MM tomosynthesis screening BI Accession Number(s): [id number] cc: Alexandra Pillai MD EXAMINATION: MM SCREENING DIGITAL BREAST TOMOSYNTHESIS, BILATERAL CLINICAL INFORMATION: Screening. Asymptomatic. COMPARISON: Mammography: This study is compared with prior exams dating back to 2019. TECHNIQUE: Digital breast tomosynthesis is performed in both the craniocaudal and mediolateral oblique views along with computer-aided detection (CAD). Synthesized 2D images are generated from the tomosynthesis. FINDINGS: There are scattered areas of fibroglandular density (ACR BI-RADS breast composition Category b). There are no significant masses, abnormal calcifications, or other abnormalities. MM/MM tomosynthesis screening BI IMPRESSION: No mammographic evidence of malignancy. ASSESSMENT: BI-RADS BI-RADS 1 - Negative RECOMMENDATION: Routine annual mammography screening. 1 year F/U This examination should not preclude the clinical evaluation of a suspicious palpable abnormality. This patient's information was entered into a reminder system with a target due date for their next mammogram. Dictated By: Sharon Day MD Signed By: <Electronically signed by Sharon Day MD in OV> 06/20/24 1356 DD/ 1140 TD/TT: Assistant Operations Manager: us Alexandra Ahn MD IMG BI PROCEDURES Fin al Result * HIV AB/AG (11/16/2019 9:40 AM EST) HIV AG/AB NONREACTIVE [facility] Comment: HIV-1 p24 Ag and/or HIV-1/HIV-2 Ab not detected. ?? A test result that is nonreactive does not exclude the possibility of exposure to or infection with HIV-1 and/or HIV-2. Nonreactive results in this assay for individuals with prior exposure to HIV-1 and/or HIV-2 may be due to antigen and antibody levels that are below the limit of detection of this assay. ?? The [facility] HIV Ag/Ab Combo assay result and supplemental assay results should be interpreted in conjunction with the patient's clinical presentation, history and other laboratory results. ??If the results are inconsistent with clinical evidence, additional testing is suggested to confirm the result. 11/16/2019 9:40 AM EST Alexandra Ahn MD HISTORICAL/NON ORDERA BLE LABS Final Result [facility] [address] * Hm Colonoscopy (04/01/2017) Historical Provider HEALTH MAINTENANCE Final Result from Last 3 Months or Most Recently Relevant to Health Maintenance Insurance [facility] C3 Care Teams Supervisor [employer] Relationship Specialty Start Date End Date Alexandra Pillai MD [address] [place] [phone] PCP - General Family Medicine 06/05/19
--- OUTSIDE RECORDS SUMMARY | 2025-02-13 16:46 | XMS_ITS | Encounter Summary ---
Author Organization [employer] [facility] Address [address] [facility] 7t [place] [address] Care Team Providers Care Manager Of Planning Name Role Phone Alexandra Pillai MD Primary Care Provide r Reason for Visit * Reason Comments Med Refill Encounter Details Date Type Department Care Team ([facility] Contact Info) Description 07/02/2023 Refill [facility] MEDICINE [address] [place], [place] [phone] Ani Maciel MD [address] [place], [place] [phone] Mild persistent asthma without complication Social History Tobacco Use Types Packs/Day Years [...] Upcoming Encounters Date Type Department Care Team ([facility] Contact Info) Description 04/04/2025 3:30 PM EDT Office Visit [facility] MEDICINE [address] [place] [address] Alexandra Pillai MD [address] [place], [place] [phone] documented as of this encounter Visit Diagnoses Diagnosis Mild persistent asthma without complication documented in this encounter Additional Health Concerns Assessment Noted Time PHQ-9 Depression Total Score: 0 03/26/20 23 10:56 AM EDT documented as of this encounter Care Teams Manager Of Planning Relationship Specialty Start Date End Date Alexandra Pillai MD [address] [place] [address] PCP - General Family Medicine 06/05/19 documented as of this encounter
== END 2025-02-13 14:31 | disposition home or self-care (01) ==
LOC: HO.HGI 13:45
PROVIDERS: PCP Internal Medicine; Visit Provider Nurse Practitioner
DX: K59.04 Chronic idiopathic constipation (principal); K21.9 Gastro-esophageal reflux disease without esophagitis
CPT/HCPCS: 99213

== ENCOUNTER → 2025-02-13 13:44 | Outpatient (BNVA) | payer MEDICAID, SELFPAY | PROVIDERS: PCP Internal Medicine; Visit Provider Nurse Practitioner | DX: K59.04 Chronic idiopathic constipation (principal); K21.9 Gastro-esophageal reflux disease without esophagitis | CPT/HCPCS: 99212 ==

== ENCOUNTER 2025-04-04 16:12 | Outpatient (REF) | payer MEDICAID, SELFPAY ==
--- NOTE | ~2025-04-04 | XR_ITS ---
EXAMINATION: XR ABDOMEN COMPLETE CLINICAL INDICATION: r/o kidney stone COMPARISON: None available. TECHNIQUE: 2 views of the abdomen. FINDINGS: Bowel gas pattern is normal/nonspecific. No focally dilated loop. No abnormal soft tissue calcifications identified. The right hepatic lobe appears enlarged, versus a Cintia's lobe. No large abdominal mass. Lung bases are clear. No focal osseous abnormality. XR/XR abdomen min 2V IMPRESSION: No abnormal soft tissue calcifications identified. Normal bowel gas pattern. Right hepatic lobe appears enlarged versus a Cintia's lobe. Electronically signed by: Zachary Gaming MD 04/04/2025 04:28 PM EDT
--- OUTSIDE RECORDS SUMMARY | 2025-04-04 16:18 | XMS_ITS | Encounter Summary ---
Author Organization [employer] Address [address] [facility] 7t [place] [address] Care Team Providers Care Assistant Professor Of Physics Name Role Phone Alexandra Pillai MD Primary Care Provide r Encounter Details Date Type Department Care Team (Late st Contact Info) Description 03/25/2023 Orders Only [facility] MED & PEDS [address] [place], [place] [phone] Jacqueline Mejias LPN Social History Tobacco Use [...] AM EDT documented as of this encounter Functional Status * Over the past 2 weeks, how often have you been bothered by any of the following problems? Question Answer Date of Assessment Author Patient Health Questionnaire -2 Score 0 03/26/2023 10:56 AM EDT Samuel Hwang MA * Over the past 2 weeks, how often have you been bothered by any of the following problems? Question Answer Date of Assessment Author Little interest or pleasure in doing things Not at all 03/26/2023 10:56 AM Samuel Bui MA Feeling down, depressed, or hopeless Not at all 03/26/2023 10:56 AM Samuel Bui MA Trouble falling or staying asleep, or sleeping too much Not at all 03/26/2023 10:56 AM Samuel Bui MA Feeling tired or having krystian le energy Not at all 03/26/2023 10:56 AM Samuel Bui MA Poor appetite or overeating Not at all 03/26/2023 10 :56 AM Samuel Bui MA Feeling bad about yourself - or that you are a failure or have let yourself or your family down Not at all 03/26/2023 10:56 AM Samuel Bui MA Trouble concentrating on things, such as reading the newspaper or watching television Not at all 03/26/2023 10:56 AM Samuel Bui MA Moving or speaking so slowly that other people could have noticed? Or the opposite - being so fidgety or restless that you have been moving around a lot more than usual. Not at all 03/26/2023 10:56 AM Samuel Bui MA Thoughts that you would be better off or hurting yourself in some way Not at all 03/26/2023 10:56 AM Samuel Bui MA Patient Health Questionnaire -9 Score 0 03/26/2023 10:56 AM Samuel Bui MA documented as of this encounter Plan of Treatment Not on file documented as of this encounter Procedures Procedure Name Priority Date/Time Associated Diagnosis Comments XR HAND 3+ VIEWS LEFT Routine 03/26/2023 12:45 PM EDT documented in this encounter Results * XR Hand 3+ Views Left (03/26/2023 12:45 PM EDT) Anatomical Region Laterality Modality Upper Extremities, Hand Left Radiogra phic Imaging 03/26/2023 12:4 5 PM EDT Narrative 04/14/2023 4:38 PM EDT ?[facility] ?[address] ?[place] [address] ?XRay Report ? Signed ? Patient: Yi Gatica,Liliane ?MR#: [id number] ?? [id number] ? : 1965 ?Acct:[id number] ? Age/Sex: 57 / F ?ADM Date: 03/26/23 ? Loc: HO.HHCX ? Attending Dr: Alexandra Ahn MD ? Ordering Physician: Alexandra Pillai MD ?? Date of Service: 03/26/23 ?? Procedure(s): XR hand LT min 3V ?? Accession Number(s): [id number] ? cc: Alexandra Pillai MD ? EXAMINATION: [...] 1635 ? DD/ 1245 ? TD/TT: ? Etcher Photoengraving: HB ? Procedure Note Maryann Lam - 05/05/[address] [address] XRay Report Signed Patient: Hailey AckermanAndres#: [id number] : 1965Acct:[id number] Age/Sex: 57 / FADM Date: 03/26/23 Loc: HO.HHCX Attending Dr: Alexandra Ahn MD Ordering Physician: Alexandra Pillai MD Date of Service: 03/26/23 Procedure(s): XR hand LT min 3V Accession Number(s): [id number] cc: Alexandra Pillai MD EXAMINATION: XR HAND, [...] in OV> 04/14/23 1635 DD/ 1245 TD/TT: Etcher Photoengraving: AUBREY [facility] External Provider IMG XR PROCEDURES Final Result documented in this encounter Visit Diagnoses Not on filedocumented in this encounter Care Teams Assistant Professor Of Physics Relationship Specialty Start Date End Date Alexandra Pillai MD [address] [place] [address] PCP - General Family Medicine 06/05/19 documented as of this encounter
== END 2025-04-04 16:13 | disposition home or self-care (01) ==
LOC: HO.HHCX 16:12
PROVIDERS: PCP Internal Medicine; Visit Provider Internal Medicine
DX: R10.9 Unspecified abdominal pain (principal)
CPT/HCPCS: 74019; 87086

== ENCOUNTER → 2025-04-04 16:14 | Outpatient (BNV) | payer MEDICAID, SELFPAY | PROVIDERS: PCP Internal Medicine; Visit Provider Radiology Diagnostic Radiology | DX: R14.0 Abdominal distension (gaseous) (principal) | CPT/HCPCS: 74019 ==

== ENCOUNTER 2025-05-23 11:56 | Outpatient (REF) | payer MEDICAID, SELFPAY ==
--- NOTE | ~2025-05-23 | XR_ITS ---
EXAMINATION: X-ray knees, bilaterally CLINICAL INFORMATION: Knee pain. TECHNIQUE: AP in standing position. Lateral views both knees. COMPARISON: December 18, 2021 and October 09, 2020. FINDINGS: There is a lucency involving the medial tibial plateau left knee. No acute cortical disruption or malalignment. No suprapatellar bursa joint effusion Mild joint space narrowing involving the medial compartment. XR/XR Knee Ludwig 3V IMPRESSION: Lucent abnormality in the medial tibial plateau left knee. Recommend CT versus MRI for further imaging evaluation. Mild medial compartmental osteoarthrosis.. Electronically signed by: Rich Burger MD 05/23/2025 12:43 PM EDT
--- OUTSIDE RECORDS SUMMARY | 2025-05-23 13:03 | XMS_ITS | Clinical Summary ---
Author Organization [facility] Address [address] [place] [address] Care Team Providers Care Zinc Skimmer Name Role Phone Alexandra Pillai MD Primary [...] NEEDED FOR SEVERE PAIN 2 Active Creon 99712-53914 units capsule TAKE 1 CAPSULE BY MOUTH [...] Last Done Comments Breast Cancer Screening 1965 Hepatitis B Vaccine (1 of 3 - 19+ 3-dose series) 04/17 Pneumococcal Vaccine: 50+ Years (1 of 2 - PCV) 985 Colorectal Cancer Screening: Annual FOBT 2015 Colorectal Cancer Screening: Colonoscopy 2015 Colorectal Cancer Screening: Sigmoidoscopy 2015 Influenza Vaccine (#1) 2025 Insurance #715 [place] [address] Medicaid [place] [address] [place] [address] Medicaid [place] Care Teams Zinc Skimmer Relationship Specialty Start Date End Date Alexandra Pillai MD [address] [place] [phone] PCP - General Internal Medicine 01/19/22
--- OUTSIDE RECORDS SUMMARY | 2025-05-23 13:03 | XMS_ITS | Encounter Summary ---
Author Organization [employer] Address [address] [facility] 7t [place] [address] Care Team Providers Care Facilities Operator Name Role Phone Alexandra Pillai MD Primary Care Provide r Encounter Details Date Type Department Care Team (Late st Contact Info) Description 03/25/2023 Orders Only [facility] MED & PEDS [address] [place], [place] [phone] Jacqueline Mejias LPN Social History Tobacco Use [...] Care Team (Late st Contact Info) Description 07/03/2025 3:15 PM EDT Office Visit [facility] MEDICINE [address] [place], [place] [phone] Alexandra Pillai MD [address] [place] [address] documented as of this encounter Procedures Procedure Name Priority Date/Time Associated Diagnosis Comments XR HAND 3+ VIEWS LEFT Routine 03/26/2023 12:45 PM EDT documented in this encounter Results * XR Hand 3+ Views Left (03/26/2023 12:45 PM EDT) Anatomical Region Laterality Modality Upper Extremities, Hand Left Radiogra phic Imaging 03/26/2023 12:4 5 PM EDT Narrative 04/14/2023 4:38 PM EDT [address] [address] XRay Report Signed Patient: Liliane Ackerman MR#: [id number] : 1965 Acct:[id number] Age/Sex: 57 / F ADM Date: 03/26/23 Loc: HO.HHCX Attending Dr: Alexandra Ahn MD Ordering Physician: Alexandra Pillai MD Date of Service: 03/26/23 Procedure(s): XR hand LT min 3V Accession Number(s): [id number] cc: Alexandra Pillai MD EXAMINATION: XR HAND, [...] in OV> 04/14/23 1635 DD/ 1245 TD/TT: Slp: AUBREY Procedure Note Donotuseinterpreter, Image - 05/05/[address] [address] XRay Report Signed Patient: Belinda AckermanR#: [id number] : 1965Acct:[id number] Age/Sex: 57 / FADM Date: 03/26/23 Loc: HO.HHCX Attending Dr: Alexandra Ahn MD Ordering Physician: Alexandra Pillai MD Date of Service: 03/26/23 Procedure(s): XR hand LT min 3V Accession Number(s): [id number] cc: Alexandra Pillai MD EXAMINATION: XR HAND, [...] in OV> 04/14/23 1635 DD/ 1245 TD/TT: Slp: AUBREY [facility] External Provider IMG XR PROCEDURES Final Result documented in this encounter Visit Diagnoses Not on filedocumented in this encounter Care Teams Facilities Operator Relationship Specialty Start Date End Date Alexandra Pillai MD [address] [place] [address] PCP - General Family Medicine 06/05/19 documented as of this encounter
== END 2025-05-23 11:57 | disposition home or self-care (01) ==
LOC: HO.HHCX 11:56
PROVIDERS: PCP Internal Medicine; Visit Provider Physical Medicine & Rehabilitation
DX: M17.0 Bilateral primary osteoarthritis of knee (principal)
CPT/HCPCS: 73562

== ENCOUNTER → 2025-05-23 12:04 | Outpatient (BNV) | payer MEDICAID, SELFPAY | PROVIDERS: PCP Internal Medicine; Visit Provider Radiology Diagnostic Radiology | DX: M25.562 Pain in left knee (principal); M25.561 Pain in right knee | CPT/HCPCS: 73562 ==

== ENCOUNTER 2025-05-31 10:35 | Outpatient (REF) | payer MEDICAID, SELFPAY ==
--- OUTSIDE RECORDS SUMMARY | 2025-05-31 11:27 | XMS_ITS | Encounter Summary ---
Author Organization [employer] Address [address] [facility] 7t [place] [address] Care Team Providers Care Box Sealing Machine Operator Name Role Phone Alexandra Pillai MD Primary Care Provide r Encounter Details Date Type Department Care Team (Late st Contact Info) Description 03/25/2023 Orders Only [facility] MED & PEDS [address] [place], [place] [phone] Jacqueline Mejias LPN Social History Tobacco Use [...] Description 07/03/2025 3:15 PM EDT Office Visit [facility] MEDICINE [address] [place], [place] [phone] Alexandra iPllai MD [address] [place] [address] documented as of this encounter Procedures Procedure Name Priority Date/Time Associated Diagnosis Comments XR HAND 3+ VIEWS LEFT Routine 03/26/2023 12:45 PM EDT documented in this encounter Results * XR Hand 3+ Views Left (03/26/2023 12:45 PM EDT) Anatomical Region Laterality Modality Upper Extremities, Hand Left Radiogra phic Imaging 03/26/2023 12:4 5 PM EDT Narrative 04/14/2023 4:38 PM EDT [address] [address] XRay Report Signed Patient: Liliane Ackerman MR#: [id number] : 1965 Acct:[id number] Age/Sex: 57 / F ADM Date: 03/26/23 Loc: HO.HHCX Attending Dr: Alexandra Ahn MD Ordering Physician: Alexandra Pillai MD Date of Service: 03/26/23 Procedure(s): XR hand LT min 3V Accession Number(s): [id number] cc: Alexandra Pillai MD EXAMINATION: XR HAND, [...] in OV> 04/14/23 1635 DD/ 1245 TD/TT: Deli Clerk: AUBREY Procedure Note Donotuseinterpreter, Image - 05/05/[address] [address] XRay Report Signed Patient: Belinda AckermanR#: [id number] : 1965Acct:[id number] Age/Sex: 57 / FADM Date: 03/26/23 Loc: HO.HHCX Attending Dr: Alexandra Ahn MD Ordering Physician: Alexandra Pillai MD Date of Service: 03/26/23 Procedure(s): XR hand LT min 3V Accession Number(s): [id number] cc: Alexandra Pillai MD EXAMINATION: XR HAND, [...] in OV> 04/14/23 1635 DD/ 1245 TD/TT: Deli Clerk: AUBREY [facility] External Provider IMG XR PROCEDURES Final Result documented in this encounter Visit Diagnoses Not on filedocumented in this encounter Care Teams Box Sealing Machine Operator Relationship Specialty Start Date End Date Alexandra Pillai MD [address] [place] [address] PCP - General Family Medicine 06/05/19 documented as of this encounter
--- OUTSIDE RECORDS SUMMARY | 2025-05-31 11:27 | XMS_ITS | Clinical Summary ---
Author Organization [facility] Address [address] [place] [address] Care Team Providers Care It Corporate Recruiter Name Role Phone Alexandra Pillai MD Primary [...] NEEDED FOR SEVERE PAIN 2 Active Creon 74049-44760 units capsule TAKE 1 CAPSULE BY MOUTH [...] 2015 Influenza Vaccine (#1) 2025 Insurance #715 [place] [address] Medicaid [place] [address] [place] [address] Medicaid [place] Care Teams It Corporate Recruiter Relationship Specialty Start Date End Date Alexandra Pillai MD [address] [place] [phone] PCP - General Internal Medicine 01/19/22
== END 2025-05-31 10:36 | disposition home or self-care (01) ==
LOC: HO.MAMMO 10:35
PROVIDERS: Visit Provider Internal Medicine
DX: Z12.31 Encounter for screening mammogram for malignant neoplasm of breast (principal)
CPT/HCPCS: 77063; 77067

== ENCOUNTER → 2025-05-31 11:15 | Outpatient (BNV) | payer MEDICAID, SELFPAY | PROVIDERS: Visit Provider Radiology Body Imaging | DX: Z12.31 Encounter for screening mammogram for malignant neoplasm of breast (principal) | CPT/HCPCS: 77063; 77067 ==

== ENCOUNTER 2025-08-14 10:01 | Outpatient (AMB) | payer MEDICAID, SELFPAY ==
--- NOTE | 2025-08-14 10:02 | MHC.OFFVIS ---
Vital Signs 08/14/25 10:04 Height 5 ft 1 in Weight 188 lb 4.396 oz BMI 35.6 BP 100/57 L Blood Pressure Location Lt brachial Position Sitting Pulse 71 Pulse Oximetry (%) 98 Oxygen Delivery Method Room Air Intake Visit Reasons: Follow up 6 months Intake Note: Patient in office today in follow up of GERD and CIC. CC: no complaints. Belt Sander Stone Required: Yes Belt Sander Stone Language: Inspector Plug Seam Services: Belt Sander Stone Present Information Interpreted: non-clinical & clinical Accompanied by: Self / Same As Patient Allergies Penicillins (PENICILLINS) Allergy (Mild, Verified 08/14/25 10:08) RASH Sulfa (Sulfonamide Antibiotics) (SULFA (SULFONAMIDE ANTIBIOTICS)) Allergy (Mild, Verified 08/14/25 10:08) BRUISING,SWOLLEN LIPS, rash, swollen lips penicillin V Allergy (Unknown, Verified 08/14/25 10:08) echymosis, rash as a child HPI HPI Follow up 6 months: Details: Assessment & Plan (1) Chronic idiopathic constipation: Code(s): K59.04 - Chronic idiopathic constipation Category: Medical (2) GERD (gastroesophageal reflux disease): Code(s): K21.9 - Gastro-esophageal reflux disease without esophagitis Category: Medical Plan Citizen Of [place] #Gabrielle Live She continues on her omeprazole in the morning, famotidine at night, Creon, and senna. SHe has her foot up on a foot rest when I come in as her sciatica is bothering her. She will be summering in [place]! ROV 6 mos. Medications: Refilled famotidine 20 mg PO BID 60 tabs 6RF K21.9 - Gastro-esophageal reflux disease without esophagitis, R10.13 - Epigastric pain plecanatide (Trulance) 3 mg PO DAILY 30 tabs 6RF simethicone 180 mg PO QID 90 caps 6RF rlrpwl-bepalwfv-zkoqrnx 24,000-76,000 -120,000 unit (Creon) 1 cap PO QID 120 caps 6RF omeprazole 40 mg PO DAILY 30 caps 6RF 30 days K21.9 - Gastro-esophageal reflux disease without esophagitis sennosides (senna) 17.2 mg (2 x 8.6 mg) PO BEDTIME 60 tabs 6RF K59.04 - Chronic idiopathic constipation TODAY'S VISIT Citizen Of [place] #Ani Live [facility] Medical History Cyst of kidney, acquired Dysphagia Pre-op examination Upper abdominal pain Sensation of pressure in bladder area Decreased thyroid stimulating hormone (TSH) level Essential hypertension Hypoglycemia Prediabetes FRIEDA on CPAP Early satiety Epigastric pain Sleep apnea HTN (hypertension) Kidney stone Asthma Surgical History Hx of colonoscopy Previous back surgery Hx of endoscopy Family History Father History of cancer Mother Hx of diabetes mellitus Social History Household Members: Spouse Alcohol intake: never Patient Tobacco Use Status: Never used Tobacco Review of Systems Const Denies fatigue, Denies fever(s), Denies night sweats, Denies poor appetite and Reports weight loss ENT Reports Normal hearing present, Denies dental pain, Denies dysphagia, Denies hearing loss, Denies mouth pain, Denies odynophagia, Denies throat swelling, Denies tongue swelling and Reports other (Dentition adequate) Card Reports no additional complaints Resp Reports no additional complaints GI Details: Denies abdominal pain, Denies melena, Reports bloating, Denies hematochezia, Reports constipation, Denies GI cramping, Denies dysphagia, Denies excessive flatus, Denies early satiety, Reports heartburn, Denies diarrhea, Denies nausea, Denies odynophagia, Denies vomiting and Denies hematemesis Musc Reports abnormal gait, Reports arthralgias and Reports joint swelling Skin/Breast Denies pruritus, Denies lesions, Denies rash and Denies jaundice Neuro Reports Normal hearing present, Denies Abnormal speech present and Reports abnormal gait Endo Denies fatigue Aller/Immun Denies throat swelling and Denies tongue swelling Physical Exam Vital Signs: Last Vital Signs Pulse 71 08/14/25 10:04 BP 100/57 L 08/14/25 10:04 Pulse Ox 98 08/14/25 10:04 Oxygen Delivery Method Room Air 10/07/25 10:04 BMI result Body Mass Index 35.6 Const General: cooperative, no acute distress, well developed and well groomed Nutritional Appearance: well nourished and obese Orientation/consciousness: oriented to person, oriented to place and oriented to time Limitations: language barrier HEENT Head: Yes normocephalic and Yes atraumatic Eyes General: appearance normal, both eyes and all related structures Pupils: Equal, round and reactive pupils present Neck Neck: Yes normal visual inspection and Yes no lymphadenopathy Thyroid: Thyroid normal Resp Effort & Inspection: normal respiratory effort and able to speak in complete sentences Auscultation: clear to auscultation bilaterally Cardio Rate: regular rate Rhythm: regular rhythm Heart sounds: Normal, physiologic split S2 sound present Peripheral pulses: radial pulses present and posterior tibial pulses present GI Inspection: No distended, No Abdominal panniculus present and Yes obesity Palpation (GI): Soft to palpation, nontender, no guarding, not rigid and No hepatosplenomegaly present Percussion: Yes normal to percussion Auscultation: normal bowel sounds Rectal Exam - Female: deferred Skin General skin exam: no rashes or lesions noted, turgor normal, skin not dry, no jaundice, No spider nevi and no striae Rashes: no rashes Nails: normal Neuro General: oriented to person, oriented to place and oriented to time Cranial nerves: Yes Equal, round and reactive pupils present and Yes Normal hearing present Speech: No Abnormal speech present Extrem Other: Bruise just under the kneecap aligning with the patellar tendon right leg some mild edema noted to the lateral leg at this area General: Yes normal to inspection, No clubbing, No cyanosis and No edema Psych Appearance: grossly normal and well kempt Mental Status: mental status grossly normal Speech and movement: Normal speech and movement present Affect: normal affect Attitude: cooperative Thought process: Normal thought process present and not confabulating Thought content: Normal thought content present Insight: Good insight present (Psych) Judgement: Good judgement present (Psych) Assessment & Plan Assessment & Plan (1) GERD (gastroesophageal reflux disease): Code(s): K21.9 - Gastro-esophageal reflux disease without esophagitis Category: Medical (2) Chronic idiopathic constipation: Code(s): K59.04 - Chronic idiopathic constipation Category: Medical (3) Abdominal bloating: Code(s): R14.0 - Abdominal distension (gaseous) Category: Medical Plan Citizen [place] #Ani Live She continues on omeprazole in the morning famotidine at night, Creon, <del>Trulance</del> Linzess 145 micro g, simethicone and senna. - The patient is a 60-year-old female presenting with constipation and GERD. She continues to feel it her GI medications are controlling things well. She recently had a trip to [place] which she enjoyed very much except she tripped on a piece a sidewalk and fell. There is also some question as to whether there was some syncope involved as it was very hot out. - She reports that her constipation is exacerbated by gabapentin, a pain medication. However, she is able to offset this by using her senna. - Recently suffered a fall, leading to a knee injury suspected to involve a fracture. - Presents with edema and bruising of the right knee, with pain increasing upon movement. - Has been diagnosed with peripheral vascular disease, affecting circulation in her legs. - Undergoes daily compression therapy with specialized boots to improve circulation. - Reports experiencing significant intentional weight loss since October, about 10 lb, primarily through dietary modifications rather than a structured diet. (after the patient left we ran into a problem getting her Trulance because her insurance is now declining to cover it. They do cover Linzess so will start her at 145 micro g and titrate from there) Return office visit in 6 months Medications: New linaclotide (Linzess) Take first thing in the morning with a full glass of water. 145 mcg PO QAM 30 caps 6RF K58.1 - Irritable bowel syndrome with constipation Refilled naqlna-fyungdvs-eqidwse 24,000-76,000 -120,000 unit (Creon) 1 cap PO QID 120 caps 6RF famotidine 20 mg PO BID 60 tabs 6RF K21.9 - Gastro-esophageal reflux disease without esophagitis, R10.13 - Epigastric pain omeprazole 40 mg PO DAILY 30 caps 6RF 30 days K21.9 - Gastro-esophageal reflux disease without esophagitis sennosides (senna) 17.2 mg (2 x 8.6 mg) PO BEDTIME 60 tabs 6RF K59.04 - Chronic idiopathic constipation simethicone (Gas Relief (simethicone)) 180 mg PO QID 90 ea 6RF Coding Level of Care Code Est Pt Level 3 (89143) Diagnoses GERD (gastroesophageal reflux disease) K21.9 Chronic idiopathic constipation K59.04 Abdominal bloating R14.0
[2025-08-14 10:04] VITALS: BP 100/57; PULSE 71; O2SAT 98; BMI 35.6
--- OUTSIDE RECORDS SUMMARY | 2025-08-14 11:46 | XMS_ITS | Encounter Summary ---
Author Organization [employer] Address [address] [facility] [address] [place] [address] Care Team Providers Care Forklift Operator Name Role Phone Alexandra Pillai MD Primary Care Provide r Encounter Details Date Type Department Care Team ([facility] Contact Info) Description 01/11/2023 Orders Only [facility] MED & PEDS [address] [place], [place] [phone] Jacqueline Mejias LPN Social History Tobacco Use [...] Department Care Team (Late Contact Info) Description 10/01/2025 1:45 PM EST Office Visit [facility] MEDICINE [address] [place], [place] [phone] Alexandra Pillai MD [address] [place] [address] 11/23/2025 1:30 PM EST Office Visit [facility] OPTOMETRY [address] [place], [place] [phone] Zohra Young, OD [address] [place] [address] documented as of this encounter Visit Diagnoses Not on filedocumented in this encounter Care Teams Forklift Operator Relationship Specialty Start Date End Date Alexandra Pillai MD [address] [place], [place] [phone] PCP - General Family Medicine 06/05/19 Jacqueline Syed Director [employer] X Ray Operator 08/01/25 documented as of this encounter
--- OUTSIDE RECORDS SUMMARY | 2025-08-14 11:46 | XMS_ITS | Encounter Summary ---
Author Organization [employer] Address [address] [facility] 7[address] [place] [address] Care Team Providers Care Regional Engagement Consultant Name Role Phone Alexandra Pillai MD Primary Care Provide r Encounter Details Date Type Department Care Team ([facility] st Contact Info) Description 03/25/2023 Orders Only [facility] MED & PEDS [address] [place] [address] Jacqueline Mejias LPN Social History Tobacco Use [...] Care Team (Late st Contact Info) Description 10/01/2025 1:45 PM EST Office Visit [facility] MEDICINE [address] [place] [address] Alexandra Pillai MD [address] [place] [address] 11/23/2025 1:30 PM EST Office Visit [facility] OPTOMETRY [address] [place] [address] Zohra Young, OD [address] [place] [address] documented as of this encounter Procedures Procedure Name Priority Date/Time Associated Diagnosis Comments XR HAND 3+ VIEWS LEFT Routine 03/26/2023 12:45 PM EDT documented in this encounter Results * XR Hand 3+ Views Left (03/26/2023 12:45 PM EDT) Anatomical Region Laterality Modality Upper Extremities, Hand Left Radiogra phic Imaging 03/26/2023 12:4 5 PM EDT Narrative 04/14/2023 4:38 PM EDT [facility] [address] [place] [address] XRay Report Signed Patient: Liliane Ackerman MR#: [id number] : 1965 Acct:[id number] Age/Sex: 57 / F ADM Date: 03/26/23 Loc: HO.HHCX Attending Dr: Alexandra Ahn MD Ordering Physician: Alexandra Pillai MD Date of Service: 03/26/23 Procedure(s): XR hand LT min 3V Accession Number(s): [id number] cc: Alexandra Pillai MD EXAMINATION: XR HAND, [...] in OV> 04/14/23 1635 DD/ 1245 TD/TT: Preventive Medicine Officer: AUBREY Procedure Note Donotuseinterpreter, Image - 05/05/2023 [facility] [address] [place] [address] XRay Report Signed Patient: Ira Ackerman#: [id number] : 1965Acct:[id number] Age/Sex: 57 / FADM Date: 03/26/23 Loc: HO.HHX Attending Dr: Alexandra Ahn MD Ordering Physician: Alexandra Pillai MD Date of Service: 03/26/23 Procedure(s): XR hand LT min 3V Accession Number(s): [id number] cc: Alexandra Pillai MD EXAMINATION: XR HAND, [...] in OV> 04/14/23 1635 DD/ 1245 TD/TT: Preventive Medicine Officer: AUBREY [facility] External Provider IMG XR PROCEDURES Final Result documented in this encounter Visit Diagnoses Not on filedocumented in this encounter Care Teams Regional Engagement Consultant Relationship Specialty Start Date End Date Alexandra Pillai MD [address] [place] [address] PCP - General Family Medicine 06/05/19 Jacqueline Syed Controller Operations And Hr ManagerPr Intern 08/01/25 documented as of this encounter
--- OUTSIDE RECORDS SUMMARY | 2025-08-14 11:46 | XMS_ITS | Encounter Summary ---
Author Organization [employer] Address [address] [facility] [address] [place] [address] Care Team Providers Care Surgical Appliance Fitter Name Role Phone Alexandra Pillai MD Primary Care Provide r Reason for Visit * Reason Comments Med Refill Encounter Details Date Type Department Care Team ([facility] st Contact Info) Description 01/04/2025 Refill [facility] MEDICINE [address] [place] [address] Alexandra Pillai MD [address] [place] [address] Social History Tobacco Use Types Packs/Day Years [...] Description 10/01/2025 1:45 PM EST Office Visit [facility] MEDICINE [address] [place] [address] Alexandra Pillai MD [address] [place] [address] 11/23/2025 1:30 PM EST Office Visit [facility] OPTOMETRY [address] [place] [address] Hector, Zohra, OD [address] [place] [address] documented as of this encounter Visit Diagnoses Not on filedocumented in this encounter Additional Health Concerns Assessment Noted Time PHQ-9 Depression Total Score: 0 06/26/20 24 11:05 AM EDT documented as of this encounter Care Teams Surgical Appliance Fitter Relationship Specialty Start Date End Date Alexandra Pillai MD [address] [place] [address] PCP - General Family Medicine 06/05/19 Jacqueline Syed Machine Filler ShredderInhalation Therapy Teacher 08/01/25 documented as of this encounter
--- OUTSIDE RECORDS SUMMARY | 2025-08-14 11:47 | XMS_ITS | Encounter Summary ---
Author Organization [employer] Address [address] [facility] 7[address] [place] [address] Care Team Providers Care Resource Room Special Education Teacher Name Role Phone Alexandra Pillai MD Primary Care Provide r Reason for Visit * Reason Onset Date Comments Referral 05/25/2024 Encounter Details Date Type Department Care Team ([facility] Contact Info) Description 05/25/2024 Telephone [facility] MEDICINE [address] [place], [place] [phone] Alexandra Pillai MD [address] [place], [place] [phone] Referral Social History Tobacco Use Types Packs/Day [...] for pt. Any questions contact damian at [phone] documented in this encounter Plan of Treatment Upcoming Encounters Date Type Department Care Team (Late st Contact Info) Description 10/01/2025 1:45 PM EST Office Visit [facility] MEDICINE [address] [place] [address] Alexandra Pillai MD [address] [place] [address] 11/23/2025 1:30 PM EST Office Visit [facility] OPTOMETRY [address] [place] [address] Hector, Zohra, OD [address] [place] [address] documented as of this encounter Visit Diagnoses Not on filedocumented in this encounter Additional Health Concerns Assessment Noted Time PHQ-9 Depression Total Score: 0 03/26/20 23 10:56 AM EDT documented as of this encounter Care Teams Resource Room Special Education Teacher Relationship Specialty Start Date End Date Alexandra Pillai MD [address] [place] [address] PCP - General Family Medicine 06/05/19 Jacqueline Syed Operating Engineer ApprenticeCommercial Floor Covering Installer 08/01/25 documented as of this encounter
--- OUTSIDE RECORDS SUMMARY | 2025-08-14 11:47 | XMS_ITS | Encounter Summary ---
Author Organization [employer] [facility] Address [address] [facility] 7[address] [place] [address] Care Team Providers Care Paraeducator Name Role Phone Alexandra Pillai MD Primary Care Provide r Encounter Details Date Type Department Care Team (Late st Contact Info) Description 12/09/2022 Orders Only [facility] MEDICINE [address] [place] [address] Lisette Coates LPN Social History Tobacco Use [...] Description 10/01/2025 1:45 PM EST Office Visit [facility] MEDICINE [address] [place] [address] Alexandra Pillai MD [address] [place] [address] 11/23/2025 1:30 PM EST Office Visit [facility] OPTOMETRY [address] [place] [address] Zohra Young, OD [address] [place] [address] documented as of this encounter Visit Diagnoses Not on filedocumented in this encounter Care Teams Paraeducator Relationship Specialty Start Date End Date Alexandra Pillai MD [address] [place] [address] PCP - General Family Medicine 06/05/19 Jacqueline Syed Nerve SpecialistWarp Tier 08/01/25 documented as of this encounter
--- OUTSIDE RECORDS SUMMARY | 2025-08-14 11:47 | XMS_ITS | Clinical Summary ---
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 Do not crush or chew. 90 tablet 04/27/20 23 Active amitriptyline (Elavil) 100 MG tablet Take 100 mg by mouth at bedtime. 09/03/20 23 Active busPIRone (Buspar) 10 MG tablet TAKE 1 TABLET BY MOUTH EVERY MORNING (TAKE WITH 15mg AT BEDTIME) 09/03/20 23 Active busPIRone (Buspar) 15 MG tablet TAKE 1 TABLET BY MOUTH AT BEDTIME (TAKE WITH 10mg EVERY MORNING) 09/03/20 23 Active famotidine (Pepcid) 20 MG tablet TAKE 1 TABLET BY MOUTH TWICE DAILY IN THE MORNING AND AT BEDTIME 07/07/20 23 Active furosemide (Lasix) 20 MG tablet Take 20 mg by mouth in the morning. 09/03/20 23 Active lamoTRIgine (LaMICtal) 100 MG tablet TAKE 1 TABLET BY MOUTH EVERYDAY AT NOON 09/03/20 Active oxyCODONE-aceta minophen (Percocet) 10-325 MG tablet TAKE 1 TABLET BY MOUTH EVERY 6 HOURS NEEDED FOR SEVERE PAIN 09/23/20 Active Creon 39947-08338 units capsule Take 1 capsule by mouth 4 times daily. 09/06/20 Active Trulance tablet tablet Take 1 tablet by mouth in the morning. 09/03/20 Active Simethicone Ultra Strength 180 MG capsule Take 180 mg by mouth 4 times daily. 08/31/20 Active phentermine 15 MG capsuleIndicati ons:Class 2 severe obesity due to excess calories with serious comorbidity and body mass index (BMI) of 38.0 to 38.9 in adult Take 1 capsule (15 mg) by mouth before breakfast. 30 capsule 11/11/19 24 Active senna (Senokot) 8.6 MG tablet TAKE 2 TABLETS BY MOUTH EVERY DAY AT BEDTIME 10/06/20 Active Blood Pressure Monitor kitIndications: Primary hypertension Use as directed 3x/week 1 kit 12/22/19 24 Active simethicone (Mylicon,Gas-X) 180 MG capsuleIndicati ons:Bloating Take 1 capsule (180 mg) by mouth every 8 (eight) hours if needed for flatulence. 90 capsule 1 06/26/20 24 Active omeprazole (PriLOSEC) [address] capsuleIndicati ons:Bloating Take 1 capsule (40 mg) by mouth in the morning. 30 capsule 06/26/20 24 Active Diclofenac Sodium 1 % gelIndications: Pain APPLY 2 GRAMS TOPICALLY TO AFFECTED AREA(S) TWICE DAILY 100 g 3 09/25/20 24 Active FREESTYLE LITE test stripIndication s:Hypoglycemia Use to test blood sugar 2 times daily 100 each 12 09/26/20 24 2024 Active Blood Glucose Monitoring Suppl (FreeStyle [place] Lite) w/Device kitIndications: Hypoglycemia Use to test blood sugar 2 times daily 1 kit 09/26/20 24 Active albuterol (2.5 MG/3ML) 0.083% nebulizer solutionIndicat ions:Moderate persistent asthma, unspecified whether complicated Take 3 mL (2.5 mg) by nebulization every 4 (four) hours if needed for wheezing. 75 mL 3 09/26/20 24 2024 Active albuterol 108 (90 Base) MCG/ACT inhalerIndicati ons:Moderate persistent asthma, unspecified whether complicated Inhale 2 puffs every 6 (six) hours if needed for wheezing. 18 g 09/26/20 24 2024 Active cholecalciferol (Vitamin D-3) 25 MCG tabletIndicatio ns:Vitamin D deficiency TAKE 1 TABLET BY MOUTH EVERY MORNING 90 tablet 3 12/21/19 25 Active TRUEplus Lancets 33G miscIndications :Hypoglycemia USE DIRECTED TO TEST BLOOD SUGAR TWICE DAILY 100 each 3 01/11/20 25 Active ammonium lactate (Lac-Hydrin) 12 % lotionIndicatio ns:Dry skin dermatitis APPLY TOPICALLY NEEDED FOR DRY SKIN 450 g 1 01/30/20 25 Active Proctozone-HC 2.5 % rectal creamIndication s:External hemorrhoid, bleeding INSERT RECTALLY TWICE DAILY 30 g 02/03/20 25 Active loratadine (Claritin) 10 MG tabletIndicatio ns:Primary hypertension TAKE 1 TABLET BY MOUTH EVERY MORNING 90 tablet 1 03/22/20 25 Active acyclovir (Zovirax) 400 MG tablet TAKE 1 TABLET BY MOUTH TWICE DAILY IN THE MORNING AND IN THE EVENING 60 tablet 03/22/20 25 Active budesonide-form oterol (Symbicort) 160-4.5 MCG/ACT inhalerIndicati ons:Moderate persistent asthma, unspecified whether complicated INHALE 1 PUFF TWICE DAILY IN THE MORNING AND IN THE EVENING. RINSE MOUTH AFTER USING. 6 g 5 03/23/20 25 Active Alcohol Swabs 70 % padsIndications :Hypoglycemia USE TO TEST BLOOD SUGAR TWICE A DAY 100 each 3 04/04/20 25 Active atorvastatin (Lipitor) 20 MG tablet TAKE 1 TABLET BY MOUTH EVERY MORNING 90 tablet 1 04/20/20 25 Active lidocaine (Lidoderm) 5 % patch APPLY 1 PATCH TOPICALLY TO SKIN, LEAVE ON FOR 12 HOURS AND OFF FOR 12 HOURS DIRECTED 30 patch 3 07/06/20 25 Active amLODIPine (Norvasc) 2.5 MG tabletIndicatio ns:Primary hypertension TAKE 1 TABLET BY MOUTH EVERY MORNING 90 tablet 1 07/11/20 25 Active butalbital-acet aminophen-caffe ine 50-325-40 MG tabletIndicatio ns:Migraine without aura, not refractory TAKE 1 TABLET BY MOUTH EVERY 4 HOURS 15 tablet 2 07/17/20 25 Active zolpidem (Ambien) 5 MG tabletIndicatio ns:Primary insomnia TAKE 1 TABLET BY MOUTH AT BEDTIME NEEDED FOR SLEEP 30 tablet 07/19/20 25 Active cyclobenzaprine (Flexeril) 10 MG tablet TAKE 1 TABLET BY MOUTH THREE TIMES DAILY 90 tablet 3 08/08/20 25 Active cyclobenzaprine (Flexeril) 10 MG tablet TAKE 1 TABLET BY MOUTH THREE TIMES DAILY 90 tablet 3 02/21/20 25 2024 Discontinued butalbital-acet aminophen-caffe ine 50-325-40 MG tabletIndicatio ns:Migraine without aura, not refractory Take 1 tablet by mouth every 4 (four) hours. 15 tablet 2 04/04/20 25 2024 Discontinued zolpidem (Ambien) 5 MG tabletIndicatio ns:Primary insomnia TAKE 1 TABLET BY MOUTH AT BEDTIME NEEDED FOR SLEEP 30 tablet 06/14/20 25 2024 Discontinued Active Problems Problem Noted Date Diagnosed Date Dysphonia 07/05/2025 Assessment & Plan (07/05/2025 4:06 PM EDT): I will refer patient to ENT for further evaluation Prediabetes 07/05/2025 Assessment & Plan (07/05/2025 4:07 PM EDT): Counseling done Glucose is 105 and A1c is 5.9 Left flank pain 04/04/2025 Assessment & Plan (04/04/2025 4:50 PM EDT): KUB ordered to rule out kidney stone patient will be contacted as soon as I have results Meanwhile symptomatic treatment with ibuprofen and Zofran for nausea UA and culture done today Primary insomnia 01/04/2025 Assessment & Plan (01/05/2025 [...] 03/25/2023 Moderate asthma 03/25/2023 Assessment & Plan (04/04/2025 4:51 PM EDT): Symptoms are more frequent now with the spring Continue with same medications and interventions Patient was educated to avoid triggers Assessment & Plan (01/05/2025 12:26 PM EST): [...] of medication Hypertension 01/04/2023 Assessment & Plan (07/05/2025 4:07 PM EDT): I advised: - Aerobic exercise to reduce BP. Initial [...] consulting health care provider Assessment & Plan (04/04/2025 4:50 PM EDT): I advised: - Aerobic exercise to reduce BP. Initial [...] consulting health care provider Assessment & Plan (01/05/2025 12:26 PM EST): [...] Encounters Date Type Department Care Team Description 08/08/2025 Refill [facility] [address] [place] [address] Alexandra Pillai MD 08/01/2025 Telephone [facility] [address] [place] [address] Alexandra Pillai MD Care Coordination (ICP Care Plan) 07/19/2025 Refill [facility] [address] [place] [address] Alexandra Pillai MD Primary insomnia 07/16/2025 Refill [facility] [address] [place] [phone] Alexandra Pillai MD Migraine without aura, not refractory 07/10/2025 Refill [facility] [address] [place] [address] Alexandra Pillai MD Primary hypertension 07/06/2025 Refill [facility] [address] [place] [address] Alexandra Pillai MD 07/05/2025 3:15 PM EDT Office Visit [facility] [address] [place] [phone] Alexandra Pillai MD Primary hypertension (Primary Dx); Dysphonia; Prediabetes; Dietary counseling; Exercise counseling 07/05/2025 Travel 07/04/2025 Telephone [facility] [address] [place] [phone] Alexandra Pillai MD chart prep 06/15/2025 Telephone [facility] [address] [place] [phone] Alexandra Pillai MD Durable Medical Equipment (DME Request: Rollator Walker/BP Monitor/Commode) 06/14/2025 Refill [facility] [address] [place] [address] Alexandra Pillai MD Primary insomnia 06/13/2025 Refill [facility] [address] [place] [address] Alexandra Pillai MD Primary insomnia 06/12/2025 Refill [facility] [address] [place] [address] Alexandra Pillai MD Primary insomnia 05/23/2025 Orders Only [facility] External Provider, [facility] 05/16/2025 Refill [facility] [address] [place] [address] Alexandra Pillai MD Primary insomnia from Last 3 Months Immunizations Immunization Administration Dates Next Due Hep A / [...] Answer Date Recorded Patient Health Questionnaire-9 Score 12 04/04/2025 Patient Health Questionnaire-9 Score 12 04/04/2025 Last PHQ-9: Questionnaire Data Not on file 0 04/04/2025 Housing Stability Answer Date Recorded What is your housing situation today? I have levidagmar medrano 12/21/[address] you [...] Answer Date Recorded Patient Health Questionnaire-2 Score 4 07/05/2025 Internet Access Answer Date Recorded Internet Access Q1 Yes 06/28/2025 Internet Access Q2 Not on file 06/28/2025 Comments No Sex and Gender Information Value Date Recorded Sex Assigned at Female 09/07/2022 10:31 AM EDT Legal Sex Female 10:31 AM EDT Gender Identity Female 09/07/2022 10:31 AM EDT Sexual Orientation Straight 09/07/2022 10 :31 AM EDT Last Filed Vital Signs Vital Sign Reading Time Taken Comments Blood Pressure 124/70 07/05/2025 3:14 PM EDT Pulse 80 07/05/2025 3:14 PM EDT Temperature 37.1 C (98.7 F) 07/05/2025 3:14 PM EDT Respiratory Rate 21 07/05/2025 3:14 PM EDT Oxygen Saturation 95% 07/05/2025 3:14 PM EDT Inhaled Oxygen Concentration - - Weight 87.1 kg (192 lb) 07/05/2025 3:14 PM EDT Height 154.9 cm (5' 1 ) 07/05/2025 3:14 PM EDT Body Mass Index 36.28 07/05/2025 3:14 PM EDT Plan of Treatment Upcoming Encounters Date Type Department Care Team (Late st Contact Info) Description 10/01/2025 1:45 PM EST Office Visit [facility] [address] [place] [address] Alexandra Pillai MD [address] [place] [address] 11/23/2025 1:30 PM EST Office Visit [facility] OPTOMETRY [address] [place] [address] Zohra Young OD [address] [place] [address] Health Maintenance Due Date Last Done Comments CT Colonography 1966 FIT DNA/Cologuard 1966 FIT 1966 FOBT 1966 Sigmoidoscopy 1966 Hepatitis C Screening 1984 Pap Smear 1987 HPV/Cotest 1996 Hepatitis B Vaccines (2 of 3 - Hep B Twinrix 3-dose series) 08/09/2009 07/12/2009 Zoster Vaccines (1 of 2) 2016 COVID-19 Vaccine (4 - season) 2025 10/28/2021, 03/27/2021, 02/27/2021 Influenza Vaccine (#1) 2025 , 09/28/2023, 08/06/2022, Additional history exists Diabetes: Hemoglobin A1C 10/05/2025 025, 10/02/2024, 03/29/2023, Additional history exists SDOH Screening 12/21/2025 12/21/2024 Depression Monitoring 01/05/2026 07/05/2025, 025 Alcohol/Substance Use Screening 04/04/2026 04/04/2025 Disability Screening 04/04/2026 04/04/2025 Mammogram 05/31/2026 05/31/2025, 05/08, 05/20/2023, Additional history exists Tobacco Screening 07/05/2026 07/05/2025 Colonoscopy 04/01/2027 04/01/2017 Colorectal Cancer Screening 04/01/2027 [...] 11/16/2019 Pneumococcal Vaccine: 50+ Years Completed 06/26/2024 Cervical Cancer Screening Discontinued HIB Vaccines Aged Out No longer eligi ble based on patient's age to complete this topic HPV Vaccines Aged Out No longer eligi ble based on patient's age to complete this topic IPV Vaccines Aged Out No longer eligi ble based on patient's age to complete this topic Meningococcal B Vaccine Aged Out No l onger eligible based on patient's age to complete [...] Procedure Name Priority Date/Time Associated Diagnosis Comments POCT GLYCATED HEMOGLOBIN, TOTAL Routine 07/05/2025 3:19 PM EDT Prediabetes POCT GLUCOSE Routine 07/05/2025 3:19 PM EDT Prediabetes BI MAMMOGRAM SCREENING TOMOSYNTHESIS BILATERAL Routine 05/31/2025 10:40 AM EDT XR KNEE 3 VIEWS BILATERAL Routine 05/23/2025 12:04 PM EDT LIPID PANEL, STANDARD Routine 06/26/2024 9:18 AM EDT Primary hypertension ZZZ HISTORICAL HIV AB/AG Routine 11/16/2019 9:40 AM EST HM COLONOSCOPY Routine 04/01/2017 from Last 3 Months or Most Recently Relevant to Health Maintenance Results * (ABNORMAL) POCT HGB A1C (07/05/2025 3:19 PM EDT) Hemoglobin A1C 5.9(A) 4.0 - 5.7 % QC Media Lot # [id number] Lot# Expiration Date Blood 07/05/2025 3:19 PM EDT us Alexandra Ahn MD POINT OF CARE TEST EN TER/EDIT ORDERABLES Final Result * POCT Glucose (07/05/2025 3:19 PM EDT) Glucose Blood, POC 105 60 - 200 mg/dL QC Media Lot # [id number] Lot# Expiration Date , Blood Capillary blood specimen / Unknown 07/05/2025 3:19 PM EDT us Alexandra Ahn MD POINT OF CARE TEST EN TER/EDIT ORDERABLES Final Result * BI Mammogram Screening Tomosynthesis Bilateral (05/31/2025 10:40 AM EDT) Anatomical Region Laterality Modality Breast Bilateral Mammography 05/31/2025 10:4 0 AM EDT Narrative 06/05/2025 8:41 PM EDT [facility] [address] [place], [place] [address] Mammography Report Signed Patient: Liliane Ackerman MR#: [id number] : 1965 Acct:[id number] Age/Sex: 60 / F ADM Date: 05/31/25 Loc: HO.MAMMO Attending Dr: Alexandra Ahn MD Ordering Physician: Alexandra Pillai MD Results: 1Negative Date of Service: 05/31/25 Follow Up: 1 Year From [facility] Mammogram Procedure(s): MM tomosynthesis screening BI Accession Number(s): [id number] cc: Alexandra Pillai MD EXAMINATION: MM SCREENING DIGITAL BREAST TOMOSYNTHESIS, BILATERAL CLINICAL INFORMATION: Screening. Asymptomatic. COMPARISON: Comparison made to multiple prior, most recent May 25, 2024, and most remote September 22, 2019. TECHNIQUE: Digital breast tomosynthesis is performed in both the craniocaudal and mediolateral oblique views along with computer-aided detection (CAD). Synthesized 2D images are generated from the tomosynthesis. FINDINGS: BREAST COMPOSITION: There are scattered areas of fibroglandular density (ACR BI-RADS breast composition Category b). BILATERAL BREASTS: No significant masses, suspicious calcifications or other abnormalities are seen in either breast. MM/MM tomosynthesis screening BI IMPRESSION: BILATERAL BREASTS: Negative, no mammographic evidence of malignancy. Normal interval follow-up is recommended in 12 months. ASSESSMENT: BI-RADS 1 - Negative RECOMMENDATION: Routine annual mammography screening. FOLLOW-UP: 1 year F/U This examination should not preclude the clinical evaluation of a suspicious palpable abnormality. This patient's information was entered into a reminder system with a target due date for their next mammogram. Electronically signed by: Sis Sierra MD 06/05/2025 08:38 PM EDT RP Dictated By: Sis Sierra MD Signed By: <Electronically signed by Sis Sierra MD in OV> 06/05/252037 DD/ 1040 TD/TT: 05/31/25 1102 Automotive Paint Technician: Procedure Note Donotuseinterpreter, Image - 06/05/2025 [facility] [address] [place] [address] Mammography Report Signed Patient: Ira Ackerman#: [id number] : 1965Acct:[id number] Age/Sex: 60 / FADM Date: 05/31/25 Loc: HO.MAMMO Attending Dr: Alexandra Ahn MD Ordering Physician: Alexandra Pillai MDResults: 1Negative Date of Service: 05/31/25Follow Up: 1 Year From Orig inal Mammogram Procedure(s): MM tomosynthesis screening BI Accession Number(s): [id number] cc: Alexandra Pillai MD EXAMINATION: MM SCREENING DIGITAL BREAST TOMOSYNTHESIS, BILATERAL CLINICAL INFORMATION: Screening. Asymptomatic. COMPARISON: Comparison made to multiple prior, most recent May 25, 2024, and most remote September 22, 2019. TECHNIQUE: Digital breast tomosynthesis is performed in both the craniocaudal and mediolateral oblique views along with computer-aided detection (CAD). Synthesized 2D images are generated from the tomosynthesis. FINDINGS: BREAST COMPOSITION: There are scattered areas of fibroglandular density (ACR BI-RADS breast composition Category b). BILATERAL BREASTS: No significant masses, suspicious calcifications or other abnormalities are seen in either breast. MM/MM tomosynthesis screening BI IMPRESSION: BILATERAL BREASTS: Negative, no mammographic evidence of malignancy. Normal interval follow-up is recommended in 12 months. ASSESSMENT: BI-RADS 1 - Negative RECOMMENDATION: Routine annual mammography screening. FOLLOW-UP: 1 year F/U This examination should not preclude the clinical evaluation of a suspicious palpable abnormality. This patient's information was entered into a reminder system with a target due date for their next mammogram. Electronically signed by: Sis Sierra MD 06/05/2025 08:38 PM EDT Dictated By: Sis Sierra MD Signed By: <Electronically signed by Sis Sierra MD in OV> 06/05/252037 DD/ 1040 TD/TT: 05/31/25 1102 Automotive Paint Technician: us Alexandra Ahn MD IMG BI PROCEDURES Fin al Result * XR Knee 3 Views Bilateral (05/23/2025 12:04 PM EDT) Anatomical Region Laterality Modality Lower Extremities, Knee Bilateral Radiogra phic Imaging 05/23/2025 12:0 4 PM EDT Narrative 05/23/2025 12:46 [place] [address] XRay Report Signed Patient: Liliane Ackerman MR#: [id number] : 1965 Acct:[id number] Age/Sex: 60 / F ADM Date: 05/23/25 Loc: HO.HHCX Attending Dr: Taylor Johnson MD Ordering Physician: Taylor Johnson MD Date of Service: 05/23/25 Procedure(s): XR Knee Ludwig 3V Accession Number(s): [id number] cc: Alexandra Pillai MD; Taylor Johnson MD EXAMINATION: X-ray knees, bilaterally CLINICAL INFORMATION: Knee pain. TECHNIQUE: AP in standing position. Lateral views both knees. COMPARISON: December 18, 2021 and October 09, 2020. FINDINGS: There is a lucency involving the medial tibial plateau left knee. No acute cortical disruption or malalignment. No suprapatellar bursa joint effusion Mild joint space narrowing involving the medial compartment. XR/XR Knee Ludwig 3V IMPRESSION: Lucent abnormality in the medial tibial plateau left knee. Recommend CT versus MRI for further imaging evaluation. Mild medial compartmental osteoarthrosis.. Electronically signed by: Rich Burger MD 05/23/2025 12:43 PM EDT RP Dictated By: Rich Hogan MD Signed By: <Electronically signed by Rich Cohn MD in OV> 05/23/25 1243 DD/ 1204 TD/TT: 05/23/25 1210 Automotive Paint Technician: Procedure Note Donotuseinterpreter, Image - 05/23/[address] [address] XRay Report Signed Patient: Ira Ackerman#: [id number] : 1965Acct:[id number] Age/Sex: 60 / FADM Date: 05/23/25 Loc: .HHCX Attending Dr: Taylor Johnson MD Ordering Physician: Taylor Johnson MD Date of Service: 05/23/25 Procedure(s): XR Knee Ludwig 3V Accession Number(s): [id number] cc: Alexandra Pillai MD; Taylor Johnson MD EXAMINATION: X-ray knees, bilaterally CLINICAL INFORMATION: Knee pain. TECHNIQUE: AP in standing position. Lateral views both knees. COMPARISON: December 18, 2021 and October 09, 2020. FINDINGS: There is a lucency involving the medial tibial plateau left knee. No acute cortical disruption or malalignment. No suprapatellar bursa joint effusion Mild joint space narrowing involving the medial compartment. XR/XR Knee Ludwig 3V IMPRESSION: Lucent abnormality in the medial tibial plateau left knee. Recommend CT versus MRI for further imaging evaluation. Mild medial compartmental osteoarthrosis.. Electronically signed by: Rich Burger MD 05/23/2025 12:43 PM EDT RP Dictated By: Rich Hogan MD Signed By: <Electronically signed by Rich Cohn MDin OV> 05/23/25 1243 DD/ 1204 TD/TT: 05/23/25 1210 Automotive Paint Technician: [facility] External Provider IMG XR PROCEDURES Final Result * Lipid Panel, Standard (06/26/2024 9:18 AM EDT) Triglycerides 129 <150 mg/dL [facility] Comment:Desirable Triglyceri de: less than 150 mg/dLBorderline High Triglyceride 150-199 mg/dLHigh Triglyceride: 200-499 mg/dLVery High Triglyceride: greater than or equal to 5OO mg/dL Cholesterol 125 <200 mg/dL [facility] Comment:Desirable Cholestero l: less than 200 mg/dLBorderline High Cholesterol: 200-239 mg/dLHigh Cholesterol: greater than 239 mg/dL LDL Cholesterol Calculated 59 <100 mg/dL [facility] Comment:Desirable LDL: less than 100 mg/dLNear Optimal/Above Optimal LDL: 110- 129 mg/dLBorderline High LDL: 130-159 mg/dLHigh LDL: 160-189 mg/dLVery High LDL: greater than or equal to 190 mg/dL HDL Cholesterol 41 >40 mg/dL [facility] Comment:Desirable HDL: great er than 40 mg/dL Note: This HDL assay may give artificially low results in patients with liver disease. Blood Venous blood specimen / Unknown 06/26/2024 9:18 AM EDT 06/26/2024 11:35 AM EDT us Alexandra Ahn MD LAB BLOOD ORDERABLES Final Result [facility] [address] [place], [place] [phone] * HIV AB/AG (11/16/2019 9:40 AM EST) HIV AG/AB NONREACTIVE [facility] Comment: HIV-1 p24 Ag and/or HIV-1/HIV-2 Ab not detected. A test result that is nonreactive does not exclude the possibility of exposure to or infection with HIV-1 and/or HIV-2. Nonreactive results in this assay for individuals with prior exposure to HIV-1 and/or HIV-2 may be due to antigen and antibody levels that are below the limit of detection of this assay. The [employer] Branch Manager HIV Ag/Ab Combo assay result and supplemental assay results should be interpreted in conjunction with the patient's clinical presentation, history and other laboratory results. If the results are inconsistent with clinical evidence, additional testing is suggested to confirm the result. 11/16/2019 9:40 AM EST Alexandra Ahn MD HISTORICAL/NON ORDERA BLE LABS Final Result [facility] [address] * Hm Colonoscopy (04/01/2017) Historical Provider HEALTH MAINTENANCE Final Result from Last 3 Months or Most Recently Relevant to Health Maintenance Insurance [address] [place], [place] [id number] [place] [address] Care Teams Transfer And Pumphouse Operator Chief Relationship Specialty Start Date End Date Alexandra Pillai MD [address] [place] [address] PCP - General Family Medicine 06/05/19 Jacqueline Syed Housing AssistantElectric Mule Driver 08/01/25
--- OUTSIDE RECORDS SUMMARY | 2025-08-14 11:47 | XMS_ITS | Encounter Summary ---
Author Organization [employer] Address [address] [facility] 7t [place] [address] Care Team Providers Care Costume Director Name Role Phone Alexandra Pillai MD Primary Care Provide r Reason for Visit * Reason Onset Date Comments Call Back Request 02/27/2025 Encounter Details Date Type Department Care Team ([facility] Contact Info) Description 02/27/2025 Telephone [facility] MEDICINE [address] [place], [place] [phone] Alexandra Pillai MD [address] [place] [address] Call Back Request Social History Tobacco Use Types Packs/Day Years [...] encounter Miscellaneous Notes * Telephone Encounter - Lee Wynne - 02/27/2025 12:40 PM EDT Tc from pt requesting a callback as she will like to discuss some personal stuff with provider not with anyone else. Please return call [phone] (slovak speaker) documented in this encounter Plan of Treatment Upcoming Encounters Date Type Department Care Team (Late st Contact Info) Description 10/01/2025 1:45 PM EST Office Visit [facility] MEDICINE [address] [place] [address] Alexandra Pillai MD [address] [place] [address] 11/23/2025 1:30 PM EST Office Visit [facility] OPTOMETRY [address] [place] [address] Zohra Young OD [address] [place] [address] documented as of this encounter Visit Diagnoses Not on filedocumented in this encounter Additional Health Concerns Assessment Noted Time PHQ-9 Depression Total Score: 0 06/26/20 24 11:05 AM EDT documented as of this encounter Care Teams Costume Director Relationship Specialty Start Date End Date Alexandra Pillai MD [address] [place] [address] PCP - General Family Medicine 06/05/19 Jacqueline Seyd Low Pressure Kettle OperatorTranscription Specialist 08/01/25 documented as of this encounter
--- OUTSIDE RECORDS SUMMARY | 2025-08-14 11:47 | XMS_ITS | Encounter Summary ---
Author Organization [employer] Address [address] [facility] 7t [place] [address] Care Team Providers Care Print Designer Name Role Phone Alexandra Pillai MD Primary Care Provide r Reason for Visit * Reason Comments Med Refill Encounter Details Date Type Department Care Team ([facility] st Contact Info) Description 06/13/2025 Refill [facility] CHC MED & PEDS [address] [place], [place] [phone] Alexandra Pillai MD [address] [place] [address] Primary insomnia Social History Tobacco Use Types Packs/Day Years [...] Answer Date Recorded Patient Health Questionnaire-2 Score 1 04/04/2025 Internet Access Answer Date Recorded Internet Access [...] Description 10/01/2025 1:45 PM EST Office Visit [facility] MEDICINE [address] [place] [address] Alexandra Pillai MD [address] [place] [address] 11/23/2025 1:30 PM EST Office Visit [facility] OPTOMETRY [address] [place] [address] Hector, Zohra, OD [address] [place] [address] documented as of this encounter Visit Diagnoses Diagnosis Primary insomnia Persistent disorder of initiating or maintaining sleep documented in this encounter Additional Health Concerns Assessment Noted Time PHQ-9 Depression Total Score: 12 025 3:41 PM EDT documented as of this encounter Care Teams Print Designer Relationship Specialty Start Date End Date Alexandra Pillai MD [address] [place] [address] PCP - General Family Medicine 06/05/19 Jacqueline Syed Program Director/Traffic DirectorLog Handling Equipment Operator 08/01/25 documented as of this encounter
--- OUTSIDE RECORDS SUMMARY | 2025-08-14 11:47 | XMS_ITS | Encounter Summary ---
Author Organization [employer] Address [address] [place] [address] [address] [address] Care Team Providers Care Range Mechanic Name Role Phone Alexandra Pillai MD Primary Care Provide r Reason for Visit * Reason Comments Med Refill Encounter Details Date Type Department Care Team (Late Contact Info) Description 07/02/2023 Refill [facility] MEDICINE [address] [place] [address] Ani Maciel MD [address] [place], [place] [phone] Mild persistent asthma without complication Social History [...] Description 10/01/2025 1:45 PM EST Office Visit [facility] MEDICINE [address] [place] [address] Alexandra Pillai MD [address] [place], [place] [phone] 11/23/2025 1:30 PM EST Office Visit [facility] OPTOMETRY [address] [place], [place] [phone] Zohra Young, OD [address] [place], [place] [phone] documented as of this encounter Visit Diagnoses Diagnosis Mild persistent asthma without complication documented in this encounter Additional Health Concerns Assessment Noted Time PHQ-9 Depression Total Score: 0 03/26/20 23 10:56 AM EDT documented as of this encounter Care Teams Range Mechanic Relationship Specialty Start Date End Date Alexandra Pillai MD [address] [place], [place] [phone] PCP - General Family Medicine 06/05/19 Jacqueline Syed Topology ProfessorBroadcast Designer 08/01/25 documented as of this encounter
--- OUTSIDE RECORDS SUMMARY | 2025-08-14 11:47 | XMS_ITS | Encounter Summary ---
Author Organization [employer] Address [address] [facility] 7t [place] [address] Care Team Providers Care Cloth Presser Name Role Phone Alexandra Pillai MD Primary Care Provide r Reason for Visit * Reason Comments Med Refill Encounter Details Date Type Department Care Team ([facility] st Contact Info) Description 06/12/2025 Refill [facility] MEDICINE [address] [place] [address] Alexandra Pillai MD [address] [place] [address] Primary insomnia Social History Tobacco Use Types [...] Description 10/01/2025 1:45 PM EST Office Visit [facility] MEDICINE [address] [place] [address] Alexandra Pillai MD [address] [place] [address] 11/23/2025 1:30 PM EST Office Visit [facility] OPTOMETRY [address] [place] [address] Hector, Zohra, OD [address] [place] [address] documented as of this encounter Visit Diagnoses Diagnosis Primary insomnia Persistent disorder of initiating or maintaining sleep documented in this encounter Additional Health Concerns Assessment Noted Time PHQ-9 Depression Total Score: 12 025 3:41 PM EDT documented as of this encounter Care Teams Cloth Presser Relationship Specialty Start Date End Date Alexandra Pillai MD [address] [place] [address] PCP - General Family Medicine 06/05/19 Jacqueline Syed Epic Beacon AnalystBag Loader Machine Operator 08/01/25 documented as of this encounter
--- OUTSIDE RECORDS SUMMARY | 2025-08-14 11:47 | XMS_ITS | Encounter Summary ---
Author Organization [employer] Address [address] [facility] 7t [place] [address] Care Team Providers Care Shoe Cleaner Name Role Phone Alexandra Pillai MD Primary Care Provide r Encounter Details Date Type Department Care Team (Late Contact Info) Description 07/28/2023 Orders Only [facility] MEDICINE [address] [place] [address] ProviderMirtha MD Social History Tobacco Use Types [...] 1:45 PM EST Office Visit [facility] MEDICINE [address] [place], [place] [phone] Alexandra Pillai MD [address] [place], [place] [phone] 11/23/2025 1:30 PM EST Office Visit [facility] OPTOMETRY [address] [place], [place] [phone] Zohra Young, OD [address] [place] [address] documented as of this encounter Procedures Procedure Name Priority Date/Time Associated Diagnosis Comments HM COLONOSCOPY Routine 04/01/2017 documented in this encounter Results * Hm Colonoscopy (04/01/2017) us Historical Provider HEALTH MAINTENANCE Final Result documented in this encounter Visit Diagnoses Not on filedocumented in this encounter Additional Health Concerns Assessment Noted Time PHQ-9 Depression Total Score: 0 03/26/20 23 10:56 AM EDT documented as of this encounter Care Teams Shoe Cleaner Relationship Specialty Start Date End Date Alexandra Pillai MD [address] [place] [address] PCP - General Family Medicine 06/05/19 Jacqueline Syed Consumer Electronics MerchandiserSenior Manager Creative Services 08/01/25 documented as of this encounter
--- OUTSIDE RECORDS SUMMARY | 2025-08-14 11:47 | XMS_ITS | Encounter Summary ---
Author Organization [employer] Address [address] [facility] 7t [place] [address] Care Team Providers Care Coke Production Heater Name Role Phone Alexandra Pillai MD Primary Care Provide r Reason for Visit * Reason Onset Date Comments Durable Medical Equipment 07/17/2024 Encounter Details Date Type Department Care Team ([facility] Contact Info) Description 07/17/2024 Telephone [facility] MEDICINE [address] [place], [place] [phone] Alexandra Pillai MD [address] [place] [address] Durable Medical Equipment Social History Tobacco Use [...] Ontiveros - 07/17/2024 3:16 PM EDT Tc katina Duran at [facility] requesting a portable Commode documented in this encounter Plan of Treatment Upcoming Encounters Date Type Department Care Team (Late st Contact Info) Description 10/01/2025 1:45 PM EST Office Visit [facility] MEDICINE [address] [place] [address] Alexandra Pillai MD [address] [place] [address] 11/23/2025 1:30 PM EST Office Visit [facility] OPTOMETRY [address] [place] [address] Zohra Young, OD [address] [place] [address] documented as of this encounter Visit Diagnoses Not on filedocumented in this encounter Additional Health Concerns Assessment Noted Time PHQ-9 Depression Total Score: 0 06/26/20 11:05 AM EDT documented as of this encounter Care Teams Coke Production Heater Relationship Specialty Start Date End Date Alexandra Pillai MD [address] [place] [address] PCP - General Family Medicine 06/05/19 Jacqueline Syed Claims AdjusterCardiac Exercise Physiologist 08/01/25 documented as of this encounter
--- OUTSIDE RECORDS SUMMARY | 2025-08-14 11:47 | XMS_ITS | Encounter Summary ---
Author Organization [employer] Address [address] [facility] 7t [place] [address] Care Team Providers Care Oracle Database Consultant Name Role Phone Alexandra Pillai MD Primary Care Provide r Reason for Visit * Reason Comments Med Refill Encounter Details Date Type Department Care Team ([facility] st Contact Info) Description 02/12/2025 Refill [facility] CHC MED & PEDS [address] [place], [place] [phone] Alexandra Pillai MD [address] [place] [address] Pain Social History Tobacco Use Types Packs/Day [...] Description 10/01/2025 1:45 PM EST Office Visit [facility] MEDICINE [address] [place] [address] Alexandra Pillai MD [address] [place] [address] 11/23/2025 1:30 PM EST Office Visit [facility] OPTOMETRY [address] [place] [address] Hector, Zohra, OD [address] [place] [address] documented as of this encounter Visit Diagnoses Diagnosis Pain Generalized pain documented in this encounter Additional Health Concerns Assessment Noted Time PHQ-9 Depression Total Score: 0 06/26/20 24 11:05 AM EDT documented as of this encounter Care Teams Oracle Database Consultant Relationship Specialty Start Date End Date Alexandra Pillai MD [address] [place] [address] PCP - General Family Medicine 06/05/19 Jacqueline Syed Account AnalystBlock Handler 08/01/25 documented as of this encounter
--- OUTSIDE RECORDS SUMMARY | 2025-08-14 11:47 | XMS_ITS | Clinical Summary ---
Author Organization [facility] Address [address] [place] [address] Care Team Providers Care Vice President Of Consulting Services Name Role Phone Alexandra Pillai MD Primary [...] NEEDED FOR SEVERE PAIN 2 Active Creon [id number] units capsule TAKE 1 CAPSULE BY MOUTH [...] 2015 Influenza Vaccine (#1) 2025 Insurance #[address] [place] [address] Medicaid [place] [address] [place] [address] Medicaid [place] Care Teams Vice President Of Consulting Services Relationship Specialty Start Date End Date Alexandra Pillai MD [address] [place] [phone] PCP - General Internal Medicine 01/19/22
--- OUTSIDE RECORDS SUMMARY | 2025-08-14 11:47 | XMS_ITS | Encounter Summary ---
Author Organization [employer] Address [address] [facility] 7t [place] [address] Care Team Providers Care Mid Wife Name Role Phone Alexandra Pillai MD Primary Care Provide r Reason for Visit * Reason Comments Med Refill Encounter Details Date Type Department Care Team ([facility] st Contact Info) Description 07/10/2024 Refill [facility] MEDICINE [address] [place] [address] Alexandra Pillai MD [address] [place] [address] Primary hypertension Social History Tobacco Use Types [...] Description 10/01/2025 1:45 PM EST Office Visit [facility] MEDICINE [address] [place] [address] Alexandra Pillai MD [address] [place] [address] 11/23/2025 1:30 PM EST Office Visit [facility] OPTOMETRY [address] [place] [address] Hector, Zohra, OD [address] [place] [address] documented as of this encounter Visit Diagnoses Diagnosis Primary hypertension Unspecified essential hypertension documented in this encounter Additional Health Concerns Assessment Noted Time PHQ-9 Depression Total Score: 0 06/26/20 24 11:05 AM EDT documented as of this encounter Care Teams Mid Wife Relationship Specialty Start Date End Date Alexandra Pillai MD [address] [place] [address] PCP - General Family Medicine 06/05/19 Jacqueline Syed Career Development SpecialistStaff Trainer 08/01/25 documented as of this encounter
== END 2025-08-14 10:39 | disposition home or self-care (01) ==
LOC: HO.HGI 10:02
PROVIDERS: PCP Internal Medicine; Visit Provider Nurse Practitioner
DX: K21.9 Gastro-esophageal reflux disease without esophagitis (principal); K59.04 Chronic idiopathic constipation; R14.0 Abdominal distension (gaseous)
CPT/HCPCS: 99213

== ENCOUNTER → 2025-08-14 10:01 | Outpatient (BNVA) | payer MEDICAID, SELFPAY | PROVIDERS: PCP Internal Medicine; Visit Provider Nurse Practitioner | DX: K59.04 Chronic idiopathic constipation (principal); K21.9 Gastro-esophageal reflux disease without esophagitis; R14.0 Abdominal distension (gaseous) | CPT/HCPCS: 99212 ==

== ENCOUNTER 2025-08-16 10:58 | Outpatient (AMB) | payer MEDICAID, SELFPAY ==
--- NOTE | 2025-08-16 11:21 | A.OFFVIS_ITS ---
Vital Signs 08/16/25 11:22 Height 5 ft 1 in Weight 188 lb BMI 35.5 BP 110/70 Blood Pressure Location Rt brachial Position Sitting Pulse 61 Pulse Source Pulse Oximeter Pulse Oximetry (%) 97 Oxygen Delivery Method Room Air Intake Visit Reasons: 1yr F/U Intake Note: Pt presents tot he office for new pt evaluation for sleep apnea. Insulation Manager Required: No Accompanied by: Self / Same As Patient Allergies Penicillins (PENICILLINS) Allergy (Mild, Verified 08/16/25 11:26) RASH Sulfa (Sulfonamide Antibiotics) (SULFA (SULFONAMIDE ANTIBIOTICS)) Allergy (Mild, Verified 08/16/25 11:26) BRUISING,SWOLLEN LIPS, rash, swollen lips penicillin V Allergy (Unknown, Verified 08/16/25 11:26) echymosis, rash as a child Medication List - Last Reconciled 08/16/25 by RONAL Falcon albuterol sulfate 90 mcg/actuation (ProAir HFA) 2 puffs inhalation Q6H PRN allopurinol 100 mg PO DAILY 90 days amitriptyline 100 mg PO BEDTIME amlodipine 2.5 mg PO QAM atorvastatin 20 mg PO QAM budesonide-formoterol 160-4.5 mcg/actuation (Symbicort) 1 puff inhalation DAILY buspirone 10 mg PO DAILY buspirone 15 mg PO BEDTIME cyclobenzaprine 10 mg PO TID diclofenac sodium 1% 2 grams topical BID famotidine 20 mg PO BID gabapentin mg PO glucose (Dex4 Glucose) 16 grams (4 x 4 gram) PO Q15M PRN lamotrigine 100 mg PO DAILY lidocaine 5% 1 patch topical NEEDED PRN linaclotide (Linzess) 145 mcg PO QAM depgao-fqsdmlwk-tudpbuq 24,000-76,000 -120,000 unit (Creon) 1 cap PO QID loratadine 10 mg PO QAM metoprolol succinate ER 50 mg PO QAM omeprazole 40 mg PO DAILY 30 days oxycodone 15 mg PO QID PRN sennosides (senna) 17.2 mg (2 x 8.6 mg) PO BEDTIME simethicone (Gas Relief (simethicone)) 180 mg PO QID zolpidem 5 mg PO BEDTIME HPI Comments Details: 60 y/o female patient presents for follow-up of sleep apnea, however she would also like to discuss worsening headaches. She reports she continues to sleep well with her CPAP machine. However, she states she needs new order for CPAP supplies. She reports that she started having headaches about a year ago, which were originally occurring sporadically. However in the last 3 months, they have increased to the point where she is now having 3 headache days per week. She has not had any head imaging since the onset of these headaches a year ago. Typical headache characteristics * Prodrome symptoms: Unsure * Aura: Denies * Pain intensity: Moderate to severe * Location, quality, characteristics: Pressure starting in the bilateral temples and forehead becoming holocranial * Associated symptoms: Photophobia, blurry vision, phonophobia, at times melvi sea, dry mouth, activity intolerance * Atypical associated symptoms denies * Postdrome: Denies * Aggravating factors during this headache: Activity * Triggers that provoke this headache: Unsure * Alleviating factors: Spinal injections is helpful, administered by framer, Dr. Johnson at [facility]. She uses oxycodone for chronic pain. * Time of day this headache usually occurs: More so in the afternoon * Duration and Frequency: 2-3 hours, 1-3 days per week * Headache impact on the patient's quality of life: Interferes with daily activities Family history of headache disorders: Her mother had migraine 90-day CPAP compliance report Compliance report: 05/18/2025 to 08/15/2025 Overall PAP usage: 100% Usage greater than 4 hours: 99% Average usage days used: 9 hours and 14 minutes AirSense 10 autoset for her Serial number:[id number] Mode: CPAP 12 cm H2O with EPR 3, full-time Therapy leaks: Median 3.5 L/min Maximum 51 L/min Residual AHI 1.4 per hour [facility] Medical History (Updated 08/16/25 @ 13:13 by RONAL Falcon) Vitamin D deficiency Anemia Cyst of kidney, acquired Dysphagia Pre-op examination Upper abdominal pain Sensation of pressure in bladder area Decreased thyroid stimulating hormone (TSH) level Essential hypertension Hypoglycemia Prediabetes FRIEDA on CPAP Early satiety Epigastric pain Sleep apnea HTN (hypertension) Kidney stone Asthma Surgical History Hx of colonoscopy Previous back surgery Hx of endoscopy Family History Father History of cancer Mother Hx of diabetes mellitus Social History Household Members: Spouse Alcohol intake: never Patient Tobacco Use Status: Never used Tobacco Physical Exam Vital Signs: Last Vital Signs Pulse 61 08/16/25 11:22 BP 110/70 08/16/25 11:22 Pulse Ox 97 08/16/25 11:22 Oxygen Delivery Method Room Air 08/16/25 11:22 BMI result Body Mass Index 35.5 Const General: cooperative Orientation/consciousness: patient oriented x3 Resp Effort & Inspection: normal respiratory effort and able to speak in complete sentences Neuro General: patient oriented x3 Cranial nerves: Yes CN's II-XII intact bilaterally Cognition (Neuro): normal cognition Gait exam (Neuro): Normal gait present Motor exam (neuro): 5/5 motor strength present throughout Psych Appearance: grossly normal Mental Status: mental status grossly normal Speech and movement: Normal speech and movement present Affect: normal affect Attitude: cooperative Assessment & Plan Assessment & Plan (1) New onset headache: Code(s): R51.9 - Headache, unspecified Category: Medical (2) FRIEDA on CPAP: Code(s): G47.33 - Obstructive sleep apnea (adult) (pediatric) Category: Medical Plan For FRIEDA: Continue CPAP 12 cmH2O w/ EPR 3 nightly > 4 hours, as pt continues to have good clinical effect from use. * Clean CPAP machine and supplies routinely. * Change CPAP supplies routinely. * Use distilled water in CPAP water reservoir. * We will write a new CPAP supplies order * Pt to contact us or respiratory company with any questions or concerns. For worsening headache, which started proximally year ago in a female patient over the age of 50, patient is advised to undergo workup to assess for underlying secondary etiologies, including brain MRI with and without contrast and comprehensive lab workup. Patient is advised to undergo: Brain MRI with and without contrast Fasting lab work For headache prevention: Start riboflavin 400 mg daily in the morning Start magnesium 400 mg daily at bedtime Continue amitriptyline 100 mg daily at bedtime For acute headache treatment: May continue as needed OTC analgesics and rest. Future considerations: Triptan versus gepant Will follow-up upon review of above and patient to follow-up in clinic in 3-4 months or sooner prn. Orders: Orders Complete Blood Count Auto Diff 08/16/25 R51.9 - Headache, unspecified, D64.9 - Anemia, unspecified, I10 - Essential (primary) hypertension JAYA Reflex Titer and Pattern 08/16/25 R51.9 - Headache, unspecified, M25.50 - Pain in unspecified joint, H53.9 - Unspecified visual disturbance Erythrocyte Sedimentation Rate 08/16/25 R51.9 - Headache, unspecified, D64.9 - Anemia, unspecified, M25.50 - Pain in unspecified joint Ferritin 08/16/25 D64.9 - Anemia, unspecified, R51.9 - Headache, unspecified, I10 - Essential (primary) hypertension Magnesium 08/16/25 D64.9 - Anemia, unspecified, R51.9 - Headache, unspecified, I10 - Essential (primary) hypertension Vitamin B1 08/16/25 D64.9 - Anemia, unspecified, E51.9 - Thiamine deficiency, unspecified, R51.9 - Headache, unspecified Vitamin D 25-OH (D2 and D3) 08/16/25 E55.9 - Vitamin D deficiency, unspecified, M25.50 - Pain in unspecified joint, E66.9 - Obesity, unspecified TSH reflex Free T4 08/16/25 R51.9 - Headache, unspecified, I10 - Essential (primary) hypertension, D64.9 - Anemia, unspecified, E55.9 - Vitamin D deficiency, unspecified, H53.9 - Unspecified visual disturbance MR head/brain wo/w con 08/16/25 R51.9 - Headache, unspecified, H53.9 - Unspecified visual disturbance Comprehensive [place]. Panel Fast 08/16/25 R51.9 - Headache, unspecified, I10 - Essential (primary) hypertension Hemoglobin A1c 08/16/25 R73.03 - Prediabetes, R51.9 - Headache, unspecified, H53.9 - Unspecified visual disturbance, I10 - Essential (primary) hypertension Homocysteine 08/16/25 D64.9 - Anemia, unspecified, R51.9 - Headache, unspecified, I10 - Essential (primary) hypertension IRON PROFILE 08/16/25 D64.9 - Anemia, unspecified, R51.9 - Headache, unspecified, I10 - Essential (primary) hypertension Vitamin B12 and Folate 08/16/25 D64.9 - Anemia, unspecified, R51.9 - Headache, unspecified, H53.9 - Unspecified visual disturbance Lamotrigine Lamictal 08/16/25 H53.9 - Unspecified visual disturbance, R51.9 - Headache, unspecified Medications: New magnesium oxide may hold for loose stools 400 mg PO BEDTIME 90 tabs 3RF 90 days riboflavin (vitamin B2) 400 mg PO DAILY 90 tabs 3RF 90 days Coding Level of Care Code Est Pt Level 4 (12396) Diagnoses New onset headache R51.9 FRIEDA on CPAP G47.33
[2025-08-16 11:22] VITALS: BP 110/70; PULSE 61; O2SAT 97; BMI 35.5
== END 2025-08-16 12:19 | disposition home or self-care (01) ==
LOC: HO.HSMS 10:59
PROVIDERS: PCP Internal Medicine; Visit Provider Nurse Practitioner Family
DX: R51.9 Headache, unspecified (principal); G47.33 Obstructive sleep apnea (adult) (pediatric)
CPT/HCPCS: 99214

== ENCOUNTER → 2025-08-16 10:58 | Outpatient (BNVA) | payer MEDICAID, SELFPAY | PROVIDERS: PCP Internal Medicine; Visit Provider Nurse Practitioner Family | DX: G47.33 Obstructive sleep apnea (adult) (pediatric) (principal); Z99.89 Dependence on other enabling machines and devices; R51.9 Headache, unspecified | CPT/HCPCS: 99212 ==

== ENCOUNTER 2025-10-02 10:55 | Outpatient (REF) | payer MEDICAID, SELFPAY ==
--- OUTSIDE RECORDS SUMMARY | 2025-10-01 13:45 | XMS_ITS | Encounter Summary ---
Author Organization [employer] Address [address] [facility] [address] [place] [address] Care Team Providers Care Controller Repairer And Tester Name Role Phone Alexandra Pillai MD Primary Care Provide r Encounter Details Date Type Department Care Team (Latest Contact Info) Description 10/01/2025 1:45 PM EST Office Visit [facility] [address] [place] [address] Alexandra Pillai MD [address] [place] [address] Prediabetes (Primary Dx); Moderate persistent asthma, unspecified whether complicated; Pain; Migraine without aura, not refractory; Encounter for immunization; Venous insufficiency Social History Tobacco Use Types Packs/Day Years [...] AM EDT documented as of this encounter Last Filed Vital Signs Vital Sign Reading Time Taken Comments Blood Pressure 120/78 10/01/2025 1:53 PM EST Pulse 83 10/01/2025 1:53 PM EST Temperature 36.1 C (97 F) 10/01/2025 1:53 PM EST Respiratory Rate 18 10/01/2025 1:53 PM EST Oxygen Saturation 94% 10/01/2025 1:53 PM EST Inhaled Oxygen Concentration - - Weight 86.5 kg (190 lb 9.6 oz) 10/01/2025 1:53 P M EST Height 154.9 cm (5' 1 ) 10/01/2025 1:53 PM EST Body Mass Index 36.01 10/01/2025 1:53 PM EST documented in this encounter Progress Notes * Alexandra Ahn MD - 10/01/2025 1:45 PM EST SUBJECTIVE: Liliane Gatica is a 60 y.o. year old female who presents for Chronic Disease Management . Liliane Gatica, 60 years Headaches - History of headaches - Neurology and sleep specialist visit on August 16, 2025 for evaluation - Prescribed magnesium or vitamin for sleep improvement - Ordered blood tests and imaging with contrast for headaches; awaiting results and follow-up Venous Insufficiency - Cardiology visit on August 14, 2025 - Venous ultrasound of the legs performed; diagnosed with venous insufficiency - Prescribed compression therapy with pneumatic device (pants with foot covers) for leg massage, miguel used twice daily Weight Changes - Noted weight loss from 200 lb to 190 lb - Concern about possible weight regain Hypoglycemia - Self-monitored blood glucose measured at 69 mg/dL prior to visit - Treated with orange juice Pain - Reports leg pain associated with venous insufficiency - Uses diclofenac cream for pain relief Migraine - Migraine controlled with prescribed medication Sleep Disturbance - Sleep issues discussed with neurology and sleep specialist - Prescribed magnesium or vitamin to improve sleep Misc - Annual influenza and COVID vaccines received - Uses albuterol solution for unspecified indication Social History Social History Narrative Not on file Problem List[1] Hypertension Chronic low back pain Nephrolithiasis Migraine without aura, not refractory Mild intermittent asthma Incontinence Fibromyalgia Atypical chest pain Chronic constipation Chronic gastritis Cough variant asthma Moderate asthma Dizziness Dyspnea on exertion Herpes labialis Hyperlipidemia Obesity (BMI 30-39.9) Class 2 severe obesity due to excess calories with serious comorbidity and body mass index (BMI) of38.0 to 38.9 in adult Senile hyperkeratosis Pain of left thumb Colon cancer screening Encounter for screening mammogram for malignant neoplasm of breast Dry skin dermatitis Palmoplantar keratoderma Vaginal itching FRIEDA (obstructive sleep apnea) Carpal tunnel syndrome of left wrist Mixed stress and urge urinary incontinence Bladder pain Hypokalemia Spondylosis Mixed incontinence urge and stress Urge incontinence of urine Kidney stone Obstructive sleep apnea syndrome Foot callus Tinea pedis Benign essential hypertension Chronic pruritus Chronic bilateral low back pain with bilateral sciatica Chronic diarrhea Bloating Hypoglycemia External hemorrhoid, bleeding Primary insomnia Left flank pain Dysphonia Prediabetes Family History[2] Review of Systems Constitutional: Negative. HENT: Negative. Respiratory: Negative. Cardiovascular: Positive for leg swelling. Negative for chest pain and palpitations. Musculoskeletal: Positive for arthralgias and myalgias. Neurological: Positive for headaches. OBJECTIVE: Vitals: 10/01/25 1353 BP: 120/78 BP Location: Left arm Patient Position: Sitting BP Cuff Size: Adult Pulse: 83 Resp: 18 Temp: 97 ??F (36.1 ??C) TempSrc: Temporal SpO2: 94% Weight: 190 lb 9.6 oz (86.5 kg) Height: 5' 1 (1.549 m) Physical Exam Constitutional: Appearance: Normal appearance. Cardiovascular: Rate and Rhythm: Normal rate and regular rhythm. Pulmonary: Effort: Pulmonary effort is normal. Breath sounds: Normal breath sounds. Abdominal: General: Abdomen is flat. Palpations: Abdomen is soft. Musculoskeletal: Right lower leg: No edema. Left lower leg: No edema. Neurological: Mental Status: She is alert. Follow Up: No follow-ups on file. Medications Ordered Prior to Encounter[3] Problem List Items Addressed This Visit Prediabetes - Primary Moderate asthma Relevant Medications albuterol (2.5 MG/3ML) 0.083% nebulizer solution Migraine without aura, not refractory Relevant Medications eldawlarkb-fbzwywsxsilql-xowfmwgj 50-325-40 MG tablet Venous insufficiency Other Visit Diagnoses Pain Relevant Medications Diclofenac Sodium 1 % gel Encounter for immunization Relevant Orders FLU VACCINE TRIVALENT [id number] (Fluarix) 19 yrs + (Completed) POCT Hgb A1c (Completed) Prediabetes: - Prediabetes monitored; glucose measured at 69 mg/dL during the encounter. - Recommended adherence to a healthy diet and regular exercise. Will repeat glucose testing in 3 months. Moderate persistent asthma, unspecified whether complicated: - Asthma managed with albuterol solution. - Provided refill of albuterol solution. Pain: - Pain managed with diclofenac cream and gel. - Provided refill of diclofenac cream and gel. Migraine without aura, not refractory: - Migraine controlled with prescribed medication. - Provided prescription for migraine medication. Encounter for immunization: - Immunization discussed; patient receives annual influenza vaccine and COVID vaccine. - Will administer influenza vaccine at next visit in 3 months. Venous insufficiency: - Venous insufficiency confirmed; managed with compression therapy. - Recommended use of compression device (pants) for 1 hour in the morning or midday and 1 hour at night before bed. Advised follow-up with coach builder for further evaluation. This note was drafted using [employer]) technology. The patient/patient's guardian has been informed and has consented to the use of this technology: Yes [1] Patient Active Problem List Diagnosis Hypertension Chronic low back pain Nephrolithiasis Migraine without aura, not refractory Mild intermittent asthma Incontinence Fibromyalgia Atypical chest pain Chronic constipation Chronic gastritis Cough variant asthma Moderate asthma Dizziness Dyspnea on exertion Herpes labialis Hyperlipidemia Obesity (BMI 30-39.9) Class 2 severe obesity due to excess calories with serious comorbidity and body mass index (BMI) of38.0 to 38.9 in adult Senile hyperkeratosis Pain of left thumb Colon cancer screening Encounter for screening mammogram for malignant neoplasm of breast Dry skin dermatitis Palmoplantar keratoderma Vaginal itching FRIEDA (obstructive sleep apnea) Carpal tunnel syndrome of left wrist Mixed stress and urge urinary incontinence Bladder pain Hypokalemia Spondylosis Mixed incontinence urge and stress Urge incontinence of urine Kidney stone Obstructive sleep apnea syndrome Foot callus Tinea pedis Benign essential hypertension Chronic pruritus Chronic bilateral low back pain with bilateral sciatica Chronic diarrhea Bloating Hypoglycemia External hemorrhoid, bleeding Primary insomnia Left flank pain Dysphonia Prediabetes Venous insufficiency [2] Family History Problem Relation Name Age of Onset Hypertension Mother Heart disease Mother Esophageal cancer Father [3] Current Outpatient Medications on File Prior to Visit Medication Sig Dispense Refill acyclovir (Zovirax) 400 MG tablet TAKE 1 TABLET BY MOUTH TWICE DAILY IN THE MORNING AND IN THE EVENING 60 tablet 1 albuterol 108 (90 Base) MCG/ACT inhaler Inhale 2 puffs every 6 (six) hours if needed for wheezing. 18 g 0 Alcohol Swabs 70 % pads USE TO TEST BLOOD SUGAR TWICE A DAY 100 each 3 amitriptyline (Elavil) 100 MG tablet Take 100 mg by mouth at bedtime. amLODIPine (Norvasc) 2.5 MG tablet TAKE 1 TABLET BY MOUTH EVERY MORNING 90 tablet 1 ammonium lactate (Lac-Hydrin) 12 % lotion APPLY TOPICALLY NEEDED FOR DRY SKIN 450 g 1 atorvastatin (Lipitor) 20 MG tablet TAKE 1 TABLET BY MOUTH EVERY MORNING 90 tablet 1 Blood Glucose Monitoring Suppl (Porphyrio [place] Lite) w/Device kit Use to test blood sugar 2 times daily 1 kit 0 Blood Pressure Monitor kit Use as directed 3x/week 1 kit 0 budesonide-formoterol (Symbicort) 160-4.5 MCG/ACT inhaler INHALE 1 PUFF TWICE DAILY IN THE MORNING AND IN THE EVENING. RINSE MOUTH AFTER USING. 6 g 5 busPIRone (Buspar) 10 MG tablet TAKE 1 TABLET BY MOUTH EVERY MORNING (TAKE WITH 15mg AT BEDTIME) busPIRone (Buspar) 15 MG tablet TAKE 1 TABLET BY MOUTH AT BEDTIME (TAKE WITH 10mg EVERY MORNING) cholecalciferol (Vitamin D-3) 25 MCG tablet TAKE 1 TABLET BY MOUTH EVERY MORNING 90 tablet 3 Creon [id number] units capsule Take 1 capsule by mouth 4 times daily. cyclobenzaprine (Flexeril) 10 MG tablet TAKE 1 TABLET BY MOUTH THREE TIMES DAILY 90 tablet 3 famotidine (Pepcid) 20 MG tablet TAKE 1 TABLET BY MOUTH TWICE DAILY IN THE MORNING AND AT BEDTIME FREESTYLE LITE test strip Use to test blood sugar 2 times daily 100 each 12 furosemide (Lasix) 20 MG tablet Take 20 mg by mouth in the morning. lamoTRIgine (LaMICtal) 100 MG tablet TAKE 1 TABLET BY MOUTH EVERYDAY AT NOON lidocaine (Lidoderm) 5 % patch APPLY 1 PATCH TOPICALLY TO SKIN, LEAVE ON FOR 12 HOURS AND OFF FOR 12 HOURS DIRECTED 30 patch 3 loratadine (Claritin) 10 MG tablet TAKE 1 TABLET BY MOUTH EVERY MORNING 90 tablet 1 meloxicam (Mobic) 7.5 MG tablet TAKE 1 TABLET BY MOUTH EVERY DAY NEEDED FOR BACK PAIN 30 tablet 1 metoprolol succinate XL (Toprol XL) 50 MG 24 hr tablet Take 1 tablet (50 mg) by mouth in the morning. Do not crush or chew. 90 tablet 0 omeprazole (PriLOSEC) [address] capsule Take 1 capsule (40 mg) by mouth in the morning. 30 capsule 0 oxyCODONE-acetaminophen (Percocet) 10-325 MG tablet TAKE 1 TABLET BY MOUTH EVERY 6 HOURS NEEDED FOR SEVERE PAIN phentermine 15 MG capsule Take 1 capsule (15 mg) by mouth before breakfast. 30 capsule 0 Proctozone-HC 2.5 % rectal cream INSERT RECTALLY TWICE DAILY 30 g 3 senna (Senokot) 8.6 MG tablet TAKE 2 TABLETS BY MOUTH EVERY DAY AT BEDTIME simethicone (Mylicon,Gas-X) 180 MG capsule Take 1 capsule (180 mg) by mouth every 8 (eight) hours if needed for flatulence. 90 capsule 1 Simethicone Ultra Strength 180 MG capsule Take 180 mg by mouth 4 times daily. TRUEplus Lancets 33G misc USE DIRECTED TO TEST BLOOD SUGAR TWICE DAILY 100 each 3 Trulance tablet tablet Take 1 tablet by mouth in the morning. urea (Carmol) 40 % cream APPLY TO THE AFFECTED AREA(S) TOPICALLY TWICE DAILY 85 g 2 zolpidem (Ambien) 5 MG tablet TAKE 1 TABLET BY MOUTH EVERY DAY AT BEDTIME NEEDED FOR SLEEP 30 tablet 2 [DISCONTINUED] albuterol (2.5 MG/3ML) 0.083% nebulizer solution Take 3 mL (2.5 mg) by nebulization every 4 (four) hours if needed for wheezing. 75 mL 3 [DISCONTINUED] albuterol (2.5 MG/3ML) 0.083% nebulizer solution INHALE 1 AMPULE USING A NEBULIZER EVERY 4 HOURS NEEDED FOR WHEEZING 90 mL 3 [DISCONTINUED] yfyglrbgkt-swrwoebwevxmb-krtafmvc 50-325-40 MG tablet TAKE 1 TABLET BY MOUTH EVERY 4HOURS 15 tablet 2 [DISCONTINUED] Diclofenac Sodium 1 % gel APPLY 2 GRAMS TOPICALLY TO AFFECTED AREA(S) TWICE DAILY 100 g 3 No current facility-administered medications on file prior to visit. documented in this encounter Plan of Treatment Upcoming Encounters Date Type Department Care Team (Late st Contact Info) Description 11/23/2025 1:30 PM EST Office Visit [facility] [address] [place], [place] [phone] Zohra Young, OD [address] [place] [address] 01/03/2026 1:45 PM EST Office Visit [facility] [address] [place] [address] Alexandra Pillai MD [address] [place], [place] [phone] documented as of this encounter Procedures Procedure Name Priority Date/Time Associated Diagnosis Comments POCT GLYCATED HEMOGLOBIN, TOTAL Routine 10/01/2025 2:37 PM EST Encounter for immunization documented in this encounter Results * (ABNORMAL) POCT Hgb A1c (10/01/2025 2:37 PM EST) Hemoglobin A1C 6.0(A) 4.0 - 5.7 % QC Media Lot # [id number] Lot# Expiration Date [id number] Blood 10/01/2025 2:37 PM EST us Alexandra Ahn MD POINT OF CARE TEST EN TER/EDIT ORDERABLES Final Result documented in this encounter Visit Diagnoses Diagnosis Prediabetes- Primary Other abnormal glucose Moderate persistent asthma, unspecified whether complicated Pain Generalized pain Migraine without aura, not refractory Encounter for immunization Venous insufficiency Unspecified venous (peripheral) insufficiency documented in this encounter Additional Health Concerns Assessment Noted Time PHQ-9 Depression Total Score: 12 04/04/ 025 3:41 PM EDT documented as of this encounter Care Teams Controller Repairer And Tester Relationship Specialty Start Date End Date Alexandra Pillai MD [address] [place] [id number] PCP - General Family Medicine 06/05/19 Jacqueline Syed Educational AdvisorSearch Analyst 08/01/25 documented as of this encounter
[2025-10-02 11:21] LABS: MANUAL DIFF FLAG NO
[2025-10-02 11:42] LABS: Hematocrit 40.1 % (37.0-47.0); Hemoglobin 12.7 g/dl (12.0-16.0); Imm Gran Abs Auto 0.02 X10*3/uL (0.00-0.03); Imm Gran Pct Auto 0.3 % (0.0-0.4); Lymphocytes Absolute Auto 2.9 X10*3/uL (1.2-4.9); Mean Corpuscular HGB Conc 31.7 g/dl (31.0-35.0); Mean Corpuscular Hemoglobin 29.2 pg (27.0-33.0); Mean Corpuscular Volume 92.2 fL (80.0-98.0); NRBC Abs Auto 0.000 X10*3/uL (0.0-0.012); NRBC Pct Auto 0.0 /100WBC (0.0-0.2); Platelet Count 250 X10*3/uL (160-400); Red Blood Count 4.35 X10*6/uL (4.20-5.50); White Blood Count 7.5 X10*3/uL (4.8-10.8)
[2025-10-02 12:36] LABS: Alanine Aminotransferase 16 U/L (0-31); Albumin Level 4.1 g/dL (3.5-5.0); Alkaline Phosphatase 104 U/L (39-117); Anion Gap 13 (12-20); Aspartate Amino Transferase 21 U/L (5-31); Blood Urea Nitrogen 17 mg/dL (9-16); Calcium 9.3 mg/dL (8.4-10.2); Carbon Dioxide 27 mmol/L (22-29); Chloride 105 mmol/L (96-108); Estimated Glomerular Filt Rate > 60; Iron 71 mcg/dL (30-160); Magnesium 2.1 mg/dL (1.6-2.6); Percent Iron Saturation 26 % (15-50); Potassium 3.8 mmol/L (3.3-5.1); Sodium 141 mmol/L (135-145); Total Iron Binding Capacity 273 mcg/dL (228-428); Total Protein 6.8 g/dL (6.5-8.0); Unsaturated Iron Binding 202 ug/dL
[2025-10-02 12:58] LABS: Ferritin 60 ng/mL (10-250)
[2025-10-02 13:03] LABS: Folate 12.3 ng/mL (> or = 4.0); Vitamin B12 339 pg/mL (200-900)
--- OUTSIDE RECORDS SUMMARY | 2025-10-02 14:20 | XMS_ITS | Encounter Summary ---
Author Organization [employer] Address [address] [facility] [address] [place] [address] Care Team Providers Care Tin Plater Name Role Phone Alexandra Pillai MD Primary Care Provide r Reason for Visit * Reason Comments Med Refill Encounter Details Date Type Department Care Team ([facility] st Contact Info) Description 06/12/2025 Refill [facility] [address] [place] [address] Alexandra Pillai MD [address] [place] [address] Primary insomnia Social History Tobacco Use Types [...] Description 11/23/2025 1:30 PM EST Office Visit [facility] [address] [place] [address] Zohra Young, OD [address] [place] [address] 01/03/2026 1:45 PM EST Office Visit [facility] [address] [place] [address] Alexandra Pillai MD [address] [place] [address] documented as of this encounter Visit Diagnoses Diagnosis Primary insomnia Persistent disorder of initiating or maintaining sleep documented in this encounter Additional Health Concerns Assessment Noted Time PHQ-9 Depression Total Score: 12 025 3:41 PM EDT documented as of this encounter Care Teams Tin Plater Relationship Specialty Start Date End Date Alexandra Pillai MD [address] [place] [address] PCP - General Family Medicine 06/05/19 Jacqueline Syed Field Horticultural Specialty GrowerElectrical Engineering Drafting Officer 08/01/25 documented as of this encounter
--- OUTSIDE RECORDS SUMMARY | 2025-10-02 14:20 | XMS_ITS | Encounter Summary ---
Author Organization [employer] Address [address] [facility] [address] [place] [address] Care Team Providers Care Clay Worker Name Role Phone Alexandra Pillai MD Primary Care Provide r Reason for Visit * Reason Comments Med Refill Encounter Details Date Type Department Care Team ([facility] st Contact Info) Description 06/13/2025 Refill [facility] [address] [place], [place] [phone] Alexandra Pillai MD [address] [place] [address] Primary insomnia Social History Tobacco Use Types [...] Description 11/23/2025 1:30 PM EST Office Visit [facility] [address] [place] [address] Hector, Zohra, OD [address] [place] [address] 01/03/2026 1:45 PM EST Office Visit [facility] [address] [place] [address] Alexandra Pillai MD [address] [place] [address] documented as of this encounter Visit Diagnoses Diagnosis Primary insomnia Persistent disorder of initiating or maintaining sleep documented in this encounter Additional Health Concerns Assessment Noted Time PHQ-9 Depression Total Score: 12 025 3:41 PM EDT documented as of this encounter Care Teams Clay Worker Relationship Specialty Start Date End Date Alexandra Pillai MD [address] [place] [address] PCP - General Family Medicine 06/05/19 Jacqueline Syed Resume SpecialistHousing Case Manager 08/01/25 documented as of this encounter
--- OUTSIDE RECORDS SUMMARY | 2025-10-02 14:20 | XMS_ITS | Encounter Summary ---
Author Organization [employer] Address [address] [facility] [address] [place] [address] Care Team Providers Care Soap Press Feeder Name Role Phone Alexandra Pillai MD Primary Care Provide r Encounter Details Date Type Department Care Team (Latest Contact Info) Description 10/01/2025 Travel Social History Tobacco Use Types Packs/Day Years [...] Description 11/23/2025 1:30 PM EST Office Visit [facility] [address] [place] [address] HectorZohra greene, OD [address] [place] [address] 01/03/2026 1:45 PM EST Office Visit [facility] [address] [place] [address] Alexandra Pillai MD [address] [place] [address] documented as of this encounter Visit Diagnoses Not on filedocumented in this encounter Additional Health Concerns Assessment Noted Time PHQ-9 Depression Total Score: 12 025 3:41 PM EDT documented as of this encounter Care Teams Soap Press Feeder Relationship Specialty Start Date End Date Alexandra Pillai MD [address] [place] [address] PCP - General Family Medicine 06/05/19 Jacqueline Syed Gluing Crew LeaderBrick Washer 08/01/25 documented as of this encounter
--- OUTSIDE RECORDS SUMMARY | 2025-10-02 14:20 | XMS_ITS | Clinical Summary ---
Author Organization [employer] Address [address] [facility] [address] [place] [address] Care Team Providers Care Belt Polisher Name Role Phone Alexandra Pillai MD Primary [...] 20 mg by mouth in the morning. 023 Active lamoTRIgine (LaMICtal) 100 MG tablet TAKE 1 TABLET BY MOUTH EVERYDAY AT NOON Active oxyCODONE-aceta minophen (Percocet) 10-325 MG tablet TAKE 1 TABLET BY MOUTH EVERY 6 HOURS NEEDED FOR SEVERE PAIN Active Creon 06226-51282 units capsule Take 1 capsule by mouth [...] mg) by mouth before breakfast. 30 capsule Active senna (Senokot) 8.6 MG tablet TAKE 2 TABLETS BY MOUTH EVERY DAY AT BEDTIME Active Blood Pressure Monitor kitIndications: Primary hypertension Use as directed 3x/week 1 kit Active simethicone (Mylicon,Gas-X) 180 MG capsuleIndicati ons:Bloating Take 1 capsule (180 mg) by mouth every 8 (eight) hours if needed for flatulence. 90 capsule 1 Active omeprazole (PriLOSEC) [address] capsuleIndicati ons:Bloating Take 1 capsule (40 mg) by mouth in the morning. 30 capsule Active FREESTYLE LITE test stripIndication s:Hypoglycemia Use to test blood sugar 2 times daily 100 each 12 5 1:26 PM EST 2025 Active Blood Glucose Monitoring Suppl (FreeStyle [place] Lite) w/Device kitIndications: Hypoglycemia Use to test blood sugar 2 times daily 1 kit Active albuterol 108 (90 Base) MCG/ACT inhalerIndicati ons:Moderate persistent asthma, unspecified whether complicated Inhale 2 puffs every 6 (six) hours if needed for wheezing. 18 g Active cholecalciferol (Vitamin D-3) 25 MCG tabletIndicatio ns:Vitamin D deficiency TAKE 1 TABLET BY MOUTH EVERY MORNING 90 tablet 3 025 Active ammonium lactate (Lac-Hydrin) 12 % lotionIndicatio ns:Dry skin dermatitis APPLY TOPICALLY NEEDED FOR DRY SKIN 450 g 1 025 Active Proctozone-HC 2.5 % rectal creamIndication s:External hemorrhoid, bleeding INSERT RECTALLY TWICE DAILY 30 g 3 025 Active budesonide-form oterol (Symbicort) 160-4.5 MCG/ACT inhalerIndicati ons:Moderate persistent asthma, unspecified whether complicated INHALE 1 PUFF TWICE DAILY IN THE MORNING AND IN THE EVENING. RINSE MOUTH AFTER USING. 6 g 5 5 1:26 PM EST 025 Active Alcohol Swabs 70 % padsIndications :Hypoglycemia USE TO TEST BLOOD SUGAR TWICE A DAY 100 each 3 025 Active atorvastatin (Lipitor) 20 MG tablet TAKE 1 TABLET BY MOUTH EVERY MORNING 90 tablet 1 025 Active lidocaine (Lidoderm) 5 % patch APPLY 1 PATCH TOPICALLY TO SKIN, LEAVE ON FOR 12 HOURS AND OFF FOR 12 HOURS DIRECTED 30 patch 3 025 Active amLODIPine (Norvasc) 2.5 MG tabletIndicatio ns:Primary hypertension TAKE 1 TABLET BY MOUTH EVERY MORNING 90 tablet 1 025 Active cyclobenzaprine (Flexeril) 10 MG tablet TAKE 1 TABLET BY MOUTH THREE TIMES DAILY 90 tablet 3 025 Active TRUEplus Lancets 33G miscIndications :Hypoglycemia USE DIRECTED TO TEST BLOOD SUGAR TWICE DAILY 100 each 3 5 1:26 PM EST 025 Active loratadine (Claritin) 10 MG tabletIndicatio ns:Primary hypertension TAKE 1 TABLET BY MOUTH EVERY MORNING 90 tablet 1 025 Active acyclovir (Zovirax) 400 MG tablet TAKE 1 TABLET BY MOUTH TWICE DAILY IN THE MORNING AND IN THE EVENING 60 tablet 1 025 Active zolpidem (Ambien) 5 MG tabletIndicatio ns:Primary insomnia TAKE 1 TABLET BY MOUTH EVERY DAY AT BEDTIME NEEDED FOR SLEEP 30 tablet 2 025 Active albuterol (2.5 MG/3ML) 0.083% nebulizer solutionIndicat ions:Moderate persistent asthma, unspecified whether complicated Take 3 mL (2.5 mg) by nebulization every 6 (six) hours if needed for wheezing. 90 mL 3 5 11:51 AM EST Active Diclofenac Sodium 1 % gelIndications: Pain APPLY 2 GRAMS TOPICALLY TO AFFECTED AREA(S) TWICE DAILY 100 g 3 5 11:51 AM EST 025 Active butalbital-acet aminophen-caffe ine 50-325-40 MG tabletIndicatio ns:Migraine without aura, not refractory Take 1 tablet by mouth every 4 (four) hours. 15 tablet 2 5 11:51 AM EST 025 Active Diclofenac Sodium 1 % gelIndications: Pain APPLY 2 GRAMS TOPICALLY TO AFFECTED AREA(S) TWICE DAILY 100 g 3 024 2024 Discontinued(R eorder (will not trigger notification to Pharmacy)) albuterol (2.5 MG/3ML) 0.083% nebulizer solutionIndicat ions:Moderate persistent asthma, unspecified whether complicated Take 3 mL (2.5 mg) by nebulization every 4 (four) hours if needed for wheezing. 75 mL 3 024 2024 Discontinued loratadine (Claritin) 10 MG tabletIndicatio ns:Primary hypertension TAKE 1 TABLET BY MOUTH EVERY MORNING 90 tablet 1 025 2024 Discontinued acyclovir (Zovirax) 400 MG tablet TAKE 1 TABLET BY MOUTH TWICE DAILY IN THE MORNING AND IN THE EVENING 60 tablet 5 025 2024 Discontinued butalbital-acet aminophen-caffe ine 50-325-40 MG tabletIndicatio ns:Migraine without aura, not refractory TAKE 1 TABLET BY MOUTH EVERY 4 HOURS 15 tablet 2 025 2024 Discontinued(R eorder (will not trigger notification to Pharmacy)) zolpidem (Ambien) 5 MG tabletIndicatio ns:Primary insomnia TAKE 1 TABLET BY MOUTH EVERY DAY AT BEDTIME NEEDED FOR SLEEP 30 tablet 025 2024 Discontinued albuterol (2.5 MG/3ML) 0.083% nebulizer solutionIndicat ions:Moderate persistent asthma, unspecified whether complicated INHALE 1 AMPULE USING A NEBULIZER EVERY 4 HOURS NEEDED FOR WHEEZING 90 mL 3 025 2024 Discontinued(R eorder (will not trigger notification to Pharmacy)) Active Problems Problem Noted Date Diagnosed Date Venous insufficiency 10/01/2025 Dysphonia 07/05/2025 Assessment & Plan (07/05/2025 4:06 [...] Encounters Date Type Department Care Team Description 10/02/2025 Orders Only GENERIC EXTERNAL DATA DEPARTMENT Provider, Generic External Data 10/01/2025 1:45 PM EST Office Visit [address] [address] Alexandra Pillai MD Prediabetes (Primary Dx); Moderate persistent asthma, unspecified whether complicated; Pain; Migraine without aura, not refractory; Encounter for immunization; Venous insufficiency 10/01/2025 Travel 09/28/[address] [phone] Alexandra Pillai MD chart prep 09/26/[address] [address] Alexandra Pillai MD glucose monitor 09/26/[address] [phone] Alexandra Pillai MD Moderate persistent asthma, unspecified whether complicated 09/24/2025 Patient Outreach [address] [phone] Alexandra Pillai MD Pre-visit Planning ((Unable to reach for PVP screening, LVM) to be completed in office ) 09/13/2025 Refill [facility] [address] [place] [address] Alexandra Pillai MD Primary insomnia 09/07/2025 Refill [facility] [address] [place] [address] Alexandra Pillai MD Primary hypertension 08/28/2025 Refill [facility] [address] [place] [address] Alexandra Pillai MD Hypoglycemia 08/15/2025 Refill [facility] [address] [place] [address] Alexandra Pillai MD Primary insomnia 08/08/2025 Refill [facility] [address] [place] [phone] Alexandra Pillai MD 08/01/2025 Telephone [facility] [address] [place] [address] Alexandra Pillai MD Care Coordination (ICP Care Plan) 07/19/2025 Refill [facility] [address] [place] [address] Alexandra Pillai MD Primary insomnia 07/16/2025 Refill [facility] [address] [place] [phone] Alexandra Pillai MD Migraine without aura, not refractory 07/10/2025 Refill [facility] [address] [place] [phone] Alexandra Pillai MD Primary hypertension 07/06/2025 Refill [facility] [address] [place] [address] Alexandra Pillai MD 07/05/2025 3:15 PM EDT Office Visit [facility] [address] [place] [phone] Alexandra Pillai MD Primary hypertension (Primary Dx); Dysphonia; Prediabetes; Dietary counseling; Exercise counseling 07/05/2025 Travel 07/04/2025 Telephone [facility] [address] [place], [place] [phone] Alexandra Pillai MD chart prep from Last 3 Months Immunizations Immunization Administration Dates Next Due Hep A / Hep B 07/12/2009 Influenza Whole 07/12/2009 Influenza injectable quadriv alent IIV4 with preservative 10/03/2018,08/03/2017 Influenza injectable quadriv alent preservative free 09/28/2023,08/06/2022,08/14/2021,2019,08/25/2019,01/14/2017 Influenza, IIV3, injectable 09/25/2011, 0 Influenza, seasonal, injecta ble, preservative free 10/01/2025,09/26/2024 Pneumococcal Conjugate PCV 20 06/26/2024 Td (adult), [...] Mass Index 36.01 10/01/2025 1:53 PM EST Plan of Treatment Upcoming Encounters Date Type Department Care Team (Late st Contact Info) Description 11/23/2025 1:30 PM EST Office Visit [facility] [address] [place] [address] Zohra Young, OD [address] [place] [address] 01/03/2026 1:45 PM EST Office Visit [facility] [address] [place] [address] Alexandra Pillai MD [address] [place] [address] Health Maintenance Due Date Last Done Comments CT Colonography 1965 FIT DNA/Cologuard 1966 FIT 1965 FOBT 1965 Sigmoidoscopy 1965 Hepatitis C Screening 1984 Pap Smear 1987 HPV/Cotest 1996 Hepatitis B Vaccines (2 of 3 - Hep B Twinrix 3-dose series) 08/09/2009 07/12/2009 RSV Patients and Patients Aged 60 years or older (1 - Risk 50-74 years 1-dose series) 2016 Zoster Vaccines (1 of 2) 2016 COVID-19 Vaccine (4 - season) 2025 10/28/2021, 03/27/2021, 02/27/2021 SDOH Screening 12/21/2025 12/21/2024 Diabetes: Hemoglobin A1C 01/02/2026 025, 10/01/2025, 07/05/2025, Additional history exists Depression Monitoring 01/05/2026 07/05/2025, 025 Alcohol/Substance Use Screening 04/04/2026 04/04/2025 Disability Screening 04/04/2026 04/04/2025 Mammogram 05/31/2026 05/31/2025, 05/08, 05/20/2023, Additional history exists Tobacco Screening 10/01/2026 10/01/2025 Colonoscopy 04/01/2027 04/01/2017 Colorectal Cancer Screening 04/01/2027 DTaP/Tdap/Td Vaccines (2 - Td or Tdap) 05/25/2027 05/25/2017, 07/12/2009 Lipid Panel 06/26/2029 06/26/2024, 03/09, 08/07/2022, Additional history exists Hepatitis A Vaccines Aged Out 07/12/2009 No long er eligible based on patient's age to complete this topic HIV Screening Completed 11/16/2019 Pneumococcal Vaccine: 50+ Years Completed 06/26/2024 Influenza Vaccine Completed 10/01/2025, , 09/28/2023, Additional history exists Cervical Cancer Screening Discontinued HIB Vaccines Aged [...] Procedure Name Priority Date/Time Associated Diagnosis Comments VITAMIN B12/FOLATE, SERUM PANEL Routine 10/02/2025 11:18 AM EST TSH W/REFLEX TO FT4 Routine 10/02/2025 1 1:18 AM EST FERRITIN Routine 10/02/2025 11:18 AM EST IRON AND TOTAL IRON BINDING CAPACITY Routine 10/02/2025 11:18 AM EST MAGNESIUM Routine 10/02/2025 11:18 AM EST COMPREHENSIVE METABOLIC PANEL, FASTING Routine 10/02/2025 11:18 AM EST SED RATE BY MODIFIED WESTERGREN Routine 10/02/2025 11:18 AM EST HEMOGLOBIN A1C Routine 10/02/2025 11:18 AM EST CBC WITH AUTO DIFFERENTIAL Routine 10/02/2025 11:18 AM EST POCT GLYCATED HEMOGLOBIN, TOTAL Routine 10/01/2025 2:37 PM EST Encounter for immunization POCT GLYCATED HEMOGLOBIN, TOTAL Routine 07/05/2025 3:19 PM EDT Prediabetes POCT GLUCOSE Routine 07/05/2025 3:19 PM EDT Prediabetes BI MAMMOGRAM SCREENING TOMOSYNTHESIS BILATERAL Routine 05/31/2025 10:40 AM EDT LIPID PANEL, STANDARD Routine 06/26/2024 9:18 AM EDT Primary hypertension ZZZ HISTORICAL HIV AB/AG Routine 11/16/2019 9:40 AM EST HM COLONOSCOPY Routine 04/01/2017 from Last 3 Months or Most Recently Relevant to Health Maintenance Results * (ABNORMAL) Comprehensive Metabolic Panel, Fasting (10/02/2025 11:18 AM EST) Sodium 141 135 - 145 mmol/L [facility] Potassium 3.8 3.3 - 5.1 mmol/L [facility] Chloride 105 96 - 108 mmol/L [facility] Carbon Dioxide 27 22 - 29 mmol/L [facility] Anion Gap 13 12 - 20 [facility] Urea Nitrogen (BUN) 17(H) 9 - 16 mg/dL [facility] Creatinine, Serum 0.89 0.5 - 1.4 mg/dL [facility] Estimated Glomerular Filt Rate >60 [facility] Comment:Chronic Kidney Disea se: Estimated GFR < 60 mL/min/1.77x9Mfrxqn Kidney Disease: Estimated GFR < 15 mL/min/1.73m2 Glucose Fasting 143(H) 60 - 99 mg/dL [facility] Comment:A fasting glucose of 126 mg/dl or greater on more than oneoccasion is considered diagnostic of diabetes. Calcium 9.3 8.4 - 10.2 mg/dL [facility] Bilirubin, Total 0.4 0.0 - 1.0 mg/dL [facility] Aspartate Amino Transferase 21 5 - 31 U/L [facility] Alanine Aminotransferase 16 0 - 31 U/L [facility] Total Protein 6.8 6.5 - 8.0 g/dL [facility] Albumin Level 4.1 3.5 - 5.0 g/dL [facility] Alkaline Phosphatase 104 39 - 117 U/L [facility] 10/02/2025 11:1 8 AM EST 10/02/2025 11:18 AM EST us Generic External Data Provider LAB BLOOD ORDERAB LES Final Result Performing Organization Address City/[facility]/ZIP Co de Phone Number [facility] [address] [place] [phone] * Vitamin B12 (Cobalamin) and Folate Panel, Serum (10/02/2025 11:18 AM EST) Vitamin B12 339 200 - 900 pg/mL [facility] Comment:NORMAL 200-900 PG/ML INDETERMINATE 160-199 PG/ML DEFICIENT < 160 PG/ML Folate 12.3 > or = 4.0 ng/mL [facility] Comment:Reference Values:> o r = 4.0 ng/mL< 4.0 ng/mL suggests folate deficiency Methotrexate, aminopterin and folinic acid(leucovorin) are chemotherapeutic agents whose molecularstructures are similar to folate; therefore, the Architectfolate assay cannot be used for patients using these drugs. 10/02/2025 11:1 8 AM EST 10/02/2025 11:18 AM EST us Generic External Data Provider LAB BLOOD ORDERAB LES Final Result Performing Organization Address [facility] Co de Phone Number [facility] [address] [place] [phone] * TSH with Reflex to Free T4 (10/02/2025 11:18 AM EST) TSH reflex Free T4 1.61 0.32 - 4.0 uIU/mL [facility] 10/02/2025 11:1 8 AM EST 10/02/2025 11:18 AM EST us Generic External Data Provider LAB BLOOD ORDERAB LES Final Result Performing Organization Address City/[facility] Co de Phone Number [facility] [address] [place] [phone] * CBC auto differential (10/02/2025 11:18 AM EST) White Blood Count 7.5 4.8 - 10.8 X10*3/uL [facility] Red Blood Count 4.35 4.20 - 5.50 X10*6/uL [facility] Hemoglobin 12.7 12.0 - 16.0 g/dl [facility] Hematocrit 40.1 37.0 - 47.0 % [facility] Mean Corpuscular Volume 92.2 80.0 - 98.0 fL [facility] Mean Corpuscular Hemoglobin 29.2 27.0 - 33.0 pg [facility] Mean Corpuscular HGB Conc 31.7 31.0 - 35.0 g/dl [facility] Red Cell Distribution Width 12.8 11.0 - 16.0 % [facility] Platelet Count 250 160 - 400 X10*3/uL [facility] Mean Platelet Volume 10.6 9.4 - 12.3 fL [facility] Neutrophils Percent Auto 49.7 45 - 73 % [facility] Imm Gran Pct Auto 0.3 0.0 - 0.4 % [facility] Lymphocytes Percent Auto 39.2 20 - 40 % [facility] Monocytes Percent Auto 7.1 2 - 11 % [facility] Eosinophils Percent Auto 3.2 0 - 4 % [facility] Basophils Percent Auto 0.5 0 - 2 % [facility] NRBC Pct Auto 0.0 0.0 - 0.2 /100WBC [facility] Neutrophils Absolute Auto 3.7 2.0 - 8.3 x10*3/uL [facility] Imm Gran Abs Auto 0.02 0.00 - 0.03 X10*3/uL [facility] Lymphocytes Absolute Auto 2.9 1.2 - 4.9 X10*3/uL [facility] Monocytes Absolute Auto 0.5 0.1 - 1.2 X10*3/uL [facility] Eosinophils Absolute Auto 0.2 0.0 - 0.4 X10*3/uL [facility] Basophils Absolute Auto 0.0 0.0 - 0.2 X10*3/uL [facility] NRBC Abs Auto 0.000 0.0 - 0.012 X10*3/uL [facility] 10/02/2025 11:1 8 AM EST 10/02/2025 11:18 AM EST Generic External Data Provider LAB BLOOD ORDERAB LES Final Result Performing Organization Address [facility] Phone Number [facility] [address] [place] [phone] * Iron And Total Iron Binding Capacity (10/02/2025 11:18 AM EST) Iron 71 30 - 160 mcg/dL [facility] Total Iron Binding Capacity 273 228 - 428 mcg/dL [facility] Percent Iron Saturation 26 15 - 50 % [facility] Unsaturated Iron Binding 202 ug/dL [facility] 10/02/2025 11:1 8 AM EST 10/02/2025 11:18 AM EST us Generic External Data Provider LAB BLOOD ORDERAB LES Final Result Performing Organization Address [facility] Number [facility] [address] [place] [phone] * (ABNORMAL) Sed Rate by Modified Sherryren (10/02/2025 11:18 AM EST) Erythrocyte Sedimentation Rate 32(H) 0 - 20 MM/HR [facility] Comment:Patients with polycy themia and many hemoglobin abnormalitiesmay have depressed sed rates whereas patients with anemiamay have elevated sed rates. 10/02/2025 11:1 8 AM EST 10/02/2025 11:18 AM EST us Generic External Data Provider LAB BLOOD ORDERAB LES Final Result Performing Organization Address [facility] de Phone Number [facility] [address] [place] [phone] * Magnesium (10/02/2025 11:18 AM EST) Magnesium 2.1 1.6 - 2.6 mg/dL [facility] 10/02/2025 11:1 8 AM EST 10/02/2025 11:18 AM EST Generic External Data Provider LAB BLOOD ORDERAB LES Final Result Performing Organization Address City/[facility] Co de Phone Number [facility] [address] [place] [phone] * Hemoglobin A1c (10/02/2025 11:18 AM EST) Hemoglobin A1c 5.9 <6.0 % [facility] Comment:Hemoglobin A1C Refer ence Range Adults: 4.8 - 6.0 % Non diabetic: < 6.0 % Goal: < 7.0 %Additional Action Suggested: > 8.0 %Note: Hemoglobin A1c results are invalid for patients with abnormal amounts of HbF. Blood transfusions may impact the HbA1c concentration in the patient sample. Estimated Average Glucose 123 mg/dL [facility] Comment:eAG = Estimated ave rage glucose which is %A1C expressed asaverage glucose, using the formula of the B5L-GasitfbAyzheen Glucose study (ADAG), Diabetes Care, Vol.31,#8,Jun. 2007 10/02/2025 11:1 8 AM EST 10/02/2025 11:18 AM EST us Generic External Data Provider LAB BLOOD ORDERAB LES Final Result Performing Organization Address [facility] Co de Phone Number [facility] [address] [place] [phone] * Ferritin (10/02/2025 11:18 AM EST) Ferritin 60 10 - 250 ng/mL [facility] 10/02/2025 11:1 8 AM EST 10/02/2025 11:18 AM EST us Generic External Data Provider LAB BLOOD ORDERAB LES Final Result [facility] [address] [place] [phone] [phone] * (ABNORMAL) POCT Hgb A1c (10/01/2025 2:37 PM EST) Only the most recent of2 resultswithin the time period is included. Hemoglobin A1C 6.0(A) 4.0 - 5.7 % QC Media Lot # [id number] Lot# Expiration Date [id number] Blood 10/01/2025 2:37 PM EST us Alexandra Ahn MD POINT OF CARE TEST EN TER/EDIT ORDERABLES Final Result * POCT Glucose (07/05/2025 3:19 PM EDT) Glucose Blood, POC 105 60 - 200 mg/dL QC Media Lot # [id number] Lot# Expiration Date [id number] Blood Capillary blood specimen / Unknown 07/05/2025 3:19 PM EDT Alexandra Ahn MD POINT OF CARE TEST EN TER/EDIT ORDERABLES Final Result * BI Mammogram Screening Tomosynthesis Bilateral (05/31/2025 10:40 AM EDT) Anatomical Region Laterality Modality Breast Bilateral Mammography 05/31/2025 10:4 0 AM EDT Narrative 06/05/2025 8:41 PM EDT [facility] [address] [place] [address] Mammography Report Signed Patient: Liliane Ackerman MR#: [id number] : 1965 Acct:[id number] Age/Sex: 60 / F ADM Date: 05/31/25 Loc: [facility] Attending Dr: Alexandra Ahn MD Ordering Physician: Alexandra Pillai MD Results: 1Negative Date of Service: 05/31/25 Follow Up: 1 Year From Orig inal Mammogram Procedure(s): MM tomosynthesis screening BI Accession Number(s): [id number] cc: Alexandra Pillai MD EXAMINATION: MM SCREENING [...] OV> 06/05/252037 DD/ 1040 TD/TT: 05/31/25 1102 Drafter: Procedure Note Donotuseinterpreter, Image - 06/05/2025 [facility] [address] [place] [address] Mammography Report Signed Patient: Ira Ackerman#: [id number] : 1965Acct:[id number] Age/Sex: 60 / FADM Date: 05/31/25 Loc: HO.MAMMO Attending Dr: Alexandra Ahn MD Ordering Physician: Alexandra Pillai MDResults: 1Negative Date of Service: 05/31/25Follow Up: 1 Year From Orig inal Mammogram Procedure(s): MM tomosynthesis screening BI Accession Number(s): [id number] cc: Alexandra Pillai MD EXAMINATION: MM SCREENING [...] OV> 06/05/252037 DD/ 1040 TD/TT: 05/31/25 1102 Drafter: us Alexandra Ahn MD IMG BI PROCEDURES Fin al Result * Lipid Panel, Standard (06/26/2024 9:18 AM EDT) Triglycerides 129 <150 mg/dL [facility] Comment:Desirable Triglyceri de: less than 150 mg/dLBorderline High Triglyceride 150-199 mg/dLHigh Triglyceride: 200-499 mg/dLVery High Triglyceride: greater than or equal to 5OO mg/dL Cholesterol 125 <200 mg/dL [facility] Comment:Desirable Cholestero l: less than 200 mg/dLBorderline High Cholesterol: 200-239 mg/dLHigh Cholesterol: greater than 239 mg/dL LDL Cholesterol Calculated 59 <100 mg/dL [facility] Comment:Desirable LDL: less than 100 mg/dLNear Optimal/Above Optimal LDL: 110- 129 mg/dLBorderline High LDL: 130-159 mg/dLHigh LDL: 160-189 mg/dLVery High LDL: greater than or equal to 190 mg/dL HDL Cholesterol 41 >40 mg/dL [facility] Comment:Desirable HDL: great er than 40 mg/dL Note: This HDL assay may give artificially low results in patients with liver disease. Blood Venous blood specimen / Unknown 06/26/2024 9:18 AM EDT 06/26/2024 11:35 AM EDT Alexandra Ahn MD LAB BLOOD ORDERABLES Final Result [facility] [address] [place] [phone] * HIV AB/AG (11/16/2019 9:40 AM EST) Pathologist [facility] HIV AG/AB NONREACTIVE NR [facility]OUNDAT[facility] ON LAB [...] of detection of this assay. [employer] HIV Ag/Ab Combo assay result and supplemental assay results should be interpreted in conjunction with the patient's clinical presentation, history and other laboratory results. If the results are inconsistent with clinical evidence, additional testing is suggested to confirm the result. 11/16/2019 9:40 AM EST us Alexandra Ahn MD HISTORICAL/NON ORDERA BLE LABS Final Result [facility] [address] [place] [address], * Hm Colonoscopy (04/01/2017) us Historical Provider MD HEALTH MAINTENANCE Final Result from Last 3 Months or Most Recently Relevant to Health Maintenance Insurance [facility] C3 Care Teams Belt Polisher Relationship Specialty Start Date End Date Alexandra Pillai MD [address] [place] [address] PCP - General Family Medicine 06/05/19 Jacqueline Syed Manager Of InvestigationsDirector Of Campus Recreation 08/01/25
--- OUTSIDE RECORDS SUMMARY | 2025-10-02 14:20 | XMS_ITS | Encounter Summary ---
Author Organization [employer] Address [address] [facility] 7t [place] [address] Care Team Providers Care Efficiency Analyst Name Role Phone Alexandra Pillai MD Primary Care Provide r Reason for Visit * Reason Onset Date Comments Call Back Request 02/27/2025 Encounter Details Date Type Department Care Team ([facility] Contact Info) Description 02/27/2025 Telephone [facility] MEDICINE [address] [place], [place] [phone] Alexandra Pillai MD 230 [place] [address] Call Back Request Social History Tobacco Use [...] not with anyone else. Please return call [phone] (kazakh speaker) documented in this encounter Plan of Treatment Upcoming Encounters Date Type Department Care Team (Late st Contact Info) Description 11/23/2025 1:30 PM EST Office Visit [facility] OPTOMETRY [address] [place] [address] Zohra Young, OD 230 [place] [address] 01/03/2026 1:45 PM EST Office Visit [facility] MEDICINE [address] [place] [address] Alexandra Pillai MD 230 [place] [address] documented as of this encounter Visit Diagnoses Not on filedocumented in this encounter Additional Health Concerns Assessment Noted Time PHQ-9 Depression Total Score: 0 06/26/20 24 11:05 AM EDT documented as of this encounter Care Teams Efficiency Analyst Relationship Specialty Start Date End Date Alexandra Pillai MD 230 [place] [address] PCP - General Family Medicine 06/05/19 Jacqueline Syed Supervisor IrrigationMaterial Hauler 08/01/25 documented as of this encounter
--- OUTSIDE RECORDS SUMMARY | 2025-10-02 14:20 | XMS_ITS | Encounter Summary ---
Author Organization [facility] [facility] Address [address] [facility] 7t h Floor [place] [phone] Care Team Providers Care Citrix Engineer Name Role Phone Alexandra Pillai MD Primary Care Provide r Encounter Details Date Type Department Care Team (Late st Contact Info) Description 12/09/2022 Orders Only [facility] MEDICINE [address] [place] [phone] Lisette Coates LPN Social History Tobacco Use [...] Description 11/23/2025 1:30 PM EST Office Visit [facility] OPTOMETRY [address] [place] [address] Zohra Young, OD 230 [place] [address] 01/03/2026 1:45 PM EST Office Visit [facility] MEDICINE [address] [place] [address] Alexandra Pillai MD 230 [place] [address] documented as of this encounter Visit Diagnoses Not on filedocumented in this encounter Care Teams Citrix Engineer Relationship Specialty Start Date End Date Alexandra Pillai MD 230 [place] [address] PCP - General Family Medicine 06/05/19 Jacqueline Syed Carpenter'S HelperGeneral Science Teacher 08/01/25 documented as of this encounter
--- OUTSIDE RECORDS SUMMARY | 2025-10-02 14:20 | XMS_ITS | Encounter Summary ---
Author Organization [employer] Address [address] [facility] 7t [place] [address] Care Team Providers Care Aerial Advertiser Name Role Phone Alexandra Pillai MD Primary Care Provide r Reason for Visit * Reason Comments Med Refill Encounter Details Date Type Department Care Team ([facility] st Contact Info) Description 07/10/2024 Refill [facility] MEDICINE [address] [place] [address] Alexandra Pillai MD [address] [place] [address] Primary hypertension Social History Tobacco Use Types [...] Description 11/23/2025 1:30 PM EST Office Visit [facility] OPTOMETRY [address] [place] [address] Zohra Young, OD 230 [place] [address] 01/03/2026 1:45 PM EST Office Visit [facility] MEDICINE [address] [place] [address] Alexandra Pillai MD [address] [place] [address] documented as of this encounter Visit Diagnoses Diagnosis Primary hypertension Unspecified essential hypertension documented in this encounter Additional Health Concerns Assessment Noted Time PHQ-9 Depression Total Score: 0 06/26/20 24 11:05 AM EDT documented as of this encounter Care Teams Aerial Advertiser Relationship Specialty Start Date End Date Alexandra Pillai MD [address] [place] [address] PCP - General Family Medicine 06/05/19 Jacqueline Syed Animal TaxonomistButter Liquefier 08/01/25 documented as of this encounter
--- OUTSIDE RECORDS SUMMARY | 2025-10-02 14:20 | XMS_ITS | Encounter Summary ---
Author Organization [employer] Address [address] [facility] 7t [place] [address] Care Team Providers Care Car Stower Name Role Phone Alexandra Pillai MD Primary Care Provide r Reason for Visit * Reason Onset Date Comments chart prep 09/28/2025 Encounter Details Date Type Department Care Team ([facility] Contact Info) Description 09/28/2025 Telephone [facility] MEDICINE 230 [place] [address] Alexandra Pillai MD 230 [place] [address] chart prep Social History Tobacco Use Types Packs/Day Years [...] encounter Miscellaneous Notes * Telephone Encounter - [place] - 09/28/2025 10:14 AM EST Chart Prep Labs: done Images: done Referrals: complete Vaccines due: Covid, Flu, Hep B, RSV, and Zoster Screenings: not applicable Overdue care gaps: Glucose documented in this encounter Plan of Treatment Upcoming Encounters Date Type Department Care Team (Late st Contact Info) Description 11/23/2025 1:30 PM EST Office Visit [facility] OPTOMETRY [address] [place] [address] Hector, Zohra, OD 230 [place] [address] 01/03/2026 1:45 PM EST Office Visit [facility] MEDICINE [address] [place], [place] [phone] Alexandra Pillai MD 230 [place] [address] documented as of this encounter Visit Diagnoses Not on filedocumented in this encounter Additional Health Concerns Assessment Noted Time PHQ-9 Depression Total Score: 12 04/04/ 025 3:41 PM EDT documented as of this encounter Care Teams Car Stower Relationship Specialty Start Date End Date Alexandra Pillai MD 230 [place] [address] PCP - General Family Medicine 06/05/19 Jacqueline Syed Distributor Sales ManagerMrp Controller 08/01/25 documented as of this encounter
--- OUTSIDE RECORDS SUMMARY | 2025-10-02 14:20 | XMS_ITS | Encounter Summary ---
Author Organization [employer] Address 75 [facility] 7t [place] [address] Care Team Providers Care Yarn Spooler Name Role Phone Alexandra Pillai MD Primary Care Provide r Reason for Visit * Reason Comments Med Refill Encounter Details Date Type Department Care Team ([facility] st Contact Info) Description 02/12/[address] [facility] MED & PEDS [address] [place], [place] [phone] Alexandra Pillai MD 230 [place] [address] Pain Social History Tobacco Use Types Packs/Day [...] Description 11/23/2025 1:30 PM EST Office Visit [facility] OPTOMETRY [address] [place] [address] Hector, Zohra, OD 230 [place] [address] 01/03/2026 1:45 PM EST Office Visit [facility] MEDICINE 230 [place] [address] Alexandra Pillai MD [address] [place] [address] documented as of this encounter Visit Diagnoses Diagnosis Pain Generalized pain documented in this encounter Additional Health Concerns Assessment Noted Time PHQ-9 Depression Total Score: 0 06/26/20 24 11:05 AM EDT documented as of this encounter Care Teams Yarn Spooler Relationship Specialty Start Date End Date Alexandra Pillai MD [address] [place] [address] PCP - General Family Medicine 06/05/19 Jacqueline Syed Fulfillment CoordinatorElectrocardiographic Technician 08/01/25 documented as of this encounter
--- OUTSIDE RECORDS SUMMARY | 2025-10-02 14:20 | XMS_ITS | Encounter Summary ---
Author Organization [employer] Address 75 [facility] 7t [place] [address] Care Team Providers Care Hat Designer Name Role Phone Alexandra Pillai MD Primary Care Provide r Encounter Details Date Type Department Care Team ([facility] st Contact Info) Description 03/25/[address] [facility] MED & PEDS [address] [place] [address] Jacqueline Mejias LPN Social History Tobacco Use [...] Description 11/23/2025 1:30 PM EST Office Visit [facility] OPTOMETRY [address] [place] [address] Zohra Young, OD [address] [place] [address] 01/03/2026 1:45 PM EST Office Visit [facility] MEDICINE [address] [place] [address] Alexandra Pillai MD 230 [place] [address] documented as of this encounter Procedures Procedure Name Priority Date/Time Associated Diagnosis Comments XR HAND 3+ VIEWS LEFT Routine 03/26/2023 12:45 PM EDT documented in this encounter Results * XR Hand 3+ Views Left (03/26/2023 12:45 PM EDT) Anatomical Region Laterality Modality Upper Extremities, Hand Left Radiogra phic Imaging 03/26/2023 12:4 5 PM EDT Narrative 04/14/2023 4:38 PM EDT [address] [address] XRay Report Signed Patient: Liliane Ackerman MR#: [id number] : 1965 Acct:[id number] Age/Sex: 57 / F ADM Date: 03/26/23 Loc: HO.HHCX Attending Dr: Alexandra Ahn MD Ordering Physician: Alexandra Pillai MD Date of Service: 03/26/23 Procedure(s): XR hand LT min 3V Accession Number(s): [id number] cc: Alexandra Pillai MD EXAMINATION: XR HAND, [...] in OV> 04/14/23 1635 DD/ 1245 TD/TT: Home Energy Inspector: AUBREY Procedure Note Donotuseinterpreter, Image - 05/05/2023 [facility] [address] [place] [address] XRay Report Signed Patient: Ira Ackerman#: [id number] : 1965Acct:[id number] Age/Sex: 57 / FADM Date: 03/26/23 Loc: HO.HHX Attending Dr: Alexandra Ahn MD Ordering Physician: Alexandra Pillai MD Date of Service: 03/26/23 Procedure(s): XR hand LT min 3V Accession Number(s): [id number] cc: Alexandra Pillai MD EXAMINATION: XR HAND, [...] in OV> 04/14/23 1635 DD/ 1245 TD/TT: Home Energy Inspector: AUBREY [facility] External Provider IMG XR PROCEDURES Final Result documented in this encounter Visit Diagnoses Not on filedocumented in this encounter Care Teams Hat Designer Relationship Specialty Start Date End Date Alexandra Pillai MD [address] [place] [address] PCP - General Family Medicine 06/05/19 Jacqueline Syed Box Car LoaderRelationship Mgr 08/01/25 documented as of this encounter
--- OUTSIDE RECORDS SUMMARY | 2025-10-02 14:20 | XMS_ITS | Encounter Summary ---
Author Organization [employer] Address 75 [facility] 7t [place] [address] Care Team Providers Care Autism Motor Specialist Name Role Phone Alexandra Pillai MD Primary Care Provide r Reason for Visit * Reason Comments Med Refill Encounter Details Date Type Department Care Team ([facility] st Contact Info) Description 09/26/2025 Refill [facility] MEDICINE [address] [place] [address] Alexandra Pillai MD 230 [place] [address] Moderate persistent asthma, unspecified whether complicated Social History Tobacco Use Types Packs/Day Years [...] Description 11/23/2025 1:30 PM EST Office Visit [facility] OPTOMETRY [address] [place] [address] Hector, Zohra, OD 230 [place] [address] 01/03/2026 1:45 PM EST Office Visit [facility] MEDICINE [address] [place] [address] Alexandra Pillai MD [address] [place] [address] documented as of this encounter Visit Diagnoses Diagnosis Moderate persistent asthma, unspecified whether complicated documented in this encounter Additional Health Concerns Assessment Noted Time PHQ-9 Depression Total Score: 12 04/04/ 025 3:41 PM EDT documented as of this encounter Care Teams Autism Motor Specialist Relationship Specialty Start Date End Date Alexandra Pillai MD 230 [place] [address] PCP - General Family Medicine 06/05/19 Jacqueline Syed Rn Pain ManagementLicensing Engineer 08/01/25 documented as of this encounter
--- OUTSIDE RECORDS SUMMARY | 2025-10-02 14:20 | XMS_ITS | Encounter Summary ---
Author Organization [employer] Address 75 [facility] 7t [place] [address] Care Team Providers Care Foreign Service Teacher Name Role Phone Alexandra Pillai MD Primary Care Provide r Reason for Visit * Reason Onset Date Comments Referral 05/25/2024 Encounter Details Date Type Department Care Team ([facility] Contact Info) Description 05/25/2024 Telephone [facility] MEDICINE [address] [place], [place] [phone] Alexandra Pillai MD 230 [place], [place] [phone] Referral Social History Tobacco Use Types Packs/Day [...] for pt. Any questions contact damian at [phone] documented in this encounter Plan of Treatment Upcoming Encounters Date Type Department Care Team (Late st Contact Info) Description 11/23/2025 1:30 PM EST Office Visit [facility] OPTOMETRY [address] [place] [address] Hector, Zohra, OD [address] [place] [address] 01/03/2026 1:45 PM EST Office Visit [facility] MEDICINE [address] [place] [address] Alexandra Pillai MD [address] [place] [address] documented as of this encounter Visit Diagnoses Not on filedocumented in this encounter Additional Health Concerns Assessment Noted Time PHQ-9 Depression Total Score: 0 03/26/20 23 10:56 AM EDT documented as of this encounter Care Teams Foreign Service Teacher Relationship Specialty Start Date End Date Alexandra Pillai MD 230 [place] [address] PCP - General Family Medicine 06/05/19 Jacqueline Syed Machining Department SupervisorExterminator Helper Termite 08/01/25 documented as of this encounter
--- OUTSIDE RECORDS SUMMARY | 2025-10-02 14:20 | XMS_ITS | Encounter Summary ---
Author Organization [employer] Address 75 [facility] 7t [place] [address] Care Team Providers Care Housing Grant Analyst Name Role Phone Alexandra Pillai MD Primary Care Provide r Encounter Details Date Type Department Care Team ([facility] Contact Info) Description 10/02/2025 Orders Only GENERIC EXTERNAL DATA DEPARTMENT Provider, Generic External Data Social History Tobacco Use Types Packs/Day Years [...] 11/23/2025 1:30 PM EST Office Visit [facility] OPTOMETRY [address] [place] [address] Zohra Young, OD [address] [place] [address] 01/03/2026 1:45 PM EST Office Visit [facility] MEDICINE 230 [place] [address] Alexandra Pillai MD 230 [place] [address] documented as of this encounter Procedures Procedure Name Priority Date/Time Associated Diagnosis Comments COMPREHENSIVE METABOLIC PANEL, FASTING Routine 10/02/2025 11:18 AM EST VITAMIN B12/FOLATE, SERUM PANEL Routine 10/02/2025 11:18 AM EST TSH W/REFLEX TO FT4 Routine 10/02/2025 1 1:18 AM EST CBC WITH AUTO DIFFERENTIAL Routine 10/02/2025 11:18 AM EST IRON AND TOTAL IRON BINDING CAPACITY Routine 10/02/2025 11:18 AM EST SED RATE BY MODIFIED WESTERGREN Routine 10/02/2025 11:18 AM EST MAGNESIUM Routine 10/02/2025 11:18 AM EST HEMOGLOBIN A1C Routine 10/02/2025 11:18 AM EST FERRITIN Routine 10/02/2025 11:18 AM EST documented in this encounter Results * Vitamin B12 (Cobalamin) and Folate Panel, Serum (10/02/2025 11:18 AM EST) Vitamin B12 339 200 - 900 pg/mL [facility] Comment:NORMAL 200-900 PG/ML INDETERMINATE 160-199 PG/ML DEFICIENT < 160 PG/ML Folate 12.3 > or = 4.0 ng/mL [facility] Comment:Reference Values:> o r = 4.0 ng/mL< 4.0 ng/mL suggests folate deficiency Methotrexate, aminopterin and folinic acid(leucovorin) are chemotherapeutic agents whose molecularstructures are similar to folate; therefore, the Architectfolate assay cannot be used for patients using these drugs. 10/02/2025 11:1 8 AM EST 10/02/2025 11:18 AM EST us Generic External Data Provider LAB BLOOD ORDERAB LES Final Result [facility] [address] [place] [phone] * TSH with Reflex to Free T4 (10/02/2025 11:18 AM EST) TSH reflex Free T4 1.61 0.32 - 4.0 uIU/mL [facility] 10/02/2025 11:1 8 AM EST 10/02/2025 11:18 AM EST us Generic External Data Provider LAB BLOOD ORDERAB LES Final Result Performing Organization Address City/[facility]/ZIP Co de Phone Number [facility] [address] [place] [phone] * Ferritin (10/02/2025 11:18 AM EST) Ferritin 60 10 - 250 ng/mL [facility] 10/02/2025 11:1 8 AM EST 10/02/2025 11:18 AM EST us Generic External Data Provider LAB BLOOD ORDERAB LES Final Result Performing Organization Address [facility] [[email or web address]] de Phone Number [facility] [address] [place] [phone] * Iron And Total Iron Binding Capacity (10/02/2025 11:18 AM EST) Pathologist [facility] Iron 71 30 - 160 mcg/dL [facility] Total Iron Binding Capacity 273 228 - 428 mcg/dL [facility] Percent Iron Saturation 26 15 - 50 % [facility] Unsaturated Iron Binding 202 ug/dL [facility] 10/02/2025 11:1 8 AM EST 10/02/2025 11:18 AM EST Generic External Data Provider LAB BLOOD ORDERAB LES Final Result Performing Organization Address [facility] Phone Number [facility] [address] [place] [phone] * Magnesium (10/02/2025 11:18 AM EST) Pathologist [facility] Magnesium 2.1 1.6 - 2.6 mg/dL [facility] 10/02/2025 11:1 8 AM EST 10/02/2025 11:18 AM EST Generic External Data Provider LAB BLOOD ORDERAB LES Final Result Performing Organization Address [facility] [[email or web address]] de Phone Number [facility] [address] [place] [phone] * (ABNORMAL) Comprehensive Metabolic Panel, Fasting (10/02/2025 11:18 AM EST) Sodium 141 135 - 145 mmol/L [facility] Potassium 3.8 3.3 - 5.1 mmol/L [facility] Chloride 105 96 - 108 mmol/L [facility] Carbon Dioxide 27 22 - 29 mmol/L [facility] Anion Gap 13 12 - 20 [facility] Urea Nitrogen (BUN) 17(H) 9 - 16 mg/dL [facility] Creatinine, Serum 0.89 0.5 - 1.4 mg/dL [facility] Estimated Glomerular Filt Rate >60 [facility] Comment:Chronic Kidney Disea se: Estimated GFR < 60 mL/min/1.01a4Htdrxk Kidney Disease: Estimated GFR < 15 mL/min/1.73m2 Glucose Fasting 143(H) 60 - 99 mg/dL [facility] Comment:A fasting glucose of 126 mg/dl or greater on more than oneoccasion is considered diagnostic of diabetes. Calcium 9.3 8.4 - 10.2 mg/dL [facility] Bilirubin, Total 0.4 0.0 - 1.0 mg/dL [facility] Aspartate Amino Transferase 21 5 - 31 U/L [facility] Alanine Aminotransferase 16 0 - 31 U/L [facility] Total Protein 6.8 6.5 - 8.0 g/dL [facility] Albumin Level 4.1 3.5 - 5.0 g/dL [facility] Alkaline Phosphatase 104 39 - 117 U/L [facility] 10/02/2025 11:1 8 AM EST 10/02/2025 11:18 AM EST us Generic External Data Provider LAB BLOOD ORDERAB LES Final Result [facility] [address] [place], [place] [phone] * (ABNORMAL) Sed Rate by Modified Alex (10/02/2025 11:18 AM EST) Erythrocyte Sedimentation Rate 32(H) 0 - 20 MM/HR [facility] Comment:Patients with polycy themia and many hemoglobin abnormalitiesmay have depressed sed rates whereas patients with anemiamay have elevated sed rates. 10/02/2025 11:1 8 AM EST 10/02/2025 11:18 AM EST Generic External Data Provider LAB BLOOD ORDERAB LES Final Result Performing Organization Address [facility] Co de Phone Number [facility] [address] [place] [phone] * Hemoglobin A1c (10/02/2025 11:18 AM EST) Hemoglobin A1c 5.9 <6.0 % [facility] Comment:Hemoglobin A1C Refer ence Range Adults: 4.8 - 6.0 % Non diabetic: < 6.0 % Goal: < 7.0 %Additional Action Suggested: > 8.0 %Note: Hemoglobin A1c results are invalid for patients with abnormal amounts of HbF. Blood transfusions may impact the HbA1c concentration in the patient sample. Estimated Average Glucose 123 mg/dL [facility] Comment:eAG = Estimated ave rage glucose which is %A1C expressed asaverage glucose, using the formula of the A7Q-IztadakZkvucpe Glucose study (ADAG), Diabetes Care, Vol.31,#8,2007 10/02/2025 11:1 8 AM EST 10/02/2025 11:18 AM EST us Generic External Data Provider LAB BLOOD ORDERAB LES Final Result Performing Organization Address [facility] Co de Phone Number [facility] [address] [place] [phone] * CBC auto differential (10/02/2025 11:18 AM EST) White Blood Count 7.5 4.8 - 10.8 X10*3/uL [facility] Red Blood Count 4.35 4.20 - 5.50 X10*6/uL [facility] Hemoglobin 12.7 12.0 - 16.0 g/dl [facility] Hematocrit 40.1 37.0 - 47.0 % [facility] Mean Corpuscular Volume 92.2 80.0 - 98.0 fL [facility] Mean Corpuscular Hemoglobin 29.2 27.0 - 33.0 pg [facility] Mean Corpuscular HGB Conc 31.7 31.0 - 35.0 g/dl [facility] Red Cell Distribution Width 12.8 11.0 - 16.0 % [facility] Platelet Count 250 160 - 400 X10*3/uL [facility] Mean Platelet Volume 10.6 9.4 - 12.3 fL [facility] Neutrophils Percent Auto 49.7 45 - 73 % [facility] Imm Gran Pct Auto 0.3 0.0 - 0.4 % [facility] Lymphocytes Percent Auto 39.2 20 - 40 % [facility] Monocytes Percent Auto 7.1 2 - 11 % [facility] Eosinophils Percent Auto 3.2 0 - 4 % [facility] Basophils Percent Auto 0.5 0 - 2 % [facility] NRBC Pct Auto 0.0 0.0 - 0.2 /100WBC [facility] Neutrophils Absolute Auto 3.7 2.0 - 8.3 x10*3/uL [facility] Imm Gran Abs Auto 0.02 0.00 - 0.03 X10*3/uL [facility] Lymphocytes Absolute Auto 2.9 1.2 - 4.9 X10*3/uL [facility] Monocytes Absolute Auto 0.5 0.1 - 1.2 X10*3/uL [facility] Eosinophils Absolute Auto 0.2 0.0 - 0.4 X10*3/uL [facility] Basophils Absolute Auto 0.0 0.0 - 0.2 X10*3/uL [facility] NRBC Abs Auto 0.000 0.0 - 0.012 X10*3/uL [facility] 10/02/2025 11:1 8 AM EST 10/02/2025 11:18 AM EST us Generic External Data Provider LAB BLOOD ORDERAB LES Final Result [facility] [address] [place] [phone] documented in this encounter Visit Diagnoses Not on filedocumented in this encounter Additional Health Concerns Assessment Noted Time PHQ-9 Depression Total Score: 12 04/04/ 025 3:41 PM EDT documented as of this encounter Care Teams Housing Grant Analyst Relationship Specialty Start Date End Date Alexandra Pillai MD [address] [place] [address] PCP - General Family Medicine 06/05/19 Jacqueline Syed Meal PackerAnimal Therapist 08/01/25 documented as of this encounter
--- OUTSIDE RECORDS SUMMARY | 2025-10-02 14:20 | XMS_ITS | Encounter Summary ---
Author Organization [employer] Address 75 [facility] 7t [place] [address] Care Team Providers Care Cane Weigher Name Role Phone Alexandra Pillai MD Primary Care Provide r Encounter Details Date Type Department Care Team ([facility] Contact Info) Description 01/11/2023 Orders Only [facility] MED [facility]EDS [address] [place] [address] Jacqueline Mejias LPN Social History Tobacco Use [...] Department Care Team (Late Contact Info) Description 11/23/2025 1:30 PM EST Office Visit [facility] OPTOMETRY [address] [place], [place] [phone] Zohra Young, OD 230 [place] [address] 01/03/2026 1:45 PM EST Office Visit [facility] MEDICINE 230 [place], [place] [phone] Alexandra Pillai MD 230 [place], [place] [phone] documented as of this encounter Visit Diagnoses Not on filedocumented in this encounter Care Teams Cane Weigher Relationship Specialty Start Date End Date Alexandra Pillai MD 230 [place] [address] PCP - General Family Medicine 06/05/19 Jacqueline Syed Reinforcing Steel WorkerCredit Risk Officer 08/01/25 documented as of this encounter
--- OUTSIDE RECORDS SUMMARY | 2025-10-02 14:20 | XMS_ITS | Encounter Summary ---
Author Organization [employer] Address 75 [facility] 7t [place] [address] Care Team Providers Care Primary Mill Roller Name Role Phone Alexandra Pillai MD Primary Care Provide r Reason for Visit * Reason Onset Date Comments Durable Medical Equipment 07/17/2024 Encounter Details Date Type Department Care Team ([facility] Contact Info) Description 07/17/2024 Telephone [facility] MEDICINE [address] [place], [place] [phone] Alexandra Pillai MD 230 [place] [address] Durable Medical Equipment Social History Tobacco Use [...] 3:16 PM EDT Tc katina Duran at [facility] requesting a portable Commode documented in this encounter Plan of Treatment Upcoming Encounters Date Type Department Care Team (Late st Contact Info) Description 11/23/2025 1:30 PM EST Office Visit [facility] OPTOMETRY [address] [place] [address] Hector, Zohra, OD 230 [place] [address] 01/03/2026 1:45 PM EST Office Visit [facility] MEDICINE [address] [place] [address] Alexandra Pillai MD [address] [place] [address] documented as of this encounter Visit Diagnoses Not on filedocumented in this encounter Additional Health Concerns Assessment Noted Time PHQ-9 Depression Total Score: 0 06/26/20 24 11:05 AM EDT documented as of this encounter Care Teams Primary Mill Roller Relationship Specialty Start Date End Date Alexandra Pillai MD 230 [place] [address] PCP - General Family Medicine 06/05/19 Jacqueline Syed Keyboard OperatorPolice Communications Dispatcher 08/01/25 documented as of this encounter
--- OUTSIDE RECORDS SUMMARY | 2025-10-02 14:20 | XMS_ITS | Encounter Summary ---
Author Organization [employer] Address 75 [facility] 7t [place] [address] Care Team Providers Care Certified Master Safe Technician Name Role Phone Alexandra Pillai MD Primary Care Provide r Reason for Visit * Reason Comments Med Refill Encounter Details Date Type Department Care Team ([facility] st Contact Info) Description 01/04/2025 Refill [facility] MEDICINE 230 [place] [address] Alexandra Pillai MD 230 [place] [address] Social History Tobacco Use Types Packs/Day Years [...] Description 11/23/2025 1:30 PM EST Office Visit [facility] OPTOMETRY [address] [place] [address] Hector, Zohra, OD 230 [place] [address] 01/03/2026 1:45 PM EST Office Visit [facility] MEDICINE 230 [place] [address] Alexandra Pillai MD 230 [place] [address] documented as of this encounter Visit Diagnoses Not on filedocumented in this encounter Additional Health Concerns Assessment Noted Time PHQ-9 Depression Total Score: 0 06/26/20 24 11:05 AM EDT documented as of this encounter Care Teams Certified Master Safe Technician Relationship Specialty Start Date End Date Alexandra Pillai MD 230 [place] [address] PCP - General Family Medicine 06/05/19 Jacqueline Syed Bilingual Call Center RepresentativeTimber Treatment Plant Operator 08/01/25 documented as of this encounter
--- OUTSIDE RECORDS SUMMARY | 2025-10-02 14:21 | XMS_ITS | Encounter Summary ---
Author Organization [employer] Address [address] [place] [address] 7[address] [place] [address] Care Team Providers Care Guest Relations Manager Name Role Phone Alexandra Pillai MD Primary Care Provide r Encounter Details Date Type Department Care Team (Late Contact Info) Description 07/28/2023 Orders Only [facility] MEDICINE [address] [place] [address] ProviderMirtha MD Social History Tobacco Use Types [...] Description 11/23/2025 1:30 PM EST Office Visit [facility] OPTOMETRY [address] [place] [address] Zohra Young, OD 230 [place] [address] 01/03/2026 1:45 PM EST Office Visit [facility] MEDICINE 230 [place] [address] Alexandra Pillai MD 230 [place] [address] documented as of this encounter Procedures Procedure [...] documented as of this encounter Care Teams Guest Relations Manager Relationship Specialty Start Date End Date Alexandra Pillai MD 230 [place] [address] PCP - General Family Medicine 06/05/19 Jacqueline Syed Assembler TesterPromotions Assistant 08/01/25 documented as of this encounter
--- OUTSIDE RECORDS SUMMARY | 2025-10-02 14:21 | XMS_ITS | Clinical Summary ---
Author Organization [facility] Address [address] [place] [address] Care Team Providers Care Permastone Applicator Name Role Phone Alexandra Pillai MD Primary [...] NEEDED FOR SEVERE PAIN 2 Active Creon [id number] units capsule TAKE 1 CAPSULE BY MOUTH [...] Colonoscopy 2015 Colorectal Cancer Screening: Sigmoidoscopy 2015 Pneumococcal Vaccine: 50+ Years (1 of 1 - PCV) 016 Influenza Vaccine (#1) 2025 Insurance #715 [place] [address] Medicaid [place] [id number] [place] [address] Medicaid [place] Care Teams Permastone Applicator Relationship Specialty Start Date End Date Alexandra Pillai MD [address] [place] [phone] PCP - General Internal Medicine 01/19/22
--- OUTSIDE RECORDS SUMMARY | 2025-10-02 14:21 | XMS_ITS | Encounter Summary ---
Author Organization [employer] Address 75 [facility] 7[place] [address] Care Team Providers Care Assembly Line Machine Operator Name Role Phone Alexandra Pillai MD Primary Care Provide r Reason for Visit * Reason Comments Med Refill Encounter Details Date Type Department Care Team (Late Contact Info) Description 07/02/2023 Refill [facility] MEDICINE 230 [place] [address] Ani Maciel MD 230 [place] [address] Mild persistent asthma without complication Social History [...] Description 11/23/2025 1:30 PM EST Office Visit [facility] OPTOMETRY [address] [place] [address] Hector, Zohra, OD 230 [place] [address] 01/03/2026 1:45 PM EST Office Visit [facility] MEDICINE 230 [place] [address] Alexandra Pillai MD [address] [place] [address] documented as of this encounter Visit Diagnoses Diagnosis Mild persistent asthma without complication documented in this encounter Additional Health Concerns Assessment Noted Time PHQ-9 Depression Total Score: 0 03/26/20 23 10:56 AM EDT documented as of this encounter Care Teams Assembly Line Machine Operator Relationship Specialty Start Date End Date Alexandra Pillai MD [address] [place], [place] [phone] PCP - General Family Medicine 06/05/19 Jacqueline Syde Automatic Pad Making Machine OperatorSales And Marketing Administrator 08/01/25 documented as of this encounter
[2025-10-06 20:17] LABS: Lamotrigine Lamictal <0.5 mcg/mL (2.5-15.0)
[2025-10-07 22:54] LABS: Anti Nuclear Antibody Pattern Nuclear, Nucleolar; Anti Nuclear Antibody Screen POSITIVE (NEGATIVE); Anti Nuclear Antibody Titer 1:80 titer
[2025-10-08 13:44] LABS: Vitamin D 25-OH, D2 <4 ng/mL; Vitamin D 25-OH, D3 36 ng/mL; Vitamin D 25-OH, Total 36 ng/mL (30-100)
== END 2025-10-02 10:56 | disposition home or self-care (01) ==
LOC: HO.LAB 10:55
PROVIDERS: PCP Internal Medicine; Visit Provider Nurse Practitioner Family
DX: Z01.84 Encounter for antibody response examination (principal); I10 Essential (primary) hypertension; R51.9 Headache, unspecified; D64.9 Anemia, unspecified; M25.50 Pain in unspecified joint; E55.9 Vitamin D deficiency, unspecified; E66.9 Obesity, unspecified; H53.9 Unspecified visual disturbance; E51.9 Thiamine deficiency, unspecified; R73.03 Prediabetes
CPT/HCPCS: 36415; 80053; 80175; 82306; 82607; 82728; 82746; 83036; 83090; 83540; 83735; 84425; 84443; 85025; 85652; 86038; 86039

== ENCOUNTER 2025-10-21 15:13 | Outpatient (REF) | payer MEDICAID, SELFPAY ==
--- NOTE | ~2025-10-21 | MR_ITS ---
EXAMINATION: MR BRAIN WITHOUT AND WITH CONTRAST CLINICAL INFORMATION: R 51.9. Headache. COMPARISON: March 24, 2017. TECHNIQUE: Multiplanar, multisequence MRI of the brain was obtained before and after the intravenous administration of 9.0 mL gadolinium based (Gadavist). No reported immediate complications.. FINDINGS: No restricted diffusion. No abnormal enhancement within the intra-axial or the extra-axial compartment of the cranium. No acute intracranial hemorrhage, mass effect, midline shift, hydrocephalus or herniation. Calloway-white matter differentiation is normal. Bilateral, a few, scattered, nonspecific white matter hyperintense T2 FLAIR signal foci involving centrum semiovale and bean radiata, the most conspicuous in the left temporal lobe. Posterior cranial fossa contents demonstrated no acute intracranial hemorrhage or mass effect. Normal position of the cerebellar tonsils. Sellar/suprasellar region is normal. Flow-void signal within the main cerebral vessels is normal. Dolichoectatic right vertebral vascular system. Mild prominence of the extra-axial CSF spaces and cerebral sulci involving mostly the bifrontal temporal lobes. MR/MR head/brain wo/w con IMPRESSION: No acute brain abnormality. No abnormal enhancement. Nonspecific white matter T2 FLAIR signal which could be seen patients with migraines. Bifrontal bitemporal lobe atrophy, mild. Electronically signed by: Rich Burger MD 10/22/2025 06:51 AM EST
--- OUTSIDE RECORDS SUMMARY | 2025-10-21 15:19 | XMS_ITS | Encounter Summary ---
Author Organization [employer] [facility] Address 75 [facility] 7t h Floor [place] [id number] Care Team Providers Care Panama Hat Hydraulic Press Operator Name Role Phone Alexandra Pillai MD Primary Care Provide r Encounter Details Date Type Department Care Team (Late st Contact Info) Description 12/09/2022 Orders Only [facility] MEDICINE [address] [place] [address] Lisette Coates LPN Social History Tobacco Use [...] Description 11/23/2025 1:30 PM EST Office Visit [facility] OPTOMETRY [address] [place] [address] Zohra Young, OD 230 [place] [address] 01/03/2026 1:45 PM EST Office Visit [facility] MEDICINE [address] [place] [address] Alexandra Pillai MD 230 [place] [address] documented as of this encounter Visit Diagnoses Not on filedocumented in this encounter Care Teams Panama Hat Hydraulic Press Operator Relationship Specialty Start Date End Date Alexandra Pillai MD 230 [place] [address] PCP - General Family Medicine 06/05/19 Jacqueline Syed Unit AssistantRailcar Switchman 08/01/25 documented as of this encounter
--- OUTSIDE RECORDS SUMMARY | 2025-10-21 15:19 | XMS_ITS | Encounter Summary ---
Author Organization [employer] Address 75 [facility] 7[address] [place] [address] Care Team Providers Care Clinical Nurse Reviewer Name Role Phone Alexandra Pillai MD Primary Care Provide r Reason for Visit * Reason Comments Med Refill Encounter Details Date Type Department Care Team (Late Contact Info) Description 07/02/2023 Refill [facility] MEDICINE [address] [place] [address] Ani Maciel MD 230 [place] [address] Mild persistent asthma without complication Social History [...] Description 11/23/2025 1:30 PM EST Office Visit [facility] OPTOMETRY [address] [place] [address] Hector, Zohra, OD 230 [place] [address] 01/03/2026 1:45 PM EST Office Visit [facility] MEDICINE 230 [place] [address] Alexandra Pillai MD 230 [place] [address] documented as of this encounter Visit Diagnoses Diagnosis Mild persistent asthma without complication documented in this encounter Additional Health Concerns Assessment Noted Time PHQ-9 Depression Total Score: 0 03/26/20 23 10:56 AM EDT documented as of this encounter Care Teams Clinical Nurse Reviewer Relationship Specialty Start Date End Date Alexandra Pillai MD 230 [place], [place] [phone] PCP - General Family Medicine 06/05/19 Jacqueline Syed Tanker Service AttendantDrop Machine Operator 08/01/25 documented as of this encounter
--- OUTSIDE RECORDS SUMMARY | 2025-10-21 15:19 | XMS_ITS | Encounter Summary ---
Author Organization [employer] Address 75 [facility] 7t [place] [address] Care Team Providers Care Land Manager Name Role Phone Alexandra Pillai MD Primary Care Provide r Reason for Visit * Reason Comments Med Refill Encounter Details Date Type Department Care Team ([facility] st Contact Info) Description 02/12/2025 Refill [facility] CH[facility] MED & PEDS [address] [place], [place] [phone] Alexandra Pillai MD 230 [place] [address] Pain Social History Tobacco Use Types Packs/Day [...] Description 11/23/2025 1:30 PM EST Office Visit [facility] OPTOMETRY [address] [place] [address] Hector, Zohra, OD 230 [place] [address] 01/03/2026 1:45 PM EST Office Visit [facility] MEDICINE [address] [place] [address] Alexandra Pillai MD 230 [place] [address] documented as of this encounter Visit Diagnoses Diagnosis Pain Generalized pain documented in this encounter Additional Health Concerns Assessment Noted Time PHQ-9 Depression Total Score: 0 06/26/20 24 11:05 AM EDT documented as of this encounter Care Teams Land Manager Relationship Specialty Start Date End Date Alexandra Pillai MD 230 [place] [address] PCP - General Family Medicine 06/05/19 Jacqueline Syed Demonstrator KnittingLining Presser 08/01/25 documented as of this encounter
--- OUTSIDE RECORDS SUMMARY | 2025-10-21 15:19 | XMS_ITS | Clinical Summary ---
Author Organization [facility] Facility Address [address] [place] [address] Care Team Providers Care Caterer'S Aide Name Role Phone Alexandra Pillai MD Primary [...] NEEDED FOR SEVERE PAIN 2 Active Creon 18785-92170 units capsule TAKE 1 CAPSULE BY MOUTH [...] 016 Influenza Vaccine (#1) 2025 Insurance #715 [place] [address] Medicaid [place] [id number] [place] [address] Medicaid [place] Care Teams Caterer'S Aide Relationship Specialty Start Date End Date Alexandra Pillai MD [address] [place] [phone] PCP - General Internal Medicine 01/19/22
--- OUTSIDE RECORDS SUMMARY | 2025-10-21 15:19 | XMS_ITS | Encounter Summary ---
Author Organization [email or web address] Address [address] [place] [address] 7[place] [address] Care Team Providers Care Service Worker Helper Name Role Phone Alexandra Pillai MD Primary Care Provide r Encounter Details Date Type Department Care Team (Late Contact Info) Description 07/28/2023 Orders Only [facility] MEDICINE [address] [place] [address] ProviderMirtha MD Social History Tobacco Use Types [...] Visit [facility] OPTOMETRY [address] [place] [address] Zohra Young, OD 230 [place] [address] 01/03/2026 1:45 PM EST Office Visit [facility] MEDICINE 230 [place] [address] Alexandra Pillai MD 230 [place] [address] documented as of this encounter Procedures Procedure [...] documented as of this encounter Care Teams Service Worker Helper Relationship Specialty Start Date End Date Alexandra Pillai MD 230 [place] [address] PCP - General Family Medicine 06/05/19 Jacqueline Syed Stem Roller OperatorAdjustment Clerk 08/01/25 documented as of this encounter
--- OUTSIDE RECORDS SUMMARY | 2025-10-21 15:19 | XMS_ITS | Encounter Summary ---
Author Organization [employer] Address 75 [facility] 7t [place] [address] Care Team Providers Care Third Miller Name Role Phone Alexandra Pillai MD Primary Care Provide r Reason for Visit * Reason Comments Med Refill Encounter Details Date Type Department Care Team ([facility] st Contact Info) Description 07/10/2024 Refill [facility] MEDICINE [address] [place] [address] Alexandra Pillai MD 230 [place] [address] Primary hypertension Social History Tobacco Use Types [...] Description 11/23/2025 1:30 PM EST Office Visit [facility] OPTOMETRY [address] [place] [address] Zohra Young, OD 230 [place] [address] 01/03/2026 1:45 PM EST Office Visit [facility] MEDICINE 230 [place] [address] Alexandra Pillai MD 230 [place] [address] documented as of this encounter Visit Diagnoses Diagnosis Primary hypertension Unspecified essential hypertension documented in this encounter Additional Health Concerns Assessment Noted Time PHQ-9 Depression Total Score: 0 06/26/20 24 11:05 AM EDT documented as of this encounter Care Teams Third Miller Relationship Specialty Start Date End Date Alexandra Pillai MD 230 [place] [address] PCP - General Family Medicine 06/05/19 Jacqueline Syed Assistant Quality ManagerBereavement Coordinator 08/01/25 documented as of this encounter
--- OUTSIDE RECORDS SUMMARY | 2025-10-21 15:19 | XMS_ITS | Encounter Summary ---
Author Organization [employer] Address 75 [facility] 7t [place] [address] Care Team Providers Care Prints And Drawings Curator Name Role Phone Alexandra Pillai MD Primary Care Provide r Reason for Visit * Reason Comments Med Refill Encounter Details Date Type Department Care Team ([facility] st Contact Info) Description 01/04/[address] [facility] MEDICINE [address] [place] [address] Alexandra Pillai MD 230 [place] [address] Social History Tobacco Use Types Packs/Day Years [...] 11/23/2025 1:30 PM EST Office Visit [facility] OPTOMETRY [address] [place] [address] Hector, Zohra, OD 230 [place] [address] 01/03/2026 1:45 PM EST Office Visit [facility] MEDICINE 230 [place] [address] Alexandra Pillai MD 230 [place] [address] documented as of this encounter Visit Diagnoses Not on filedocumented in this encounter Additional Health Concerns Assessment Noted Time PHQ-9 Depression Total Score: 0 06/26/20 24 11:05 AM EDT documented as of this encounter Care Teams Prints And Drawings Curator Relationship Specialty Start Date End Date Alexandra Pillai MD 230 [place] [address] PCP - General Family Medicine 06/05/19 Jacqueline Syed Assistant Refinery OperatorClient Success Director 08/01/25 documented as of this encounter
--- OUTSIDE RECORDS SUMMARY | 2025-10-21 15:19 | XMS_ITS | Encounter Summary ---
Author Organization [employer] Address 75 [facility] 7t [place] [address] Care Team Providers Care Associate Programmer Name Role Phone Alexandra Pillai MD Primary Care Provide r Reason for Visit * Reason Onset Date Comments Referral 05/25/2024 Encounter Details Date Type Department Care Team ([facility] Contact Info) Description 05/25/2024 Telephone [facility] MEDICINE [address] [place], [place] [phone] Alexandra Pillai MD 230 [place], [place] [phone] Referral Social History Tobacco Use Types Packs/Day [...] for pt. Any questions contact damian at [phone] documented in this encounter Plan of Treatment Upcoming Encounters Date Type Department Care Team (Late st Contact Info) Description 11/23/2025 1:30 PM EST Office Visit [facility] OPTOMETRY [address] [place] [address] Hector, Zohra, OD 230 [place] [address] 01/03/2026 1:45 PM EST Office Visit [facility] MEDICINE [address] [place] [address] Alexandra Pillai MD [address] [place] [address] documented as of this encounter Visit Diagnoses Not on filedocumented in this encounter Additional Health Concerns Assessment Noted Time PHQ-9 Depression Total Score: 0 03/26/20 23 10:56 AM EDT documented as of this encounter Care Teams Associate Programmer Relationship Specialty Start Date End Date Alexandra Pillai MD 230 [place] [address] PCP - General Family Medicine 06/05/19 Jacqueline Syed Steward/Stewardess Tourist ClassCigarette Examiner 08/01/25 documented as of this encounter
--- OUTSIDE RECORDS SUMMARY | 2025-10-21 15:19 | XMS_ITS | Encounter Summary ---
Author Organization [employer] Address 75 [facility] 7t [place] [address] Care Team Providers Care Nuisance Wildlife Control Operator Name Role Phone Alexandra Pillai MD Primary Care Provide r Reason for Visit * Reason Onset Date Comments Durable Medical Equipment 07/17/2024 Encounter Details Date Type Department Care Team ([facility] Contact Info) Description 07/17/2024 Telephone [facility] MEDICINE [address] [place], [place] [phone] Alexandra Pillai MD 230 [place] [address] Durable Medical Equipment Social History Tobacco Use [...] 3:16 PM EDT Tc katina Duran at [facility] requesting a portable Commode documented in this encounter Plan of Treatment Upcoming Encounters Date Type Department Care Team (Late st Contact Info) Description 11/23/2025 1:30 PM EST Office Visit [facility] OPTOMETRY [address] [place] [address] Hector, Zohra, OD 230 [place] [address] 01/03/2026 1:45 PM EST Office Visit [facility] MEDICINE [address] [place] [address] Alexandra Pillai MD [address] [place] [address] documented as of this encounter Visit Diagnoses Not on filedocumented in this encounter Additional Health Concerns Assessment Noted Time PHQ-9 Depression Total Score: 0 06/26/20 24 11:05 AM EDT documented as of this encounter Care Teams Nuisance Wildlife Control Operator Relationship Specialty Start Date End Date Alexandra Pillai MD 230 [place] [address] PCP - General Family Medicine 06/05/19 Jacqueline Syed Buffing Line Set Up WorkerAudio Visual Equipment Rental Clerk 08/01/25 documented as of this encounter
--- OUTSIDE RECORDS SUMMARY | 2025-10-21 15:19 | XMS_ITS | Encounter Summary ---
Author Organization [employer] Address 75 [facility] 7t [place] [address] Care Team Providers Care Production Manufacturing Worker Name Role Phone Alexandra Pillai MD Primary Care Provide r Reason for Visit * Reason Comments Med Refill Encounter Details Date Type Department Care Team ([facility] st Contact Info) Description 06/12/2025 Refill [facility] MEDICINE [address] [place] [address] Alexandra Pillai MD [address] [place] [address] Primary insomnia Social History Tobacco Use Types [...] 1:30 PM EST Office Visit [facility] OPTOMETRY [address] [place] [address] Zohra Young, OD 230 [place] [address] 01/03/2026 1:45 PM EST Office Visit [facility] MEDICINE [address] [place] [address] Alexandra Pillai MD [address] [place] [address] documented as of this encounter Visit Diagnoses Diagnosis Primary insomnia Persistent disorder of initiating or maintaining sleep documented in this encounter Additional Health Concerns Assessment Noted Time PHQ-9 Depression Total Score: 12 025 3:41 PM EDT documented as of this encounter Care Teams Production Manufacturing Worker Relationship Specialty Start Date End Date Alexandra Pillai MD 230 [place] [address] PCP - General Family Medicine 06/05/19 Jacqueline Syed Residency DirectorRegistered Nurse Post Partum 08/01/25 documented as of this encounter
--- OUTSIDE RECORDS SUMMARY | 2025-10-21 15:19 | XMS_ITS | Encounter Summary ---
Author Organization [employer] Address 75 [facility] 7t [place] [address] Care Team Providers Care Health Care Technician Name Role Phone Alexandra Pillai MD Primary Care Provide r Reason for Visit * Reason Comments Med Refill Encounter Details Date Type Department Care Team ([facility] st Contact Info) Description 06/13/2025 Refill [facility] CHC MED & PEDS [address] [place], [place] [phone] Alexandra Pillai MD 230 [place] [address] Primary insomnia Social History Tobacco Use Types [...] Description 11/23/2025 1:30 PM EST Office Visit [facility] OPTOMETRY [address] [place] [address] Hector, Zohra, OD 230 [place] [address] 01/03/2026 1:45 PM EST Office Visit [facility] MEDICINE [address] [place] [address] Alexandra Pillai MD 230 [place] [address] documented as of this encounter Visit Diagnoses Diagnosis Primary insomnia Persistent disorder of initiating or maintaining sleep documented in this encounter Additional Health Concerns Assessment Noted Time PHQ-9 Depression Total Score: 12 025 3:41 PM EDT documented as of this encounter Care Teams Health Care Technician Relationship Specialty Start Date End Date Alexandra Pillai MD [address] [place] [address] PCP - General Family Medicine 06/05/19 Jacqueline Syed Inspector Rubber Stamp DieLearning Technologies Specialist 08/01/25 documented as of this encounter
--- OUTSIDE RECORDS SUMMARY | 2025-10-21 15:19 | XMS_ITS | Encounter Summary ---
Author Organization [employer] Address [address] [facility] [address] [place] [address] Care Team Providers Care Switchboard Wire Worker Helper Name Role Phone Alexandra Pillai MD Primary Care Provide r Encounter Details Date Type Department Care Team ([facility] Contact Info) Description 01/11/2023 Orders Only [facility] CHC MED & PEDS [address] [place] [address] Jacqueline Mejias LPN Social History Tobacco Use [...] Description 11/23/2025 1:30 PM EST Office Visit [facility] OPTOMETRY [address] [place], [place] [phone] Zohra Young, OD [address] [place] [address] 01/03/2026 1:45 PM EST Office Visit [facility] MEDICINE [address] [place], [place] [phone] Alexandra Pillai MD [address] [place], [place] [phone] documented as of this encounter Visit Diagnoses Not on filedocumented in this encounter Care Teams Switchboard Wire Worker Helper Relationship Specialty Start Date End Date Alexandra Pillai MD [address] [place] [address] PCP - General Family Medicine 06/05/19 Jacqueline Syed Store Warehouse AssociateLocomotive Supervisor 08/01/25 documented as of this encounter
--- OUTSIDE RECORDS SUMMARY | 2025-10-21 15:19 | XMS_ITS | Clinical Summary ---
Author Organization [employer] Address [address] [facility] [address] [place] [address] Care Team Providers Care Railway Station Manager Name Role Phone Alexandra Pillai MD [...] HOURS NEEDED FOR SEVERE PAIN Active Creon [id number] units capsule Take 1 capsule by mouth [...] 2025 Active Blood Glucose Monitoring Suppl (FreeStyle [place] Lite) w/Device kitIndications: Hypoglycemia Use to test [...] SUGAR TWICE A DAY 100 each 3 5 8:41 AM EST 025 Active lidocaine (Lidoderm) 5 % patch [...] 15 tablet 2 5 11:51 AM EST Active atorvastatin (Lipitor) 20 MG tablet TAKE 1 TABLET BY MOUTH EVERY MORNING 90 tablet 1 Active Diclofenac Sodium 1 % gelIndications: Pain APPLY 2 GRAMS TOPICALLY TO AFFECTED AREA(S) TWICE DAILY 100 g 3 024 2024 Discontinued(R eorder (will not trigger notification to Pharmacy)) albuterol (2.5 MG/3ML) 0.083% nebulizer solutionIndicat ions:Moderate persistent asthma, unspecified whether complicated Take 3 mL (2.5 mg) by nebulization every 4 (four) hours if needed for wheezing. 75 mL 3 024 2024 Discontinued atorvastatin (Lipitor) 20 MG tablet TAKE 1 TABLET BY MOUTH EVERY MORNING 90 tablet 1 025 2024 Discontinued butalbital-acet aminophen-caffe ine 50-325-40 [...] Encounters Date Type Department Care Team Description 10/04/2025 Refill [facility] MED & PEDS [address] [place] [address] Alexandra Pillai MD 10/02/2025 Orders Only GENERIC EXTERNAL DATA DEPARTMENT Provider, Generic External Data 10/01/2025 1:45 PM EST Office Visit [address] [address] Alexandra Pillai MD Prediabetes (Primary Dx); Moderate persistent asthma, unspecified whether complicated; Pain; Migraine without aura, not refractory; Encounter for immunization; Venous insufficiency 10/01/2025 Travel 09/28/[address] [address] Alexandra Pillai MD chart prep 09/26/[address] [address] Alexandra Pillai MD glucose monitor 09/26/[address] [address] Alexandra Pillai MD Moderate persistent asthma, unspecified whether complicated 09/24/2025 Patient Outreach [address] [address] Alexandra Pillai MD Pre-visit Planning ((Unable to reach for PVP screening, LVM) to be completed in office ) 09/13/2025 Refill [facility] MED & PEDS [address] [place] [address] Alexandra Pillai MD Primary insomnia 09/07/2025 Refill [facility] MEDICINE [address] [place] [address] Alexandra Pillai MD Primary hypertension 08/28/2025 Refill [facility] MEDICINE [address] [place] [address] Alexandra Pillai MD Hypoglycemia 08/15/2025 Refill [facility] MED & PEDS [address] [place] [address] Alexandra Pillai MD Primary insomnia 08/08/2025 Refill [facility] MEDICINE [address] [place] [address] Alexandra Pillai MD 08/01/2025 Telephone [facility] MED & PEDS [address] [place] [address] Alexandra Pillai MD Care Coordination (ICP Care Plan) from Last 3 Months Immunizations Immunization Administration [...] Description 11/23/2025 1:30 PM EST Office Visit [facility] OPTOMETRY [address] [place] [address] Hector, Zohra, OD [address] [place] [address] 01/03/2026 1:45 PM EST Office Visit [facility] MEDICINE [address] [place] [address] Alexandra Pillai MD [address] [place] [address] Health Maintenance Due Date Last Done Comments [...] of 2) 2016 COVID-19 Vaccine ( season) 2025 10/28/2021, 03/27/2021, 02/27/2021 SDOH Screening [...] Name Priority Date/Time Associated Diagnosis Comments VITAMIN B1 Routine 10/02/2025 11:18 AM EST VITAMIN D 25-OH (D2 AND D3) Routine 10/02/2025 11:18 AM EST JAYA SCREEN, IFA, W/REFL TITER AND PATTERN Routine 10/02/2025 11:18 AM EST LAMOTRIGINE Routine 10/02/2025 11:18 AM EST HOMOCYSTEINE Routine 10/02/2025 11:18 AM EST VITAMIN B12/FOLATE, [...] 10/01/2025 2:37 PM EST Encounter for immunization BI MAMMOGRAM SCREENING TOMOSYNTHESIS BILATERAL Routine 05/31/2025 10:40 AM EDT LIPID PANEL, STANDARD Routine 06/26/2024 9:18 AM EDT Primary hypertension ZZZ HISTORICAL HIV AB/AG Routine 11/16/2019 9:40 AM EST HM COLONOSCOPY Routine 04/01/2017 from Last 3 Months or Most Recently Relevant to Health Maintenance Results * (ABNORMAL) Comprehensive Metabolic Panel, Fasting (10/02/2025 11:18 AM EST) Sodium 141 135 - 145 mmol/L [facility] Potassium 3.8 3.3 - 5.1 mmol/L [facility] Chloride 105 96 - 108 mmol/L [facility] Carbon Dioxide 27 22 - 29 mmol/L [facility] Anion Gap 13 12 - 20 [facility] Urea Nitrogen (BUN) 17(H) 9 - 16 mg/dL [facility] Creatinine, Serum 0.89 0.5 - 1.4 mg/dL [facility] Estimated Glomerular Filt Rate >60 [facility] Comment:Chronic Kidney Disea se: Estimated GFR < 60 mL/min/1.57t6Sucfdk Kidney Disease: Estimated GFR < 15 mL/min/1.73m2 Glucose Fasting 143(H) 60 - 99 mg/dL [facility] Comment:A fasting glucose of 126 mg/dl or greater on more than oneoccasion is considered diagnostic of diabetes. Calcium 9.3 8.4 - 10.2 mg/dL [facility] Bilirubin, Total 0.4 0.0 - 1.0 mg/dL [facility] Aspartate Amino Transferase 21 5 - 31 U/L [facility] Alanine Aminotransferase 16 0 - 31 U/L [facility] Total Protein 6.8 6.5 - 8.0 g/dL [facility] Albumin Level 4.1 3.5 - 5.0 g/dL [facility] Alkaline Phosphatase 104 39 - 117 U/L [facility] 10/02/2025 11:1 8 AM EST 10/02/2025 11:18 AM EST us Generic External Data Provider LAB BLOOD ORDERAB LES Final Result [facility] [address] [place] [phone] * VITAMIN D 25-OH (D2 AND D3) (10/02/2025 11:18 AM EST) Vitamin D, 25-OH, D2 <4 ng/mL [facility] Comment:This test was develo ped and its analytical performancecharacteristics have been determined by [employer] [place], [place]. It hasnot been cleared or approved by the U.S. Food and DrugAdministration. This assay has been validated pursuantto the CLIA regulations and is used for clinicalpurposes.THIS TEST WAS PERFORMED AT:[employer] [place] [address]GBOIICTPRATEEK DELGADILLO MD,PHD Vitamin D, 25-OH, D3 36 ng/mL [facility] Comment:This test was shannon champagne and its analytical performancecharacteristics have been determined by [employer] [place], [place]. It hasnot been cleared or approved by the U.S. Food and DrugAdministration. This assay has been validated pursuantto the CLIA regulations and is used for clinicalpurposes. Vitamin D, 25-OH, Total 36 30 - 100 ng/mL [facility] Comment:Vitamin D, 25-Hydrox y reports concentrations of twocommon forms, 25-OHD2 and 25-OHD3. 25-OHD3 indicatesboth endogenous production and supplementation.25-OHD2 is an indicator of exogenous sources such asdiet or supplementation. Therapy is based onmeasurement of Total 25-OHD, with levels <20 ng/mLindicative of Vitamin D deficiency, while levelsbetween 20 ng/mL and 30 ng/mL suggest insufficiency.Optimal levels are > or = 30 ng/mL.For additional information, please refer tohttp://education.The Kernel/faq/GIY173(This link is being provided for informational/educational purposes only.) 10/02/2025 11:1 8 AM EST 10/02/2025 11:18 AM EST us Generic External Data Provider LAB BLOOD ORDERAB LES Final Result [facility] [address] [place] [phone] * Vitamin B12 (Cobalamin) and Folate Panel, Serum (10/02/2025 11:18 AM EST) Vitamin B12 339 200 - 900 pg/mL [facility] Comment:NORMAL 200-900 PG/ML INDETERMINATE 160-199 PG/ML DEFICIENT < 160 PG/ML Folate 12.3 > or = 4.0 ng/mL [facility] Comment:Reference Values:> o r = 4.0 ng/mL< 4.0 ng/mL suggests folate deficiency Methotrexate, aminopterin and folinic acid(leucovorin) are chemotherapeutic agents whose molecularstructures are similar to folate; therefore, the Architectfolate assay cannot be used for patients using these drugs. 10/02/2025 11:1 8 AM EST 10/02/2025 11:18 AM EST Generic External Data Provider LAB BLOOD ORDERAB LES Final Result Performing Organization Address [facility]/ZIP Co de Phone Number [facility] [address] [place] [phone] * TSH with Reflex to Free T4 (10/02/2025 11:18 AM EST) Pathologist [facility] TSH reflex Free T4 1.61 0.32 - 4.0 uIU/mL [facility] 10/02/2025 11:1 8 AM EST 10/02/2025 11:18 AM EST Generic External Data Provider LAB BLOOD ORDERAB LES Final Result Performing Organization Address [facility] Co de Phone Number [facility] [address] [place] [phone] * CBC auto differential (10/02/2025 11:18 AM EST) [facility] White Blood Count 7.5 4.8 - 10.8 X10*3/uL [facility] Red Blood Count 4.35 4.20 - 5.50 X10*6/uL [facility] Hemoglobin 12.7 12.0 - 16.0 g/dl [facility] Hematocrit 40.1 37.0 - 47.0 % [facility] Mean Corpuscular Volume 92.2 80.0 - 98.0 fL [facility] Mean Corpuscular Hemoglobin 29.2 27.0 - 33.0 pg [facility] Mean Corpuscular HGB Conc 31.7 31.0 - 35.0 g/dl [facility] Red Cell Distribution Width 12.8 11.0 - 16.0 % [facility] Platelet Count 250 160 - 400 X10*3/uL [facility] Mean Platelet Volume 10.6 9.4 - 12.3 fL [facility] Neutrophils Percent Auto 49.7 45 - 73 % [facility] Imm Gran Pct Auto 0.3 0.0 - 0.4 % [facility] Lymphocytes Percent Auto 39.2 20 - 40 % [facility] Monocytes Percent Auto 7.1 2 - 11 % [facility] Eosinophils Percent Auto 3.2 0 - 4 % [facility] Basophils Percent Auto 0.5 0 - 2 % [facility] NRBC Pct Auto 0.0 0.0 - 0.2 /100WBC [facility] Neutrophils Absolute Auto 3.7 2.0 - 8.3 x10*3/uL [facility] Imm Gran Abs Auto 0.02 0.00 - 0.03 X10*3/uL [facility] Lymphocytes Absolute Auto 2.9 1.2 - 4.9 X10*3/uL [facility] Monocytes Absolute Auto 0.5 0.1 - 1.2 X10*3/uL [facility] Eosinophils Absolute Auto 0.2 0.0 - 0.4 X10*3/uL [facility] Basophils Absolute Auto 0.0 0.0 - 0.2 X10*3/uL [facility] NRBC Abs Auto 0.000 0.0 - 0.012 X10*3/uL [facility] 10/02/2025 11:1 8 AM EST 10/02/2025 11:18 AM EST us Generic External Data Provider LAB BLOOD ORDERAB LES Final Result [facility] [address] [place] [phone] * Iron And Total Iron Binding Capacity (10/02/2025 11:18 AM EST) Iron 71 30 - 160 mcg/dL [facility] Total Iron Binding Capacity 273 228 - 428 mcg/dL [facility] Percent Iron Saturation 26 15 - 50 % [facility] Unsaturated Iron Binding 202 ug/dL [facility] 10/02/2025 11:1 8 AM EST 10/02/2025 11:18 AM EST Generic External Data Provider LAB BLOOD ORDERAB LES Final Result Performing Organization Address [facility] de Phone Number [facility] [address] [place] [phone] * (ABNORMAL) Lamotrigine (10/02/2025 11:18 AM EST) Lamotrigine <0.5(A) 2.5 - 15.0 mcg/mL [facility] Comment:This test was develo ped and its analytical performancecharacteristics have been determined by [employer] [place], [place]. It hasnot been cleared or approved by the U.S. Food and DrugAdministration. This assay has been validated pursuantto the CLIA regulations and is used for clinicalpurposes.THIS TEST WAS PERFORMED AT:[employer] [place] [phone] DELGADILLO MD,PHD 10/02/2025 11:1 8 AM EST 10/02/2025 11:18 AM EST Generic External Data Provider LAB BLOOD ORDERAB LES Final Result Performing Organization Address [facility] Co de Phone Number [facility] [address] [place] [phone] * (ABNORMAL) Sed Rate by Modified Stephenergren (10/02/2025 11:18 AM EST) Erythrocyte Sedimentation Rate 32(H) 0 - 20 MM/HR [facility] Comment:Patients with polycy themia and many hemoglobin abnormalitiesmay have depressed sed rates whereas patients with anemiamay have elevated sed rates. 10/02/2025 11:1 8 AM EST 10/02/2025 11:18 AM EST us Generic External Data Provider LAB BLOOD ORDERAB LES Final Result [facility] [address] [place] [phone] * (ABNORMAL) JAYA Screen,IFA, with Reflex to Titer and Pattern (10/02/2025 11:18 AM EST) Anti Nuclear Antibody Screen POSITIVE (A) NEGATIVE [facility] Comment:JAYA IFA is a first l ine screen for detecting thepresence of up to approximately 150 autoantibodies invarious autoimmune diseases. A positive JAYA IFA resultis suggestive of autoimmune disease and reflexes totiter and pattern. Further laboratory testing may beconsidered if clinically indicated.For additional information, please refer tohttp://education.The Kernel/faq/WSN344(This link is being provided for informational/educational purposes only.) JAYA Titer 1:80(A) titer [facility] Comment:A low level JAYA tite r may be present in pre-clinicalautoimmune diseases and normal individuals. Reference Range <1:40 Negative 1:40-1:80 Low Antibody Level >1:80 Elevated Antibody Level JAYA Pattern Nuclear, Nucleola r(A) [facility] Comment:Nucleolar pattern is associated with systemic sclerosis(scleroderma), systemic sclerosis/polymyositis overlapand Sjogren's syndrome.AC-8,9,10: NucleolarInternational Consensus on JAYA Patterns(https://doi.org/10.1515/knnt-0710-0460)THIS TEST WAS PERFORMED AT:[employer] [place] [phone] OSORIO MD JAYA Titer 2 TNP [facility] JAYA Pattern 2 [facility] JAYA TITER 3 [facility] JAYA PATTERN 3 [facility] 10/02/2025 11:1 8 AM EST 10/02/2025 11:18 AM EST us Generic External Data Provider LAB BLOOD ORDERAB LES Final Result Performing Organization Address [facility]/ZIP Co de Phone Number [facility] [address] [place] [phone] * Vitamin B1 (10/02/2025 11:18 AM EST) [facility] Vitamin B1 21 8 - 30 nmol/L [facility] Comment:Vitamin supplementat ion within 24 hours prior toblood draw may affect the accuracy of the results.This test was developed and its analytical performancecharacteristics have been determined by [employer] [place], [place]. It hasnot been cleared or approved by the U.S. Food and DrugAdministration. This assay has been validated pursuantto the CLIA regulations and is used for clinicalpurposes.THIS TEST WAS PERFORMED AT:[employer] [place] [address]SAIZVULPRATEEK DELGADILLO MD,PHD 10/02/2025 11:1 8 AM EST 10/02/2025 11:18 AM EST Generic External Data Provider LAB BLOOD ORDERAB LES Final Result Performing Organization Address [facility] Co de Phone Number [facility] [address] [place] [phone] * Magnesium (10/02/2025 11:18 AM EST) [facility] Magnesium 2.1 1.6 - 2.6 mg/dL [facility] 10/02/2025 11:1 8 AM EST 10/02/2025 11:18 AM EST Generic External Data Provider LAB BLOOD ORDERAB LES Final Result Performing Organization Address [facility] Co de Phone Number [facility] [address] [place] [phone] * Homocysteine (10/02/2025 11:18 AM EST) Homocysteine 9.0 < or = 13.4 umol/L [facility] Comment:Homocysteine is incr eased by functional deficiency offolate or vitamin B12. Testing for methylmalonic aciddifferentiates between these deficiencies. Other causesof increased homocysteine include renal failure, folateantagonists such as methotrexate and phenytoin, andexposure to nitrous oxide.Cassy Marsh, et al., Jenae Wellness Program Manager Med. 1999;131(5):331-9.THIS TEST WAS PERFORMED AT:[employer] [place] [phone] OSORIO MD 10/02/2025 11:1 8 AM EST 10/02/2025 11:18 AM EST Generic External Data Provider LAB BLOOD ORDERAB LES Final Result Performing Organization Address [facility] Co de Phone Number [facility] [address] [place] [phone] * Hemoglobin A1c (10/02/2025 11:18 AM EST) Hemoglobin A1c 5.9 <6.0 % [facility] Comment:Hemoglobin A1C Refer ence Range Adults: 4.8 - 6.0 % Non diabetic: < 6.0 % Goal: < 7.0 %Additional Action Suggested: > 8.0 %Note: Hemoglobin A1c results are invalid for patients with abnormal amounts of HbF. Blood transfusions may impact the HbA1c concentration in the patient sample. Estimated Average Glucose 123 mg/dL [facility] Comment:eAG = Estimated ave rage glucose which is %A1C expressed asaverage glucose, using the formula of the M7H-RknhfybSecbyvk Glucose study (ADAG), Diabetes Care, Vol.31,#8,2007 10/02/2025 11:1 8 AM EST 10/02/2025 11:18 AM EST Generic External Data Provider LAB BLOOD ORDERAB LES Final Result Performing Organization Address [facility] Co de Phone Number [facility] [address] [place] [phone] * Ferritin (10/02/2025 11:18 AM EST) Ferritin 60 10 - 250 ng/mL [facility] 10/02/2025 11:1 8 AM EST 10/02/2025 11:18 AM EST us Generic External Data Provider LAB BLOOD ORDERAB LES Final Result [facility] [address] [place] [phone] * (ABNORMAL) POCT Hgb A1c (10/01/2025 2:37 PM EST) Hemoglobin A1C 6.0(A) 4.0 - 5.7 % QC Media Lot # [id number] Lot# Expiration Date Blood 10/01/2025 2:37 PM EST us Alexandra Ahn MD POINT OF CARE TEST EN TER/EDIT ORDERABLES Final Result * BI Mammogram Screening Tomosynthesis Bilateral (05/31/2025 10:40 AM EDT) Anatomical Region Laterality Modality Breast Bilateral Mammography 05/31/2025 10:4 0 AM EDT Narrative 06/05/2025 8:41 PM EDT [facility] [address] [place] [address] Mammography Report Signed Patient: Liliane Ackerman MR#: [id number] : 1965 Acct:[id number] Age/Sex: 60 / F ADM Date: 05/31/25 Loc: [facility] Attending Dr: Alexandra Ahn MD Ordering Physician: Alexandra Pillai MD Results: 1Negative Date of Service: 05/31/25 Follow Up: 1 Year From Orig inal Mammogram Procedure(s): MM tomosynthesis screening BI Accession Number(s): [id number] cc: Alexandra Pillai MD EXAMINATION: MM SCREENING [...] OV> 06/05/252037 DD/ 1040 TD/TT: 05/31/25 1102 Automatic Spooler Operator: Procedure Note Donotuseinterpreter, Image - 06/05/2025 [facility] [address] [place] [address] Mammography Report Signed Patient: Ira Ackerman#: [id number] : 1965Acct:[id number] Age/Sex: 60 / FADM Date: 05/31/25 Loc: HO.MAMMO Attending Dr: Alexandra Ahn MD Ordering Physician: Alexandra Pillai MDResults: 1Negative Date of Service: 05/31/25Follow Up: 1 Year From Orig ina Mammogram Procedure(s): MM tomosynthesis screening BI Accession Number(s): [id number] cc: Alexandra Pillai MD EXAMINATION: MM SCREENING [...] OV> 06/05/252037 DD/ 1040 TD/TT: 05/31/25 1102 Automatic Spooler Operator: us Alexandra Ahn MD IMG BI PROCEDURES Fin al Result * Lipid Panel, Standard (06/26/2024 9:18 AM EDT) Triglycerides 129 <150 mg/dL [facility] Comment:Desirable Triglyceri de: less than 150 mg/dLBorderline High Triglyceride 150-199 mg/dLHigh Triglyceride: 200-499 mg/dLVery High Triglyceride: greater than or equal to 5OO mg/dL Cholesterol 125 <200 mg/dL [facility] Comment:Desirable Cholestero l: less than 200 mg/dLBorderline High Cholesterol: 200-239 mg/dLHigh Cholesterol: greater than 239 mg/dL LDL Cholesterol Calculated 59 <100 mg/dL [facility] Comment:Desirable LDL: less than 100 mg/dLNear Optimal/Above Optimal LDL: 110- 129 mg/dLBorderline High LDL: 130-159 mg/dLHigh LDL: 160-189 mg/dLVery High LDL: greater than or equal to 190 mg/dL HDL Cholesterol 41 >40 mg/dL [facility] Comment:Desirable HDL: great er than 40 mg/dL Note: This HDL assay may give artificially low results in patients with liver disease. Blood Venous blood specimen / Unknown 06/26/2024 9:18 AM EDT 06/26/2024 11:35 AM EDT us Alexandra Ahn MD LAB BLOOD ORDERABLES Final Result [facility] [address] [place] [phone] * HIV AB/AG (11/16/2019 9:40 AM EST) [facility] HIV AG/AB NONREACTIVE NR FOUNDATI ON LAB [...] of detection of this assay. [employer] HIV Ag/Ab Combo assay result and supplemental assay results should be interpreted in conjunction with the patient's clinical presentation, history and other laboratory results. If the results are inconsistent with clinical evidence, additional testing is suggested to confirm the result. 11/16/2019 9:40 AM EST us Alexandra Ahn MD HISTORICAL/NON ORDERA BLE LABS Final Result [facility] [address] [place] [address], * Hm Colonoscopy (04/01/2017) us Historical Provider HEALTH MAINTENANCE Final Result from Last 3 Months or Most Recently Relevant to Health Maintenance [facility] C3 Care Teams Railway Station Manager Relationship Specialty Start Date End Date Alexandra Pillai MD [address] [place] [address] PCP - General Family Medicine 06/05/19 Jacqueline Syed Photo ManagerDeputy Fire Chief 08/01/25
--- OUTSIDE RECORDS SUMMARY | 2025-10-21 15:19 | XMS_ITS | Encounter Summary ---
Author Organization [employer] Address [address] [facility] [address] [place] [address] Care Team Providers Care Apiculture Teacher Name Role Phone Alexandra Pillai MD Primary Care Provide r Encounter Details Date Type Department Care Team ([facility] st Contact Info) Description 03/25/2023 Orders Only [facility] PEDS [address] [place] [address] Jacqueline Mejias LPN Social History Tobacco Use [...] Description 11/23/2025 1:30 PM EST Office Visit [facility] OPTOMETRY [address] [place] [address] Zohra Young, OD [address] [place] [address] 01/03/2026 1:45 PM EST Office Visit [facility] MEDICINE [address] [place] [address] Alexandra Pillai MD [address] [place] [address] documented as of this encounter Procedures Procedure Name Priority Date/Time Associated Diagnosis Comments XR HAND 3+ VIEWS LEFT Routine 03/26/2023 12:45 PM EDT documented in this encounter Results * XR Hand 3+ Views Left (03/26/2023 12:45 PM EDT) Anatomical Region Laterality Modality Upper Extremities, Hand Left Radiogra phic Imaging 03/26/2023 12:4 5 PM EDT Narrative 04/14/2023 4:38 PM EDT [address] [address] XRay Report Signed Patient: Liliane Ackerman MR#: [id number] : 1965 Acct:[id number] Age/Sex: 57 / F ADM Date: 03/26/23 Loc: HO.HHCX Attending Dr: Alexandra Ahn MD Ordering Physician: Alexandra Pillai MD Date of Service: 03/26/23 Procedure(s): XR hand LT min 3V Accession Number(s): [id number] cc: Alexandra Pillai MD EXAMINATION: XR HAND, [...] in OV> 04/14/23 1635 DD/ 1245 TD/TT: Hose Turner: AUBREY Procedure Note Donotuseinterpreter, Image - 05/05/2023 [facility] [address] [place] [address] XRay Report Signed Patient: Ira Ackerman#: [id number] : 1965Acct:[id number] Age/Sex: 57 / FADM Date: 03/26/23 Loc: HO.HHX Attending Dr: Alexandra Ahn MD Ordering Physician: Alexandra Pillai MD Date of Service: 03/26/23 Procedure(s): XR hand LT min 3V Accession Number(s): [id number] cc: Alexandra Pillai MD EXAMINATION: XR HAND, [...] in OV> 04/14/23 1635 DD/ 1245 TD/TT: Hose Turner: AUBREY [facility] External Provider IMG XR PROCEDURES Final Result documented in this encounter Visit Diagnoses Not on filedocumented in this encounter Care Teams Apiculture Teacher Relationship Specialty Start Date End Date Alexandra Pillai MD [address] [place] [address] PCP - General Family Medicine 06/05/19 Jacqueline Syed Building EstimatorAthletic Trainer 08/01/25 documented as of this encounter
--- OUTSIDE RECORDS SUMMARY | 2025-10-21 15:19 | XMS_ITS | Encounter Summary ---
Author Organization [employer] Address [address] [facility] [address] [place] [address] Care Team Providers Care Plywood Matcher Name Role Phone Alexandra Pillai MD Primary Care Provide r Reason for Visit * Reason Onset Date Comments Call Back Request 02/27/2025 Encounter Details Date Type Department Care Team ([facility] Contact Info) Description 02/27/2025 Telephone [facility] MEDICINE [address] [place], [place] [phone] Alexandra Pillai MD [address] [place] [address] Call Back Request Social History Tobacco Use [...] not with anyone else. Please return call [phone] (bulgarian speaker) documented in this encounter Plan of Treatment Upcoming Encounters Date Type Department Care Team (Late st Contact Info) Description 11/23/2025 1:30 PM EST Office Visit [facility] OPTOMETRY [address] [place] [address] Zohra Young, OD [address] [place] [address] 01/03/2026 1:45 PM EST Office Visit [facility] MEDICINE [address] [place] [address] Alexandra Pillai MD [address] [place] [address] documented as of this encounter Visit Diagnoses Not on filedocumented in this encounter Additional Health Concerns Assessment Noted Time PHQ-9 Depression Total Score: 0 06/26/20 24 11:05 AM EDT documented as of this encounter Care Teams Plywood Matcher Relationship Specialty Start Date End Date Alexandra Pillai MD [address] [place] [address] PCP - General Family Medicine 06/05/19 Jacqueline Syed Machine Maintenance TechnicianCenterless Grinding Machine Adjuster 08/01/25 documented as of this encounter
== END 2025-10-21 15:14 | disposition home or self-care (01) ==
LOC: HO.MRI 15:13
PROVIDERS: PCP Internal Medicine; Visit Provider Nurse Practitioner Family
DX: R51.9 Headache, unspecified (principal); H53.9 Unspecified visual disturbance
CPT/HCPCS: 70553; A9585

== ENCOUNTER → 2025-10-21 15:19 | Outpatient (BNV) | payer MEDICAID, SELFPAY | PROVIDERS: PCP Internal Medicine; Visit Provider Radiology Diagnostic Radiology | DX: G31.9 Degenerative disease of nervous system, unspecified (principal) | CPT/HCPCS: 70553 ==